=== PATIENT | male | born 1935 | race Caucasian/White ===

== ENCOUNTER 2016-10-25 17:23 | Emergency (ER) | payer BC ==
[~2016-10-25] VITALS: Ht 180.3 cm; Wt 104.7 kg
[~2016-10-25 17:23] MED LIST: ACET-1175 PO; ASCA500 PO; BISA10SU38 PR; ENAL10TA88 PO; ENOX30IN4 SQ; FLM4 PO; FOLI400T41 PO; FURO20TA PO; LORA-741 PO; MAGNESIUM WITH ZINC PO; METHTAB2 PO; METO-551 PO; MOML PO; OXYC-57 PO; PRS5 PO; SENN-63 PO; VIT C; VITAMIN B-COMPLEX PO
[2016-10-25 17:30] VITALS: TEMP 36.7; Ht 180.3 cm; Wt 104.7 kg
[2016-10-25] MEDS ORDERED: VITBC PO (17:58)
[2016-10-25] MEDS ORDERED: FURO-85 PO (17:58)
[2016-10-25] MEDS ORDERED: FOLI1TAB8 PO (17:58)
[2016-10-25] MEDS ORDERED: CHOL20005 PO (17:58)
--- NOTE | 2016-10-25 18:05 | EMERGENCY ROOM VISIT NOTE ---
History Report prepared by Dayanaibcristela: Tete Garcia Under the Supervision of: Dr. Dami Negrete D.O. First contact with patient: 17:40 Chief Complaint: LEG PAIN,LEG INJURY Stated Complaint: NUMBNESS FROM KNEES TO FEET. History of Present Illness The patient is a 81 year old male who presents to the Emergency Room with complaints of persistent bilateral leg pain that started prior to arrival. He was brought to the ED via BLS from home and is accompanied by his . The patient is unable to ambulate without the assistance of a walker and states he uses a "wench system" to get on and off the toilet. Something went wrong with the system while he was using the toilet earlier this evening and his ended up attempting to lower him to the ground. He has arthritis and is unable to bend his knees, so he states he was resting his knees on the ground for about 20 minutes while his called for an ambulance. He currently complains of numbness from the middle of his bilateral thighs down to his toes. He rates his discomfort as a 2/10. He states both of his legs are more swollen than normal. The patient has not attempted to ambulate since the incident. He denies hitting his head or any loss of consciousness. He notes the wench system is homemade and the [facility] has never been into his home to evaluate it. Source of History: patient, spouse/significant other () Onset: [employer] Position: leg (bilateral) Symptom Intensity: 2/10 Quality: numbness Timing: other (persistent) Associated Symptoms: No LOC Review of Systems See HPI for pertinent positives and negatives. A total of ten systems were reviewed and were otherwise negative. Past Medical & Surgical Medical Problems: (1) Acute Venous Embolism & Thrombosis Deep Vessels Distal Le (2) Benign Neoplasm Lg Bowel (3) Diverticulosis Colon (W/O Ment Of Hemorrhage) (4) Duodenal Ulcer Nos (5) Hypertrophy (Benign) Of Prostate W/O Urinary Obst & Oth Luts (6) Spinal Stenosis, Lumbar Reg, W/Out Neurogenic Claudication Social History Smoking Status: Unknown if Ever Smoked Alcohol Use: none Drug Use: none Marital Status: Housing Status: lives with significant other Occupation Status: retired Current/Historical Medications Scheduled Ascorbic Acid (Vitamin C *), 500 MG PO QPM Cholecalciferol (Vitamin D3), 2,000 UNIT PO QPM Enalapril (Vasotec), 10 MG PO BID Finasteride (Proscar), 5 MG PO DAILY Folic Acid (Folvite), 1 MG PO DAILY Furosemide (Lasix), 40 MG PO QAM Furosemide (Lasix), 20 MG PO QPM Magnesium Hydroxide (Milk Of Magnesia), 30 ML PO Q8HR PRN Methenamine/Sod Phosphate (Uroqid-Acid #2), 1 GM PO DAILY Metoprolol Tartrate (Lopressor), 50 MG PO BID Sennosides (Senokot), 1 TAB PO M-W-F AND PRN Tamsulosin Hcl (Flomax *), 0.4 MG PO DAILY Vitamin B Complex (Vitamin B Complex), 1 TAB PO QPM Scheduled PRN Acetaminophen (Tylenol), 325 MG PO Q8 PRN for Pain or Fever Bisacodyl (Dulcolax), 1 SUPP MT Q 4 DAYS IF NO BM PRN for PRN Oxycodone/Acetaminophen 5MG/325MG (Percocet 5MG/325MG), 1-2 TAB PO Q4H PRN Allergies Coded Allergies: Levofloxacin (Verified Allergy, Unknown, ., 10/25/16) Sulfa Drugs (Verified Allergy, Unknown, `, 10/25/16) Physical Exam Vital Signs Date Time Temp Pulse Resp B/P Pulse Ox O2 Delivery O2 Flow Rate FiO2 10/25/16 20:36 79 18 131/98 98 Room Air 10/25/16 19:15 78 20 133/94 97 Room Air 10/25/16 17:30 36.7 84 18 118/88 100 Room Air Physical Exam GENERAL: Awake, alert, well-appearing, in no acute distress HENT: Normocephalic, atraumatic. Oropharynx unremarkable. EYES: Normal conjunctiva. Sclera non-icteric. NECK: Supple. No nuchal rigidity. FROM. No JVD. RESPIRATORY: Clear to auscultation. CARDIAC: Regular rate, normal rhythm. Extremities warm and well perfused. Pulses equal. ABDOMEN: Soft, non-distended. No tenderness to palpation. No rebound or guarding. No masses. RECTAL: Deferred. MUSCULOSKELETAL: Chest examination reveals no tenderness. The back is symmetrical on inspection without obvious abnormality. There is no CVA tenderness to palpation. No joint edema. LOWER EXTREMITIES: Mild tenderness to palpation at left mid lateral thigh, no ecchymosis at the tender part for the patient. Left knee has limited ROM secondary to history of arthritis, no ecchymosis, edema or tenderness. Right thigh is normal. Right knee showed subpatellar ecchymosis, no tenderness, good ROM, both extremities are neurovascularly intact. Chronic cellulitis bilaterally below the mid calf. Anterior right calf has small ecchymotic area of about 2 cm. NEURO: Normal sensorium. No sensory or motor deficits noted. SKIN: No rash or jaundice noted. Medical Decision & Procedures ER Provider Diagnostic Interpretation: This X-Ray was reviewed and interpreted by myself and the radiologist. LEFT FEMUR 2 VIEWS ROUTINE IMPRESSION: No fracture or dislocation within the left femur. Electronically signed by: Andrew Ordaz M.D. 10/25/2016 7:46 PM ED Course 1753: The patient was evaluated in room C10. A complete history and physical exam was performed. 1904: I reevaluated the patient. He has not gone to X-Ray yet but is resting comfortably. 2002: I reevaluated the patient. He is resting comfortably. 2025: Nursing informed me the patient passed his ambulatory trial. 2029: I discussed the patients case with Case Management. They are going to talk with the patient about more in home care. 2034: I reevaluated the patient. He is feeling much better. He does not want to pursue at home therapy at this time, but has the numbers of local home support and will follow up with his primary care provider. His family feels they are able to care for him at home. I discussed his results and discharge instructions and he and his verbalized complete understanding and agreement. Medical Decision Prior records/ancillary studies reviewed. Triage Nursing notes reviewed. The patient's history was concerning for traumatic injury Differential diagnosis: Etiologies such as fracture, dislocation, intra-abdominal, pneumothorax, intrathoracic , intracranial, neurologic, as well as other traumatic pathologies were entertained. MDM: Vision is an 81-year-old male who has severe arthritis and difficulty getting around his was helping him to get onto the toilet when he slipped from his homemade lift device. He slumped over the toilet in the lay there for approximately 15-20 minutes for EMS responded to let the patient up off the floor and the toilet. He has pain in both legs and left lateral thigh. Ecchymosis is noted. X-ray was obtained showing no bony injury. He was able to get up and ambulate as per his baseline. Discussion with family care management about the home nursing and home rehabilitation therapies were made. The family states they will follow-up with the area agency on aging. As well as contact with the primary care provider about possibility of home nursing care. He remained comfortable and happy with his emergency department care will follow up with primary care provider and couple of days. Department information was provided and he and his family understand. The patient's presentation and history is c/w the impression provided. A partial list of DDx that has been considered is listed above. By the evaluation outlined above other emergent etiologies such as those listed in the differential, as well as others, were deemed relatively unlikely. The patient has been informed about today's findings. All questions were answered to satisfaction and understanding. They are pleased with the care provided. Patient education and return instructions were discussed as per my usual and the patient was discharged in stable condition as agreed upon by the patient. The patient was referred for close follow-up and informed that they will need to call to schedule appointment during the next business hours. The chart was completed utilizing a scribe and [employer] Speech voice recognition software. Utilizing these services results in errors at time as they are imperfect. Grammatical errors, random word insertions, pronoun errors, and incomplete sentences are an occasional consequence of this system due to software limitations, ambient noise, and hardware issues. Any formal questions or concerns about the content, text, or information contained within the body of this dictation should be directly addressed to the physician for clarification. Impression Primary Impression: Fall Additional Impressions: Bilateral leg pain, Paresthesia, Multiple contusions Scribe Attestation The scribe's documentation has been prepared under my direction and personally reviewed by me in its entirety. I confirm that the note above accurately reflects all work, treatment, procedures, and medical decision making performed by me. Departure Information Dispostion Home / Self-Care Referrals Waqas Ralph M.D. (PCP) Patient Instructions A Signature Page, ED Contusion Lower Ext, Falls Prevent Home, [facility] Additional Instructions Take acetaminophen home as directed for pain. Utilizing a walker or wheelchair to get around the home. Getting contact with the area agency on aging for home support. See your doctor in 2 days. Return to the emergency department as needed for any severe pains or inability to care for yourself.
--- NOTE | 2016-10-25 19:48 | DIAGNOSTIC IMAGING REPORT ---
LEFT FEMUR 2 VIEWS ROUTINE CLINICAL HISTORY: left thigh pain s/p fall COMPARISON STUDY: None. FINDINGS: No fracture or dislocation within the left femur. Vascular calcifications are noted. The visualized pelvic bones are intact. No knee effusion. IMPRESSION: No fracture or dislocation within the left femur. Electronically signed by: Andrew Ordaz M.D. 10/25/2016 7:46 PM
[2016-10-25 20:36] VITALS: BP 131/98; PULSE 79; O2SAT 98
[2017-05-16] MEDS ORDERED: ACET-1175 PO (14:18)
[2017-05-16] MEDS ORDERED: FURO80TA63 PO (14:24)
[2017-05-16] MEDS ORDERED: METO-551 PO (14:28)
[2017-05-16] MEDS ORDERED: ASPCH81X PO (14:34)
[2017-05-16] MEDS ORDERED: XRL10 PO (14:38)
[2017-05-16] MEDS ORDERED: DOXY100C41 PO (14:39)
[2017-05-16] MEDS ORDERED: LORA10TA51 PO (14:41)
[2017-05-18] MEDS ORDERED: LVNIS120 SQ (12:00)
[2017-05-19] MEDS ORDERED: ERYOPO OPB (09:21)
[2017-05-31] MEDS ORDERED: METH-1305 PO (11:08)
[2017-06-06] MEDS ORDERED: FRS/40 PO (12:44)
[2017-06-06] MEDS ORDERED: KFL500 PO (12:44)
[2017-06-06] MEDS ORDERED: PRT40 PO (12:44)
[2017-06-18] MEDS ORDERED: AZITTAB PO (03:03)
[2017-06-18] MEDS ORDERED: IPRASOL4 NEB (11:08)
[2017-09-21] MEDS ORDERED: MOML PO (15:28)
[2017-09-21] MEDS ORDERED: PANT40TA PO (15:28)
[2017-09-21] MEDS ORDERED: MULTTAB63 PO (15:28)
[2017-09-21] MEDS ORDERED: FRS/40 PO (15:28)
== END 2016-10-25 20:42 | disposition home or self-care (01) ==
LOC: EDBD 17:23 → C.EDC 17:25
DX: M79.605 Pain in left leg (principal); M79.604 Pain in right leg; R20.2 Paresthesia of skin; T14.8 Other injury of unspecified body region; X58.XXXA Exposure to other specified factors, initial encounter

== ENCOUNTER → 2017-02-01 | Outpatient (CLI) | payer BC ==
[~2017-02-01] MED LIST changes: +AMOX875T PO; +ASCO500T16 PO; +ASPCH81X PO; +AZITTAB PO; +CHOL20005 PO; +DOXY100C41 PO; -ENOX30IN4 SQ; +ERYOPO OPB; +FINA5TAB4 PO; +FOLI1TAB7 PO; -FOLI400T41 PO; +FRS/40 PO; +FURO-85 PO; +FURO80TA63 PO; +IPRASOL4 NEB; +KFL500 PO; -LORA-741 PO; +LORA10TA51 PO; +LVNIS120 SQ; -MAGNESIUM WITH ZINC PO; +METH-1305 PO; +MULT-513 PO; +MULTTAB63 PO; +OXGN; +PANT40TA PO; +PRT40 PO; +TAMS0.4C38 PO; +THIC1LIQ PO; -VIT C; -VITAMIN B-COMPLEX PO; +VITBC PO; +XRL10 PO
[2017-02-01 09:03] LABS: BLOOD UREA NITROGEN 42 mg/dl (7-18); BUN/CREATININE RATIO 63.5 (10-20); CALCIUM 7.8 mg/dl (8.5-10.1); CARBON DIOXIDE 23 mmol/L (21-32); CHLORIDE 106 mmol/L (98-107); CREATININE 0.66 mg/dl (0.60-1.40); GLUCOSE 105 mg/dl (70-99); POTASSIUM 3.8 mmol/L (3.5-5.1); SODIUM 139 mmol/L (136-145)
[2017-02-01 09:17] LABS: HEMATOCRIT 32.9 % (42-52); MEAN CELL VOLUME 102.2 fL (80-100); MEAN CORPUSCULAR HEMOGLOBIN 34.8 pg (25-34); MEAN PLATELET VOLUME 9.6 fL (7.4-10.4); PLATELET COUNT 88 K/uL (130-400); RED BLOOD COUNT 3.22 M/uL (4.7-6.1)
[2017-02-01 09:38] LABS: BASO % 0.1 %; BASO ABS # 0.01 K/uL (0-0.2); COMPLETE YES; ECHINOCYTES 1+; EOS % 0.1 %; IG% 0.1 %; LYMPH % 23.2 %; LYMPH ABS # 1.65 K/uL (1.2-3.4); NEUT % 65.5 %; PLT ESTIMATE DECREASED
[2017-02-01 09:53] LABS: URINE APPEARANCE CLEAR (CLEAR); URINE BILIRUBIN NEG (NEG); URINE COLOR YELLOW; URINE NITRITE POS (NEG); URINE SPECIFIC GRAVITY 1.013 (1.000-1.030); UROBILINOGEN NEG (NEG)
[2017-02-01 09:59] LABS: MANUAL MICROSCOPIC REQUIRED? NO; REVIEW REQ? NO
== END | disposition home or self-care (01) ==
LOC: C.LABCC 07:56
PROVIDERS: ATTEND Internal Medicine
DX: R50.9 Fever, unspecified (principal); R30.0 Dysuria

== ENCOUNTER → 2017-04-26 | Outpatient (CLI) | payer BC ==
[~2017-04-26] MED LIST changes: -METH-1305 PO; +METH1TAB5 PO; -MULTTAB63 PO; -PANT40TA PO
== END | disposition home or self-care (01) ==
LOC: C.LABCC 09:19
PROVIDERS: ATTEND Internal Medicine
DX: R63.5 Abnormal weight gain (principal)

== ENCOUNTER → 2017-04-27 | Outpatient (CLI) | payer BC ==
[2017-04-27 10:01] LABS: BLOOD UREA NITROGEN 64 mg/dl (7-18); BUN/CREATININE RATIO 78.4 (10-20); CALCIUM 8.3 mg/dl (8.5-10.1); CARBON DIOXIDE 19 mmol/L (21-32); CHLORIDE 113 mmol/L (98-107); CREATININE 0.82 mg/dl (0.60-1.40); GLUCOSE 97 mg/dl (70-99); POTASSIUM 3.8 mmol/L (3.5-5.1); SODIUM 141 mmol/L (136-145)
== END ==
LOC: C.LABCC 09:18
PROVIDERS: ATTEND Internal Medicine
DX: R63.5 Abnormal weight gain (principal)

== ENCOUNTER → 2017-05-09 | Outpatient (CLI) | payer BC | LOC: C.LABCC 09:06 | PROVIDERS: ATTEND Internal Medicine | DX: R60.9 Edema, unspecified (principal) ==

== ENCOUNTER → 2017-05-15 | Outpatient (CLI) | payer BC ==
[2017-05-15 08:50] LABS: ALT/SGPT 20 U/L (12-78); BLOOD UREA NITROGEN 63 mg/dl (7-18); BUN/CREATININE RATIO 71.1 (10-20); CALCIUM 8.3 mg/dl (8.5-10.1); CARBON DIOXIDE 26 mmol/L (21-32); CHLORIDE 101 mmol/L (98-107); CREATININE 0.88 mg/dl (0.60-1.40); GLUCOSE 88 mg/dl (70-99); POTASSIUM 4.5 mmol/L (3.5-5.1); SODIUM 135 mmol/L (136-145)
[2017-05-15 08:53] LABS: ALB/GLOB RATIO 0.6 (0.9-2); ALKALINE PHOSPHATASE 85 U/L (45-117); AST/SGOT 20 U/L (15-37)
== END ==
LOC: C.LABCC 08:07
PROVIDERS: ATTEND Internal Medicine
DX: R60.9 Edema, unspecified (principal)

== ENCOUNTER 2017-05-16 12:20 | Inpatient (IN) | payer BC, OTHER ==
[~2017-05-16] VITALS: Ht 180.3 cm; Wt 114.6 kg
[~2017-05-16 12:20] MED LIST changes: -AMOX875T PO; -ASCO500T16 PO; -ASPCH81X PO; -AZITTAB PO; -DOXY100C41 PO; -ERYOPO OPB; -FINA5TAB4 PO; -FRS/40 PO; -FURO80TA63 PO; -IPRASOL4 NEB; -KFL500 PO; -LORA10TA51 PO; -LVNIS120 SQ; -METH1TAB5 PO; -MULT-513 PO; -OXGN; -PRT40 PO; -TAMS0.4C38 PO; -THIC1LIQ PO; -XRL10 PO
[2017-05-16 13:30] VITALS: BP 100/67; PULSE 78; TEMP 36.5; O2SAT 94; Ht 180.3 cm; Wt 114.6 kg
[2017-05-16] MEDS ORDERED: ACET-1175 PO ×2 (14:18)
[2017-05-16] MEDS ORDERED: FURO80TA63 PO ×2 (14:24)
[2017-05-16] MEDS ORDERED: METO-551 PO ×2 (14:28)
[2017-05-16] MEDS ORDERED: ASPCH81X PO ×2 (14:34)
[2017-05-16] MEDS ORDERED: XRL10 PO ×2 (14:38)
[2017-05-16] MEDS ORDERED: DOXY100C41 PO ×2 (14:39)
[2017-05-16] MEDS ORDERED: LORA10TA51 PO ×2 (14:41)
[2017-05-16] MEDS ORDERED: ONDANSETRON INJ 2 MG/ML 2 ML VIAL IV PRN (15:15)
[2017-05-16] MEDS ORDERED: ALUMINUM/MAGNESIUM/SIMETH (MAALOX MAX) 30 ML UDC PO PRN (15:15)
[2017-05-16] MEDS ORDERED: OXYCODONE/ACETAMINOPHEN 5-325 TAB PO PRN (15:15)
[2017-05-16] MEDS ORDERED: BISACODYL 10 MG SUPP PR PRN (15:15)
[2017-05-16] MEDS ORDERED: ACETAMINOPHEN 325 MG TAB PO PRN (15:15)
[2017-05-16] MEDS ORDERED: MAGNESIUM HYDROXIDE SUSP 30 ML UDC PO PRN (15:15)
[2017-05-16] MEDS ORDERED: POLYETHYLENE (MIRALAX) 17 GM PACK PO PRN (16:00)
[2017-05-16] MEDS: ALBUT/IPRATROP 3MG/0.5MG NEB 3 ML VIAL INH SCH ×2 (16:00→19:35)
--- NOTE | 2017-05-16 16:00 | History and Physical ---
History & Physical Date & Time of Service: May 16, 2017 at 15:28 Chief Complaint: Bilateral Le Dvt's Primary Care Physician: Riaz Gallagher History of Present Illness Source: patient, family ( and son- at bedside), clinic records, hospital records Patient is a pleasant 82 y/o male, with PMHx of anemia/chronic thrombocytopenia , homocysteinemia, lupus anticoagulant positive, h/o bilateral lower extremity DVT in 2010, intraabdominal hematoma w/ the use of Warfarin, HTN, BPH, polyneuropathy, chronic venous insufficiency, chronic lower extremity edema, paroxysmal a.fib, peripheral artery disease, and h/o duodenal ulcer, who was a direct admission from [facility] due to persistent bilateral lower extremity DVT and pain. Bilateral DVTs were diagnosed on 05/11. Patient was placed on Xarelto. Since that time, patient has been complaining of worsening bilateral lower extremity pain. Because of this, a repeat US was obtained today and reported: persistent DVT right common femoral vein, profundofemoral, femoral vein, new DVT to right popliteal vein, and decreased left femoral DVT. Patient states in 2010, he was diagnosed with bilateral lower extremity DVTs. At that time, he was placed on Lovenox and bridged w/ Coumadin. Shortly after initiating therapy, patient developed significantly bleeding. He was life- flighted to [facility], was found to have intraabdominal hematomas. An IVC filter was placed. Patient has not been on anticoagulation since filter placement until recently on 05/11 when he was started on Xarelto by [facility]. Per PCP reports, it was discussed with patient about chronic anticoagulation therapy for paroxysmal a.fib, but due to gait dysfunction and h/ o of significant bleeding, patient declined. +chronic cough- non worsening. Patient denies any fever, chills, sweats, lightheadedness, dizziness, vision changes, CP, palpitations, edema, SOB, wheezing, abdominal pain, nausea, vomiting, diarrhea, urinary symptoms, melena, numbness/tingling, weakness, anxiety/depression, active bleeding, or new skin discoloration/changes. Past Medical/Surgical History Medical Problems: anemia/chronic thrombocytopenia homocysteinemia lupus anticoagulant positive h/o bilateral lower extremity DVT in 2010 intraabdominal hematoma w/ the use of Warfarin HTN BPH polyneuropathy chronic venous insufficiency chronic lower extremity edema paroxysmal a.fib peripheral artery disease h/o duodenal ulcer Surgical history: C-spine discectomy IVC filter placement in Sep 2011 Social History Smoking Status: Never Smoker Smokeless Tobacco Use: Yes Alcohol Use: h/o alcohol abuse Drug Use: none Marital Status: Housing status: assisted living ([facility] ) Occupational Status: retired Immunizations History of Influenza Vaccine: Unknown History of Tetanus Vaccine?: Unknown History of Pneumococcal: Unknown History of Hepatitis B Vaccine: Unknown Multi-Drug Resistant Organisms History of MDRO: Yes Type of MDRO: MRSA Allergies Coded Allergies: Levofloxacin (Verified Allergy, Unknown, ., 10/25/16) Sulfa Antibiotics (Verified Allergy, Unknown, ., 05/16/17) Home Medications Scheduled Ascorbic Acid (Vitamin C *), 500 MG PO QPM Aspirin (Aspirin Chewable), 81 MG PO DAILY Doxycycline (Monohydrate) (Monodox), 1 CAP PO BID Enalapril (Vasotec), 10 MG PO BID Finasteride (Proscar), 5 MG PO DAILY Folic Acid (Folvite), 1 MG PO DAILY Furosemide (Lasix), 1 TAB PO BID Loratadine (Claritin), 1 TAB PO DAILY Magnesium Hydroxide (Milk Of Magnesia), 30 ML PO Q8HR PRN Methenamine/Sod Phosphate (Uroqid-Acid #2), 1 GM PO DAILY Metoprolol Tartrate (Lopressor), 1 TAB PO DAILY Rivaroxaban (Xarelto), 1.5 TAB PO BID Tamsulosin Hcl (Flomax *), 0.4 MG PO DAILY Vitamin B Complex (Vitamin B Complex), 1 TAB PO QPM Scheduled PRN Acetaminophen (Tylenol), 650 MG PO Q4H PRN for Pain or Fever Bisacodyl (Dulcolax), 1 SUPP AR Q 4 DAYS IF NO BM PRN for PRN Physical Exam General Appearance: no apparent distress Head: normocephalic, atraumatic Eyes: PERRL ENT: hearing grossly normal Neck: supple Respiratory/Chest: lungs clear, no respiratory distress, no accessory muscle use Cardiovascular: regular rate, rhythm Abdomen/GI: normal bowel sounds, non tender, soft Extremities/Musculoskelatal: + swelling (+1 pitting edema of bilateral lower extremities ), + pertinent finding (chronic stasis dermatitis changes noted to bilateral lower extremities; LLE resendiz region wrapped in clean dressing ) Neurologic/Psych: alert, normal mood/affect, oriented x 3 Skin: normal color, warm/dry, no rash Impression Assessment and Plan Patient is a pleasant 82 y/o male, with PMHx of anemia/chronic thrombocytopenia , homocysteinemia, lupus anticoagulant positive, h/o bilateral lower extremity DVT in 2010, intraabdominal hematoma w/ the use of Warfarin, HTN, BPH, polyneuropathy, chronic venous insufficiency, chronic lower extremity edema, paroxysmal a.fib, peripheral artery disease, and h/o duodenal ulcer, who was a direct admission from [facility] due to persistent bilateral lower extremity DVT and pain. Bilateral lower extremity DVT, failed outpatient Xarelto treatment: - Admit to med/surg - IV Heparin- monitor closely w/ h/o significant bleeding - Percocet and Tylenol PRN for pain control - PT/OT - Consult hematology, appreciate recommendations - CBC and PRP pending HTN: Continue Vasotec 10 mg BID Paroxysmal a.fib- currently NSR: Lopressor 50 mg daily Homocystinemia: Continue b12 and folate supplement BPH: Continue Proscar 5 mg daily Chronic cough: Continue DuoNebs PRN Chronic lower extremity edema: Continue Lasix 80 mg BID Venous stasis ulcer to LLE: Continue Doxycycline 100 mg BID GI Prophylaxis: Protonix 40 mg daily DVT Prophylaxis: IV Heparin Code Status: LEVEL I, FULL Dispo: Resident of [facility]- oncology social worker consulted I personally interviewed and examined the patient I discussed the above plan with Miss Marisabel Poole I agree with her Hx and PE 82 years old man with PMHx homocysteinemia, lupus anticoagulant positive and recurrent DVT/PE. was on coumadin when he developed life threatening bleeding followed by IVC filter. recently was restarted on xarelto for recurrent DVT/pain appears to have progression of his symptoms and was sent for evaluation Spoke with Mamta from [facility] (patients nurse), xarelto was started on initial doppler showed the acute dvt, repeat doppler showed new DVT. questionable failure of xarelto ROS/PMHx: as HPI FHx/SHx/labs/meds reviewed as needed PE: average built , not in acute distress LUNGs: normal exam, no wheezing/R Heart: s1/s2 bradycardia, no G/R/M ABD: soft, ND, N tender Ext: B/L LE edema and swelling w erythema Neuro: pleasant,slightly confused but followed simple commands and answered simple question Assessment: recurrent DVT , failure of xarelto Hx of significant bleeding on coumadin followed by IVCF Plan: admit to hospital reed currently started heparin drip early childhood coordinator consulted, I am not sure about the best choice of discharge anticoagulation, will defer the decision to early childhood coordinator. labs in am Level of Care Med/Surg Resuscitation Status FULL RESUSCITATION VTE Prophylaxis VTE Risk Assessment Done? Y/N: Yes Risk Level: High Given or contraindicated: Other Anticoagulation (IV heparin )
[2017-05-16] MEDS ORDERED: HEPARIN IV BOLUS 7,000 UNIT in SYRINGE 0 ML IV ONE (16:45)
[2017-05-16] MEDS: HEPARIN 25000 UNIT/ D5W 500 ML (PHARMACY PREPARED) IV PRN ×2 (17:07)
[2017-05-16 17:08] LABS: HEMATOCRIT 33.7 % (42-52); MEAN CELL VOLUME 104.3 fL (80-100); MEAN CORPUSCULAR HEMOGLOBIN 34.1 pg (25-34); MEAN CORPUSCULAR HGB CONC 32.6 g/dl (32-36); MEAN PLATELET VOLUME 8.9 fL (7.4-10.4); PLATELET COUNT 141 K/uL (130-400); RED BLOOD COUNT 3.23 M/uL (4.7-6.1); WHITE BLOOD COUNT 5.12 K/uL (4.8-10.8)
[2017-05-16] MEDS: FUROSEMIDE 80 MG TAB PO SCH (17:11)
[2017-05-16 17:27] LABS: BUN/CREATININE RATIO 82.8 (10-20); CALCIUM 8.2 mg/dl (8.5-10.1); CREATININE 0.78 mg/dl (0.60-1.40); POTASSIUM 4.2 mmol/L (3.5-5.1)
[2017-05-16 19:35] VITALS: PULSE 78; O2SAT 91
[2017-05-16 19:45] VITALS: BP 99/60; PULSE 74; O2SAT 93
[2017-05-16] MEDS: ENALAPRIL MALEATE 10 MG TAB PO SCH (19:51)
[2017-05-16] MEDS: DOXYCYCLINE HYCLATE 100 MG CAP PO SCH (20:28)
[2017-05-16] MEDS: ASCORBIC ACID 500 MG TAB PO SCH (20:28)
[2017-05-16] MEDS: VITAMIN B COMPLEX TAB PO SCH (20:28)
[2017-05-16 23:33] LABS: PARTIAL THROMBOPLASTIN RATIO 1.2
[2017-05-16 23:35] VITALS: BP 138/97; PULSE 75; TEMP 36.8; O2SAT 92
[2017-05-17] VITALS (9 sets, daily range): BP systolic 98–138; BP diastolic 60–75; PULSE 69–84; TEMP 36.5–36.6; O2SAT 91–95
[2017-05-17] MEDS: HEPARIN 25000 UNIT/ D5W 500 ML (PHARMACY PREPARED) IV PRN ×6 (00:15→18:47)
[2017-05-17] MEDS ORDERED: HEPARIN IV BOLUS 7,000 UNIT in SYRINGE 0 ML IV ONE ×3 (00:15→17:45)
[2017-05-17] MEDS: ALBUT/IPRATROP 3MG/0.5MG NEB 3 ML VIAL INH SCH ×7 (03:08→23:28)
[2017-05-17] MEDS: DOXYCYCLINE HYCLATE 100 MG CAP PO SCH ×2 (07:45→19:43)
[2017-05-17] MEDS: ENALAPRIL MALEATE 10 MG TAB PO SCH ×2 (07:45→19:44)
[2017-05-17] MEDS: PANTOprazole SOD 40 MG TAB PO SCH (07:46)
[2017-05-17] MEDS: FINASTERIDE 5 MG TAB PO SCH (07:46)
[2017-05-17] MEDS: ASPIRIN 81 MG ECTAB PO SCH (07:46)
[2017-05-17] MEDS: LORATADINE 10 MG TAB PO SCH (07:46)
[2017-05-17] MEDS: METOPROLOL TARTRATE 50 MG TAB PO SCH (07:47)
[2017-05-17] MEDS: FUROSEMIDE 80 MG TAB PO SCH ×2 (07:47→17:43)
[2017-05-17] MEDS: TAMSULOSIN HCL 0.4 MG CAP PO SCH (07:47)
[2017-05-17 08:42] LABS: HEMATOCRIT 33.1 % (42-52); MEAN CELL VOLUME 103.8 fL (80-100); MEAN CORPUSCULAR HEMOGLOBIN 34.8 pg (25-34); MEAN CORPUSCULAR HGB CONC 33.5 g/dl (32-36); MEAN PLATELET VOLUME 9.3 fL (7.4-10.4); PLATELET COUNT 150 K/uL (130-400); RED BLOOD COUNT 3.19 M/uL (4.7-6.1); WHITE BLOOD COUNT 5.12 K/uL (4.8-10.8)
[2017-05-17 08:49] LABS: INR 1.1 (0.9-1.1); PARTIAL THROMBOPLASTIN RATIO 1.2; PROTHROMBIN TIME (PATIENT) 12.3 SECONDS (9.0-12.0)
[2017-05-17 09:26] LABS: BUN/CREATININE RATIO 75.6 (10-20); CALCIUM 8.3 mg/dl (8.5-10.1); CREATININE 0.81 mg/dl (0.60-1.40); POTASSIUM 3.3 mmol/L (3.5-5.1)
--- NOTE | 2017-05-17 15:25 | Family Medicine Progress Note ---
Progress Note Date of Service May 17, 2017. Subjective Pt evaluation today including: conversation w/ patient, physical exam, chart review, lab review Pain: in left lower extremity PO Intake: good Voiding: no voiding problems 82 y/o male, with PMHx of anemia/chronic thrombocytopenia, homocysteinemia, lupus anticoagulant positive, h/o bilateral lower extremity DVT in 2010, intraabdominal hematoma w/ the use of Warfarin, HTN, BPH, polyneuropathy, chronic venous insufficiency, chronic lower extremity edema, paroxysmal a.fib, peripheral artery disease, and h/o duodenal ulcer, who was a direct admission from [facility] due to persistent bilateral lower extremity DVT and pain. Has a history of bilateral DVTs in 2010 and had an intraperitoneal bleed while on Lovenox and bridging to Coumadin after which she was life flighted to [facility] and had an IVC filter placed. Was started on Xarelto on 05/11 for DVT. Repeat ultrasound obtained 05/16 revealed persistent DVT right common femoral vein, profundofemoral, femoral vein , new DVT to right popliteal vein, and decreased left femoral DVT Complains of left lower extremity pain especially below his calf area which is worse on palpation. He has a history of chronic venous stasis with venous ulcers about the same area. Denies any chest pain, difficulty breathing Constitutional: No fever, No chills ENT: + hearing loss Respiratory: No cough, No sputum, No shortness of breath Cardiovascular: No chest pain Abdomen: No pain, No nausea, No vomiting Neurologic: No memory loss, No paralysis Medications Current Inpatient Medications Medications (Trade) Dose Ordered Sig/Ekta Route Start Time Stop Time Status Last Admin Dose Admin Acetaminophen (Tylenol Tab) 650 mg Q4H PRN PO 05/16/17 15:15 06/15/17 15:14 Al Hydrox/Mg Hydrox/Simethicone (Maalox Max Susp) 15 ml Q4H PRN PO 05/16/17 15:15 06/15/17 15:14 Magnesium Hydroxide (Milk Of Magnesia Susp) 30 ml Q6H PRN PO 05/16/17 15:15 06/15/17 15:14 Polyethylene (Miralax Powder Packet) 17 gm DAILY PRN PO 05/16/17 16:00 06/15/17 15:59 Ondansetron HCl (Zofran Inj) 4 mg Q6H PRN IV 05/16/17 15:15 06/15/17 15:14 Ascorbic Acid (Vitamin C Tab) 500 mg QPM PO 05/16/17 21:00 06/15/17 20:59 05/16/17 20:28 500 MG Aspirin (Ecotrin Tab) 81 mg QAM PO 05/17/17 08:00 06/16/17 07:59 05/17/17 07:46 81 MG Bisacodyl (Dulcolax Supp) 5 mg DAILY PRN ME 05/16/17 15:15 06/15/17 15:14 Enalapril Maleate (Vasotec Tab) 10 mg BID PO 05/16/17 20:00 06/15/17 19:59 05/17/17 07:45 10 MG Finasteride (Proscar Tab) 5 mg DAILY PO 05/17/17 08:00 06/16/17 07:59 05/17/17 07:46 5 MG Folic Acid (Folvite Tab) 1 mg DAILY PO 05/17/17 08:00 06/16/17 07:59 05/17/17 07:46 1 MG Furosemide (Lasix Tab) 80 mg BID17 PO 05/16/17 17:00 06/15/17 16:59 05/17/17 07:47 80 MG Loratadine (Claritin Tab) 10 mg DAILY PO 05/17/17 08:00 06/16/17 07:59 05/17/17 07:46 10 MG Metoprolol Tartrate (Lopressor Tab) 50 mg DAILY PO 05/17/17 08:00 06/16/17 07:59 05/17/17 07:47 50 MG Tamsulosin HCl (Flomax Cap) 0.4 mg DAILY PO 05/17/17 08:00 06/16/17 07:59 05/17/17 07:47 0.4 MG Vitamin B Complex (Vitamin B Complex) 1 tab QPM PO 05/16/17 21:00 06/15/17 20:59 05/16/17 20:28 1 TAB Doxycycline Hyclate (Vibramycin Cap) 100 mg BID PO 05/16/17 20:00 05/22/17 20:01 05/17/17 07:45 100 MG Miscellaneous Information (Order Awaiting Action) 1 ea QS N/A 05/16/17 16:00 06/15/17 15:59 Oxycodone/ Acetaminophen (Percocet 5-325mg Tab) 1 tab Q4H PRN PO 05/16/17 15:15 05/30/17 15:14 Albuterol/ Ipratropium (Duoneb) 3 ml Q4R INH 05/16/17 16:00 06/15/17 15:59 05/17/17 11:14 3 ML Pantoprazole Sodium (Protonix Tab) 40 mg QAM PO 05/17/17 08:00 06/16/17 07:59 05/17/17 07:46 40 MG Heparin Sodium (Porcine) 65666 unit/Dextrose 500 ml @ 47 mls/hr [id number] PRN IV 05/16/17 16:45 06/15/17 16:44 05/17/17 07:45 40 MLS/HR Objective Vital Signs Date Time Temp Pulse Resp B/P (MAP) Pulse Ox O2 Delivery O2 Flow Rate FiO2 05/17/17 15:05 36.5 72 18 100/68 (79) 95 Room Air 05/17/17 11:16 69 16 92 Room Air 05/17/17 08:00 Room Air 05/17/17 07:14 79 17 91 Room Air 05/17/17 07:06 36.5 81 20 138/75 (96) 94 Room Air 05/17/17 01:00 Room Air 05/16/17 23:35 36.8 75 20 138/97 (111) 92 Room Air 05/16/17 20:10 Room Air 05/16/17 19:45 74 99/60 (73) 93 Room Air 05/16/17 19:35 78 16 91 Room Air Physical Exam General Appearance: WD/WN, no apparent distress Eyes: normal inspection Neck: supple Respiratory/Chest: lungs clear, normal breath sounds, no respiratory distress, no accessory muscle use Cardiovascular: regular rate, rhythm Abdomen: non tender, soft Extremities: + pedal edema, + pertinent finding (left lower extremity tenderness especially below the calf area. Superficial venous ulcers in the posterior aspect) Skin: + pertinent finding (chronic venous stasis dermatitis) Laboratory Results 05/17/17 08:07 05/17/17 08:07 Test 05/17/17 08:07 05/17/17 16:04 Red Blood Count 3.19 M/uL (4.7-6.1) Mean Corpuscular Volume 103.8 fL (80-100) Mean Corpuscular Hemoglobin 34.8 pg (25-34) Mean Corpuscular Hemoglobin Concent 33.5 g/dl (32-36) RDW Standard Deviation 52.5 fL (36.4-46.3) RDW Coefficient of Variation 13.9 % (11.5-14.5) Mean Platelet Volume 9.3 fL (7.4-10.4) Prothrombin Time 12.3 SECONDS (9.0-12.0) Prothromb Time International Ratio 1.1 (0.9-1.1) Anion Gap 11.0 mmol/L (3-11) Est Creatinine Clear Calc Drug Dose 90.5 ml/min Estimated GFR () 95.9 Estimated GFR (Non- 82.8 BUN/Creatinine Ratio 75.6 (10-20) Calcium Level 8.3 mg/dl (8.5-10.1) Assessment and Plan 82 y/o male, with PMHx of anemia/chronic thrombocytopenia, homocysteinemia, lupus anticoagulant positive, h/o bilateral lower extremity DVT in 2010, intraabdominal hematoma w/ the use of Warfarin, HTN, BPH, polyneuropathy, chronic venous insufficiency, chronic lower extremity edema, paroxysmal a.fib, peripheral artery disease, and h/o duodenal ulcer, who was a direct admission from [facility] due to persistent bilateral lower extremity DVT and pain. Bilateral lower extremity DVT: Was recently started on Xarelto on 05/11 for DVT but was found to have a DVT on ultrasound performed yesterday - unsure if he had received both doses of Xarelto or if he was truly a xarelto failure - Started on IV heparin yesterday, will be bridged to Coumadin - Appreciate hematology recommendations - Percocet and Tylenol PRN for pain control - PT/OT HTN: -Continue Vasotec 10 mg BID Paroxysmal atrial fibrillation - Rate controlled - Lopressor 50 mg daily - YOEL 2 Ds2 -vasc score of 5, 7.2% stroke risk annually -Patient had declined anticoagulation, will be covered by DVT anticoagulation Homocystinemia: - Continue b12 and folate supplement BPH: -Continue Proscar 5 mg daily Chronic lower extremity edema: -Continue Lasix 80 mg BID Venous stasis ulcer to LLE: -Continue Doxycycline 100 mg BID -Wound care consult DVT Prophylaxis: IV Heparin Full code Disposition: Admitted to [facility] Resident Physician Supervision Note: I interviewed and examined the patient. Discussed with Dr. Donovan and agree with findings and plan as documented in the note. Any exceptions or clarifications are listed here: None Documented By: Heron Nur feeling better less leg pain d/w wound nurse, heme/onc input appreciated vitals noted nad breathing unlabored leg less tender than before venous stasis changes no erythema DVT - as noted by heme/onc hard to tell if truly failed xarelto. will try to determine more - likely will need coumadin, but heparin fornow. hopefully back to [facility] tomorrow (either on lovenox--> coumadin or NOAC) Resident Tracking Resident Involvement: Resident Care Provided Care Provided: Adult Hospital Medicine
--- NOTE | 2017-05-17 16:40 | Oncology Consultation ---
Oncology/Heme Consultation Date of Consultation: May 17, 2017. Attending Physician: Heron Nur D.O. Reason for Consultation: Extension of DVT on Xarelto History of Present Illness Mr. Timmons is an 82 year old man with a history of recurrent VTE. He has had DVTs in 2009 and 2010. Following the DVT in 2010, he had an intraperitoneal hemorrhage while on Coumadin. As a result, he had an IVC filter placed that has never been removed. He developed chronic lower extremity phlebitic symptoms which persist to today. He had a doppler ultrasound on 05/11/17 after developing worsening of his lower extremity edema. This revealed extensive thrombus extending from bilateral common femoral veins through both thighs. The clot extended into the left popliteal vein, but the report clearly notes that the right popliteal vein was patent. He was started on Xarelto 15 mg BID on 05/12. The MAR from [facility] is somewhat difficult to interpret, so it's not entirely clear that he received all of his PM doses. His leg pain persisted, however, so he had another doppler on 05/16 that revealed extension of the thrombus into the right popliteal vein. As a result, he was sent to the ER for further management. He is now on a heparin drip and is not complaining of severe pain today. Past Medical/Surgical History Medical Problems: (1) Bilateral leg pain Status: Acute (2) Fall Status: Acute (3) Multiple contusions Status: Acute (4) Paresthesia Status: Acute Family History Non-contributory Social History Smoking Status: Never Smoker Smokeless Tobacco Use: Yes Alcohol Use: h/o alcohol abuse Drug Use: none Marital Status: Housing Status: lives with significant other Occupation Status: retired Allergies Coded Allergies: Levofloxacin (Verified Allergy, Unknown, ., 10/25/16) Sulfa Antibiotics (Verified Allergy, Unknown, ., 05/16/17) Home Medications Scheduled Ascorbic Acid (Vitamin C *), 500 MG PO QPM Aspirin (Aspirin Chewable), 81 MG PO DAILY Doxycycline (Monohydrate) (Monodox), 1 CAP PO BID Enalapril (Vasotec), 10 MG PO BID Finasteride (Proscar), 5 MG PO DAILY Folic Acid (Folvite), 1 MG PO DAILY Furosemide (Lasix), 1 TAB PO BID Loratadine (Claritin), 1 TAB PO DAILY Magnesium Hydroxide (Milk Of Magnesia), 30 ML PO Q8HR PRN Methenamine/Sod Phosphate (Uroqid-Acid #2), 1 GM PO DAILY Metoprolol Tartrate (Lopressor), 1 TAB PO DAILY Rivaroxaban (Xarelto), 1.5 TAB PO BID Tamsulosin Hcl (Flomax *), 0.4 MG PO DAILY Vitamin B Complex (Vitamin B Complex), 1 TAB PO QPM Scheduled PRN Acetaminophen (Tylenol), 650 MG PO Q4H PRN for Pain or Fever Bisacodyl (Dulcolax), 1 SUPP VA Q 4 DAYS IF NO BM PRN for PRN Current Inpatient Medications Current Inpatient Medications Medications (Trade) Dose Ordered Sig/Ekta Route Start Time Stop Time Status Last Admin Dose Admin Acetaminophen (Tylenol Tab) 650 mg Q4H PRN PO 05/16/17 15:15 06/15/17 15:14 Al Hydrox/Mg Hydrox/Simethicone (Maalox Max Susp) 15 ml Q4H PRN PO 05/16/17 15:15 06/15/17 15:14 Magnesium Hydroxide (Milk Of Magnesia Susp) 30 ml Q6H PRN PO 05/16/17 15:15 06/15/17 15:14 Polyethylene (Miralax Powder Packet) 17 gm DAILY PRN PO 05/16/17 16:00 06/15/17 15:59 Ondansetron HCl (Zofran Inj) 4 mg Q6H PRN IV 05/16/17 15:15 06/15/17 15:14 Ascorbic Acid (Vitamin C Tab) 500 mg QPM PO 05/16/17 21:00 06/15/17 20:59 05/16/17 20:28 500 MG Aspirin (Ecotrin Tab) 81 mg QAM PO 05/17/17 08:00 06/16/17 07:59 05/17/17 07:46 81 MG Bisacodyl (Dulcolax Supp) 5 mg DAILY PRN VA 05/16/17 15:15 06/15/17 15:14 Enalapril Maleate (Vasotec Tab) 10 mg BID PO 05/16/17 20:00 06/15/17 19:59 05/17/17 07:45 10 MG Finasteride (Proscar Tab) 5 mg DAILY PO 05/17/17 08:00 06/16/17 07:59 05/17/17 07:46 5 MG Folic Acid (Folvite Tab) 1 mg DAILY PO 05/17/17 08:00 06/16/17 07:59 05/17/17 07:46 1 MG Furosemide (Lasix Tab) 80 mg BID17 PO 05/16/17 17:00 06/15/17 16:59 05/17/17 07:47 80 MG Loratadine (Claritin Tab) 10 mg DAILY PO 05/17/17 08:00 06/16/17 07:59 05/17/17 07:46 10 MG Metoprolol Tartrate (Lopressor Tab) 50 mg DAILY PO 05/17/17 08:00 06/16/17 07:59 05/17/17 07:47 50 MG Tamsulosin HCl (Flomax Cap) 0.4 mg DAILY PO 05/17/17 08:00 06/16/17 07:59 05/17/17 07:47 0.4 MG Vitamin B Complex (Vitamin B Complex) 1 tab QPM PO 05/16/17 21:00 06/15/17 20:59 05/16/17 20:28 1 TAB Doxycycline Hyclate (Vibramycin Cap) 100 mg BID PO 05/16/17 20:00 05/22/17 20:01 05/17/17 07:45 100 MG Miscellaneous Information (Order Awaiting Action) 1 ea QS N/A 05/16/17 16:00 06/15/17 15:59 Oxycodone/ Acetaminophen (Percocet 5-325mg Tab) 1 tab Q4H PRN PO 05/16/17 15:15 05/30/17 15:14 Albuterol/ Ipratropium (Duoneb) 3 ml Q4R INH 05/16/17 16:00 06/15/17 15:59 05/17/17 15:22 3 ML Pantoprazole Sodium (Protonix Tab) 40 mg QAM PO 05/17/17 08:00 06/16/17 07:59 05/17/17 07:46 40 MG Heparin Sodium (Porcine) 13558 unit/Dextrose 500 ml @ 47 mls/hr [id number] PRN IV 05/16/17 16:45 06/15/17 16:44 05/17/17 07:45 40 MLS/HR Miconazole Nitrate (Desenex Powder) 1 appln BID EXT 05/17/17 16:00 06/16/17 15:59 Multi-Ingredient Ointment (Eucerin Unscented Cr) 1 appln BID EXT 05/17/17 16:00 06/16/17 15:59 Review of Systems Constitutional: + weakness (generalized), No fever, No chills Eyes: No worsening of vision ENT: + hearing loss (chronic), No unusual epistaxis Respiratory: No cough, No shortness of breath Cardiovascular: + edema, No chest pain Abdomen: No pain, No nausea, No diarrhea Musculoskeletal: + swelling, + calf pain Genitourinary - Male: No hematuria Neurologic: + paralysis (chronic weakness in his first two fingers bilaterally) Hematologic / Lymphatic: + clotting problems Integumentary: No rash Physical Exam Date Time Temp Pulse Resp B/P (MAP) Pulse Ox O2 Delivery O2 Flow Rate FiO2 05/17/17 15:22 71 16 91 Room Air 05/17/17 15:05 36.5 72 18 100/68 (79) 95 Room Air 05/17/17 11:16 69 16 92 Room Air 05/17/17 08:00 Room Air 05/17/17 07:14 79 17 91 Room Air 05/17/17 07:06 36.5 81 20 138/75 (96) 94 Room Air 05/17/17 01:00 Room Air 05/16/17 23:35 36.8 75 20 138/97 (111) 92 Room Air 05/16/17 20:10 Room Air 05/16/17 19:45 74 99/60 (73) 93 Room Air 05/16/17 19:35 78 16 91 Room Air General Appearance: no apparent distress, + pertinent finding (chronically ill appearing elderly gentleman) Eyes: EOMI, + pertinent finding (long-standing right ptosis) Respiratory/Chest: lungs clear, no respiratory distress Cardiovascular: regular rate, rhythm, no murmur Abdomen/GI: non tender, soft Extremities/Musculoskelatal: + pertinent finding (chronic bilateral phlebitic and venous stasis changes, non-tender) Neurologic/Psych: bolt maker II-XII nml as tested, alert, oriented x 3 Skin: no rash Lymphatic: no adenopathy Laboratory Results Last 24 Hours Test 05/16/17 16:53 05/16/17 23:04 05/17/17 08:07 05/17/17 15:55 White Blood Count 5.12 K/uL 5.12 K/uL Red Blood Count 3.23 M/uL 3.19 M/uL Hemoglobin 11.0 g/dL 11.1 g/dL Hematocrit 33.7 % 33.1 % Mean Corpuscular Volume 104.3 fL 103.8 fL Mean Corpuscular Hemoglobin 34.1 pg 34.8 pg Mean Corpuscular Hemoglobin Concent 32.6 g/dl 33.5 g/dl RDW Standard Deviation 53.2 fL 52.5 fL RDW Coefficient of Variation 14.0 % 13.9 % Platelet Count 141 K/uL 150 K/uL Mean Platelet Volume 8.9 fL 9.3 fL Sodium Level 135 mmol/L 134 mmol/L Potassium Level 4.2 mmol/L 3.3 mmol/L Chloride Level 101 mmol/L 98 mmol/L Carbon Dioxide Level 28 mmol/L 25 mmol/L Anion Gap 6.0 mmol/L 11.0 mmol/L Blood Urea Nitrogen 65 mg/dl 61 mg/dl Creatinine 0.78 mg/dl 0.81 mg/dl Est Creatinine Clear Calc Drug Dose 94.0 ml/min 90.5 ml/min Estimated GFR () 97.4 95.9 Estimated GFR (Non- 84.1 82.8 BUN/Creatinine Ratio 82.8 75.6 Random Glucose 105 mg/dl 101 mg/dl Calcium Level 8.2 mg/dl 8.3 mg/dl Activated Partial Thromboplast Time 31.4 SECONDS 30.7 SECONDS Partial Thromboplastin Ratio 1.2 1.2 Prothrombin Time 12.3 SECONDS Prothromb Time International Ratio 1.1 Assessment & Plan Mr. Timmons has extensive lower extremity venous thrombosis. He's had clot in this area in the past, with DVTs in 2009 and 2010. Following the 2011 event, he had a hemorrhage and had an IVC filter placed. He was never put back on blood thinners following the resolution of his bleed. This raises the question of how much of his thrombosis is truly new. Regardless, we have a doppler report from that clearly states the right popliteal vein is patent and another from that describes clot extension into that vein. We do not have these images to compare ourselves and, regardless, doppler ultrasounds are very roll over press operator- dependent and are difficult to reassess retrospectively. Thus, I feel we should take the technologist at their word and presume the clot did indeed extend. It' s possible, based on the ambiguity of the MAR from [facility], that he may not have been receiving his PM dose of Xarelto (he's supposed to be on the 15 mg BID acute dose). If that's the case, this would not necessarily be a failure and he could continue with Xarelto, given appropriately. If that is not the case , or if we cannot prove that it is, I would err on the side of caution and switch to Coumadin. He did have a severe bleed once before while on coumadin, but full anticoagulation on any anticoagulant would carry a similar hemorrhagic risk and coumadin is more readily reversible if issues to arise. He should stay on lifelong anticoagulation, given the extent of his thrombosis and the IVC filter, which is at this point causing thrombus. If his physicians feel he is unsafe for AC, due to his deconditioning and falls risk, there would need to be a very careful conversation with the patient regarding risks and benefits of both approaches.
[2017-05-17 16:51] LABS: PARTIAL THROMBOPLASTIN RATIO 1.2
[2017-05-17] MEDS: MICONAZOLE NITRATE POWDER 43 GM EXT SCH ×2 (17:41→20:54)
[2017-05-17] MEDS: EUCERIN CR 120 GM JAR EXT SCH ×2 (17:42→20:54)
[2017-05-17] MEDS: VITAMIN B COMPLEX TAB PO SCH (19:44)
[2017-05-17] MEDS: ASCORBIC ACID 500 MG TAB PO SCH (19:45)
[2017-05-17] MEDS ORDERED: POTASSIUM CHLORIDE 10 MEQ TABCR PO ONE (21:00)
[2017-05-18] VITALS (9 sets, daily range): BP systolic 92–112; BP diastolic 56–71; PULSE 75–123; TEMP 36.5; O2SAT 93–98
[2017-05-18 00:25] LABS: PARTIAL THROMBOPLASTIN RATIO > 11.0
[2017-05-18 03:42] LABS: PARTIAL THROMBOPLASTIN RATIO 10.3
[2017-05-18 03:51] LABS: PARTIAL THROMBOPLASTIN RATIO 9.6
[2017-05-18] MEDS: ALBUT/IPRATROP 3MG/0.5MG NEB 3 ML VIAL INH SCH ×5 (03:59→20:00)
[2017-05-18 04:14] LABS: PARTIAL THROMBOPLASTIN RATIO 6.9
[2017-05-18 04:58] LABS: HEMATOCRIT 31.2 % (42-52); MEAN CORPUSCULAR HEMOGLOBIN 34.3 pg (25-34); MEAN CORPUSCULAR HGB CONC 33.3 g/dl (32-36); MEAN PLATELET VOLUME 8.9 fL (7.4-10.4); PLATELET COUNT 141 K/uL (130-400); RED BLOOD COUNT 3.03 M/uL (4.7-6.1); WHITE BLOOD COUNT 5.11 K/uL (4.8-10.8)
[2017-05-18 05:23] LABS: PARTIAL THROMBOPLASTIN RATIO 5.2
[2017-05-18 05:26] LABS: CALCIUM 8.2 mg/dl (8.5-10.1); POTASSIUM 3.9 mmol/L (3.5-5.1)
[2017-05-18 07:34] LABS: PARTIAL THROMBOPLASTIN RATIO 2.2
[2017-05-18] MEDS: HEPARIN 25000 UNIT/ D5W 500 ML (PHARMACY PREPARED) IV PRN ×4 (07:44→12:30)
[2017-05-18] MEDS: PANTOprazole SOD 40 MG TAB PO SCH (07:45)
[2017-05-18] MEDS: EUCERIN CR 120 GM JAR EXT SCH ×2 (07:45→20:14)
[2017-05-18] MEDS: LORATADINE 10 MG TAB PO SCH (07:45)
[2017-05-18] MEDS: TAMSULOSIN HCL 0.4 MG CAP PO SCH (07:45)
[2017-05-18] MEDS: MICONAZOLE NITRATE POWDER 43 GM EXT SCH ×2 (07:45→20:13)
[2017-05-18] MEDS: FINASTERIDE 5 MG TAB PO SCH (07:46)
[2017-05-18] MEDS: DOXYCYCLINE HYCLATE 100 MG CAP PO SCH ×2 (07:47→20:14)
[2017-05-18] MEDS: ENALAPRIL MALEATE 10 MG TAB PO SCH ×2 (07:47→20:15)
[2017-05-18] MEDS: METOPROLOL TARTRATE 50 MG TAB PO SCH (07:47)
[2017-05-18] MEDS: FUROSEMIDE 80 MG TAB PO SCH ×2 (07:47→18:16)
[2017-05-18] MEDS: ASPIRIN 81 MG ECTAB PO SCH (07:48)
[2017-05-18] MEDS ORDERED: LVNIS120 SQ ×2 (12:00)
--- NOTE | 2017-05-18 13:21 | Discharge Instructions ---
Discharge Instructions Date of Service May 18, 2017. Admission Reason for Admission: Bilateral Le Dvt's Discharge Discharge Diagnosis / Problem: (1) DVT, bilateral lower limbs VTE Date & Time Date of VTE Diagnosis: May 16, 2017 Time of VTE Diagnosis: 16:00 Discharge Goals Goal(s): Decrease discomfort Activity Recommendations Activity Limitations: resume your previous activity . Instructions / Follow-Up Instructions / Follow-Up You came to [facility] due to the persistence of the clot in your legs despite taking Xarelto. We treated you with an IV heparin drip and will be discharging you home on Lovenox, which you will need to inject yourself with twice a day. Given your history of multiple blood clots, this is a medication that you will need to take for the rest of your life, to ensure that you do not develop any more blood clots in the future. In a few months, we will check your coagulation studies, and determine if the dosage of Lovenox can be reduced to once a day. You can continue taking all your other home medications as prescribed. Please begin your Lovenox tonight when you arrive at [facility] Medication Instructions: Your condition is typically treated with an anticoagulant. Anticoagulants will thin your blood to help prevent new clots. * You should take her medication exactly as directed. * Never skip a dose. * Never take a double dose. If you miss a dose, take it as soon as you remember. Call your Primary Care doctor if you experience any of the following: * Swelling or Pain in your leg * Sudden, continuous pain deep in a muscle * Pain that worsens when you are active or when you stand still for a long time * Chest Pain * Sudden Shortness of Breath * Rapid or pounding heart beat * Fainting * Dizziness * Cough with blood or bloody sputum * Sweating more than normal * Bruises * Heavy or uncontrolled bleeding * Blood in your urine, stool or vomit * Black or tarry stools Caring for Your Self at Home: * Avoid sitting, standing or lying down for long periods without moving your legs and feet * When traveling by car, stop to get out and move around at least once every 3 hours * On long airplane, train or bus rides, get up and move around when possible * If you can't get up, wiggle your toes and tighten your calves to keep your blood moving Follow Up: It is important for you to keep your follow up appointments with your medical provider. Current Hospital Diet Patient's current hospital diet: AHA Diet (Heart Healthy) Discharge Diet Recommended Diet: AHA Diet (Heart Healthy) Pending Studies Studies pending at discharge: no Medical Emergencies . Who to Call and When: Medical Emergencies: If at any time you feel your situation is an emergency, please call 911 immediately. . Non-Emergent Contact Non-Emergency issues call your: Primary Care Provider . . "Provider Documentation" section prepared by Carmen Menendez. . VTE Core Measure Inpt VTE Proph given/why not?: Other Anticoagulation (IV heparin )
--- NOTE | 2017-05-18 14:56 | Hematology/Oncology Prog Note ---
Hematology/Onc Progress Note Date of Service May 18, 2017. Diagnoses Recurrent DVT Medications Medications Administered Medications (Trade) Dose Ordered Sig/Ekta Route Start Time Stop Time Status Last Admin Dose Admin Ascorbic Acid (Vitamin C Tab) 500 mg QPM PO 05/16/17 21:00 06/15/17 20:59 05/17/17 19:45 500 MG Aspirin (Ecotrin Tab) 81 mg QAM PO 05/17/17 08:00 06/16/17 07:59 05/18/17 07:48 81 MG Enalapril Maleate (Vasotec Tab) 10 mg BID PO 05/16/17 20:00 06/15/17 19:59 05/17/17 19:44 10 MG Finasteride (Proscar Tab) 5 mg DAILY PO 05/17/17 08:00 06/16/17 07:59 05/18/17 07:46 5 MG Folic Acid (Folvite Tab) 1 mg DAILY PO 05/17/17 08:00 06/16/17 07:59 05/18/17 07:45 1 MG Furosemide (Lasix Tab) 80 mg BID17 PO 05/16/17 17:00 06/15/17 16:59 05/18/17 07:47 80 MG Loratadine (Claritin Tab) 10 mg DAILY PO 05/17/17 08:00 06/16/17 07:59 05/18/17 07:45 10 MG Metoprolol Tartrate (Lopressor Tab) 50 mg DAILY PO 05/17/17 08:00 06/16/17 07:59 05/17/17 07:47 50 MG Tamsulosin HCl (Flomax Cap) 0.4 mg DAILY PO 05/17/17 08:00 06/16/17 07:59 05/18/17 07:45 0.4 MG Vitamin B Complex (Vitamin B Complex) 1 tab QPM PO 05/16/17 21:00 06/15/17 20:59 05/17/17 19:44 1 TAB Doxycycline Hyclate (Vibramycin Cap) 100 mg BID PO 05/16/17 20:00 05/22/17 20:01 05/18/17 07:47 100 MG Albuterol/ Ipratropium (Duoneb) 3 ml Q4R INH 05/16/17 16:00 06/15/17 15:59 05/18/17 11:16 3 ML Pantoprazole Sodium (Protonix Tab) 40 mg QAM PO 05/17/17 08:00 06/16/17 07:59 05/18/17 07:45 40 MG Heparin Sodium (Porcine) 7000 unit/Syringe 7 ml @ 10 mls/min NOW ONCE IV 05/16/17 16:45 05/16/17 16:46 DC 05/16/17 17:06 10 MLS/MIN Heparin Sodium (Porcine) 27057 unit/Dextrose 500 ml @ 49 mls/hr [id number] PRN IV 05/16/17 16:45 06/15/17 16:44 05/18/17 12:30 49 MLS/HR Heparin Sodium (Porcine) 7000 unit/Syringe 7 ml @ 10 mls/min NOW ONCE IV 05/17/17 00:15 05/17/17 00:16 DC 05/17/17 00:15 10 MLS/MIN Heparin Sodium (Porcine) 7000 unit/Syringe 7 ml @ 10 mls/min TODAY@0930 ONCE IV 05/17/17 09:30 05/17/17 09:31 DC 05/17/17 09:54 10 MLS/MIN Miconazole Nitrate (Desenex Powder) 1 appln BID EXT 05/17/17 16:00 06/16/17 15:59 05/18/17 07:45 1 APPLN Multi-Ingredient Ointment (Eucerin Unscented Cr) 1 appln BID EXT 05/17/17 16:00 06/16/17 15:59 05/18/17 07:45 1 APPLN Heparin Sodium (Porcine) 7000 unit/Syringe 7 ml @ 10 mls/min TODAY@1745 ONCE IV 05/17/17 17:45 05/17/17 17:46 DC 05/17/17 17:52 10 MLS/MIN Potassium Chloride (Klor-Con M10) 20 meq 2100 ONCE PO 05/17/17 21:00 05/17/17 21:01 DC 05/17/17 20:54 20 MEQ Subjective Mr. Timmons is comfortable. He is planning on discharge later today. He has not had any bleeding and his leg pain is unchanged. Review of Systems: Constitutional: + weakness (generalized) ENT: No unusual epistaxis Respiratory: No cough, No hemoptysis Cardiovascular: No chest pain Abdomen: No pain, No nausea, No GI bleeding Musculoskeletal: + swelling (bilateral calves), + calf pain (improving) Male : No hematuria Heme: No abnormal bleeding/bruising Vital Signs Vital Signs Past 12 Hours Date Time Temp Pulse Resp B/P (MAP) Pulse Ox O2 Delivery O2 Flow Rate FiO2 05/18/17 11:17 108 20 94 Room Air 05/18/17 08:00 Room Air 05/18/17 07:47 36.5 75 18 92/56 (68) 93 Room Air 05/18/17 07:31 76 18 95 Room Air Physical Exam Constitutional: Level of Distress: NAD Psychiatric: Mental Status: active & alert Orientation: oriented except where noted ENMT: pertinent finding (hard of hearing) Lungs: Auscuitation: CTA except as noted Cardiovascular: Heart Auscultation: RRR Abdomen: Inspection & Palpation: soft, no tenderness, guarding & rebound Musculoskeletal: pertinent finding Extremities: pertinent finding (chronic venous stasis changes and phlebitis, stable) Laboratory Last 24 Hours Test 05/17/17 16:04 05/17/17 23:26 05/18/17 01:43 05/18/17 02:30 Activated Partial Thromboplast Time 31.7 SECONDS > 300.0 SECONDS 272.6 SECONDS 253.0 SECONDS Partial Thromboplastin Ratio 1.2 > 11.0 10.3 9.6 Test 05/18/17 03:31 05/18/17 04:29 05/18/17 07:05 05/18/17 14:28 Activated Partial Thromboplast Time 180.2 SECONDS 134.0 SECONDS 55.9 SECONDS Partial Thromboplastin Ratio 6.9 5.2 2.2 White Blood Count 5.11 K/uL Red Blood Count 3.03 M/uL Hemoglobin 10.4 g/dL Hematocrit 31.2 % Mean Corpuscular Volume 103.0 fL Mean Corpuscular Hemoglobin 34.3 pg Mean Corpuscular Hemoglobin Concent 33.3 g/dl RDW Standard Deviation 52.0 fL RDW Coefficient of Variation 14.0 % Platelet Count 141 K/uL Mean Platelet Volume 8.9 fL Sodium Level 131 mmol/L Potassium Level 3.9 mmol/L Chloride Level 98 mmol/L Carbon Dioxide Level 25 mmol/L Anion Gap 8.0 mmol/L Blood Urea Nitrogen 63 mg/dl Creatinine 1.00 mg/dl Est Creatinine Clear Calc Drug Dose 73.3 ml/min Estimated GFR () 80.9 Estimated GFR (Non- 69.8 BUN/Creatinine Ratio 63.0 Random Glucose 94 mg/dl Calcium Level 8.2 mg/dl Assessment & Plan Mr. Timmons will be discharged later today. He should be discharged on Coumadin with a bridge (I would use Lovenox or unfractionated heparin, as we are presuming that the Xarelto failed). Even though his INR is 2.2, Coumadin makes patients temporarily pro-throbotic, so I would still bridge him for a few days. He will need frequent INR monitoring until his INR reaches a steady state. This can be coordinated by his physican at [facility]. He should remain on full-dose anticoagulation until he has a compelling contraindication. If his physicians at [facility] are uncomfortable with his AC, given his multiple issues, I can see him in the office to discuss the risks and benefits of continued anticoagulation. Otherwise, he does not necessarily require hematologic follow up.
[2017-05-18 20:14] LABS: PARTIAL THROMBOPLASTIN RATIO > 11.0
[2017-05-18] MEDS: VITAMIN B COMPLEX TAB PO SCH (20:15)
[2017-05-18] MEDS: ASCORBIC ACID 500 MG TAB PO SCH (20:16)
--- NOTE | 2017-05-18 21:21 | Discharge Summary ---
Discharge Summary Date of Service May 18, 2017. (Carmen Menendez M.D.) Discharge Summary Admission Date: May 16, 2017 at 13:35 Discharge Date: May 18, 2017 Discharge Disposition: senior living facility Principal Diagnosis: Bilateral DVTs Immunizations: Have You Had Influenza Vaccine: Unknown History of Tetanus Vaccine?: Unknown History of Pneumococcal: Unknown History of Hepatitis B Vaccine: Unknown (Carmen Menendez M.D.) Medication Reconciliation New Medications: Enoxaparin (Lovenox) 120 Mg/0.8 Ml Inj 1 SYR SQ BID for 30 Days, 3 Refills Continued Medications: Acetaminophen (Tylenol) 325 Mg Tab 650 MG PO Q4H PRN for Pain or Fever, TAB Ascorbic Acid (Vitamin C *) 500 Mg Tab 500 MG PO QPM, TAB Aspirin (Aspirin Chewable) 81 Mg Chew 81 MG PO DAILY, TAB Bisacodyl (Dulcolax) 10 Mg Sup 1 SUPP ME Q 4 DAYS IF NO BM PRN for PRN, SUP Doxycycline (Monohydrate) (Monodox) 100 Mg Cap 1 CAP PO BID for 7 Days, #14 CAP Enalapril (Vasotec) 10 Mg Tab 10 MG PO BID, 0 Refills Finasteride (Proscar) 5 Mg Tab 5 MG PO DAILY, TAB Folic Acid (Folvite) 1 Mg Tab 1 MG PO DAILY, TAB Furosemide (Lasix) 80 Mg Tab 1 TAB PO BID for 90 Days, #180 TAB 3 Refills Loratadine (Claritin) 10 Mg Tab 1 TAB PO DAILY for 30 Days, #30 TAB 5 Refills Magnesium Hydroxide (Milk Of Magnesia) 30 Ml Susp 30 ML PO Q8HR PRN Methenamine/Sod Phosphate (Uroqid-Acid #2) Tab 1 GM PO DAILY, TAB Metoprolol Tartrate (Lopressor) 50 Mg Tab 1 TAB PO DAILY for 30 Days, #60 TAB 5 Refills Tamsulosin Hcl (Flomax *) 0.4 Mg Cap 0.4 MG PO DAILY, 0 Refills Vitamin B Complex (Vitamin B Complex) 1 Tab Tab 1 TAB PO QPM Discontinued Medications: Rivaroxaban (Xarelto) 10 Mg Tab 1.5 TAB PO BID for 21 Days, #10 TAB Discharge Exam Mr. Timmons reported that he felt well today. He denied chest pain, shortness of breath, or palpitations. He did report an ongoing dry cough, but stated that this had been present for a while. Review of Systems: Constitutional: No fever, No chills, No sweats Respiratory: + cough, No sputum, No wheezing, No shortness of breath, No dyspnea on exertion, No dyspnea at rest Cardiovascular: + edema, No chest pain, No orthopnea, No PND, No claudication Abdomen: No pain, No nausea, No vomiting, No diarrhea, No constipation Physical Exam: General Appearance: WD/WN, no apparent distress Respiratory/Chest: chest non-tender, lungs clear, normal breath sounds, no respiratory distress, no accessory muscle use Cardiovascular: regular rate, rhythm, no gallop, no JVD, no murmur, normal peripheral pulses Extremities: + calf tenderness, + swelling, + pertinent finding (venous stasis dermatitis) (Carmen Menendez M.D.) Hospital Course Mr. Timmons presented to [facility] due to the persistence of his bilateral DVTs despite 5 day treatment with Xarelto. He was treated with an IV heparin drip and was discharged home on Lovenox 120mg BID, as he previous treatment with Xarelto failed, and he had a prior episode of intraperitoneal bleeding when being bridged from heparin to warfarin. He will have to take the Lovenox for the rest of his life, however in a few months, his APTT can be checked and the dosage could potentially be reduced to once a day. Total Time Spent: Less than 30 minutes This includes examination of the patient, discharge planning, medication reconciliation, and communication with other providers. (Carmen Menendez M.D.) Resident Physician Supervision Note: I interviewed and examined the patient. Discussed with Dr. Menendez and agree with findings and plan as documented in the note. Any exceptions or clarifications are listed here: None Documented By: Heron Nur feeling ok - transport was delayed to today. no new complaints. eyes show some crusts and exudate. mild. vitlas noted nad breathing unlabored eyes as above conjunctivitis - appears mild but since in hospital higher risk for early bacterial - emicin ointment DVTs - lovenox - periodic anti-Xa level stable for return to [facility] (Heron Nur, D.O.) Discharge Instructions Please refer to the electronic Patient Visit Report (Discharge Instructions) for additional information. (Carmen Menendez M.D.) Additional Copies To [facility]
[2017-05-19] MEDS: ALBUT/IPRATROP 3MG/0.5MG NEB 3 ML VIAL INH SCH ×3 (00:10→07:28)
[2017-05-19 00:19] VITALS: BP 98/60; PULSE 107; TEMP 36.7; O2SAT 98
[2017-05-19 01:03] LABS: PARTIAL THROMBOPLASTIN RATIO 5.3
[2017-05-19 07:28] VITALS: PULSE 105; O2SAT 96
[2017-05-19 07:51] VITALS: BP 117/77; PULSE 95; TEMP 36.5; O2SAT 97
[2017-05-19] MEDS ORDERED: ENOXAPARIN 120 MG/0.8 ML SYR SQ ONE (08:00)
[2017-05-19] MEDS: MICONAZOLE NITRATE POWDER 43 GM EXT SCH (08:14)
[2017-05-19] MEDS: EUCERIN CR 120 GM JAR EXT SCH (08:14)
[2017-05-19] MEDS: FUROSEMIDE 80 MG TAB PO SCH (08:16)
[2017-05-19] MEDS: ENALAPRIL MALEATE 10 MG TAB PO SCH (08:17)
[2017-05-19] MEDS: TAMSULOSIN HCL 0.4 MG CAP PO SCH (08:17)
[2017-05-19] MEDS: FINASTERIDE 5 MG TAB PO SCH (08:17)
[2017-05-19] MEDS: DOXYCYCLINE HYCLATE 100 MG CAP PO SCH (08:18)
[2017-05-19] MEDS: LORATADINE 10 MG TAB PO SCH (08:18)
[2017-05-19] MEDS: METOPROLOL TARTRATE 50 MG TAB PO SCH (08:18)
[2017-05-19] MEDS: ASPIRIN 81 MG ECTAB PO SCH (08:18)
[2017-05-19] MEDS: PANTOprazole SOD 40 MG TAB PO SCH (08:18)
[2017-05-19 08:33] LABS: INR 1.1 (0.9-1.1); PARTIAL THROMBOPLASTIN RATIO 1.3; PROTHROMBIN TIME (PATIENT) 11.3 SECONDS (9.0-12.0)
[2017-05-19 08:42] LABS: MEAN CELL VOLUME 102.3 fL (80-100); MEAN CORPUSCULAR HEMOGLOBIN 34.7 pg (25-34); MEAN CORPUSCULAR HGB CONC 33.9 g/dl (32-36); MEAN PLATELET VOLUME 9.4 fL (7.4-10.4); PLATELET COUNT 150 K/uL (130-400); RED BLOOD COUNT 3.03 M/uL (4.7-6.1); WHITE BLOOD COUNT 5.47 K/uL (4.8-10.8)
[2017-05-19] MEDS ORDERED: ENOXAPARIN 1 MG/KG SQ ONE (09:00)
[2017-05-19 09:08] LABS: BLOOD UREA NITROGEN 59 mg/dl (7-18); BUN/CREATININE RATIO 64.4 (10-20); CALCIUM 8.7 mg/dl (8.5-10.1); CARBON DIOXIDE 25 mmol/L (21-32); CHLORIDE 98 mmol/L (98-107); CREATININE 0.91 mg/dl (0.60-1.40); GLUCOSE 97 mg/dl (70-99); SODIUM 133 mmol/L (136-145)
[2017-05-19 09:10] VITALS: BP 117/77; PULSE 95; TEMP 36.5; O2SAT 97
[2017-05-19] MEDS ORDERED: ERYOPO OPB ×2 (09:21)
--- NOTE | 2017-05-19 18:57 | Progress Note ---
Progress Note Date of Service May 18, 2017. late addendum - initially dc summary was done on 05/18 but then discharge held up due to transport issues. was seen on 05/18 as follows: Progress Note feeling better no complaints no cp no sob no leg pain. 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
[2017-06-06] MEDS ORDERED: KFL500 PO (12:44)
[2017-06-06] MEDS ORDERED: FRS/40 PO (12:44)
[2017-06-06] MEDS ORDERED: PRT40 PO (12:44)
[2017-06-18] MEDS ORDERED: AZITTAB PO (03:03)
[2017-06-18] MEDS ORDERED: IPRASOL4 NEB (11:08)
== END 2017-05-19 10:15 | DRG 300 ==
LOC: C.4E 13:35
PROVIDERS: ADMIT Internal Medicine; ATTEND Family Medicine
DX: I82.412 Acute embolism and thrombosis of left femoral vein (principal); E72.11 Homocystinuria; L97.329 Non-pressure chronic ulcer of left ankle with unspecified severity; I82.431 Acute embolism and thrombosis of right popliteal vein; Z87.11 Personal history of peptic ulcer disease; H91.90 Unspecified hearing loss, unspecified ear; D64.9 Anemia, unspecified; D69.6 Thrombocytopenia, unspecified; I10 Essential (primary) hypertension; N40.0 Benign prostatic hyperplasia without lower urinary tract symptoms; I48.0 Paroxysmal atrial fibrillation; I87.2 Venous insufficiency (chronic) (peripheral); G62.9 Polyneuropathy, unspecified; Z86.14 Personal history of Methicillin resistant Staphylococcus aureus infection; Z79.82 Long term (current) use of aspirin; Z79.899 Other long term (current) drug therapy; Z79.01 Long term (current) use of anticoagulants; Z88.2 Allergy status to sulfonamides; Z88.3 Allergy status to other anti-infective agents

== ENCOUNTER 2017-05-31 09:26 | Inpatient (IN) | payer BC, OTHER ==
[2017-05-31] VITALS (47 sets, daily range): BP systolic 78–145; BP diastolic 48–113; PULSE 96–156; TEMP 36.4–36.7; O2SAT 79–98; Ht 180.3 cm; Wt 110.5 kg
[~2017-05-31] VITALS: Ht 180.3 cm; Wt 110.5 kg
[~2017-05-31 09:26] MED LIST changes: +ASPCH81X PO; -CHOL20005 PO; +DOXY100C41 PO; -FURO-85 PO; -FURO20TA PO; +FURO80TA63 PO; +LORA10TA51 PO; +LVNIS120 SQ; -OXYC-57 PO; -SENN-63 PO
[2017-05-31] MEDS ORDERED: SODIUM CHLORIDE 0.9% 1000ML 1,000 ML IV STA ×2 (09:49)
[2017-05-31] MEDS ORDERED: PROTAMINE SULFATE INJ 20 MG in DEXTROSE 5% 50ML 50 ML IV ONE (10:00)
[2017-05-31 10:24] LABS: ISTAT CARBON DIOXIDE 17 mEq/l (24-31); ISTAT CHLORIDE 102 mEq/L (101-112); ISTAT CREATININE 1.4 mg/dl (0.6-1.3); ISTAT HEMATOCRIT 19 % (42-52); ISTAT HEMOGLOBIN 6.5 g/dl (14.0-18.0); ISTAT IONIZED CALCIUM 0.96 mmol/l (1.12-1.32); ISTAT SODIUM 132 mEq/L (135-144)
[2017-05-31 10:26] LABS: HEMATOCRIT 21.6 % (42-52); MEAN CELL VOLUME 105.4 fL (80-100); MEAN CORPUSCULAR HEMOGLOBIN 35.1 pg (25-34); MEAN CORPUSCULAR HGB CONC 33.3 g/dl (32-36); MEAN PLATELET VOLUME 9.2 fL (7.4-10.4); PLATELET COUNT 133 K/uL (130-400); RED BLOOD COUNT 2.05 M/uL (4.7-6.1); WHITE BLOOD COUNT 8.21 K/uL (4.8-10.8)
[2017-05-31] MEDS ORDERED: OPTIRAY 320 IV PRN (10:30)
[2017-05-31 10:40] LABS: INR 1.1 (0.9-1.1); PARTIAL THROMBOPLASTIN RATIO 1.1; PROTHROMBIN TIME (PATIENT) 11.5 SECONDS (9.0-12.0)
[2017-05-31] MEDS ORDERED: OCTREOTIDE IV BOLUS & DRIP IV STA (10:41)
[2017-05-31] MEDS ORDERED: PANTOprazole INJ 80 MG in DEXTROSE 5% 100ML IV ONE (11:00)
[2017-05-31 11:05] LABS: BLOOD UREA NITROGEN 163 mg/dl (7-18); POTASSIUM 5.2 mmol/L (3.5-5.1); SODIUM 134 mmol/L (136-145)
[2017-05-31 11:08] LABS: ALKALINE PHOSPHATASE 54 U/L (45-117); ALT/SGPT 18 U/L (12-78); AST/SGOT 16 U/L (15-37); CALCIUM 7.5 mg/dl (8.5-10.1); CARBON DIOXIDE 16 mmol/L (21-32); CHLORIDE 105 mmol/L (98-107); GLUCOSE 105 mg/dl (70-99)
[2017-05-31] MEDS ORDERED: MULT-513 PO (11:08)
[2017-05-31] MEDS ORDERED: FINA5TAB4 PO (11:08)
[2017-05-31] MEDS ORDERED: ASCO500T16 PO (11:08)
[2017-05-31] MEDS ORDERED: TAMS0.4C38 PO (11:08)
[2017-05-31] MEDS ORDERED: METH1TAB5 PO (11:08)
[2017-05-31] MEDS ORDERED: PANTOprazole INJ 40 MG in DEXTROSE 5% 100ML IV SCH (11:15)
--- NOTE | 2017-05-31 11:29 | DIAGNOSTIC IMAGING REPORT ---
CT OF THE ABDOMEN AND PELVIS WITH CONTRAST CLINICAL HISTORY: Nausea, vomiting and diarrhea. GI bleed. COMPARISON STUDY: CT of the abdomen and pelvis November 26, 2014. TECHNIQUE: Following IV administration of 60 mL of Optiray-320, axial images of the abdomen and pelvis were obtained from the lung bases to the proximal femurs. Images were reviewed in the axial, sagittal, and coronal planes. IV contrast was administered without complication. A dose lowering technique was utilized adhering to the principles of ALARA. CT DOSE: 1905.82 mGy.cm FINDINGS: The heart is moderately enlarged. The liver, spleen, adrenal glands, kidneys and pancreas are unremarkable. There is mild renal cortical thinning. No hydronephrosis is present. An IVC filter is in place. There are are filling defects within the right common iliac, right external iliac, right common femoral and right superficial femoral veins which favor thrombus. There is no evidence for a bowel obstruction. There is no lymphadenopathy. The bladder is moderately distended. Several bladder diverticula/trabeculations are noted. There is gas within the bladder lumen. There is also a small amount of gas within the bladder wall. Note is made of mild infiltration adjacent to the bladder. There are no suspicious osseous lesions. No pneumatosis, free air or portal venous gas is present. There is atrophy of both psoas muscles. IMPRESSION: 1. Small amount of gas within the bladder wall which suggests emphysematous cystitis. This could be correlated with urinalysis. Small amount of gas within the bladder lumen. Moderate distention of the bladder with mild adjacent infiltration. Bladder wall thickening. Trabeculated bladder wall small diverticula. 2. IVC filter in place. Apparent filling defects within the right common iliac, right external iliac, right common femoral and right superficial femoral veins which favors thrombus. Artifact could appear similar although thrombus, below the IVC filter, is favored. 3. No bowel obstruction. Electronically signed by: David Montano M.D. 05/31/2017 11:28 AM Dictated Date/Time: 05/31/2017 10:57 AM
[2017-05-31 11:33] LABS: BASO % 0.4 %; BASO ABS # 0.03 K/uL (0-0.2); COMPLETE YES; EOS % 0.2 %; IG% 0.5 %; LYMPH % 23.5 %; LYMPH ABS # 1.93 K/uL (1.2-3.4); MONO % 11.7 %; NEUT % 63.7 %
[2017-05-31] MEDS ORDERED: CEFTRIAXONE SOD INJ 1 GM ADDVIAL IV STA (11:35)
[2017-05-31] MEDS ORDERED: OCTREOTIDE ACETATE INJ 500 MCG in NSS 100ML IV SCH (12:00)
[2017-05-31] MEDS ORDERED: OCTREOTIDE ACETATE INJ 100 MCG in SYRINGE 9 ML IV ONE (12:00)
[2017-05-31] MEDS ORDERED: ONDANSETRON INJ 2 MG/ML 2 ML VIAL IV PRN (12:15)
[2017-05-31] MEDS ORDERED: ALBUT/IPRATROP 3MG/0.5MG NEB 3 ML VIAL INH PRN (12:15)
[2017-05-31 12:54] LABS: HEMATOCRIT 26.5 % (42-52)
--- NOTE | 2017-05-31 13:51 | History and Physical ---
History & Physical Date & Time of Service: May 31, 2017 at 13:28 Chief Complaint: Gi Bleed, Diarrhea Primary Care Physician: Riaz Gallagher History of Present Illness Source: patient 82 y/o M HTN, PAF, dementia, DVTs - currently at a NH and receiving BID Lovenox. He developed tarry diarrhea this and then had an episode of hematemesis. The pt was hypotensive on arrival to the ER. He is a poor historian and does not have any additional complaints such as abdominal pain, fevers, rigors, CP or SOB. He may have described light-headedness earlier. He received 2 units of PRBCs, Protamine, Protonix and a dose of Octreotide in the ER. Past Medical/Surgical History Medical Problems: (1) Acute Venous Embolism & Thrombosis Deep Vessels B/L - proximal - 2016 - previous placement of filter and intraabdominal hematoma (2) Benign Neoplasm Lg Bowel Status: Resolved (3) Diverticulosis Colon (W/O Ment Of Hemorrhage) Status: Chronic (4) Duodenal Ulcer Nos Status: Resolved (5) Hypertrophy (Benign) Of Prostate W/O Urinary Obst & Oth Luts Status: Chronic (6) Spinal Stenosis, Lumbar Reg, W/Out Neurogenic Claudication Status: Chronic 7) Paroxysmal AF 8) Mild dementia 9) Decubitus ulcer 10) Chronic uremia - baseline BUN 60 11) Homocysteinemia and Lupus anticoagulant + 12) Chronic anemia 13) Thrombocytopenia Family History Could not elaborate Social History Distant heavy ETOH use Smoking Status: Never Smoker Drug Use: none Marital Status: Housing status: assisted living Occupational Status: retired Immunizations History of Influenza Vaccine: Unknown History of Tetanus Vaccine?: Unknown History of Pneumococcal: Unknown History of Hepatitis B Vaccine: Unknown Multi-Drug Resistant Organisms History of MDRO: Yes Type of MDRO: MRSA Allergies Coded Allergies: Levofloxacin (Verified Allergy, Unknown, ., 05/31/17) Sulfa Antibiotics (Verified Allergy, Unknown, ., 05/31/17) Home Medications Scheduled Ascorbic Acid (Ascorbic Acid), 500 MG PO HS Aspirin (Aspirin Chewable), 81 MG PO DAILY Doxycycline (Monohydrate) (Monodox), 1 CAP PO BID Enalapril (Vasotec), 10 MG PO BID Finasteride (Proscar), 5 MG PO DAILY Folic Acid (Folvite), 1 MG PO DAILY Furosemide (Lasix), 1 TAB PO BID Loratadine (Claritin), 1 TAB PO DAILY Magnesium Hydroxide (Milk Of Magnesia), 30 ML PO Q8HR PRN Methenamine Hippurate (Methenamine Hippurate), 1 TAB PO DAILY Metoprolol Tartrate (Lopressor), 1 TAB PO DAILY Multivitamins/Minerals (Mvi With Minerals), 1 TAB PO DAILY Tamsulosin Hcl (Flomax), 0.4 MG PO DAILY Vitamin B Complex (Vitamin B Complex), 1 TAB PO QPM Scheduled PRN Acetaminophen (Tylenol), 650 MG PO Q4H PRN for Pain or Fever Bisacodyl (Dulcolax), 1 SUPP ID Q 4 DAYS IF NO BM PRN for PRN Ipratropium-Albuterol (Duoneb), 1 TREATMENT INH Q4H PRN for SOB/Wheezing Review of Systems Constitutional: No fever, No chills, No sweats Eyes: No worsening of vision ENT: No hearing loss, No unusual epistaxis, No nasal symptoms Respiratory: No cough, No sputum, No wheezing Cardiovascular: No chest pain, No orthopnea, No PND Abdomen: + diarrhea, + GI bleeding, No pain, No nausea, No vomiting Musculoskeletal: No joint pain Genitourinary - Male: No hematuria, No dysuria Neurologic: + memory loss (chronic impaired short-term memory), No paralysis, No weakness Psychiatric: No depression symptoms Endocrine: No fatigue Hematologic / Lymphatic: No abnormal bleeding/bruising Integumentary: + problem reported (Decub ulcer stage 2-3), No rash Allergic / Immunologic: No environmental allergies Physical Exam Vital Signs Date Time Temp Pulse Resp B/P (MAP) Pulse Ox O2 Delivery O2 Flow Rate FiO2 05/31/17 12:45 113 31 79/48 98 05/31/17 12:44 109 26 79/48 97 2.0 05/31/17 12:30 113 31 79/48 94 05/31/17 12:15 116 28 97 05/31/17 12:10 117 26 87/53 99 Nasal Cannula 2.0 05/31/17 12:04 93 Nasal Cannula 2.0 05/31/17 12:00 114 24 83/49 94 92.0 05/31/17 11:50 36.5 104 26 88/51 84 05/31/17 11:50 88/51 8/9/17 11:46 125 29 96 8/9/17 11:45 73/52 8/9/17 11:41 133 30 60/45 97 8/9/17 11:40 122 34 88/51 93 8/9/17 11:36 124 29 72/47 8/9/17 11:31 124 32 84/63 8/9/17 11:30 121 30 8/9/17 11:26 120 29 103/64 8/9/17 11:21 122 33 8/9/17 11:20 118 34 8/9/17 11:16 128 26 8/9/17 11:11 119 33 8/9/17 11:09 36.5 140 26 85/51 93 8/9/17 11:09 85/51 8/9/17 11:08 36.5 128 30 85/51 93 8/9/17 11:06 128 29 8/9/17 11:01 120 34 8/9/17 10:40 140 26 92 Room Air 8/9/17 10:40 36.5 140 26 91/56 93 8/9/17 10:36 129 35 8/9/17 10:35 108/61 8/9/17 10:32 129 26 94/61 92 Room Air 8/9/17 10:32 94/61 8/9/17 10:31 128 23 8/9/17 10:30 79/49 8/9/17 10:26 117 32 8/9/17 10:26 36.5 125 26 96/95 97 8/9/17 10:22 96/65 8/9/17 10:21 39 8/9/17 10:16 37 8/9/17 10:11 125 30 94 8/9/17 10:07 96/58 8/9/17 10:06 120 31 91 8/9/17 10:01 127 32 94 8/9/17 09:57 125 28 91/48 100 8/9/17 09:56 121 33 94 8/9/17 09:55 91/48 8/9/17 09:53 96 Room Air 8/9/17 09:52 96 Room Air 8/9/17 09:51 122 37 90 8/9/17 09:47 161 8/9/17 09:46 137 32 87 8/9/17 09:42 122 80/50 8/9/17 09:31 36.6 143 24 62/40 97 Room Air General Appearance: WD/WN, + pertinent finding (PLeasant, obese, elderly male - no acute distress - labord breathing which may be chronic ) Head: normocephalic, atraumatic Eyes: normal inspection, EOMI ENT: normal ENT inspection, pharynx normal Neck: supple, no JVD Respiratory/Chest: chest non-tender, lungs clear, normal breath sounds Cardiovascular: regular rate, rhythm, no JVD, + systolic murmur Abdomen/GI: normal bowel sounds, non tender, + pertinent finding (FIrm area on abdominal wall at site of Lovenox injection) Back: normal inspection, no CVA tenderness, no muscle spasm, normal range of motion Extremities/Musculoskelatal: no calf tenderness, normal capillary refill, + pedal edema Neurologic/Psych: saddle lining stitcher II-XII nml as tested, no motor/sensory deficits, alert, + pertinent finding (AAO x 2 ) Skin: + pertinent finding (LE erythema and decub ulcer) Diagnostics Laboratory Results Results Past 24 Hours Test 05/31/17 10:10 05/31/17 10:13 05/31/17 10:16 05/31/17 12:10 Range/Units Bedside Hemoglobin 6.5 14.0-18.0 g/dl Bedside Hematocrit 19 42-52 % Bedside Sodium 132 135-144 mEq/L Bedside Potassium 5.5 3.3-5.0 mEq/L Bedside Chloride 102 101-112 mEq/L Bedside Total CO2 17 24-31 mEq/l Anion Gap 19.0 13.0 3-11 mmol/L Bedside Blood Urea Nitrogen > 140 7-18 mg/dl Bedside Creatinine 1.4 0.6-1.3 mg/dl Bedside Glucose (other) 103 70-99 mg/dl Bedside Ionized Calcium (Kyle) 0.96 1.12-1.32 mmol/l White Blood Count 8.21 4.8-10.8 K/uL Red Blood Count 2.05 4.7-6.1 M/uL Hemoglobin 7.2 14.0-18.0 g/dL Hematocrit 21.6 42-52 % Mean Corpuscular Volume 105.4 80-100 fL Mean Corpuscular Hemoglobin 35.1 25-34 pg Mean Corpuscular Hemoglobin Concent 33.3 32-36 g/dl Platelet Count 133 130-400 K/uL Mean Platelet Volume 9.2 7.4-10.4 fL Neutrophils (%) (Auto) 63.7 % Lymphocytes (%) (Auto) 23.5 % Monocytes (%) (Auto) 11.7 % Eosinophils (%) (Auto) 0.2 % Basophils (%) (Auto) 0.4 % Neutrophils # (Auto) 5.23 1.4-6.5 K/uL Lymphocytes # (Auto) 1.93 1.2-3.4 K/uL Monocytes # (Auto) 0.96 0.11-0.59 K/uL Eosinophils # (Auto) 0.02 0-0.5 K/uL Basophils # (Auto) 0.03 0-0.2 K/uL RDW Standard Deviation 57.8 36.4-46.3 fL RDW Coefficient of Variation 15.2 11.5-14.5 % Immature Granulocyte % (Auto) 0.5 % Immature Granulocyte # (Auto) 0.04 0.00-0.02 K/uL Macrocytosis PRESENT Prothrombin Time 11.5 9.0-12.0 SECONDS Prothromb Time International Ratio 1.1 0.9-1.1 Activated Partial Thromboplast Time 29.4 21.0-31.0 SECONDS Partial Thromboplastin Ratio 1.1 Sodium Level 134 136-145 mmol/L Potassium Level 5.2 3.5-5.1 mmol/L Chloride Level 105 98-107 mmol/L Carbon Dioxide Level 16 21-32 mmol/L Blood Urea Nitrogen 163 7-18 mg/dl Creatinine 1.20 0.60-1.40 mg/dl Est Creatinine Clear Calc Drug Dose 60.0 ml/min Estimated GFR () 64.9 Estimated GFR (Non- 56.0 BUN/Creatinine Ratio 136.0 10-20 Random Glucose 105 70-99 mg/dl Calcium Level 7.5 8.5-10.1 mg/dl Total Bilirubin 0.3 0.2-1 mg/dl Direct Bilirubin < 0.1 0-0.2 mg/dl Aspartate Amino Transf (AST/SGOT) 16 15-37 U/L Alanine Aminotransferase (ALT/SGPT) 18 12-78 U/L Alkaline Phosphatase 54 45-117 U/L Total Protein 5.2 6.4-8.2 gm/dl Albumin 1.9 3.4-5.0 gm/dl Lipase 278 73-393 U/L Bedside Lactic Acid Venous 3.51 0.90-1.70 mmol/L Test 05/31/17 12:45 Range/Units Hemoglobin 8.9 14.0-18.0 g/dL Hematocrit 26.5 42-52 % Microbiology Results 05/31/17 MRSA DNA Surveillance Screen, Received Pending 05/31/17 C.difficile Toxin B Gene (PCR), Chung Batch Pending Diagnostic Radiology 1. Small amount of gas within the bladder wall which suggests emphysematous cystitis. This could be correlated with urinalysis. Small amount of gas within the bladder lumen. Moderate distention of the bladder with mild adjacent infiltration. Bladder wall thickening. Trabeculated bladder wall small diverticula. 2. IVC filter in place. Apparent filling defects within the right common iliac, right external iliac, right common femoral and right superficial femoral veins which favors thrombus. Artifact could appear similar although thrombus, below the IVC filter, is favored. 3. No bowel obstruction. EKG AF - RBBB - block may be rate-related and is not present on an EKG 05/25 - no evidence of acute ischemia Impression Assessment and Plan 82 y/o M HTN, PAF, dementia, DVTs - currently at a NH and receiving BID Lovenox. He developed tarry diarrhea this and then had an episode of hematemesis. The pt was hypotensive on arrival to the ER. He is a poor historian and does not have any additional complaints such as abdominal pain, fevers, rigors, CP or SOB. He may have described light-headedness earlier. He received 2 units of PRBCs, Protamine, Protonix and a dose of Octreotide in the ER. 1) Upper GI bleed - markedly elevated BUN and acute anemia - Due to his low BP , he will proceed to the ICU for further management. He is receiving 3 units of PRBCs - received Protamine, Protonix, Octreotide. Serial hemoglobin ordered. The case was discussed with the GI service at the time of admission. 2) AF - Will receive IV Metoprolol Q6 with parameters 3) DVTs - extensive on R - Will need to restart Lovenox if possible following resolution of bleed 4) Diarrhea - will check for Cdiff - he has been receiving Doxy for his decub ulcer. 5) Uremia - chronic - acute elevation likely due to GI bleed - has not affected his mentation - trend daily - IVF following PRBC admin. Full code - DVT prophylaxis held Total time for this admit including review of labs, meds, EKG, CT, records - discussion with pt, family and ER attending - including critical care time - 45 min Level of Care Critical Care Resuscitation Status FULL RESUSCITATION VTE Prophylaxis VTE Risk Assessment Done? Y/N: Yes Risk Level: Moderate Given or contraindicated: SCD's
--- NOTE | 2017-05-31 14:01 | EMERGENCY ROOM VISIT NOTE ---
History Report prepared by Jasmine: Ashok Moseley Under the Supervision of: Zuleyma HarrisonO. First contact with patient: 09:35 Chief Complaint: GI ASSESSMENT Stated Complaint: GI BLEED, DIARRHEA Nursing Triage Summary: Pt arrives ALS from [facility] Staff reports n/v/d that started this morning Staff states coffee ground emesis Pt reports he is on blood thinners History of Present Illness The patient is an 82 year old male who presents to the Emergency Room with complaints of intermittent diarrhea starting this morning, and he had 4-5 bowel movements. The patient additionally states that he vomited once this morning which looked like coffee grounds. He denies any abdominal pain, though he has rectal pain which is exacerbated with movement. Additionally he had dark stools and he has been wheezing. The patient states that he has not been eating very well recently. The patient has a history of a blood clot about two weeks ago and a history of intraperineal bleeding back in 2010. Pt denies headache, change in vision, fevers, chest pain, shortness of breath, and pain with urination Source of History: patient Onset: this morning Position: other (global) Quality: other (diarrhea) Timing: intermittent Modifying Factors (Worsening): movement Associated Symptoms: + vomiting, + melena, No abdominal pain Review of Systems See HPI for pertinent positives & negatives. A total of 10 systems reviewed and were otherwise negative. Past Medical & Surgical Medical Problems: (1) Acute Venous Embolism & Thrombosis Deep Vessels Distal Le (2) Anemia (3) Benign Neoplasm Lg Bowel (4) Bilateral lower extremity pain (5) Diverticulosis Colon (W/O Ment Of Hemorrhage) (6) Duodenal Ulcer Nos (7) DVT, bilateral lower limbs (8) Hematemesis (9) Hypertrophy (Benign) Of Prostate W/O Urinary Obst & Oth Luts (10) Spinal Stenosis, Lumbar Reg, W/Out Neurogenic Claudication Social History Smoking Status: Unknown if Ever Smoked Alcohol Use: none Drug Use: none Marital Status: Housing Status: lives with significant other Occupation Status: retired Current/Historical Medications Scheduled Ascorbic Acid (Ascorbic Acid), 500 MG PO HS Aspirin (Aspirin Chewable), 81 MG PO DAILY Doxycycline (Monohydrate) (Monodox), 1 CAP PO BID Enalapril (Vasotec), 10 MG PO BID Finasteride (Proscar), 5 MG PO DAILY Folic Acid (Folvite), 1 MG PO DAILY Furosemide (Lasix), 1 TAB PO BID Loratadine (Claritin), 1 TAB PO DAILY Magnesium Hydroxide (Milk Of Magnesia), 30 ML PO Q8HR PRN Methenamine Hippurate (Methenamine Hippurate), 1 TAB PO DAILY Metoprolol Tartrate (Lopressor), 1 TAB PO DAILY Multivitamins/Minerals (Mvi With Minerals), 1 TAB PO DAILY Tamsulosin Hcl (Flomax), 0.4 MG PO DAILY Vitamin B Complex (Vitamin B Complex), 1 TAB PO QPM Scheduled PRN Acetaminophen (Tylenol), 650 MG PO Q4H PRN for Pain or Fever Bisacodyl (Dulcolax), 1 SUPP WI Q 4 DAYS IF NO BM PRN for PRN Ipratropium-Albuterol (Duoneb), 1 TREATMENT INH Q4H PRN for SOB/Wheezing Allergies Coded Allergies: Levofloxacin (Verified Allergy, Unknown, ., 05/31/17) Sulfa Antibiotics (Verified Allergy, Unknown, ., 05/31/17) Physical Exam Vital Signs Date Time Temp Pulse Resp B/P (MAP) Pulse Ox O2 Delivery O2 Flow Rate FiO2 05/31/17 13:58 127 05/31/17 13:50 36.6 119 30 95/52 96 2.0 05/31/17 13:46 120 24 79/49 96 Nasal Cannula 2.0 05/31/17 13:45 119 24 95 05/31/17 13:41 95/51 05/31/17 13:40 113 30 95 05/31/17 13:40 113 30 95 05/31/17 13:36 79/46 05/31/17 13:35 118 30 96 05/31/17 13:35 118 30 96 05/31/17 13:31 71/57 05/31/17 13:30 114 23 91 05/31/17 13:28 36.6 122 22 94/51 96 2.0 05/31/17 13:27 94/51 05/31/17 13:25 123 30 88 05/31/17 13:22 75/ 05/31/17 13:20 121 28 97 05/31/17 13:16 98/64 05/31/17 13:15 124 39 93 05/31/17 13:11 86/47 8/9/17 13:10 124 32 96 8/9/17 13:06 75/60 8/9/17 13:05 119 21 93 8/9/17 13:02 80/52 8/9/17 13:00 124 29 96 8/9/17 12:55 112 31 90 8/9/17 12:51 85/46 8/9/17 12:50 108 27 100 8/9/17 12:46 92/66 8/9/17 12:45 113 31 79/48 98 8/9/17 12:45 113 31 98 8/9/17 12:44 109 26 79/48 97 2.0 8/9/17 12:40 94 30 79/48 100 8/9/17 12:36 74/48 8/9/17 12:35 110 28 94 8/9/17 12:31 84/58 8/9/17 12:30 113 31 94 8/9/17 12:30 113 31 79/48 94 8/9/17 12:26 88/44 8/9/17 12:25 113 28 96 8/9/17 12:21 78/54 8/9/17 12:20 123 29 96 8/9/17 12:16 68/46 8/9/17 12:15 116 28 97 8/9/17 12:15 116 28 97 8/9/17 12:11 87/53 8/9/17 12:10 117 26 87/53 99 Nasal Cannula 2.0 8/9/17 12:10 107 28 86 8/9/17 12:07 88/56 8/9/17 12:05 117 22 97 8/9/17 12:04 93 Nasal Cannula 2.0 8/9/17 12:01 83/49 8/9/17 12:00 114 24 94 8/9/17 12:00 114 24 83/49 94 92.0 8/9/17 11:56 88/48 8/9/17 11:55 116 33 94 8/9/17 11:50 36.5 104 26 88/51 84 8/9/17 11:50 88/51 8/9/17 11:46 125 29 96 8/9/17 11:45 73/52 8/9/17 11:41 133 30 60/45 97 8/9/17 11:40 122 34 88/51 93 89/17 11:36 124 29 72/47 8/9/17 11:31 124 32 84/63 8/9/17 11:30 121 30 9/17 11:26 120 29 103/64 8/9/17 11:21 122 33 8/9/17 11:20 118 34 /9/17 11:16 128 26 9/17 11:11 119 33 /9/17 11:09 36.5 140 26 85/51 93 8/9/17 11:09 85/51 05/31/17 11:08 36.5 128 30 85/51 93 /9/17 11:06 128 29 05/31/17 11:01 120 34 05/31/17 10:40 140 26 92 Room Air 05/31/17 10:40 36.5 140 26 91/56 93 05/31/17 10:36 129 35 9 10:35 108/61 05/31/17 10:32 129 26 94/61 92 Room Air 05/31/17 10:32 94/61 05/31/ 10:31 128 23 05/31/17 10:30 79/49 /9/17 10:26 117 32 05/31/17 10:26 36.5 125 26 96/95 97 05/31/17 10:22 96/65 05/31/17 10:21 39 917 10:16 37 17 10:11 125 30 94 9/17 10:07 96/58 05/31/17 10:06 120 31 91 05/31/17 10:01 127 32 94 05/31/17 09:57 125 28 91/48 100 05/31/17 09:56 121 33 94 9 09:55 91/48 9 09:53 96 Room Air 05/31/17 09:52 96 Room Air 05/31/17 09:51 122 37 90 9 09:47 161 05/31/17 09:46 137 32 87 9 09:42 122 80/50 917 09:31 36.6 143 24 62/40 97 Room Air Physical Exam GENERAL: Sitting up in bed, ill appearing, pale, disheveled, significant distress. EYE EXAM: normal conjunctiva OROPHARYNX: no exudate, no erythema, lips, buccal mucosa, and tongue normal and mucous membranes are dry NECK: supple, no nuchal rigidity, no adenopathy, non-tender LUNGS: Lung sounds diminished at both bases and rhonchi bilaterally. Normal chest wall mechanics HEART: Tachycardic and irregularly irregular. no murmurs, S1 normal and S2 normal ABDOMEN: Old abdominal bruising. abdomen soft, non-tender, normo-active bowel sounds, no masses, no rebound or guarding. BACK: Back is symmetrical on inspection and there is no deformity, no midline tenderness, no CVA tenderness. SKIN: no rashes and no bruising UPPER EXTREMITIES: upper extremities are grossly normal. LOWER EXTREMITIES: Pitting edema bilaterally NEURO EXAM: Normal sensorium, cranial nerves II-XII grossly intact, normal speech, no gross weakness of arms, no gross weakness of legs. Gross sensation intact. Medical Decision & Procedures ER Provider Diagnostic Interpretation: Radiology results as stated below per my review and the radiologist's interpretation: CT OF THE ABDOMEN AND PELVIS WITH CONTRAST CLINICAL HISTORY: Nausea, vomiting and diarrhea. GI bleed. COMPARISON STUDY: CT of the abdomen and pelvis November 26, 2014. TECHNIQUE: Following IV administration of 60 mL of Optiray-320, axial images of the abdomen and pelvis were obtained from the lung bases to the proximal femurs. Images were reviewed in the axial, sagittal, and coronal planes. IV contrast was administered without complication. A dose lowering technique was utilized adhering to the principles of ALARA. CT DOSE: 1905.82 mGy.cm FINDINGS: The heart is moderately enlarged. The liver, spleen, adrenal glands, kidneys and pancreas are unremarkable. There is mild renal cortical thinning. No hydronephrosis is present. An IVC filter is in place. There are are filling defects within the right common iliac, right external iliac, right common femoral and right superficial femoral veins which favor thrombus. There is no evidence for a bowel obstruction. There is no lymphadenopathy. The bladder is moderately distended. Several bladder diverticula/trabeculations are noted. There is gas within the bladder lumen. There is also a small amount of gas within the bladder wall. Note is made of mild infiltration adjacent to the bladder. There are no suspicious osseous lesions. No pneumatosis, free air or portal venous gas is present. There is atrophy of both psoas muscles. IMPRESSION: 1. Small amount of gas within the bladder wall which suggests emphysematous cystitis. This could be correlated with urinalysis. Small amount of gas within the bladder lumen. Moderate distention of the bladder with mild adjacent infiltration. Bladder wall thickening. Trabeculated bladder wall small diverticula. 2. IVC filter in place. Apparent filling defects within the right common iliac, right external iliac, right common femoral and right superficial femoral veins which favors thrombus. Artifact could appear similar although thrombus, below the IVC filter, is favored. 3. No bowel obstruction. Electronically signed by: David Montano M.D. 05/31/2017 11:28 AM Dictated Date/Time: 05/31/2017 10:57 AM Laboratory Results 05/31/17 10:13 Red Blood Count 2.05, Mean Corpuscular Volume 105.4, Mean Corpuscular Hemoglobin 35.1, Mean Corpuscular Hemoglobin Concent 33.3, Mean Platelet Volume 9.2, Neutrophils (%) (Auto) 63.7, Lymphocytes (%) (Auto) 23.5, Monocytes (%) ( Auto) 11.7, Eosinophils (%) (Auto) 0.2, Basophils (%) (Auto) 0.4, Neutrophils # (Auto) 5.23, Lymphocytes # (Auto) 1.93, Monocytes # (Auto) 0.96, Eosinophils # ( Auto) 0.02, Basophils # (Auto) 0.03 05/31/17 12:45 05/31/17 10:13 Test 05/31/17 10:10 05/31/17 10:13 05/31/17 10:16 Bedside Hemoglobin 6.5 g/dl (14.0-18.0) Bedside Hematocrit 19 % (42-52) Bedside Sodium 132 mEq/L (135-144) Bedside Potassium 5.5 mEq/L (3.3-5.0) Bedside Chloride 102 mEq/L (101-112) Bedside Total CO2 17 mEq/l (24-31) Bedside Blood Urea Nitrogen > 140 mg/dl (7-18) Bedside Creatinine 1.4 mg/dl (0.6-1.3) Bedside Glucose (other) 103 mg/dl (70-99) Bedside Ionized Calcium (Kyle) 0.96 mmol/l (1.12-1.32) White Blood Count 8.21 K/uL (4.8-10.8) Red Blood Count 2.05 M/uL (4.7-6.1) Hemoglobin 7.2 g/dL (14.0-18.0) Hematocrit 21.6 % (42-52) Mean Corpuscular Volume 105.4 fL (80-100) Mean Corpuscular Hemoglobin 35.1 pg (25-34) Mean Corpuscular Hemoglobin Concent 33.3 g/dl (32-36) Platelet Count 133 K/uL (130-400) Mean Platelet Volume 9.2 fL (7.4-10.4) Neutrophils (%) (Auto) 63.7 % Lymphocytes (%) (Auto) 23.5 % Monocytes (%) (Auto) 11.7 % Eosinophils (%) (Auto) 0.2 % Basophils (%) (Auto) 0.4 % Neutrophils # (Auto) 5.23 K/uL (1.4-6.5) Lymphocytes # (Auto) 1.93 K/uL (1.2-3.4) Monocytes # (Auto) 0.96 K/uL (0.11-0.59) Eosinophils # (Auto) 0.02 K/uL (0-0.5) Basophils # (Auto) 0.03 K/uL (0-0.2) RDW Standard Deviation 57.8 fL (36.4-46.3) RDW Coefficient of Variation 15.2 % (11.5-14.5) Immature Granulocyte % (Auto) 0.5 % Immature Granulocyte # (Auto) 0.04 K/uL (0.00-0.02) Macrocytosis PRESENT Prothrombin Time 11.5 SECONDS (9.0-12.0) Prothromb Time International Ratio 1.1 (0.9-1.1) Activated Partial Thromboplast Time 29.4 SECONDS (21.0-31.0) Partial Thromboplastin Ratio 1.1 Anion Gap 13.0 mmol/L (3-11) Est Creatinine Clear Calc Drug Dose 60.0 ml/min Estimated GFR () 64.9 Estimated GFR (Non- 56.0 BUN/Creatinine Ratio 136.0 (10-20) Calcium Level 7.5 mg/dl (8.5-10.1) Total Bilirubin 0.3 mg/dl (0.2-1) Direct Bilirubin < 0.1 mg/dl (0-0.2) Aspartate Amino Transf (AST/SGOT) 16 U/L (15-37) Alanine Aminotransferase (ALT/SGPT) 18 U/L (12-78) Alkaline Phosphatase 54 U/L (45-117) Total Protein 5.2 gm/dl (6.4-8.2) Albumin 1.9 gm/dl (3.4-5.0) Lipase 278 U/L (73-393) Bedside Lactic Acid Venous 3.51 mmol/L (0.90-1.70) Laboratory results per my review. Medications Administered Medications (Trade) Dose Ordered Sig/Ekta Route Start Time Stop Time Status Last Admin Dose Admin Sodium Chloride 1,000 ml @ 999 mls/hr Q1H1M STAT IV 05/31/17 09:49 05/31/17 10:49 DC 05/31/17 09:49 999 MLS/HR Sodium Chloride 1,000 ml @ 999 mls/hr Q1H1M STAT IV 05/31/17 09:49 05/31/17 10:49 DC 05/31/17 09:49 999 MLS/HR Pantoprazole Sodium (Protonix IV Bolus/Drip) 1 ea NOW STAT IV 05/31/17 09:49 05/31/17 09:50 DC 05/31/17 11:27 1 EA Protamine Sulfate 20 mg/Dextrose 52 ml @ 300 mls/hr ONE ONCE IV 05/31/17 10:00 05/31/17 10:10 DC 05/31/17 10:00 300 MLS/HR Pantoprazole Sodium 80 mg/ Dextrose 120 ml @ 480 mls/hr NOW ONCE IV 05/31/17 11:00 05/31/17 11:14 DC 05/31/17 11:27 480 MLS/HR Pantoprazole Sodium 40 mg/ Dextrose 100 ml @ 20 mls/hr Q5H IV 05/31/17 11:15 05/31/17 16:14 05/31/17 11:28 20 MLS/HR Octreotide Acetate 100 mcg/ Syringe 10 ml @ 3 mls/min NOW ONCE IV 05/31/17 12:00 05/31/17 12:03 DC 05/31/17 11:48 3 MLS/MIN Octreotide Acetate 500 mcg/ Sodium Chloride 105 ml @ 10 mls/hr [id number] IV 05/31/17 12:00 05/31/17 21:59 05/31/17 11:48 10 MLS/HR Ceftriaxone Sodium (Rocephin Inj) 1 gm NOW STAT IV 05/31/17 11:35 05/31/17 11:36 DC 05/31/17 12:01 1 GM Albuterol/ Ipratropium (Duoneb) 1 ml Q6H PRN INH 05/31/17 12:15 06/30/17 12:14 05/31/17 12:40 1 ML ECG Indication: other (Hypotension and GI bleed) Rate (beats per minute): 143 Rhythm: atrial fibrillation, other (with RVR) Findings: PVC (intermittent), ST depression (Lateral) Change: REPEAT EKG: A-fib with RVR at 116 bpm. Right bundle branch block. Non-specific ST changes in the inferior leads. ED Course ED COURSE: Vital signs were reviewed and showed tachycardia and hypotensive. The patients medical record was reviewed The above diagnostic studies were performed and reviewed. ED treatments and interventions as stated above. 0940: The patient was evaluated in room B9. A complete history and physical examination was performed. 0949: Protonix IV Blus/Drip 1ea IV, Sodium Chloride 1000 ml @ 999 mls/hr IV, Sodium Chloride 1000 ml @ 999 mls/hr IV 0958: I discussed the patient's case with Dr. Dumont, and since the patient's last dose of Lovenox was 2300 last night, and with the decreased renal function to start a 20mg protamine drip. 1000: Protamine Sulfate 20mg/ Dextrose 52ml @ 300mls/hr IV 1025: I reevaluated the patient, and he has consented to blood and he is going to be getting it now. 1028: I discussed the patient's case with Dr. Winchester, and he recommends an Octreotide drip. 1100: Pantoprazole Sodium 80mg/ Dextrose 120ml @ 480mls/hr IV 1115: Pantoprazole Sodium 40mg/ Dextrose 100ml @ 20mls/hr IV 1135: Rocephin Inj 1gm IV 1155: I reevaluated the patient, and his systolic pressure was in the 90s, and he is not having any shortness of breath. He has gotten 3 units of PRVC 1200: Octreotide Acetate 500mcg/ Sodium Chloride 105ml @ 10mls/hr IV, Octreotide Acetate 100mcg/ Syringe 10ml @ 3 mls/min IV 1254: I reviewed the patient's case with Dr. Meyers. He will evaluate the patient for further management. 1258: Upon reevaluation, the patient is resting.I discussed my findings with the patient and he understands and agrees with the treatment plan. Based on the patients age, coexisting illnesses, exam and lab findings the decision to treat as an inpatient was made. The patient remained stable while under my care. The patient will be evaluated for further management. Medical Decision Differential diagnosis includes etiologies such as diverticulosis, AVM, coagulopathy, colitis, inflammatory bowel disease, malignancy, Regi-Marie tear, esophagitis, peptic ulcer disease, variceal bleed, gastritis, epistaxis, fissure, hemorrhoids, as well as others were entertained. Patient is an 82-year-old male who is brought in by EMS for coffee ground emesis at the retirement. Upon presentation to the ER his systolic pressures are in the 60s. Heart rate is 140s. EKG shows A. fib with RVR. 2 IVs were established both 18-gauge. Her blood work was obtained. istats showed hemoglobin of 6 from baseline of 10. Following 2.5 L normal saline. Eventually obtained uncrossed blood and patient was given 2 units. Following this he was given an additional 2 units on the ER. Systolic pressures increased from 60s to 109. Following this they dropped again and floated in the 90s. I contacted GI as above who recommended octreotide as he was a previous drinker. Patient was given octreotide bolus and drip. They will evaluate him. Also contacted ICU attending who agreed to take the patient. Upon this internal medicine evaluated the patient admit the patient. His hemodynamic status remained tenuous on the ER. He did remain a full code. His last dose of Lovenox was last night and was reversed with protamine. Lactic acid was slightly elevated 3.5. CT of the abdomen was performed as he had previous intra-abdominal bleeds which was unremarkable with exception of air in the bladder. He has no urinary symptoms but to cover him with antibiotics. Medication Reconcilliation Current Medication List: was personally reviewed by me Blood Pressure Screening Patient's blood pressure: Low blood pressure Consults Time Called: 954 Consulting Physician: Dr. Dumont Returned Call: [phone] I discussed the patient's case with Dr. Dumont, and since the patient's last dose of Lovenox was 2300 last night, and with the decreased renal function to start a 20mg protamine drip. Additional Consults: Time Called: 1024 Consulted Physician: Dr. Winchester Returned Call: [phone] Additional Comments: I discussed the patient's case with Dr. Winchester, and he recommends an Octreotide drip. Time Called: 1250 Consulted Physician: Dr. Meyers Returned Call: [phone] Additional Comments: I reviewed the patient's case with Dr. Meyers. He will evaluate the patient for further management. Impression Primary Impression: Symptomatic anemia Additional Impressions: GI bleed Hypotension UTI (urinary tract infection) DVT, bilateral lower limbs Critical Care I have personally spent 125 minutes of critical care time in the direct management of this patient. This includes bedside care, interpretation of diagnostic studies, and testing, discussion with consultants, patient, and family members, and other required patient management activities. This 125 minutes is in excess of all separately billable procedures. Scribe Attestation The scribe's documentation has been prepared under my direction and personally reviewed by me in its entirety. I confirm that the note above accurately reflects all work, treatment, procedures, and medical decision making performed by me. Departure Information Dispostion Being Evaluated By Hospitalist Referrals [facility] (PCP) Patient Instructions My [facility] Problem Qualifiers Additional Impressions: GI bleed GI bleed type/associated pathology: unspecified gastrointestinal hemorrhage type Qualified Codes: K92.2 - Gastrointestinal hemorrhage, unspecified Hypotension Hypotension type: unspecified hypotension type Qualified Codes: I95.9 - Hypotension, unspecified
[2017-05-31 15:40] LABS: URINE APPEARANCE TURBID (CLEAR); URINE BILIRUBIN NEG (NEG); URINE COLOR YELLOW; URINE EPITHELIAL CELL AUTO >30 /lpf (0-5); URINE NITRITE NEG (NEG); URINE SPECIFIC GRAVITY 1.015 (1.000-1.030); UROBILINOGEN NEG (NEG)
[2017-05-31 15:51] LABS: MANUAL MICROSCOPIC REQUIRED? NO; REVIEW REQ? YES
[2017-05-31] MEDS: PANTOprazole INJ 40 MG in DEXTROSE 5% 100ML IV SCH ×2 (16:22→21:28)
--- NOTE | 2017-05-31 17:13 | Critical Care Consultation ---
Critical Care Consultation Date of Consultation: May 31, 2017. Attending Physician: Carl Meyers M.D. Reason for Consultation: Acute blood loss anemia in the setting of upper GI bleed with subsequent hypotension. History of Present Illness Patient is an 82-year-old male brought to the emergency department from [facility] earlier today after being noted having black/tarry stools as well as coffee-ground emesis. Patient is a poor historian overall, but does remember having diarrhea which started yesterday. He had multiple bowel movements that he was able to remember today while attempting to have breakfast. He noticed blood when he vomited and describes it as coffee-ground in appearance. The supplements history of present illness and reports the patient currently lives at [facility] where he has been since November 18. The patient was admitted to this facility last month and diagnosed with an extensive DVT requiring anticoagulation. The patient does have a significant past medical history for venous thromboembolism requiring IVC filter placement secondary to retroperitoneal hemorrhage while on anticoagulation therapy. The patient was placed on Coumadin with Lovenox bridging most recently. He was noted to have bruising on his belly at this injection sites. There is been no other overt bleeding until today, however. The patient is also taking doxycycline for a decubitus ulcer. He takes aspirin daily. He utilizes no other NSAIDs. Patient presents the ICU 107. He reports a mild posterior headache where his headrests on the pillow. He denies any other pain at this time, but does report that his abdomen feels "full". Patient reports that he has not had any urinary output today that he can remember. He complains of being hungry, but otherwise is resting comfortably. reports the patient has been receiving breathing treatments at the assisted secondary to an ongoing cough. The patient complains of mild discomfort rating his pain a 2/10. He denies any dizziness, lightheadedness, chest pain, palpitations, shortness of breath, pleuritic pain, nausea, abdominal pain, or dysuria. 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 Diverticulosis duodenal ulcer BPH Lumbar spinal stenosis Paroxysmal atrial fibrillation Dementia Decubitus ulcer Chronic uremia Homocystinemia and lupus anticoagulant positive Chronic anemia Thrombocytopenia Social History Smoking Status: Never Smoker Smokeless Tobacco Use: No Alcohol Use: none Drug Use: none Marital Status: Housing Status: assisted Occupation Status: retired Allergies Coded Allergies: Levofloxacin (Verified Allergy, Unknown, ., 05/31/17) Sulfa Antibiotics (Verified Allergy, Unknown, ., 05/31/17) Home Medications Scheduled Ascorbic Acid (Ascorbic Acid), 500 MG PO HS Aspirin (Aspirin Chewable), 81 MG PO DAILY Doxycycline (Monohydrate) (Monodox), 1 CAP PO BID Enalapril (Vasotec), 10 MG PO BID Finasteride (Proscar), 5 MG PO DAILY Folic Acid (Folvite), 1 MG PO DAILY Furosemide (Lasix), 1 TAB PO BID Loratadine (Claritin), 1 TAB PO DAILY Magnesium Hydroxide (Milk Of Magnesia), 30 ML PO Q8HR PRN Methenamine Hippurate (Methenamine Hippurate), 1 TAB PO DAILY Metoprolol Tartrate (Lopressor), 1 TAB PO DAILY Multivitamins/Minerals (Mvi With Minerals), 1 TAB PO DAILY Tamsulosin Hcl (Flomax), 0.4 MG PO DAILY Vitamin B Complex (Vitamin B Complex), 1 TAB PO QPM Scheduled PRN Acetaminophen (Tylenol), 650 MG PO Q4H PRN for Pain or Fever Bisacodyl (Dulcolax), 1 SUPP VT Q 4 DAYS IF NO BM PRN for PRN Ipratropium-Albuterol (Duoneb), 1 TREATMENT INH Q4H PRN for SOB/Wheezing Current Inpatient Medications Current Inpatient Medications Medications (Trade) Dose Ordered Sig/Ekta Route Start Time Stop Time Status Last Admin Dose Admin Ioversol (Optiray 320) 100 ml UD PRN IV 05/31/17 10:30 06/04/17 10:29 Pantoprazole Sodium 40 mg/ Dextrose 100 ml @ 20 mls/hr Q5H IV 05/31/17 11:15 05/31/17 16:14 05/31/17 11:28 20 MLS/HR Octreotide Acetate 500 mcg/ Sodium Chloride 105 ml @ 10 mls/hr [id number] IV 05/31/17 12:00 05/31/17 21:59 05/31/17 11:48 10 MLS/HR Albuterol/ Ipratropium (Duoneb) 1 ml Q6H PRN INH 05/31/17 12:15 06/30/17 12:14 05/31/17 12:40 1 ML Tamsulosin HCl (Flomax Cap) 0.4 mg DAILY PO 06/01/17 09:00 07/01/17 08:59 Ondansetron HCl (Zofran Inj) 4 mg Q6H PRN IV 05/31/17 12:15 06/30/17 12:14 Morphine Sulfate (MoRPHine SULFATE INJ) 2 mg Q30M PRN IV 05/31/17 13:00 06/14/17 12:59 Pantoprazole Sodium 40 mg/ Dextrose 100 ml @ 20 mls/hr Q5H IV 05/31/17 16:30 06/30/17 16:29 Review of Systems A complete 10-point Review of Systems was discussed with the patient, with pertinent positives and negatives listed in the History of Present Illness. All remaining Review of Systems questions can be considered negative unless otherwise specified. Physical Exam Date Time Temp Pulse Resp B/P (MAP) Pulse Ox O2 Delivery O2 Flow Rate FiO2 05/31/17 15:33 36.4 120 25 121/71 Nasal Cannula 05/31/17 15:04 36.6 156 28 86/61 79 05/31/17 15:00 156 28 79 05/31/17 14:31 119 20 86/61 91 05/31/17 14:30 113 33 91 05/31/17 14:26 117 33 75/61 99 05/31/17 14:21 119 29 80/53 92 05/31/17 14:16 123 22 89/60 95 05/31/17 14:11 120 27 83/57 91 05/31/17 14:09 120 26 77/43 96 Nasal Cannula 2.0 05/31/17 14:06 124 17 77/43 90 05/31/17 14:01 127 27 85/55 90 05/31/17 14:00 36.6 120 26 83/57 94 2.0 05/31/17 13:58 127 05/31/17 13:56 119 28 93/58 88 05/31/17 13:51 112 33 95/52 97 05/31/17 13:50 36.6 119 30 95/52 96 2.0 05/31/17 13:46 120 24 79/49 96 Nasal Cannula 2.0 05/31/17 13:45 119 24 95 05/31/17 13:41 95/51 05/31/17 13:40 113 30 95 8/9/17 13:40 113 30 95 8/9/17 13:36 79/46 8/9/17 13:35 118 30 96 8/9/17 13:35 118 30 96 8/9/17 13:31 71/57 8/9/17 13:30 114 23 91 8/9/17 13:28 36.6 122 22 94/51 96 2.0 8/9/17 13:27 94/51 8/9/17 13:25 123 30 88 8/9/17 13:22 75/ 8/9/17 13:20 121 28 97 8/9/17 13:16 98/64 8/9/17 13:15 124 39 93 8/9/17 13:11 86/47 8/9/17 13:10 124 32 96 8/9/17 13:06 75/60 8/9/17 13:05 119 21 93 8/9/17 13:02 80/52 8/9/17 13:00 124 29 96 8/9/17 12:55 112 31 90 8/9/17 12:51 85/46 8/9/17 12:50 108 27 100 8/9/17 12:46 92/66 8/9/17 12:45 113 31 79/48 98 8/9/17 12:45 113 31 98 8/9/17 12:44 109 26 79/48 97 2.0 8/9/17 12:40 94 30 79/48 100 8/9/17 12:36 74/48 8/9/17 12:35 110 28 94 8/9/17 12:31 84/58 8/9/17 12:30 113 31 94 8/9/17 12:30 113 31 79/48 94 8/9/17 12:26 88/44 8/9/17 12:25 113 28 96 8/9/17 12:21 78/54 8/9/17 12:20 123 29 96 8/9/17 12:16 68/46 8/9/17 12:15 116 28 97 8/9/17 12:15 116 28 97 8/9/17 12:11 87/53 8/9/17 12:10 117 26 87/53 99 Nasal Cannula 2.0 8/9/17 12:10 107 28 86 8/9/17 12:07 88/56 8/9/17 12:05 117 22 97 8/9/17 12:04 93 Nasal Cannula 2.0 8/9/17 12:01 83/49 8/9/17 12:00 114 24 94 8/9/17 12:00 114 24 83/49 94 92.0 8/9/17 11:56 88/48 8/9/17 11:55 116 33 94 8/9/17 11:50 36.5 104 26 88/51 84 8/9/17 11:50 88/51 8/9/17 11:46 125 29 96 8/9/17 11:45 73/52 8/9/17 11:41 133 30 60/45 97 8/9/17 11:40 122 34 88/51 93 8/9/17 11:36 124 29 72/47 8/9/17 11:31 124 32 84/63 8/9/17 11:30 121 30 8/9/17 11:26 120 29 103/64 8/9/17 11:21 122 33 8/9/17 11:20 118 34 8/9/17 11:16 128 26 8/9/17 11:11 119 33 8/9/17 11:09 36.5 140 26 85/51 93 8/9/17 11:09 85/51 8/9/17 11:08 36.5 128 30 85/51 93 8/9/17 11:06 128 29 8/9/17 11:01 120 34 8/9/17 10:40 140 26 92 Room Air 8/9/17 10:40 36.5 140 26 91/56 93 8/9/17 10:36 129 35 8/9/17 10:35 108/61 8/9/17 10:32 129 26 94/61 92 Room Air 8/9/17 10:32 94/61 8/9/17 10:31 128 23 8/9/17 10:30 79/49 8/9/17 10:26 117 32 8/9/17 10:26 36.5 125 26 96/95 97 8/9/17 10:22 96/65 8/9/17 10:21 39 8/9/17 10:16 37 8/9/17 10:11 125 30 94 8/9/17 10:07 96/58 8/9/17 10:06 120 31 91 05/31/17 10:01 127 32 94 05/31/17 09:57 125 28 91/48 100 05/31/17 09:56 121 33 94 05/31/17 09:55 91/48 05/31/17 09:53 96 Room Air 05/31/17 09:52 96 Room Air 05/31/17 09:51 122 37 90 05/31/17 09:47 161 05/31/17 09:46 137 32 87 05/31/17 09:42 122 80/50 05/31/17 09:31 36.6 143 24 62/40 97 Room Air VITAL SIGNS - Vital signs and nursing notes were reviewed. GENERAL - 82-year-old male appearing his stated age who is in no acute distress. Pleasantly confused at baseline. Requesting food. SKIN - Small 2.5 cm Grade 2 Decubitus Ulcer. HEAD - NC/AT. EYES - PERRL. Sclera anicteric. Palpebral conjunctiva slightly pale. MOUTH/OROPHARYNX - Without perioral cyanosis. Buccal mucosa pink and moist and without leukoplakia. Tongue midline with equal elevation of palate bilaterally. Dried coffee ground emesis noted to tongue and soft palate. NECK - Neck with FROM. Supple to palpation. No lymphadenopathy noted. No nuchal rigidity. LUNGS - Chest wall symmetric without accessory muscle use, intercostals retractions, or central cyanosis. Normal vesicular breath sounds CTA B/L. Throaty wet cough. No wheezing, rales or rhonchi appreciated. CARDIAC - RRR with S1/S2. No murmur, rubs, or gallops appreciated. ABDOMEN - Abdominal contour flat without pulsations or visible masses. BS normoactive all four quadrants. Multiple small areas of ecchymosis noted to abdomen. No tenderness, palpable masses, hepatosplenomegaly, or ascites noted. EXTREMITIES - Mild pretibial edema present. Chronic hemosiderin staining noted to bilateral lower extremities. +2/5 radial and dorsalis pedis pulses palpated throughout. NEUROLOGIC - Cranial nerves II through XII grossly intact. PSYCH - Pleasantly demented. Pt is very pleasant and interacts well with examiner. Laboratory Results Last 24 Hours Test 05/31/17 00:00 05/31/17 10:10 05/31/17 10:13 05/31/17 10:16 Urine Color YELLOW Urine Appearance TURBID Urine pH 5.0 Urine Specific [place] 1.015 Urine Protein NEG Urine Glucose (UA) NEG Urine Ketones NEG Urine Occult Blood 2+ Urine Nitrite NEG Urine Bilirubin NEG Urine Urobilinogen NEG Urine Leukocyte Esterase LARGE Urine WBC (Auto) >30 /hpf Urine RBC (Auto) 0-4 /hpf Urine Hyaline Casts (Auto) 0 /lpf Urine Epithelial Cells (Auto) >30 /lpf Urine Bacteria (Auto) 4+ Urine Pathogenic Casts /lpf Bedside Hemoglobin 6.5 g/dl Bedside Hematocrit 19 % Bedside Sodium 132 mEq/L Bedside Potassium 5.5 mEq/L Bedside Chloride 102 mEq/L Bedside Total CO2 17 mEq/l Anion Gap 19.0 mmol/L 13.0 mmol/L Bedside Blood Urea Nitrogen > 140 mg/dl Bedside Creatinine 1.4 mg/dl Bedside Glucose (other) 103 mg/dl Bedside Ionized Calcium (Kyle) 0.96 mmol/l White Blood Count 8.21 K/uL Red Blood Count 2.05 M/uL Hemoglobin 7.2 g/dL Hematocrit 21.6 % Mean Corpuscular Volume 105.4 fL Mean Corpuscular Hemoglobin 35.1 pg Mean Corpuscular Hemoglobin Concent 33.3 g/dl Platelet Count 133 K/uL Mean Platelet Volume 9.2 fL Neutrophils (%) (Auto) 63.7 % Lymphocytes (%) (Auto) 23.5 % Monocytes (%) (Auto) 11.7 % Eosinophils (%) (Auto) 0.2 % Basophils (%) (Auto) 0.4 % Neutrophils # (Auto) 5.23 K/uL Lymphocytes # (Auto) 1.93 K/uL Monocytes # (Auto) 0.96 K/uL Eosinophils # (Auto) 0.02 K/uL Basophils # (Auto) 0.03 K/uL RDW Standard Deviation 57.8 fL RDW Coefficient of Variation 15.2 % Immature Granulocyte % (Auto) 0.5 % Immature Granulocyte # (Auto) 0.04 K/uL Macrocytosis PRESENT Prothrombin Time 11.5 SECONDS Prothromb Time International Ratio 1.1 Activated Partial Thromboplast Time 29.4 SECONDS Partial Thromboplastin Ratio 1.1 Sodium Level 134 mmol/L Potassium Level 5.2 mmol/L Chloride Level 105 mmol/L Carbon Dioxide Level 16 mmol/L Blood Urea Nitrogen 163 mg/dl Creatinine 1.20 mg/dl Est Creatinine Clear Calc Drug Dose 60.0 ml/min Estimated GFR () 64.9 Estimated GFR (Non- 56.0 BUN/Creatinine Ratio 136.0 Random Glucose 105 mg/dl Calcium Level 7.5 mg/dl Total Bilirubin 0.3 mg/dl Direct Bilirubin < 0.1 mg/dl Aspartate Amino Transf (AST/SGOT) 16 U/L Alanine Aminotransferase (ALT/SGPT) 18 U/L Alkaline Phosphatase 54 U/L Total Protein 5.2 gm/dl Albumin 1.9 gm/dl Lipase 278 U/L Bedside Lactic Acid Venous 3.51 mmol/L Test 05/31/17 12:45 Hemoglobin 8.9 g/dL Hematocrit 26.5 % Diagnostic Results Radiological imaging and reports were reviewed by myself. Radiologist's Interpretation as follows: CT OF THE ABDOMEN AND PELVIS WITH CONTRAST CLINICAL HISTORY: Nausea, vomiting and diarrhea. GI bleed. COMPARISON STUDY: CT of the abdomen and pelvis November 26, 2014. TECHNIQUE: Following IV administration of 60 mL of Optiray-320, axial images of the abdomen and pelvis were obtained from the lung bases to the proximal femurs. Images were reviewed in the axial, sagittal, and coronal planes. IV contrast was administered without complication. A dose lowering technique was utilized adhering to the principles of ALARA. CT DOSE: 1905.82 mGy.cm FINDINGS: The heart is moderately enlarged. The liver, spleen, adrenal glands, kidneys and pancreas are unremarkable. There is mild renal cortical thinning. No hydronephrosis is present. An IVC filter is in place. There are are filling defects within the right common iliac, right external iliac, right common femoral and right superficial femoral veins which favor thrombus. There is no evidence for a bowel obstruction. There is no lymphadenopathy. The bladder is moderately distended. Several bladder diverticula/trabeculations are noted. There is gas within the bladder lumen. There is also a small amount of gas within the bladder wall. Note is made of mild infiltration adjacent to the bladder. There are no suspicious osseous lesions. No pneumatosis, free air or portal venous gas is present. There is atrophy of both psoas muscles. IMPRESSION: 1. Small amount of gas within the bladder wall which suggests emphysematous cystitis. This could be correlated with urinalysis. Small amount of gas within the bladder lumen. Moderate distention of the bladder with mild adjacent infiltration. Bladder wall thickening. Trabeculated bladder wall small diverticula. 2. IVC filter in place. Apparent filling defects within the right common iliac, right external iliac, right common femoral and right superficial femoral veins which favors thrombus. Artifact could appear similar although thrombus, below the IVC filter, is favored. 3. No bowel obstruction. Assessment & Plan (1) Acute blood loss anemia (2) Hematemesis (3) Acute Venous Embolism & Thrombosis Deep Vessels Distal Le (4) Duodenal Ulcer Nos (5) GI bleed (6) DVT, bilateral lower limbs (7) Hypotension Reason Critically Ill: 82-year-old male with acute blood loss anemia secondary to upper GI bleed. Neuro - * Dementia (mild) - symptomatic treatment as necessary. No home Rx noted on record. Cardiac - * Paroxysmal A. Fib * Continue Metoprolol as blood pressure tolerates. * Hold anticoagulation 2/2 UGIB. * Monitor on Telemetry. * EKGs for CP. * Monitor BP closely in setting of acute blood loss anemia. [place] replacement of volume with PRBCs. Consider pressors in the acute phase if needed. * Patient w/ relative hypotension at baseline (i.e. 90s SBP). Monitor for MAP < 65. Respiratory - * Will continue scheduled DuoNebs from assisted. - Treated for ongoing cough. * O2 as required. * Will add CXR for evaluation 2/2 to recent emesis. GI - * UGIB - Acute * Received Octreotide in ED per GI recommendation. * Received 3 U PRBCs - will continue to transfuse as needed. * Received Protamine Sulfate per Heme 2/2 recent Lovenox use. * Continue Protonix gtt per GI. * Hold Lovenox in setting of acute bleeding. * Hold Doxy 2/2 potential for gastritis. * Hold ASA in setting of acute bleeding. * Appreciate GI Consult. RENAL/LYTES - * Uremia w/ BUN 163. * Will add IVF. * Mild Hyperkalemia - repeat PRP in AM. * Monitor Lytes - Correct as needed. - * History of BPH. * Snowden Catheter to [place] 2/2 urinary retention. * History of UTIs. * Cath urine pending. * Will hold AM dose of Flomax in the setting of hypotension. Will restart as BP tolerates. ENDO - * No history of DM or Thyroid dysfunction. * Monitor BSGs per protocol. * Cover w/ ISS protocol as needed. HEME - * Acute Blood Loss Anemia 2/2 UGIB. * Monitor H&H in the acute setting q6h. * Continue to transfuse as needed - received 3 U PRBCs to this point. More units on hold. ID - * Decubitus Ulcer - Grade 2 noted on exam. * Recently treated with Doxy - will d/d 2/2 potential for gastropathy. * Will consult wound care nurse. LINES/IV ACCESS - * [address] bilaterally. * Will maintain 2 large bore PIVs at all time. * Reassess as needed. DVT PROPHYLAXIS - * Will hold all at this point in the setting of acute bleeding. Will need to reassess this after bleeding cessation 2/2 patient's longstanding history of coagulopathy issues and bleeding on anticoagulants. * Would avoid SCDs in this patient 2/2 known h/o extensive DVT and risk for inducing clot migration. IVC in place at this point per CT. I have personally spent 45 minutes of critical care time in the direct management of this patient. This is a life/limb threatening event. This includes time spent evaluating patient, direct bedside care, chart review, placing orders, interpretation of diagnostic studies, discussion with consultants, patient, and family members, as well as other required patient management activities. This time is exclusive of all separately billable procedures, and teaching time and separate from and in addition to any other critical care service time. Thank you for this consultation allow us to be part of this patient's care. Please refer to my attending physician's documentation for any further recommendations. attending note, the pt seen , examined, discussed with the family at the bed side. the pt is confused and lethargic, according to the family this is not his BL, presented to the hospital with hematemesis and Hct of 19, hx of DVT, not PE, afib with RVR , bed ridden since oct 2016, [place] resident, had a hx of GIB in the past requiring placement of IVC filter for DVT prophylaxis and treatment. used to be on NOAC, now on Lovenox sc therapeutic dose. transfused 3 URBC, Hct is stable. PE: S1 S2 , A fib with occasional PVC's, lungs with upper airways sounding, edentulous, abdomen is benign, CC, edema in the lower ext. neuro is lethargic, difficult to assess. labs and abdominal ct reviewed personally. A/P: 1- upper GIB, source [place]. GI consulted, agree with transfusion and IVF to maintain BP. 2- NPO. 3- DVT , s/p IVC filter, given his immobility he will continue to be at risk for DVT however, the IVC filter will be the best treatment to prevent PE. I would favor withholding the anticoagulation all together given his recurrent GIB. 4- rate control for A fib. 5- hold his home meds. 6- code status. discussed with Lemuel Davis , PAC, appreciate his help in this pt. further data detailed in his above note. CCT 45 min. Problem Qualifiers (1) Hematemesis: Nausea presence: unspecified Qualified Codes: K92.0 - Hematemesis (2) GI bleed: GI bleed type/associated pathology: unspecified gastrointestinal hemorrhage type Qualified Codes: K92.2 - Gastrointestinal hemorrhage, unspecified (3) Hypotension: Hypotension type: unspecified hypotension type Qualified Codes: I95.9 - Hypotension, unspecified
[2017-05-31 18:38] LABS: HEMATOCRIT 29.7 % (42-52)
[2017-05-31 18:54] LABS: MAGNESIUM 2.1 mg/dl (1.8-2.4); PHOSPHORUS 4.3 mg/dl (2.5-4.9)
[2017-05-31] MEDS: MoRPHine SULFATE 2 MG/ML CARP IV PRN ×2 (20:00→23:51)
--- NOTE | 2017-05-31 21:04 | DIAGNOSTIC IMAGING REPORT ---
CHEST ONE VIEW PORTABLE CLINICAL HISTORY: cough, recent aspiration COMPARISON STUDY: 04/12/2012 FINDINGS: The cardiac and mediastinal contours remain stable. The heart is mildly enlarged. There is aortic tortuosity/ectasia. There is no failure. There is no focal pulmonary consolidation. There are no pleural effusions.[ IMPRESSION: No active disease in the chest. Electronically signed by: Rolly Em M.D. 05/31/2017 9:03 PM Dictated Date/Time: 05/31/2017 9:02 PM
--- NOTE | 2017-05-31 21:56 | GASTROINTESTINAL CONSULTATION ---
DATE OF CONSULTATION: 05/31/2017 CHIEF COMPLAINT: Melena, hematemesis, coffee-ground emesis. HISTORY OF PRESENT ILLNESS: Mr. Timmons is an 82-year-old white male who [facility] for the description of melena and hematemesis. He was found to have a hemoglobin of 6.5. The patient has a history of dementia with paroxysmal aFib, DVT for which he was converted from Coumadin to Lovenox recently within the past month. He developed tarry diarrhea over the last 24-48 hours and reports from the [facility] with an episode of hematemesis. On arrival at the Emergency Room, the patient was found to be hypotensive and the hemoglobin as mentioned above. Although the patient was a poor historian, he did not report any abdominal pain, chest pain, shortness of breath or palpitations. During his ER visit, he received 2 units of packed red blood cells, which corrected his hemoglobin to 8.9, IV Protonix, protamine and octreotide drip prophylactically as there is apparently a history of alcohol use in the past. According to the patient's , he did have a history of ulcers many years ago but has not had any active bleeding or symptoms from this. She is not aware of any significant chronic liver disease, although did report that he did have a heavy alcohol use several years ago. PAST MEDICAL HISTORY: Includes DVT, paroxysmal atrial fibrillation, colon polyps, diverticulosis, prior history of duodenal ulcer, BPH, spinal stenosis, dementia, decubitus ulcer, hyperuremia, lupus anticoagulant, chronic anemia and thrombocytopenia. FAMILY HISTORY: Noncontributory. There is no history of colorectal cancer. SOCIAL HISTORY: The patient did drink alcohol in the past, although nothing recently. He denies tobacco use. He is and lives in assisted living. Today, his and children were present in the room. REVIEW OF SYSTEMS: As stated above and is otherwise normal based on 13-point exam. ALLERGIES: HE IS ALLERGIC TO LEVOFLOXACIN AND SULFA DRUGS. HOME MEDICATIONS: Include ascorbic acid, aspirin, doxycycline, enalapril, finasteride, Claritin, magnesium hydroxide, methenamine, metoprolol, tamsulosin, vitamin B and multivitamins. PHYSICAL EXAMINATION: VITAL SIGNS: Today in the ER on admission, the patient was afebrile at 36.6, heart rate 143, respirations 24, blood pressure 62/40, 97% on room air. The patient did receive resuscitation, and most recently showed an improved blood pressure that at the present time was 109/82 at 1600 hours. The patient remains mildly tachycardic in aFib with rapid ventricular response at 116 beats a minute, respirations 23. GENERAL: The patient is arousable and alert but confused. HEENT: The oral mucosa is parched. LUNGS: Overall, clear to auscultation without wheezes. HEART: Normal S1, S2. ABDOMEN: Soft, nontender, nondistended with good bowel sounds. There is no rebound or guarding. I do not appreciate hepatosplenomegaly. There are no abdominal bruits. EXTREMITIES: Without clubbing. There is trace pedal edema and trace pretibial edema. RECTAL: Deferred at this time. LABORATORY STUDIES: Showed an improvement of hemoglobin after transfusion to 8.9. His INR on presentation was 1.1, PTT was 29.4. BUN and creatinine 163 and 1.2. ALT 16, AST 18, alkaline phosphatase 54, total protein 5.2, albumin 1.9, lipase 278, bedside lactate was 3.5. Repeat hemoglobin after 2 units 8.9, hematocrit 26.5. IMAGING DATA: EKG showed right bundle branch block and aFib. X-rays revealed an intact IVC filter with a small amount of gas within the wall of the bladder. There was some evidence of bladder wall thickening with trabecular the bladder wall and small diverticula. IMPRESSION AND PLAN: Mr. Timmons is an 82-year-old white male with multiple medical problems on anticoagulation who developed acute onset of melena, significant anemia and hematemesis. There is an elevated BUN. The patient is on Lovenox twice daily. At the time of Emergency Room conversation, I asked the patient to be placed on octreotide for the possibility that this represents portal hypertensive bleed as well as proton pump inhibitor drip for peptic related sources of bleeding. At the present time, although his vital signs have improved and he responded well to 2 units of packed red blood cells, I believe it is reasonable to observe the patient and optimize his resuscitation efforts prior to upper endoscopy. I spoke with the patient's family at length regarding the need for upper endoscopy to assess for any bleeding and the possibly control it endoscopically. They are agreeable and signed a permission form. The timing of this will tentatively be tomorrow; however, it may be necessary to do this sooner if there is evidence of ongoing active bleeding or increasing demand for blood transfusion. Would keep the octreotide and proton pump inhibitor going. Abdominal portal Doppler to exclude evidence of portal hypertension, especially if EGD shows evidence of portal hypertension. Would avoid use of any and all NSAIDs and aspirin. Hold Lovenox at the present time. At some point, will need to discuss with his primary care is any colonoscopy that may have been performed. The patient did have treatment at [facility] for a retroperitoneal bleed, according to the family. All questions answered. Thank you for allowing me to participate in this patient's care. RAND
[2017-05-31 22:34] LABS: HEMATOCRIT 29.8 % (42-52)
[2017-06-01] VITALS (17 sets, daily range): BP systolic 82–123; BP diastolic 52–79; PULSE 75–109; TEMP 36.4–36.8; O2SAT 93–98
[2017-06-01] MEDS: PANTOprazole INJ 40 MG in DEXTROSE 5% 100ML IV SCH ×3 (02:24→14:26)
[2017-06-01] MEDS: MoRPHine SULFATE 2 MG/ML CARP IV PRN (03:07)
[2017-06-01 04:36] LABS: HEMATOCRIT 29.9 % (42-52)
[2017-06-01 05:04] LABS: CALCIUM 7.6 mg/dl (8.5-10.1); CREATININE 0.99 mg/dl (0.60-1.40); MAGNESIUM 2.2 mg/dl (1.8-2.4); POTASSIUM 4.7 mmol/L (3.5-5.1)
[2017-06-01 06:04] LABS: BUN/CREATININE RATIO 158.1 (10-20)
[2017-06-01 06:05] LABS: PHOSPHORUS 3.7 mg/dl (2.5-4.9)
--- NOTE | 2017-06-01 08:52 | Hospitalist Progress Note ---
Hospitalist Progress Note Date of Service Jun 01, 2017. Subjective Pt evaluation today including: conversation w/ patient, physical exam, chart review, lab review, review of studies Pain: None PO Intake: NPO Voiding: martin catheter in place The patient was seen and examined this morning. Pt reports doing much better this morning compared to last night. He currently has no complaints. He denies abdominal pain, nausea, vomiting, diarrhea or constipation. He is anticipating scope today to determine if there is any GI bleed. Pt reports he is hungry several times during my interview. Constitutional: No fever, No chills, No sweats Eyes: No eye pain, No redness ENT: No nasal symptoms, No trouble swallowing Respiratory: No cough, No shortness of breath, No dyspnea at rest Cardiovascular: No chest pain, No edema Abdomen: No pain, No nausea, No vomiting, No diarrhea Musculoskeletal: No joint pain Neurologic: No weakness, No numbness/tingling Endo: No fatigue Skin: No rash, No itch Objective Vital Signs Date Time Temp Pulse Resp B/P (MAP) Pulse Ox O2 Delivery O2 Flow Rate FiO2 06/01/17 06:00 92 18 98/56 (70) 94 Nasal Cannula 2.0 06/01/17 04:00 36.8 108 23 117/71 (86) 96 Nasal Cannula 2.0 06/01/17 04:00 97 Nasal Cannula 2.0 06/01/17 02:00 95 22 123/75 (91) 96 Nasal Cannula 2.0 06/01/17 00:01 36.8 109 22 102/62 (75) 95 Nasal Cannula 2.0 05/31/17 23:59 95 Nasal Cannula 2.0 05/31/17 22:00 102 22 93/71 (78) 94 Nasal Cannula 2.0 05/31/17 20:00 97 Nasal Cannula 2.0 05/31/17 20:00 36.7 102 28 92/69 (77) 94 Nasal Cannula 2.0 05/31/17 19:01 108 25 85/58 (65) 88 05/31/17 18:47 114 18 95 05/31/17 18:32 100 33 94 05/31/17 18:31 111 33 121/54 (73) 96 05/31/17 18:17 114 35 91 05/31/17 18:02 107 24 05/31/17 18:01 36.6 102 28 145/113 (122) 96 05/31/17 17:46 110 27 95 05/31/17 17:32 110 30 114/56 (69) 95 05/31/17 17:31 112 35 96 05/31/17 17:16 110 25 94 05/31/17 17:01 96 25 78/52 (63) 93 17 16:46 110 29 94 05/31/17 16:32 105 24 79/53 (64) 94 05/31/17 16:31 110 28 88 05/31/17 16:16 36.4 114 27 05/31/17 16:15 109 34 05/31/17 16:08 116 23 109/82 (96) 05/31/17 16:00 113 26 05/31/17 15:45 113 36 84/66 (68) 05/31/17 15:33 36.4 120 25 121/71 Nasal Cannula 05/31/17 15:30 121 28 05/31/17 15:15 122 35 05/31/17 15:04 36.6 156 28 86/61 79 05/31/17 15:03 123 26 121/71 (91) 05/31/17 15:00 156 28 79 05/31/17 15:00 156 28 79 05/31/17 14:31 119 20 86/61 91 05/31/17 14:30 113 33 91 05/31/17 14:26 117 33 75/61 99 05/31/17 14:21 119 29 80/53 92 05/31/17 14:16 123 22 89/60 95 05/31/17 14:11 120 27 83/57 91 05/31/17 14:09 120 26 77/43 96 Nasal Cannula 2.0 05/31/17 14:06 124 17 77/43 90 05/31/17 14:01 127 27 85/55 90 05/31/17 14:00 36.6 120 26 83/57 94 2.0 05/31/17 13:58 127 05/31/17 13:56 119 28 93/58 88 05/31/17 13:51 112 33 95/52 97 05/31/17 13:50 36.6 119 30 95/52 96 2.0 05/31/17 13:46 120 24 79/49 96 Nasal Cannula 2.0 8/9/17 13:45 119 24 95 8/9/17 13:41 95/51 8/9/17 13:40 113 30 95 8/9/17 13:40 113 30 95 8/9/17 13:36 79/46 8/9/17 13:35 118 30 96 8/9/17 13:35 118 30 96 8/9/17 13:31 71/57 8/9/17 13:30 114 23 91 8/9/17 13:28 36.6 122 22 94/51 96 2.0 8/9/17 13:27 94/51 8/9/17 13:25 123 30 88 8/9/17 13:22 75/ 8/9/17 13:20 121 28 97 8/9/17 13:16 98/64 8/9/17 13:15 124 39 93 8/9/17 13:11 86/47 8/9/17 13:10 124 32 96 8/9/17 13:06 75/60 8/9/17 13:05 119 21 93 8/9/17 13:02 80/52 8/9/17 13:00 124 29 96 8/9/17 12:55 112 31 90 8/9/17 12:51 85/46 8/9/17 12:50 108 27 100 8/9/17 12:46 92/66 8/9/17 12:45 113 31 79/48 98 8/9/17 12:45 113 31 98 8/9/17 12:44 109 26 79/48 97 2.0 8/9/17 12:40 94 30 79/48 100 8/9/17 12:36 74/48 8/9/17 12:35 110 28 94 8/9/17 12:31 84/58 8/9/17 12:30 113 31 94 8/9/17 12:30 113 31 79/48 94 8/9/17 12:26 88/44 8/9/17 12:25 113 28 96 8/9/17 12:21 78/54 8/9/17 12:20 123 29 96 8/9/17 12:16 68/46 8/9/17 12:15 116 28 97 8/9/17 12:15 116 28 97 8/9/17 12:11 87/53 8/9/17 12:10 117 26 87/53 99 Nasal Cannula 2.0 8/9/17 12:10 107 28 86 8/9/17 12:07 88/56 8/9/17 12:05 117 22 97 8/9/17 12:04 93 Nasal Cannula 2.0 /9/17 12:01 83/49 8/9/17 12:00 114 24 94 8/9/17 12:00 114 24 83/49 94 92.0 /9/17 11:56 88/48 8/9/17 11:55 116 33 94 8/9/17 11:50 36.5 104 26 88/51 84 8/9/17 11:50 88/51 8/9/17 11:46 125 29 96 /9/17 11:45 73/52 8/9/17 11:41 133 30 60/45 97 8/9/17 11:40 122 34 88/51 93 8/9/17 11:36 124 29 72/47 8/9/17 11:31 124 32 84/63 8/9/17 11:30 121 30 8/9/17 11:26 120 29 103/64 8/9/17 11:21 122 33 8/9/17 11:20 118 34 8/9/17 11:16 128 26 8/9/17 11:11 119 33 8/9/17 11:09 36.5 140 26 85/51 93 8/9/17 11:09 85/51 8/9/17 11:08 36.5 128 30 85/51 93 8/9/17 11:06 128 29 8/9/17 11:01 120 34 8/9/17 10:40 140 26 92 Room Air 8/9/17 10:40 36.5 140 26 91/56 93 8/9/17 10:36 129 35 8/9/17 10:35 108/61 8/9/17 10:32 129 26 94/61 92 Room Air 8/9/17 10:32 94/61 8/9/17 10:31 128 23 8/9/17 10:30 79/49 8/9/17 10:26 117 32 8/9/17 10:26 36.5 125 26 96/95 97 8/9/17 10:22 96/65 8/9/17 10:21 39 8/9/17 10:16 37 05/31/17 10:11 125 30 94 05/31/17 10:07 96/58 05/31/17 10:06 120 31 91 05/31/17 10:01 127 32 94 05/31/17 09:57 125 28 91/48 100 05/31/17 09:56 121 33 94 05/31/17 09:55 91/48 05/31/17 09:53 96 Room Air 05/31/17 09:52 96 Room Air 05/31/17 09:51 122 37 90 05/31/17 09:47 161 05/31/17 09:46 137 32 87 05/31/17 09:42 122 80/50 05/31/17 09:31 36.6 143 24 62/40 97 Room Air Laboratory Results Last 24 Hours Test 05/31/17 10:10 05/31/17 10:13 05/31/17 10:16 05/31/17 12:45 Bedside Hemoglobin 6.5 g/dl Bedside Hematocrit 19 % Bedside Sodium 132 mEq/L Bedside Potassium 5.5 mEq/L Bedside Chloride 102 mEq/L Bedside Total CO2 17 mEq/l Anion Gap 19.0 mmol/L 13.0 mmol/L Bedside Blood Urea Nitrogen > 140 mg/dl Bedside Creatinine 1.4 mg/dl Bedside Glucose (other) 103 mg/dl Bedside Ionized Calcium (Kyle) 0.96 mmol/l White Blood Count 8.21 K/uL Red Blood Count 2.05 M/uL Hemoglobin 7.2 g/dL 8.9 g/dL Hematocrit 21.6 % 26.5 % Mean Corpuscular Volume 105.4 fL Mean Corpuscular Hemoglobin 35.1 pg Mean Corpuscular Hemoglobin Concent 33.3 g/dl Platelet Count 133 K/uL Mean Platelet Volume 9.2 fL Neutrophils (%) (Auto) 63.7 % Lymphocytes (%) (Auto) 23.5 % Monocytes (%) (Auto) 11.7 % Eosinophils (%) (Auto) 0.2 % Basophils (%) (Auto) 0.4 % Neutrophils # (Auto) 5.23 K/uL Lymphocytes # (Auto) 1.93 K/uL Monocytes # (Auto) 0.96 K/uL Eosinophils # (Auto) 0.02 K/uL Basophils # (Auto) 0.03 K/uL RDW Standard Deviation 57.8 fL RDW Coefficient of Variation 15.2 % Immature Granulocyte % (Auto) 0.5 % Immature Granulocyte # (Auto) 0.04 K/uL Macrocytosis PRESENT Prothrombin Time 11.5 SECONDS Prothromb Time International Ratio 1.1 Activated Partial Thromboplast Time 29.4 SECONDS Partial Thromboplastin Ratio 1.1 Sodium Level 134 mmol/L Potassium Level 5.2 mmol/L Chloride Level 105 mmol/L Carbon Dioxide Level 16 mmol/L Blood Urea Nitrogen 163 mg/dl Creatinine 1.20 mg/dl Est Creatinine Clear Calc Drug Dose 60.0 ml/min Estimated GFR () 64.9 Estimated GFR (Non- 56.0 BUN/Creatinine Ratio 136.0 Random Glucose 105 mg/dl Calcium Level 7.5 mg/dl Total Bilirubin 0.3 mg/dl Direct Bilirubin < 0.1 mg/dl Aspartate Amino Transf (AST/SGOT) 16 U/L Alanine Aminotransferase (ALT/SGPT) 18 U/L Alkaline Phosphatase 54 U/L Total Protein 5.2 gm/dl Albumin 1.9 gm/dl Lipase 278 U/L Bedside Lactic Acid Venous 3.51 mmol/L Test 05/31/17 17:22 05/31/17 18:27 05/31/17 22:12 06/01/17 00:33 Bedside Glucose 182 mg/dl 143 mg/dl Hemoglobin 10.2 g/dL 10.2 g/dL Hematocrit 29.7 % 29.8 % Lactic Acid Level 1.5 mmol/L Phosphorus Level 4.3 mg/dl Magnesium Level 2.1 mg/dl Test 06/01/17 04:28 Hemoglobin 10.4 g/dL Hematocrit 29.9 % Sodium Level 139 mmol/L Potassium Level 4.7 mmol/L Chloride Level 110 mmol/L Carbon Dioxide Level 19 mmol/L Anion Gap 10.0 mmol/L Blood Urea Nitrogen 156 mg/dl Creatinine 0.99 mg/dl Est Creatinine Clear Calc Drug Dose 72.5 ml/min Estimated GFR () 81.9 Estimated GFR (Non- 70.6 BUN/Creatinine Ratio 158.1 Random Glucose 134 mg/dl Calcium Level 7.6 mg/dl Phosphorus Level 3.7 mg/dl Magnesium Level 2.2 mg/dl Assessment and Plan 82 yo M with GI bleed secondary to bleeding ulcer. GI bleed: - GI consulted- appreciate recs - planning on upper endoscopy today, pt has been NPO. - Was on octreotide gtt in the ED, now stopped, continue protonix gtt for now - S/p 3 U PRBCs on 05/31, transfuse as needed to maintain Hgb >7 - Received protamine sulftate per Hematology for recent lovenox use - Holding doxycycline 2/2 potential for gastritis - Hold ASA - Hgb remains stable in 10s, trending H&H Q6H Paroxysmal Afib - Holding anticoagulation with bleed as above - Holding metoprolol 50 mg with BPs in the low 100s, HR is in 90s-low 100s, watch for rebound tachycardia HTN - Holding lasix 80 mg PO BID, enalapril 10 mg PO BID, asa 81 mg Dementia (mild) - symptomatic treatment as necessary. No home Rx noted on record. Uremia - Cr. improved to 0.99, down from 1.2, BUN also slightly improved from 163 to 156 - Cont IVF with octreotide as above - K+ improved at this time, 4.7 this morning - Follow am bmp BPH. - Cont martin cath for urinary retention - Holding flomax with hypotension Decubitus Ulcer - Grade 2 - Was treated with doxycycline but abx currently on hold as this may be adding to gastropathy - Wound care nurse consulted DVT ppx: chemical anticoagulation on hold due to GI bleed, IVC filter in place, will need started when possible due to afib and hx of DVTs CODE STATUS: FULL CODE Disposition: From [facility] [facility], if stable after scope can move out of the ICU.
[2017-06-01] MEDS ORDERED: TAMSULOSIN HCL 0.4 MG CAP PO SCH (09:00)
--- NOTE | 2017-06-01 11:04 | Critical Care Progress Note ---
Critical Care Progress Note Date of Service Jun 01, 2017. ICU Day ICU Day Number: [address] Vargas Subjective Patient is an 82-year-old male admitted last evening for upper GI bleed and acute anemia. Received 3 units. No further blood products required overnight. H&H stable on serial lab assessment. No complaints overnight. No return of hematemesis or bloody stools noted. Patient is resting in bed. He is pleasantly demented. He offers no complaints other than being hungry. Objective VITAL SIGNS - Vital signs and nursing notes were reviewed. GENERAL - 82-year-old male appearing his stated age who is in no acute distress. Pleasantly confused at baseline. EYES - PERRL. Sclera anicteric. Palpebral conjunctiva pink and moist. MOUTH/OROPHARYNX - Without perioral cyanosis. Buccal mucosa pink and moist and without leukoplakia. Tongue midline with equal elevation of palate bilaterally. LUNGS - Chest wall symmetric without accessory muscle use, intercostals retractions, or central cyanosis. Normal vesicular breath sounds CTA B/L. Throaty wet cough. No wheezing, rales or rhonchi appreciated. CARDIAC - RRR with S1/S2. No murmur, rubs, or gallops appreciated. ABDOMEN - Abdominal contour flat without pulsations or visible masses. BS normoactive all four quadrants. No tenderness, palpable masses, hepatosplenomegaly, or ascites noted. EXTREMITIES - Mild pretibial edema present. Chronic hemosiderin staining noted to bilateral lower extremities. +2/5 radial and dorsalis pedis pulses palpated throughout. PSYCH - Pleasantly demented. Pt is very pleasant and interacts well with examiner. Current SOFA Score SOFA Score Response (Comments) Value Platelets (x10) < 150 1 Bilirubin (mg/dL) < 1.2 0 Shari Coma Score 13 - 14 1 Level of Hypotension MAP less than 70 1 Creatinine (mg/dL) < 1.2 0 Total 3 Assessment & Plan (1) Acute blood loss anemia (2) Hematemesis (3) Acute Venous Embolism & Thrombosis Deep Vessels Distal Le (4) Duodenal Ulcer Nos (5) GI bleed (6) DVT, bilateral lower limbs (7) Hypotension Reason Critically Ill: 82-year-old male with acute blood loss anemia secondary to upper GI bleed. Neuro - * Dementia (mild) - symptomatic treatment as necessary. No home Rx noted on record. * No complaints of pain. Cardiac - * Paroxysmal A. Fib * Metoprolol held 2/2 hypotension. * Hold anticoagulation 2/2 UGIB. * Monitor on Telemetry. * EKGs for CP. * Monitor BP closely in setting of acute blood loss anemia. Mabie replacement of volume with PRBCs. Consider pressors in the acute phase if needed. * No further blood products needed overnight. Will monitor. Respiratory - * Will continue scheduled DuoNebs from long term. - Treated for ongoing cough. * O2 as required. Wean as needed. * CXR unremarkable for fever. GI - * UGIB - Acute * Continue Protonix per GI. * Hold Lovenox in setting of acute bleeding. * Hold Doxy 2/2 potential for gastritis. * Hold ASA in setting of acute bleeding. * Appreciate GI Consult. * To have UGI performed today. Further recommendations to follow. RENAL/LYTES - * Uremia w/ BUN elevation. * Mild improvement. Likely acute elevation 2/2 UGIB. * Monitor Lytes - Correct as needed. - * History of BPH. * Continue to hold Flomax 2/2 hypotension. Currently with Snowden. Can restart Flomax when Snowden d/c'd and/or blood pressure normalizes. ENDO - * No history of DM or Thyroid dysfunction. * Monitor BSGs per protocol. * Cover w/ ISS protocol as needed. HEME - * Acute Blood Loss Anemia 2/2 UGIB. * H&H's stabilized overnight. Will continue to monitor for s/s of bleeding. * Transfuse as needed. ID - * Decubitus Ulcer - Grade 2 noted on exam. * Recently treated with Doxy - will d/d 2/2 potential for gastropathy. * Will consult wound care nurse. * E. Coli UTI noted on Urine Culture. * Review of records demonstrates previous pansensitivity. * Will add 1 g Rocephin q24h x7 days. LINES/IV ACCESS - * [address] bilaterally. * Will maintain 2 large bore PIVs at all time. * Reassess as needed. DVT PROPHYLAXIS - * Will hold all at this point in the setting of acute bleeding. Will need to reassess this after bleeding cessation 2/2 patient's longstanding history of coagulopathy issues and bleeding on anticoagulants. * Would avoid SCDs in this patient 2/2 known h/o extensive DVT and risk for inducing clot migration. IVC in place at this point per CT. Dr. Vargas and myself had a conversation with the family regarding CODE STATUS. Patient's is not present at this time. Daughter is uncertain of which is at this point. The patient will be a level I full code at this point. This will be reassessed throughout the day and when the presents to the ICU. I have personally spent 35 minutes of critical care time in the direct management of this patient. This is a life/limb threatening event. This includes time spent evaluating patient, direct bedside care, chart review, placing orders, interpretation of diagnostic studies, discussion with consultants, patient, and family members, as well as other required patient management activities. This time is exclusive of all separately billable procedures, and teaching time and separate from and in addition to any other critical care service time. Thank you for this consultation allow us to be part of this patient's care. Please refer to my attending physician's documentation for any further recommendations. attending add, seen , examined independently, chart reviewed with the staff on rounds in details. no events overnight, no hematemesis, hct is stable, still on protonix drip. planned for GI work up today. remains NPO, can be transferred to regular floor once the work up is completed . started on ceftriaxone for UTI . discussed the code status with the daughter at the bed side, she will discuss it with her mother and the rest of the family and review his living will. avoid anticoagulation in the future, his risk of bleeding overweigh his risk of CVA from a fib ( three events of GI bleeding all recent). CCT 35 min. Consults & Procedures Consultants: GI - Dr. Winchester Hospitalist - AMANDA Lazo Procedures: None to this point Data Medications: Current Inpatient Medications Medications (Trade) Dose Ordered Sig/Ekta Route Start Time Stop Time Status Last Admin Dose Admin Ioversol (Optiray 320) 100 ml UD PRN IV 05/31/17 10:30 06/04/17 10:29 Albuterol/ Ipratropium (Duoneb) 1 ml Q6H PRN INH 05/31/17 12:15 06/30/17 12:14 05/31/17 12:40 1 ML Ondansetron HCl (Zofran Inj) 4 mg Q6H PRN IV 05/31/17 12:15 06/30/17 12:14 Morphine Sulfate (MoRPHine SULFATE INJ) 2 mg Q30M PRN IV 05/31/17 13:00 06/14/17 12:59 06/01/17 03:07 2 MG Pantoprazole Sodium 40 mg/ Dextrose 100 ml @ 20 mls/hr Q5H IV 05/31/17 16:30 06/30/17 16:29 06/01/17 07:45 20 MLS/HR Vital Signs: Date Time Temp Pulse Resp B/P (MAP) Pulse Ox O2 Delivery O2 Flow Rate FiO2 06/01/17 10:00 96 20 82/55 (64) 97 Room Air 06/01/17 08:00 Room Air 06/01/17 08:00 36.8 96 20 97/63 (74) 95 Room Air 06/01/17 06:00 92 18 98/56 (70) 94 Nasal Cannula 2.0 06/01/17 04:00 36.8 108 23 117/71 (86) 96 Nasal Cannula 2.0 06/01/17 04:00 97 Nasal Cannula 2.0 06/01/17 02:00 95 22 123/75 (91) 96 Nasal Cannula 2.0 06/01/17 00:01 36.8 109 22 102/62 (75) 95 Nasal Cannula 2.0 05/31/17 23:59 95 Nasal Cannula 2.0 05/31/17 22:00 102 22 93/71 (78) 94 Nasal Cannula 2.0 05/31/17 20:00 97 Nasal Cannula 2.0 05/31/17 20:00 36.7 102 28 92/69 (77) 94 Nasal Cannula 2.0 05/31/17 19:01 108 25 85/58 (65) 88 05/31/17 18:47 114 18 95 05/31/17 18:32 100 33 94 05/31/17 18:31 111 33 121/54 (73) 96 05/31/17 18:17 114 35 91 05/31/17 18:02 107 24 05/31/17 18:01 36.6 102 28 145/113 (122) 96 05/31/17 17:46 110 27 95 05/31/17 17:32 110 30 114/56 (69) 95 05/31/17 17:31 112 35 96 05/31/17 17:16 110 25 94 05/31/17 17:01 96 25 78/52 (63) 93 05/31/17 16:46 110 29 94 05/31/17 16:32 105 24 79/53 (64) 94 17 16:31 110 28 88 05/31/17 16:16 36.4 114 27 05/31/17 16:15 109 34 05/31/17 16:08 116 23 109/82 (96) 05/31/17 16:00 113 26 05/31/17 15:45 113 36 84/66 (68) 05/31/17 15:33 36.4 120 25 121/71 Nasal Cannula 05/31/17 15:30 121 28 05/31/17 15:15 122 35 05/31/17 15:04 36.6 156 28 86/61 79 05/31/17 15:03 123 26 121/71 (91) 05/31/17 15:00 156 28 79 05/31/17 15:00 156 28 79 05/31/17 14:31 119 20 86/61 91 05/31/17 14:30 113 33 91 05/31/17 14:26 117 33 75/61 99 05/31/17 14:21 119 29 80/53 92 05/31/17 14:16 123 22 89/60 95 05/31/17 14:11 120 27 83/57 91 05/31/17 14:09 120 26 77/43 96 Nasal Cannula 2.0 05/31/17 14:06 124 17 77/43 90 05/31/17 14:01 127 27 85/55 90 05/31/17 14:00 36.6 120 26 83/57 94 2.0 05/31/17 13:58 127 05/31/17 13:56 119 28 93/58 88 05/31/17 13:51 112 33 95/52 97 05/31/17 13:50 36.6 119 30 95/52 96 2.0 05/31/17 13:46 120 24 79/49 96 Nasal Cannula 2.0 05/31/17 13:45 119 24 95 05/31/17 13:41 95/51 05/31/17 13:40 113 30 95 05/31/17 13:40 113 30 95 05/31/17 13:36 79/46 8/9/17 13:35 118 30 96 8/9/17 13:35 118 30 96 8/9/17 13:31 71/57 8/9/17 13:30 114 23 91 8/9/17 13:28 36.6 122 22 94/51 96 2.0 8/9/17 13:27 94/51 8/9/17 13:25 123 30 88 8/9/17 13:22 75/ 8/9/17 13:20 121 28 97 8/9/17 13:16 98/64 8/9/17 13:15 124 39 93 8/9/17 13:11 86/47 8/9/17 13:10 124 32 96 8/9/17 13:06 75/60 8/9/17 13:05 119 21 93 8/9/17 13:02 80/52 8/9/17 13:00 124 29 96 8/9/17 12:55 112 31 90 8/9/17 12:51 85/46 8/9/17 12:50 108 27 100 8/9/17 12:46 92/66 8/9/17 12:45 113 31 79/48 98 8/9/17 12:45 113 31 98 8/9/17 12:44 109 26 79/48 97 2.0 8/9/17 12:40 94 30 79/48 100 8/9/17 12:36 74/48 8/9/17 12:35 110 28 94 8/9/17 12:31 84/58 8/9/17 12:30 113 31 94 8/9/17 12:30 113 31 79/48 94 8/9/17 12:26 88/44 8/9/17 12:25 113 28 96 8/9/17 12:21 78/54 8/9/17 12:20 123 29 96 8/9/17 12:16 68/46 8/9/17 12:15 116 28 97 8/9/17 12:15 116 28 97 8/9/17 12:11 87/53 8/9/17 12:10 117 26 87/53 99 Nasal Cannula 2.0 8/9/17 12:10 107 28 86 8/9/17 12:07 88/56 8/9/17 12:05 117 22 97 8/9/17 12:04 93 Nasal Cannula 2.0 05/31/17 12:01 83/49 05/31/17 12:00 114 24 94 05/31/17 12:00 114 24 83/49 94 92.0 05/31/17 11:56 88/48 05/31/17 11:55 116 33 94 05/31/17 11:50 36.5 104 26 88/51 84 05/31/17 11:50 88/51 05/31/17 11:46 125 29 96 05/31/17 11:45 73/52 05/31/17 11:41 133 30 60/45 97 05/31/17 11:40 122 34 88/51 93 05/31/17 11:36 124 29 72/47 05/31/17 11:31 124 32 84/63 05/31/17 11:30 121 30 05/31/17 11:26 120 29 103/64 05/31/17 11:21 122 33 05/31/17 11:20 118 34 05/31/17 11:16 128 26 05/31/17 11:11 119 33 05/31/17 11:09 36.5 140 26 85/51 93 05/31/17 11:09 85/51 05/31/17 11:08 36.5 128 30 85/51 93 05/31/17 11:06 128 29 05/31/17 11:01 120 34 Laboratory Results: Last 24 Hours Test 05/31/17 12:45 05/31/17 17:22 05/31/17 18:27 05/31/17 22:12 Hemoglobin 8.9 g/dL 10.2 g/dL 10.2 g/dL Hematocrit 26.5 % 29.7 % 29.8 % Bedside Glucose 182 mg/dl Lactic Acid Level 1.5 mmol/L Phosphorus Level 4.3 mg/dl Magnesium Level 2.1 mg/dl Test 06/01/17 00:33 06/01/17 04:28 Bedside Glucose 143 mg/dl Hemoglobin 10.4 g/dL Hematocrit 29.9 % Sodium Level 139 mmol/L Potassium Level 4.7 mmol/L Chloride Level 110 mmol/L Carbon Dioxide Level 19 mmol/L Anion Gap 10.0 mmol/L Blood Urea Nitrogen 156 mg/dl Creatinine 0.99 mg/dl Est Creatinine Clear Calc Drug Dose 72.5 ml/min Estimated GFR () 81.9 Estimated GFR (Non- 70.6 BUN/Creatinine Ratio 158.1 Random Glucose 134 mg/dl Calcium Level 7.6 mg/dl Phosphorus Level 3.7 mg/dl Magnesium Level 2.2 mg/dl Problem Qualifiers (1) Hematemesis: Nausea presence: unspecified Qualified Codes: K92.0 - Hematemesis (2) GI bleed: GI bleed type/associated pathology: unspecified gastrointestinal hemorrhage type Qualified Codes: K92.2 - Gastrointestinal hemorrhage, unspecified (3) Hypotension: Hypotension type: unspecified hypotension type Qualified Codes: I95.9 - Hypotension, unspecified
--- NOTE | 2017-06-01 12:48 | History & Physical Bridge Note ---
H&P Re-Evaluation Bridge Note: I have examined the patient, reviewed the History & Physical and in the interval since the performance of the History & Physical I have noted the following changes of clinical significance: No changes noted Consent obtained for EGd for upper GI bleeding from spouse
[2017-06-01] MEDS ORDERED: PROPOFOL IV EMULSION 10 MG/ML 20 ML VIAL IV ONE (12:55)
[2017-06-01] MEDS ORDERED: LIDOCAINE HCL 2% 2 ML VIAL (20MG/ML) ONE (12:55)
--- NOTE | 2017-06-01 13:31 | GI REPORT ---
Procedure Date: 06/01/2017 12:57 PM Procedure: Upper GI endoscopy Indications: Hematemesis, Melena Medicines: Propofol per Anesthesia Complications: No immediate complications. Estimated blood loss: Minimal. Estimated Blood Loss: Estimated blood loss was minimal. Procedure: Pre-Anesthesia Assessment: - Prior to the procedure, a History and Physical was performed, and patient medications and allergies were reviewed. The patient's tolerance of previous anesthesia was also reviewed. The risks and benefits of the procedure and the sedation options and risks were discussed with the patient. All questions were answered, and informed consent was obtained. Prior Anticoagulants: The patient has taken Lovenox (enoxaparin), last dose was 1 day prior to procedure. ASA Grade Assessment: III - A patient with severe systemic disease. After reviewing the risks and benefits, the patient was deemed in satisfactory condition to undergo the procedure. After obtaining informed consent, the endoscope was passed under direct vision. Throughout the procedure, the patient's blood pressure, pulse, and oxygen saturations were monitored continuously. The Scope was introduced through the mouth, and advanced to the second part of duodenum. The upper GI endoscopy was accomplished without difficulty. The patient tolerated the procedure well. Findings: The examined esophagus was normal. Four non-bleeding cratered gastric ulcers with no stigmata of bleeding were found on the greater curvature of the stomach. The largest lesion was 12 mm in largest dimension. Diffuse mild inflammation was found in the entire examined stomach. Biopsies were taken with a cold forceps for Helicobacter pylori testing. Localized moderately congested mucosa was found in the prepyloric region of the stomach. deformity to distal stomach may reflect prior ulcer, however a discrete ulceration is not identified at its base. The examined duodenum was normal. Retained gastric contents are not identified on this exam. The cardia and gastric fundus were normal on retroflexion. Impression: - Normal esophagus. - Non-bleeding gastric ulcers with no stigmata of bleeding. - Acute gastritis. Biopsied. - Congestive gastropathy. - Normal examined duodenum. Recommendation: - [facility] to [facility] for [facility] care. - Clear liquid diet. - Avoid all NSAIDS, can D/C octreotide. Continue PPI BID IV. - Await pathology results. MD Venkatesh Burdick MD 06/01/2017 1:30:02 PM This report has been signed electronically. Note Initiated On: 06/01/2017 12:57 PM I attest to the content of the Intraoperative Record and orders documented therein, exceptions below
[2017-06-01] MEDS ORDERED: PHENYLEPHRINE 100MCG/ML 5ML SYR ONE (13:44)
--- NOTE | 2017-06-01 13:52 | Anesthesiology Progress Note ---
Anesthesia Post Op Note Date & Time Jun 01, 2017 at 13:51 Vital Signs Pain Intensity: 0 Vital Signs Past 12 Hours Date Time Temp Pulse Resp B/P (MAP) Pulse Ox O2 Delivery O2 Flow Rate FiO2 06/01/17 13:40 87 20 123/73 (90) 97 Room Air 06/01/17 13:25 87 20 120/81 (94) 98 Room Air 06/01/17 12:49 36.7 104 22 102/69 (80) 94 Room Air 06/01/17 12:00 93 22 97/55 (69) 94 Room Air 06/01/17 12:00 Room Air 06/01/17 10:00 96 20 82/55 (64) 97 Room Air 06/01/17 08:00 Room Air 06/01/17 08:00 36.8 96 20 97/63 (74) 95 Room Air 06/01/17 06:00 92 18 98/56 (70) 94 Nasal Cannula 2.0 06/01/17 04:00 36.8 108 23 117/71 (86) 96 Nasal Cannula 2.0 06/01/17 04:00 97 Nasal Cannula 2.0 06/01/17 02:00 95 22 123/75 (91) 96 Nasal Cannula 2.0 Notes Mental Status: alert / awake / arousable, participated in evaluation Pt Amnestic to Procedure: Yes Nausea / Vomiting: adequately controlled Pain: adequately controlled Airway Patency, RR, SpO2: stable & adequate BP & HR: stable & adequate Hydration State: stable & adequate Anesthetic Complications: no major complications apparent
[2017-06-01] MEDS: CEFTRIAXONE SOD INJ 1 GM in DEXTROSE 5% ADD-VANTAGE 50ML 50 ML IV SCH (14:26)
--- NOTE | 2017-06-01 14:54 | Palliative Care Progress Note ---
Palliative Care Progress Note Date of Service Jun 01, 2017. Subjective Consult received. I spoke with patient's , Korina, daughter Barb, and patient's son at bedside. Patient just returned from having EGD. We will meet tomorrow to discuss code status, goals of care and will complete POLST form. Time to be determined, will call me.
[2017-06-01] MEDS ORDERED: NURSING VERBAL MED ORDER ONE (15:00)
[2017-06-01 15:17] LABS: HEMATOCRIT 32.1 % (42-52)
[2017-06-01] MEDS: PANTOprazole INJ 40 MG in SYRINGE 0 ML IV SCH (20:39)
[2017-06-02] VITALS (13 sets, daily range): BP systolic 86–115; BP diastolic 50–79; PULSE 77–94; TEMP 36.6–36.7; O2SAT 94–98
[2017-06-02 06:14] LABS: BASO % 0.4 %; BASO ABS # 0.02 K/uL (0-0.2); COMPLETE YES; EOS % 4.2 %; HEMATOCRIT 29.2 % (42-52); IG% 0.6 %; LYMPH % 21.7 %; LYMPH ABS # 1.15 K/uL (1.2-3.4); MEAN CELL VOLUME 101.4 fL (80-100); MEAN CORPUSCULAR HEMOGLOBIN 33.7 pg (25-34); MEAN CORPUSCULAR HGB CONC 33.2 g/dl (32-36); MEAN PLATELET VOLUME 9.5 fL (7.4-10.4); MONO % 9.6 %; NEUT % 63.5 %; PLATELET COUNT 104 K/uL (130-400); RED BLOOD COUNT 2.88 M/uL (4.7-6.1)
[2017-06-02 06:59] LABS: CALCIUM 7.9 mg/dl (8.5-10.1); CREATININE 0.72 mg/dl (0.60-1.40); MAGNESIUM 2.4 mg/dl (1.8-2.4); PHOSPHORUS 3.2 mg/dl (2.5-4.9); POTASSIUM 4.3 mmol/L (3.5-5.1)
[2017-06-02] MEDS: PANTOprazole INJ 40 MG in SYRINGE 0 ML IV SCH ×2 (07:53→22:37)
--- NOTE | 2017-06-02 09:59 | Palliative Care Consultation ---
Consultation Date of Consultation: Jun 02, 2017. Requesting Physician: Lemuel Davis PA-C Attending Physician: Dr. Vargas, Dr. Rahman Reason for Consultation: Goals of care History of Present Illness This 82 year old male patient with a PMH of dementia, paroxysmal atrial fibrillation, DVT, colon polyps, lupus anticoagulant, duodenal ulcer and others listed below, presented to the ED two days ago with c/o black tarry stool x 24- 48 hours and a report of hematemesis per [facility] staff. Hgb/hct 6.5/19 upon arrival, had three units PRBCs. Developed hypotension, patient admitted to ICU in case pressors were needed. H/H increased to 10.4/29.9 on 06/01. Had EGD yesterday which showed multiple ulcers without stigmata of bleeding. He continues on PPI BID, VSS with SBP in 90s. Patient is a resident at [facility]. There, he is a full resuscitation. He has a living will in our system which states at end-stage he would not want any life-prolonging measures. Given his illness, age, comorbidities- palliative care consulted to establish goals of care. Patient is somewhat disoriented with moderate dementia. He did recall events from hospitalization and knew he had "stomach ulcers." He thought he heard someone say there was world peace which had him very confused because he thought we were at war. At any rate, he is pleasantly confused and cooperative, denies any pain or discomfort at this time. Really is not able to participate in decision making or goals of care discussion at this time. I am meeting with the patient's Chet, and daughter Barb around [id number] today to do POLST and discuss GOC. Past Medical/Surgical History Medical History: VTE Benign neoplasm of the large bowel Diverticulosis duodenal ulcer BPH Lumbar spinal stenosis Paroxysmal atrial fibrillation Dementia Decubitus ulcer Chronic uremia Homocystinemia and lupus anticoagulant positive Chronic anemia Thrombocytopenia IVC filter placement Social History Smoking Status: Never Smoker History of Alcohol Use: No (prior) Drug Use: none Marital Status: Housing Status: assisted living Occupation Status: retired Review of Systems Constitutional: + weakness Respiratory: No wheezing, No shortness of breath Cardiac: No chest pain Abdomen: No pain, No nausea, No vomiting Male : No problem reported Psychiatric: No anxiety Allergies Coded Allergies: Levofloxacin (Verified Allergy, Unknown, ., 05/31/17) Sulfa Antibiotics (Verified Allergy, Unknown, ., 05/31/17) Medications Current Inpatient Medications Medications (Trade) Dose Ordered Sig/Ekta Route Start Time Stop Time Status Last Admin Dose Admin Ioversol (Optiray 320) 100 ml UD PRN IV 05/31/17 10:30 06/04/17 10:29 Albuterol/ Ipratropium (Duoneb) 1 ml Q6H PRN INH 05/31/17 12:15 06/30/17 12:14 05/31/17 12:40 1 ML Ondansetron HCl (Zofran Inj) 4 mg Q6H PRN IV 05/31/17 12:15 06/30/17 12:14 Ceftriaxone Sodium 1 gm/ Dextrose 50 ml @ 100 mls/hr Q24H IV 06/01/17 12:00 06/08/17 11:59 06/01/17 14:26 100 MLS/HR Pantoprazole Sodium 40 mg/ Syringe 10 ml @ 5 mls/min BID@, IV 06/01/17 21:00 07/01/17 20:59 06/02/17 07:53 5 MLS/MIN Tamsulosin HCl (Flomax Cap) 0.4 mg DAILY PO 06/02/17 09:00 07/03/17 08:59 Physical Exam Date Time Temp Pulse Resp B/P (MAP) Pulse Ox O2 Delivery O2 Flow Rate FiO2 06/02/17 08:00 Room Air 06/02/17 07:01 82 21 92/62 (72) 98 06/02/17 06:01 80 20 86/56 (66) 98 Room Air 06/02/17 05:01 85 22 96/65 (75) 98 06/02/17 04:01 80 22 95/53 (67) 97 Room Air 06/02/17 04:00 95 Room Air 06/02/17 03:01 87 24 89/57 (68) 97 06/02/17 02:32 77 21 89/56 (67) 96 Room Air 06/02/17 00:01 36.6 85 21 97/50 (66) 96 Room Air 06/01/17 23:59 98 Room Air 06/01/17 23:01 86 26 91/52 (65) 96 Room Air 06/01/17 22:01 94 24 90/60 (70) 97 Room Air 06/01/17 21:01 80 22 89/59 (69) 96 Room Air 06/01/17 20:05 36.4 82 26 88/55 (66) 98 Room Air 06/01/17 20:00 93 Room Air 06/01/17 19:01 84 25 82/54 (63) 95 06/01/17 18:04 75 20 87/57 (67) 95 Room Air 06/01/17 16:00 Room Air 06/01/17 16:00 96 20 91/65 (74) 95 Room Air 06/01/17 14:00 91 20 123/79 (94) Room Air 06/01/17 13:55 94 20 97/62 (74) 96 Room Air 06/01/17 13:40 87 20 123/73 (90) 97 Room Air 06/01/17 13:25 87 20 120/81 (94) 98 Room Air 06/01/17 12:49 36.7 104 22 102/69 (80) 94 Room Air 06/01/17 12:00 93 22 97/55 (69) 94 Room Air 06/01/17 12:00 Room Air 06/01/17 10:00 96 20 82/55 (64) 97 Room Air General Appearance: no apparent distress ENT: hearing grossly normal Neck: supple, no JVD Respiratory: no respiratory distress, no accessory muscle use Cardiovascular: + tachycardia, + normal peripheral pulses Abdomen: non tender, soft Neurologic/Psychiatric: alert, normal mood/affect, oriented x 3 (but is forgetful with periods of confusion) Laboratory Results Last 24 Hours Test 06/01/17 15:04 06/02/17 05:36 Hemoglobin 10.8 g/dL 9.7 g/dL Hematocrit 32.1 % 29.2 % White Blood Count 5.30 K/uL Red Blood Count 2.88 M/uL Mean Corpuscular Volume 101.4 fL Mean Corpuscular Hemoglobin 33.7 pg Mean Corpuscular Hemoglobin Concent 33.2 g/dl Platelet Count 104 K/uL Mean Platelet Volume 9.5 fL Neutrophils (%) (Auto) 63.5 % Lymphocytes (%) (Auto) 21.7 % Monocytes (%) (Auto) 9.6 % Eosinophils (%) (Auto) 4.2 % Basophils (%) (Auto) 0.4 % Neutrophils # (Auto) 3.37 K/uL Lymphocytes # (Auto) 1.15 K/uL Monocytes # (Auto) 0.51 K/uL Eosinophils # (Auto) 0.22 K/uL Basophils # (Auto) 0.02 K/uL RDW Standard Deviation 65.9 fL RDW Coefficient of Variation 18.2 % Immature Granulocyte % (Auto) 0.6 % Immature Granulocyte # (Auto) 0.03 K/uL Sodium Level 144 mmol/L Potassium Level 4.3 mmol/L Chloride Level 117 mmol/L Carbon Dioxide Level 20 mmol/L Anion Gap 7.0 mmol/L Blood Urea Nitrogen 103 mg/dl Creatinine 0.72 mg/dl Est Creatinine Clear Calc Drug Dose 93.4 ml/min Estimated GFR () 100.7 Estimated GFR (Non- 86.9 BUN/Creatinine Ratio 143.0 Random Glucose 108 mg/dl Calcium Level 7.9 mg/dl Phosphorus Level 3.2 mg/dl Magnesium Level 2.4 mg/dl Assessment & Plan Problem list: GI Bleed Blood loss anemia Hypotension Paroxysmal Afib Dementia Uremia Goals of care (Z51.5) Palliative care plan: discussed at length with , hCet, and daughter, Barb. -After discussion with patient's family and according to his living will, patient is now DNR/DNI. -POLST form completed as follows: DNR, limited additional interventions, use or limitation of abx when infection occurs with comfort as the goal, trial period of IVF but no feeding tube. -Patient's and daughter are adamant about patient never receiving Lovenox again. They are willing to discuss risk vs. benefit of PO anticoagulants with primary medical service and myself throughout hospital stay and making a decision before discharge. -Plan is for back to [facility] when medically stable. We did not have time to fully discuss hospice services today, can do on Monday if patient still here. -Continue current medical treatment for now. Family okay with continuing blood transfusions as needed. Thank you kindly for this consult. I will follow as needed.
[2017-06-02] MEDS: TAMSULOSIN HCL 0.4 MG CAP PO SCH (10:21)
--- NOTE | 2017-06-02 11:55 | Clinical Documentation Query ---
CLINICAL DOCUMENTATION QUERY 82 year old male who presents to the Emergency Room with complaints of intermittent diarrhea and coffee ground emesis. Query #1/3 In your clinical opinion is this patient being managed for: ( x ) GI bleed exacerbated by Lovenox therapy treated with Protamine sulfate and PRBC's ( ) Other explanation of clinical findings (Please Explain) ( ) Unable to determine (Please Define) ( ) Need to Discuss ( ) Not Agree The medical record reflects the following clinical findings, treatment, and risk factors. 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 ( ) Other explanation of clinical findings (Please Explain) ( ) Unable to determine (Please Define) ( ) Need to Discuss ( ) Not Agree The medical record reflects the following clinical findings, treatment, and risk factors. Clinical Indicators: BUN 163, Creatinine 1.4, GFR 56, Treatment: PRBC's, IVF's, daily PRP's Risk Factors: Age, home NSAID and Lasix therapy. Query #3/3 In your clinical opinion is this patient being managed for: (x ) Chronic preserved EF heart failure evidenced by home diuretic and antihypertensive therapy. ( ) Other explanation of clinical findings (Please Explain) ( ) Unable to determine (Please Define) ( ) Need to Discuss ( ) Not Agree The medical record reflects the following clinical findings, treatment, and risk factors. Clinical Indicators: HTN, CKD, Treatment: ICU hemodynamic monitoring, I/O, daily weights, Risk Factors: Age, HTN, CKD, Please clarify and document your clinical opinion in the progress notes and discharge summary. Terms such as "probable", "suspected", "likely", "questionable", "possible", or "still to be ruled out" are acceptable. IF IN AGREEMENT, YOU MUST DOCUMENT ABOVE DIAGNOSTIC STATEMENT IN DAILY PROGRESS NOTES AND DISCHARGE SUMMARY. This document is not part of the patient's record. Thank You, Lenard Tello, FRANSICO [phone]
--- NOTE | 2017-06-02 11:57 | Clinical Documentation Query ---
CLINICAL DOCUMENTATION QUERY 82 year old male who presents to the Emergency Room with complaints of intermittent diarrhea and coffee ground emesis. In your clinical opinion is this patient being managed for: ( X ) GI bleed exacerbated by Lovenox therapy treated with Protamine sulfate and PRBC's ( ) Other explanation of clinical findings (Please Explain) ( ) Unable to determine (Please Define) ( ) Need to Discuss ( ) Not Agree The medical record reflects the following clinical findings, treatment, and risk factors. Clinical Indicators: GIB, Hgb 6.5, Hct 19, BP 62/40, HR 143 Treatment: Protamine sulfate, 3 units of PRBC's, Risk Factors: Age, peptic ulcers, Lovenox therapy Please clarify and document your clinical opinion in the progress notes and discharge summary. Terms such as "probable", "suspected", "likely", "questionable", "possible", or "still to be ruled out" are acceptable. IF IN AGREEMENT, YOU MUST DOCUMENT ABOVE DIAGNOSTIC STATEMENT IN DAILY PROGRESS NOTES AND DISCHARGE SUMMARY. This document is not part of the patient's record. Thank You, Lenard Tello, RN [phone]
[2017-06-02 12:11] LABS: HEMATOCRIT 29.7 % (42-52)
[2017-06-02] MEDS: CEFTRIAXONE SOD INJ 1 GM in DEXTROSE 5% ADD-VANTAGE 50ML 50 ML IV SCH (12:16)
--- NOTE | 2017-06-02 12:44 | Critical Care Progress Note ---
Critical Care Progress Note Date of Service Jun 02, 2017. ICU Day ICU Day Number: [address] Vargas Subjective Patient is an 82-year-old male admitted to the ICU for upper GI bleed. Patient underwent upper endoscopy yesterday. He was found to have 4 isolated crater- like gastric ulcers without signs of recent bleeding. There were no events overnight. The patient has mildly dropped his H&H overnight with no overt signs of bleeding. Patient is offered no other complaints. Patient was seen this morning. He was awoken from sleep. He is pleasantly demented. He does remember his upper endoscopy being performed. He offers no complaints of pain at this time. Objective VITAL SIGNS - Vital signs and nursing notes were reviewed. GENERAL - 82-year-old male appearing his stated age who is in no acute distress. Pleasantly confused at baseline. EYES - PERRL. Sclera anicteric. Palpebral conjunctiva pink and moist. MOUTH/OROPHARYNX - Without perioral cyanosis. Buccal mucosa pink and moist and without leukoplakia. Tongue midline with equal elevation of palate bilaterally. LUNGS - Chest wall symmetric without accessory muscle use, intercostals retractions, or central cyanosis. Normal vesicular breath sounds CTA B/L. Throaty wet cough. No wheezing, rales or rhonchi appreciated. CARDIAC - RRR with S1/S2. No murmur, rubs, or gallops appreciated. ABDOMEN - Abdominal contour flat without pulsations or visible masses. BS normoactive all four quadrants. No tenderness, palpable masses, hepatosplenomegaly, or ascites noted. EXTREMITIES - Mild pretibial edema present. Chronic hemosiderin staining noted to bilateral lower extremities. +2/5 radial and dorsalis pedis pulses palpated throughout. PSYCH - Pleasantly demented. Pt is very pleasant and interacts well with examiner. Current SOFA Score SOFA Score Response (Comments) Value Platelets (x10) < 150 1 Bilirubin (mg/dL) < 1.2 0 Shari Coma Score 13 - 14 1 Level of Hypotension No Hypotension 0 Creatinine (mg/dL) < 1.2 0 Total 2 Previous SOFA Scores 3 Assessment & Plan (1) Acute blood loss anemia (2) Hematemesis (3) Acute Venous Embolism & Thrombosis Deep Vessels Distal Le (4) Duodenal Ulcer Nos (5) GI bleed (6) DVT, bilateral lower limbs (7) Hypotension Reason Critically Ill: 82-year-old male with acute blood loss anemia secondary to upper GI bleed. Neuro - * Dementia (mild) - symptomatic treatment as necessary. No home Rx noted on record. * No complaints of pain. Cardiac - * Paroxysmal A. Fib * Metoprolol held 2/2 hypotension. * Hold anticoagulation 2/2 UGIB. * Monitor on Telemetry. * EKGs for CP. Respiratory - * Will continue scheduled [facility]. - Treated for ongoing cough. * O2 as required. Wean as needed. * CXR unremarkable for infection. GI - * UGIB - Acute * Continue Protonix per GI. * Hold Lovenox in setting of acute bleeding. * Hold Doxy 2/2 potential for gastritis. * Hold ASA in setting of acute bleeding. * UGI mistreated for isolated crater like ulcerations noted to the stomach without active bleeding. * Continue twice a day Protonix dosing per GI. * Clear liquid diet. * Pathology results from biopsy pending. RENAL/LYTES - * Uremia w/ BUN elevation. * Mild improvement. Likely acute elevation 2/2 UGIB. * Monitor Lytes - Correct as needed. - * History of BPH. * Flomax restarted this AM with plans to d/c Snowden Catheter tomorrow. Will monitor how BP tolerates reinstitution of Flomax. Would like to see 24 hours of the medication prior to discontinuing the Snowden. * E. Coli UTI - Started on IV Rocephin yesterday. Cultures found to be sensitive to Rocephin today. ENDO - * No history of DM or Thyroid dysfunction. * Monitor BSGs per protocol. * Cover w/ ISS protocol as needed. HEME - * Acute Blood Loss Anemia 2/2 UGIB. * H&H's stabilized overnight. Will continue to monitor for s/s of bleeding. * Transfuse as needed. ID - * Decubitus Ulcer - Grade 2 noted on exam. * Recently treated with Doxy - will d/d 2/2 potential for gastropathy. * Appreciate wound care consult and recommendations. * E. Coli UTI noted on Urine Culture. * Review of records demonstrates previous pansensitivity. * Will add 1 g Rocephin q24h x7 days. LINES/IV ACCESS - * [address] bilaterally. * Will maintain 2 large bore PIVs at all time. * Reassess as needed. DVT PROPHYLAXIS - * Will hold all at this point in the setting of acute bleeding. Will need to reassess this after bleeding cessation 2/2 patient's longstanding history of coagulopathy issues and bleeding on anticoagulants. * This subject was broached with the patient's daughter. At this point, we will refer to primary service for reinstitution of any anticoagulation medications, however should be noted that the patient is at significant risk for return of bleeding. Costs and benefits of restarting anticoagulation medication versus not will be involved with the patient's palate of care consultation. * Appreciate Palliative Care Consultation and Recommendations. * Would avoid SCDs in this patient 2/2 known h/o extensive DVT and risk for inducing clot migration. IVC in place at this point per CT. I have personally spent 35 minutes of critical care time in the direct management of this patient. This is a life/limb threatening event. This includes time spent evaluating patient, direct bedside care, chart review, placing orders, interpretation of diagnostic studies, discussion with consultants, patient, and family members, as well as other required patient management activities. This time is exclusive of all separately billable procedures, and teaching time and separate from and in addition to any other critical care service time. Patient's H&H remained stable. Patient can be transferred from ICU service today in stable condition. Thank you for this consultation allow us to be part of this patient's care. Please refer to my attending physician's documentation for any further recommendations. attending note. seen , examined , chart reviewed, improving, no evidence of active GIB, started on clear Liqs, discussed with the family , appreciate Missy from Palliative care, the pt is DNR. agree with the rest of the plan as above, the case discussed on rounds in details , CCT 35 min. Consults & Procedures Consultants: MASTER [facility] Hospitalist - AMANDA Lazo Procedures: None to this point Data Medications: Current Inpatient Medications Medications (Trade) Dose Ordered Sig/Ekta Route Start Time Stop Time Status Last Admin Dose Admin Ioversol (Optiray 320) 100 ml UD PRN IV 05/31/17 10:30 06/04/17 10:29 Albuterol/ Ipratropium (Duoneb) 1 ml Q6H PRN INH 05/31/17 12:15 06/30/17 12:14 05/31/17 12:40 1 ML Ondansetron HCl (Zofran Inj) 4 mg Q6H PRN IV 05/31/17 12:15 06/30/17 12:14 Ceftriaxone Sodium 1 gm/ Dextrose 50 ml @ 100 mls/hr Q24H IV 06/01/17 12:00 06/08/17 11:59 06/02/17 12:16 100 MLS/HR Pantoprazole Sodium 40 mg/ Syringe 10 ml @ 5 mls/min BID@09,21 IV 06/01/17 21:00 07/01/17 20:59 06/02/17 07:53 5 MLS/MIN Tamsulosin HCl (Flomax Cap) 0.4 mg DAILY PO 06/02/17 09:00 07/03/17 08:59 06/02/17 10:21 0.4 MG Vital Signs: Date Time Temp Pulse Resp B/P (MAP) Pulse Ox O2 Delivery O2 Flow Rate FiO2 06/02/17 10:10 91 24 Room Air 06/02/17 08:00 Room Air 06/02/17 07:01 82 21 92/62 (72) 98 06/02/17 06:01 80 20 86/56 (66) 98 Room Air 06/02/17 05:01 85 22 96/65 (75) 98 06/02/17 04:01 80 22 95/53 (67) 97 Room Air 06/02/17 04:00 95 Room Air 06/02/17 03:01 87 24 89/57 (68) 97 06/02/17 02:32 77 21 89/56 (67) 96 Room Air 06/02/17 00:01 36.6 85 21 97/50 (66) 96 Room Air 06/01/17 23:59 98 Room Air 06/01/17 23:01 86 26 91/52 (65) 96 Room Air 06/01/17 22:01 94 24 90/60 (70) 97 Room Air 06/01/17 21:01 80 22 89/59 (69) 96 Room Air 06/01/17 20:05 36.4 82 26 88/55 (66) 98 Room Air 06/01/17 20:00 93 Room Air 06/01/17 19:01 84 25 82/54 (63) 95 06/01/17 18:04 75 20 87/57 (67) 95 Room Air 06/01/17 16:00 Room Air 06/01/17 16:00 96 20 91/65 (74) 95 Room Air 06/01/17 14:00 91 20 123/79 (94) Room Air 06/01/17 13:55 94 20 97/62 (74) 96 Room Air 06/01/17 13:40 87 20 123/73 (90) 97 Room Air 06/01/17 13:25 87 20 120/81 (94) 98 Room Air 06/01/17 12:49 36.7 104 22 102/69 (80) 94 Room Air Laboratory Results: Last 24 Hours Test 06/01/17 15:04 06/02/17 05:36 06/02/17 12:02 Hemoglobin 10.8 g/dL 9.7 g/dL 9.7 g/dL Hematocrit 32.1 % 29.2 % 29.7 % White Blood Count 5.30 K/uL Red Blood Count 2.88 M/uL Mean Corpuscular Volume 101.4 fL Mean Corpuscular Hemoglobin 33.7 pg Mean Corpuscular Hemoglobin Concent 33.2 g/dl Platelet Count 104 K/uL Mean Platelet Volume 9.5 fL Neutrophils (%) (Auto) 63.5 % Lymphocytes (%) (Auto) 21.7 % Monocytes (%) (Auto) 9.6 % Eosinophils (%) (Auto) 4.2 % Basophils (%) (Auto) 0.4 % Neutrophils # (Auto) 3.37 K/uL Lymphocytes # (Auto) 1.15 K/uL Monocytes # (Auto) 0.51 K/uL Eosinophils # (Auto) 0.22 K/uL Basophils # (Auto) 0.02 K/uL RDW Standard Deviation 65.9 fL RDW Coefficient of Variation 18.2 % Immature Granulocyte % (Auto) 0.6 % Immature Granulocyte # (Auto) 0.03 K/uL Sodium Level 144 mmol/L Potassium Level 4.3 mmol/L Chloride Level 117 mmol/L Carbon Dioxide Level 20 mmol/L Anion Gap 7.0 mmol/L Blood Urea Nitrogen 103 mg/dl Creatinine 0.72 mg/dl Est Creatinine Clear Calc Drug Dose 93.4 ml/min Estimated GFR () 100.7 Estimated GFR (Non- 86.9 BUN/Creatinine Ratio 143.0 Random Glucose 108 mg/dl Calcium Level 7.9 mg/dl Phosphorus Level 3.2 mg/dl Magnesium Level 2.4 mg/dl Problem Qualifiers (1) Hematemesis: Nausea presence: unspecified Qualified Codes: K92.0 - Hematemesis (2) GI bleed: GI bleed type/associated pathology: unspecified gastrointestinal hemorrhage type Qualified Codes: K92.2 - Gastrointestinal hemorrhage, unspecified (3) Hypotension: Hypotension type: unspecified hypotension type Qualified Codes: I95.9 - Hypotension, unspecified
--- NOTE | 2017-06-02 15:24 | Hospitalist Progress Note ---
Hospitalist Progress Note Date of Service Jun 02, 2017. (Roxana Lazo PA-C) Subjective Pt evaluation today including: conversation w/ patient, physical exam, chart review, lab review, review of studies Pain: None PO Intake: Clears Voiding: no voiding problems The patient was seen and examined. He was sleeping this afternoon when I went in to visit him but awakened easily. He is doing well, denies any acute abdominal sx, he has no nausea, vomitting, pain or discomfort. He did not move his bowels today. Pt remembers he had a scope but thinks it was 2 days ago. He denies any lightheadedness or dizziness, chest pain or shortness of breath. He does have a wet cough today, which he says has been ongoing for some time. Additional Comments: ROS: 6 point ROS reviewed and otherwise negative, see HPI. (Roxana Lazo PA-C) Objective Vital Signs Date Time Temp Pulse Resp B/P (MAP) Pulse Ox O2 Delivery O2 Flow Rate FiO2 06/02/17 12:00 Room Air 06/02/17 12:00 91 20 Room Air 06/02/17 10:10 91 24 Room Air 06/02/17 08:00 Room Air 06/02/17 07:01 82 21 92/62 (72) 98 06/02/17 06:01 80 20 86/56 (66) 98 Room Air 06/02/17 05:01 85 22 96/65 (75) 98 06/02/17 04:01 80 22 95/53 (67) 97 Room Air 06/02/17 04:00 95 Room Air 06/02/17 03:01 87 24 89/57 (68) 97 06/02/17 02:32 77 21 89/56 (67) 96 Room Air 06/02/17 00:01 36.6 85 21 97/50 (66) 96 Room Air 06/01/17 23:59 98 Room Air 06/01/17 23:01 86 26 91/52 (65) 96 Room Air 06/01/17 22:01 94 24 90/60 (70) 97 Room Air 06/01/17 21:01 80 22 89/59 (69) 96 Room Air 06/01/17 20:05 36.4 82 26 88/55 (66) 98 Room Air 06/01/17 20:00 93 Room Air 06/01/17 19:01 84 25 82/54 (63) 95 06/01/17 18:04 75 20 87/57 (67) 95 Room Air 06/01/17 16:00 Room Air 06/01/17 16:00 96 20 91/65 (74) 95 Room Air (Roxana Lazo PA-C) Physical Exam General Appearance: WD/WN, no apparent distress Eyes: PERRL, EOMI ENT: hearing grossly normal, pharynx normal Neck: supple, no JVD Respiratory/Chest: normal breath sounds, no respiratory distress, + pertinent finding (+ faint expiratory wheeze in bilateral upper rangel, + bronchial breath sounds but improved with cough. On room air.) Cardiovascular: regular rate, rhythm, no JVD, no murmur Abdomen: normal bowel sounds, non tender, soft Extremities: non-tender, + pedal edema (1+ BLE. ), + pertinent finding (BLE + chronic venous stasis changes, small petechia overlying BLE shins. ) Neurologic/Psychiatric: no motor/sensory deficits, alert, + pertinent finding ( oriented to self and place, not oriented to time/date) Skin: normal color, warm/dry (Roxana Lazo PA-C) Laboratory Results Last 24 Hours Test 06/02/17 05:36 06/02/17 12:02 White Blood Count 5.30 K/uL Red Blood Count 2.88 M/uL Hemoglobin 9.7 g/dL 9.7 g/dL Hematocrit 29.2 % 29.7 % Mean Corpuscular Volume 101.4 fL Mean Corpuscular Hemoglobin 33.7 pg Mean Corpuscular Hemoglobin Concent 33.2 g/dl Platelet Count 104 K/uL Mean Platelet Volume 9.5 fL Neutrophils (%) (Auto) 63.5 % Lymphocytes (%) (Auto) 21.7 % Monocytes (%) (Auto) 9.6 % Eosinophils (%) (Auto) 4.2 % Basophils (%) (Auto) 0.4 % Neutrophils # (Auto) 3.37 K/uL Lymphocytes # (Auto) 1.15 K/uL Monocytes # (Auto) 0.51 K/uL Eosinophils # (Auto) 0.22 K/uL Basophils # (Auto) 0.02 K/uL RDW Standard Deviation 65.9 fL RDW Coefficient of Variation 18.2 % Immature Granulocyte % (Auto) 0.6 % Immature Granulocyte # (Auto) 0.03 K/uL Sodium Level 144 mmol/L Potassium Level 4.3 mmol/L Chloride Level 117 mmol/L Carbon Dioxide Level 20 mmol/L Anion Gap 7.0 mmol/L Blood Urea Nitrogen 103 mg/dl Creatinine 0.72 mg/dl Est Creatinine Clear Calc Drug Dose 93.4 ml/min Estimated GFR () 100.7 Estimated GFR (Non- 86.9 BUN/Creatinine Ratio 143.0 Random Glucose 108 mg/dl Calcium Level 7.9 mg/dl Phosphorus Level 3.2 mg/dl Magnesium Level 2.4 mg/dl (Roxana Lazo, PANiko) Assessment and Plan 82 yo M with GI bleed secondary to bleeding ulcer. GI bleed: - GI consulted- will ask GI to determine if pt diet can be advanced, he is tolerating clears currently. - Transfer out of ICU to tele since VSS, no acute bleed, Hgb stabilizing. - Upper endoscopy on 06/01 revealed 4 nonbleeding cratered ulcers, diffuse inflammation of the entire stomach signifying acute gastritis, Helicobacter pylori pathology sent to lab for testing - Was on octreotide gtt in the ED, now stopped, protonix switched to IV BID from gtt. - S/p 3 U PRBCs on 05/31, transfuse as needed to maintain Hgb >7 - Received protamine sulftate per Hematology for recent lovenox use - Holding doxycycline 2/2 potential for gastritis - Hold ASA - Hgb remains stable, currently 9.7, trending am labs Paroxysmal Afib - Holding anticoagulation with bleed as above - Holding metoprolol 50 mg with BPs in the low 100s, HR is in 90s-low 100s, watch for rebound tachycardia HTN - Holding lasix 80 mg PO BID, enalapril 10 mg PO BID, asa 81 mg Dementia (mild) - symptomatic treatment as necessary. No home Rx noted on record. Uremia - Cr. improved to 0.99, down from 1.2, BUN also slightly improved from 163 to 156 - Cont IVF with octreotide as above - K+ improved at this time, 4.7 this morning - Follow am bmp BPH. - Cont martin cath for urinary retention - Holding flomax with hypotension Decubitus Ulcer - Grade 2 - Was treated with doxycycline but abx currently on hold as this may be adding to gastropathy - Wound care nurse consulted DVT ppx: chemical anticoagulation on hold due to GI bleed, IVC filter in place, will need started when possible due to afib and hx of DVTs CODE STATUS: FULL CODE Disposition: From [facility], transfer to tele today (Roxana Lazo, AMANDA) Reviewed: Pt Seen/Exam by Me (Ofelia Rahman, DO) History Pt is improving. Has not had a bowel movement, but no n/v, abd pain. No chest pain or SOB. Agree with HPI/ROS as noted. (Ofelia Rahman, DO) General Appearance: WD/WN, no apparent distress Respiratory: normal breath sounds, no respiratory distress Cardiovascular: normal peripheral pulses, regular rate, rhythm Gastrointestinal: non tender, soft Extremities: non-tender, no pedal edema Neurologic/Psychiatric: alert Skin Characteristics: normal color, warm/dry (Ofelia Rahman, ) Assessment/Plan Agree with plan as outlined above EGD noted, awaiting further recs from GI Will need PT/OT for d/c back to [facility] eventually (Ofelia Rahman, )
--- NOTE | 2017-06-02 16:51 | PROGRESS NOTE ---
DATE: 06/02/2017 SUBJECTIVE: The patient was found to have a gastric ulcer on EGD yesterday by Dr. Winchester. He has received 3 units of blood and his hemoglobin today is 9.7. He has no recorded bowel movements for the last 3 days and he has had no nausea or vomiting or abdominal pain. OBJECTIVE: VITAL SIGNS: Blood pressure is marginally low in the 90s. Pulses in the 90s. ABDOMEN: Soft and nontender. H. pylori biopsies of the stomach are pending at this time. IMPRESSION: The patient has a gastric ulcer. Does not appear to be bleeding. Helicobacter pylori is pending. Plan on advancing his diet to a heart healthy diet at this time.
[2017-06-03] VITALS (7 sets, daily range): BP systolic 99–118; BP diastolic 66–78; PULSE 59–89; TEMP 36.6–37; O2SAT 95–99
[2017-06-03 06:36] LABS: HEMATOCRIT 28.5 % (42-52); MEAN CELL VOLUME 103.3 fL (80-100); MEAN CORPUSCULAR HEMOGLOBIN 33.7 pg (25-34); MEAN CORPUSCULAR HGB CONC 32.6 g/dl (32-36); RED BLOOD COUNT 2.76 M/uL (4.7-6.1); WHITE BLOOD COUNT 5.76 K/uL (4.8-10.8)
[2017-06-03 07:13] LABS: BUN/CREATININE RATIO 95.7 (10-20); CALCIUM 7.8 mg/dl (8.5-10.1); CREATININE 0.67 mg/dl (0.60-1.40); MAGNESIUM 2.5 mg/dl (1.8-2.4); PHOSPHORUS 1.9 mg/dl (2.5-4.9)
[2017-06-03 07:25] LABS: MEAN PLATELET VOLUME 9.2 fL (7.4-10.4); PLATELET COUNT 92 K/uL (130-400)
[2017-06-03 07:26] LABS: BASO % 0.5 %; BASO ABS # 0.03 K/uL (0-0.2); COMPLETE YES; ECHINOCYTES 1+; EOS % 3.5 %; IG% 0.5 %; LYMPH % 23.3 %; LYMPH ABS # 1.34 K/uL (1.2-3.4); MONO % 9.2 %; PLT ESTIMATE DECREASED; POLYCHROMASIA 1+; TEAR DROP CELLS 1+
[2017-06-03] MEDS: TAMSULOSIN HCL 0.4 MG CAP PO SCH (07:36)
[2017-06-03] MEDS: PANTOprazole INJ 40 MG in SYRINGE 0 ML IV SCH ×2 (07:52→21:02)
--- NOTE | 2017-06-03 11:59 | Progress Note ---
Subjective Date of Service: Jun 03, 2017. Subjective Pt evaluation today including: conversation w/ patient, physical exam, chart review, lab review, review of studies, review of inpatient medication list Pain: no pain Voiding: no voiding problems Pt is seen and examined. Pt is doing well, denies any acute abdominal sx, he has no nausea, vomiting, pain or discomfort. He did not move his bowels today.Pt denies any lightheadedness or dizziness, chest pain or shortness of breath. Problem List Medical Problems: (1) Acute blood loss anemia Status: Acute (2) Acute Venous Embolism & Thrombosis Deep Vessels Distal Le Status: Acute (3) Bilateral leg pain Status: Acute (4) Fall Status: Acute (5) GI bleed Status: Acute (6) Hematemesis Status: Acute (7) Hypotension Status: Acute (8) Multiple contusions Status: Acute (9) Paresthesia Status: Acute (10) Symptomatic anemia Status: Acute (11) UTI (urinary tract infection) Status: Acute Review of Systems All Other Systems: Reviewed and Negative Medications Last Resulted CBC 06/03/17 05:31 Red Blood Count 2.76, Mean Corpuscular Volume 103.3, Mean Corpuscular Hemoglobin 33.7, Mean Corpuscular Hemoglobin Concent 32.6, Mean Platelet Volume 9.2, Neutrophils (%) (Auto) 63.0, Lymphocytes (%) (Auto) 23.3, Monocytes (%) ( Auto) 9.2, Eosinophils (%) (Auto) 3.5, Basophils (%) (Auto) 0.5, Neutrophils # ( Auto) 3.63, Lymphocytes # (Auto) 1.34, Monocytes # (Auto) 0.53, Eosinophils # ( Auto) 0.20, Basophils # (Auto) 0.03 Last Resulted BMP 06/03/17 05:31 Objective Vital Signs Date Time Temp Pulse Resp B/P (MAP) Pulse Ox O2 Delivery O2 Flow Rate FiO2 06/03/17 11:25 36.6 85 18 107/68 (81) 98 Room Air 06/03/17 08:00 Room Air 06/03/17 07:22 36.8 89 22 111/75 (87) 99 Room Air 06/03/17 04:05 Room Air 06/03/17 03:32 36.8 87 20 99/66 (77) 97 Room Air 06/03/17 00:01 Room Air 06/02/17 23:37 36.7 94 18 104/68 (80) 96 Room Air 06/02/17 20:30 Room Air 06/02/17 20:30 36.7 88 16 115/79 (91) 94 Room Air 06/02/17 16:32 79 22 102/65 (77) 97 Room Air 06/02/17 16:00 Room Air 06/02/17 12:00 Room Air 06/02/17 12:00 91 20 Room Air Physical Exam Comments: General Appearance: WD/WN, no apparent distress Eyes: PERRL, EOMI ENT: hearing grossly normal, pharynx normal Neck: supple, no JVD Respiratory/Chest: normal breath sounds, no respiratory distress, + pertinent finding (+ faint expiratory wheeze in bilateral upper rangel, + bronchial breath sounds but improved with cough. On room air.) Cardiovascular: regular rate, rhythm, no JVD, no murmur Abdomen: normal bowel sounds, non tender, soft Extremities: non-tender, + pedal edema (1+ BLE. ), + pertinent finding (BLE + chronic venous stasis changes, small petechia overlying BLE shins. ) Neurologic/Psychiatric: no motor/sensory deficits, alert, + pertinent finding ( oriented to self and place, not oriented to time/date) Skin: normal color, warm/dry Laboratory Results Last 24 Hours Test 06/02/17 12:02 06/03/17 05:31 Hemoglobin 9.7 g/dL 9.3 g/dL Hematocrit 29.7 % 28.5 % White Blood Count 5.76 K/uL Red Blood Count 2.76 M/uL Mean Corpuscular Volume 103.3 fL Mean Corpuscular Hemoglobin 33.7 pg Mean Corpuscular Hemoglobin Concent 32.6 g/dl Platelet Count 92 K/uL Mean Platelet Volume 9.2 fL Neutrophils (%) (Auto) 63.0 % Lymphocytes (%) (Auto) 23.3 % Monocytes (%) (Auto) 9.2 % Eosinophils (%) (Auto) 3.5 % Basophils (%) (Auto) 0.5 % Neutrophils # (Auto) 3.63 K/uL Lymphocytes # (Auto) 1.34 K/uL Monocytes # (Auto) 0.53 K/uL Eosinophils # (Auto) 0.20 K/uL Basophils # (Auto) 0.03 K/uL RDW Standard Deviation 65.7 fL RDW Coefficient of Variation 18.1 % Immature Granulocyte % (Auto) 0.5 % Immature Granulocyte # (Auto) 0.03 K/uL Platelet Estimate DECREASED Polychromasia 1+ Tear Drop Cells 1+ Echinocytes 1+ Sodium Level 146 mmol/L Potassium Level 4.0 mmol/L Chloride Level 119 mmol/L Carbon Dioxide Level 20 mmol/L Anion Gap 7.0 mmol/L Blood Urea Nitrogen 64 mg/dl Creatinine 0.67 mg/dl Est Creatinine Clear Calc Drug Dose 105.8 ml/min Estimated GFR () 103.7 Estimated GFR (Non- 89.5 BUN/Creatinine Ratio 95.7 Random Glucose 94 mg/dl Calcium Level 7.8 mg/dl Phosphorus Level 1.9 mg/dl Magnesium Level 2.5 mg/dl Assessment and Plan 82 yo M with GI bleed secondary to bleeding ulcer. GI bleed: possibly related to Lovenox use. - GI consulted- will ask GI to determine if pt diet can be advanced, he is tolerating clears currently. - Transfer out of ICU to [facility] since VSS, no acute bleed, Hgb stabilizing. - Upper endoscopy on 06/01 revealed 4 nonbleeding cratered ulcers, diffuse inflammation of the entire stomach signifying acute gastritis, Helicobacter pylori pathology sent to lab for testing - Was on octreotide gtt in the ED, now stopped, protonix switched to IV BID from gtt. - S/p 3 U PRBCs on 05/31, transfuse as needed to maintain Hgb >7 - Received protamine sulftate per Hematology for recent lovenox use - Holding doxycycline 2/2 potential for gastritis - Hold ASA - Hgb remains stable, currently 9.3, trending am labs Paroxysmal Afib - Holding anticoagulation with bleed as above - Holding metoprolol 50 mg with BPs in the low 100s, HR is in 90s-low 100s, watch for rebound tachycardia HTN - Holding lasix 80 mg PO BID, enalapril 10 mg PO BID, asa 81 mg Dementia (mild) - symptomatic treatment as necessary. No home Rx noted on record. Uremia - Cr. improved to 0.99, down from 1.2, BUN also slightly improved from 163 to 156 - Cont IVF with octreotide as above - K+ improved at this time, 4.7 this morning - Follow am bmp BPH. - Cont martin cath for urinary retention - Holding flomax with hypotension Decubitus Ulcer - Grade 2 - Was treated with doxycycline but abx currently on hold as this may be adding to gastropathy - Wound care nurse consulted DVT ppx: chemical anticoagulation on hold due to GI bleed, IVC filter in place, will need started when possible due to afib and hx of DVTs CODE STATUS: FULL CODE Continued [facility] stay due to: other Discharge planning: uncertain
[2017-06-03] MEDS: CEFTRIAXONE SOD INJ 1 GM in DEXTROSE 5% ADD-VANTAGE 50ML 50 ML IV SCH (12:00)
[2017-06-03] MEDS ORDERED: SODIUM PHOSPHATE 3 MMOL/1 ML INFUSION IV STA (15:06)
[2017-06-03] MEDS ORDERED: SODIUM PHOSPHATE INJ 15 MMOL in SODIUM CHLORIDE 0.9% 250ML 250 ML IV ONE (15:30)
[2017-06-04 04:10] VITALS: BP 104/68; PULSE 75; TEMP 36.5; O2SAT 98
[2017-06-04 06:24] LABS: HEMATOCRIT 27.7 % (42-52); MEAN CELL VOLUME 103.4 fL (80-100); MEAN CORPUSCULAR HEMOGLOBIN 32.8 pg (25-34); MEAN CORPUSCULAR HGB CONC 31.8 g/dl (32-36); RED BLOOD COUNT 2.68 M/uL (4.7-6.1); WHITE BLOOD COUNT 4.72 K/uL (4.8-10.8)
[2017-06-04 06:28] LABS: MEAN PLATELET VOLUME 9.4 fL (7.4-10.4); PLATELET COUNT 83 K/uL (130-400)
[2017-06-04 06:55] LABS: BUN/CREATININE RATIO 84.1 (10-20); CALCIUM 7.5 mg/dl (8.5-10.1); CREATININE 0.51 mg/dl (0.60-1.40); MAGNESIUM 2.3 mg/dl (1.8-2.4); POTASSIUM 3.8 mmol/L (3.5-5.1)
[2017-06-04 07:02] LABS: PHOSPHORUS 2.5 mg/dl (2.5-4.9)
[2017-06-04 07:04] LABS: BASO % 0.4 %; BASO ABS # 0.02 K/uL (0-0.2); COMPLETE YES; EOS % 4.7 %; IG% 0.8 %; LYMPH % 27.8 %; LYMPH ABS # 1.31 K/uL (1.2-3.4); MONO % 8.1 %; NEUT % 58.2 %
[2017-06-04 07:19] VITALS: BP 100/67; PULSE 77; TEMP 36.6; O2SAT 96
[2017-06-04] MEDS: TAMSULOSIN HCL 0.4 MG CAP PO SCH (07:20)
[2017-06-04] MEDS: PANTOprazole INJ 40 MG in SYRINGE 0 ML IV SCH ×2 (08:01→20:47)
--- NOTE | 2017-06-04 10:44 | Progress Note ---
Subjective Date of Service: Jun 04, 2017. Subjective Pt evaluation today including: conversation w/ patient, conversation w/ family , physical exam, chart review, lab review, review of studies, review of inpatient medication list Pain: no pain reported by patient Voiding: no voiding problems Pt is seen and examined by me. Pt denies cp, sob, dizziness and palpitation. Hgb dropped from 9.3 to 8.8. Problem List Medical Problems: (1) Acute blood loss anemia Status: Acute (2) Acute Venous Embolism & Thrombosis Deep Vessels Distal Le Status: Acute (3) Bilateral leg pain Status: Acute (4) Fall Status: Acute (5) GI bleed Status: Acute (6) Hematemesis Status: Acute (7) Hypotension Status: Acute (8) Multiple contusions Status: Acute (9) Paresthesia Status: Acute (10) Symptomatic anemia Status: Acute (11) UTI (urinary tract infection) Status: Acute Review of Systems All Other Systems: Reviewed and Negative Medications Medications (Trade) Dose Ordered Sig/Ekta Route Start Time Stop Time Status Last Admin Dose Admin Sodium Phosphate 15 mmol/Sodium Chloride 255 ml @ 102 mls/hr TODAY@1530 ONCE IV 06/03/17 15:30 06/03/17 17:59 DC 06/03/17 15:46 102 MLS/HR Objective Vital Signs Date Time Temp Pulse Resp B/P (MAP) Pulse Ox O2 Delivery O2 Flow Rate FiO2 06/04/17 07:19 36.6 77 20 100/67 (78) 96 Room Air 06/04/17 04:10 36.5 75 20 104/68 (80) 98 Room Air 06/04/17 04:00 Room Air 06/04/17 00:00 Room Air 06/03/17 22:55 36.9 83 20 110/72 (85) 95 Room Air 06/03/17 20:00 Room Air 06/03/17 19:29 36.8 78 16 114/78 (90) 98 Room Air 06/03/17 16:00 Room Air 06/03/17 15:24 59 99 06/03/17 15:23 37.0 85 16 118/77 (91) 98 Room Air 06/03/17 12:00 Room Air 06/03/17 11:25 36.6 85 18 107/68 (81) 98 Room Air 06/03/17 08:00 Room Air Physical Exam General Appearance: no apparent distress Neck: supple, no adenopathy Respiratory/Chest: lungs clear, normal breath sounds, no respiratory distress Cardiovascular: regular rate, rhythm, no edema, no murmur Abdomen: normal bowel sounds, non tender, soft, no organomegaly Extremities: normal range of motion, normal inspection Neurologic/Psychiatric: no motor/sensory deficits, alert, normal mood/affect, oriented x 3 Skin: no rash Lymphatic: no adenopathy Laboratory Results Last 24 Hours Test 06/04/17 05:55 White Blood Count 4.72 K/uL Red Blood Count 2.68 M/uL Hemoglobin 8.8 g/dL Hematocrit 27.7 % Mean Corpuscular Volume 103.4 fL Mean Corpuscular Hemoglobin 32.8 pg Mean Corpuscular Hemoglobin Concent 31.8 g/dl Platelet Count 83 K/uL Mean Platelet Volume 9.4 fL Neutrophils (%) (Auto) 58.2 % Lymphocytes (%) (Auto) 27.8 % Monocytes (%) (Auto) 8.1 % Eosinophils (%) (Auto) 4.7 % Basophils (%) (Auto) 0.4 % Neutrophils # (Auto) 2.75 K/uL Lymphocytes # (Auto) 1.31 K/uL Monocytes # (Auto) 0.38 K/uL Eosinophils # (Auto) 0.22 K/uL Basophils # (Auto) 0.02 K/uL RDW Standard Deviation 65.0 fL RDW Coefficient of Variation 17.6 % Immature Granulocyte % (Auto) 0.8 % Immature Granulocyte # (Auto) 0.04 K/uL Red Blood Cell Morphology Unremarkable Sodium Level 145 mmol/L Potassium Level 3.8 mmol/L Chloride Level 118 mmol/L Carbon Dioxide Level 22 mmol/L Anion Gap 5.0 mmol/L Blood Urea Nitrogen 43 mg/dl Creatinine 0.51 mg/dl Est Creatinine Clear Calc Drug Dose 139.5 ml/min Estimated GFR () 116.0 Estimated GFR (Non- 100.1 BUN/Creatinine Ratio 84.1 Random Glucose 92 mg/dl Calcium Level 7.5 mg/dl Phosphorus Level 2.5 mg/dl Magnesium Level 2.3 mg/dl Assessment and Plan 82 yo M with GI bleed secondary to bleeding ulcer. GI bleed: possibly related to Lovenox use. - GI consulted- will ask GI to determine if pt diet can be advanced, he is tolerating clears currently. - Transfer out of ICU to [facility] since VSS, no acute bleed, Hgb stabilizing. - Upper endoscopy on 06/01 revealed 4 nonbleeding cratered ulcers, diffuse inflammation of the entire stomach signifying acute gastritis, Helicobacter pylori pathology sent to lab for testing - Was on octreotide gtt in the ED, now stopped, protonix switched to IV BID from gtt. - S/p 3 U PRBCs on 05/31, transfuse as needed to maintain Hgb >7 - Received protamine sulftate per Hematology for recent lovenox use - Holding doxycycline 2/2 potential for gastritis - Hold ASA - Hgb 8.8 today, we will continue to monitor one more day. - If remain stable Discharge in am. Paroxysmal Afib - Holding anticoagulation with bleed as above - Holding metoprolol 50 mg with BPs in the low 100s, HR is in 90s-low 100s, watch for rebound tachycardia HTN - Holding lasix 80 mg PO BID, enalapril 10 mg PO BID, asa 81 mg Dementia (mild) - symptomatic treatment as necessary. No home Rx noted on record. Uremia - Cr. improved to 0.51 , down from 1.2 - Cont IVF with octreotide as above - K+ improved at this time, 3.8 this morning - Follow am bmp BPH. - Cont martin cath for urinary retention - Holding flomax with hypotension Decubitus Ulcer - Grade 2 - Was treated with doxycycline but abx currently on hold as this may be adding to gastropathy - Wound care nurse consulted DVT ppx: chemical anticoagulation on hold due to GI bleed, IVC filter in place, will need started when possible due to afib and hx of DVTs CODE STATUS: FULL CODE Continued [facility] stay due to: other (Hgb unsatble) Discharge planning: uncertain
[2017-06-04] MEDS: CEFTRIAXONE SOD INJ 1 GM in DEXTROSE 5% ADD-VANTAGE 50ML 50 ML IV SCH (10:52)
[2017-06-04 11:51] VITALS: BP 107/66; PULSE 76; TEMP 36.6; O2SAT 99
--- NOTE | 2017-06-04 13:20 | PROGRESS NOTE ---
DATE: 06/04/2017 SUBJECTIVE: The patient reports no abdominal pain, nausea or vomiting. OBJECTIVE: His vital signs are normal. He is afebrile. His hemoglobin today is 8.8. He has been advanced to a heart-healthy diet and his Protonix has been changed from continuous infusion to bolus dosing. His gastric biopsies have returned positive showing gastritis but H. pylori stain was negative. IMPRESSION: The patient has gastric ulcers with anemia. The ulcers are undoubtedly related to his baby aspirin. If the patient is to resume aspirin in the future, he should be placed on a proton pump inhibitor daily to help reduce the risk for recurrent ulcers. For now, I think the patient can be converted from IV Protonix to oral Protonix.
[2017-06-04 15:44] VITALS: BP 116/77; PULSE 71; TEMP 36.9; O2SAT 96
[2017-06-04 19:09] VITALS: BP 116/79; PULSE 75; TEMP 37; O2SAT 96
[2017-06-04 23:37] VITALS: BP 119/74; PULSE 82; TEMP 36.7; O2SAT 94
[2017-06-05] VITALS (8 sets, daily range): BP systolic 105–132; BP diastolic 69–83; PULSE 71–81; TEMP 36.2–36.8; O2SAT 95–98
[2017-06-05 07:26] LABS: BUN/CREATININE RATIO 66.9 (10-20); CALCIUM 7.9 mg/dl (8.5-10.1); CREATININE 0.51 mg/dl (0.60-1.40); MAGNESIUM 2.2 mg/dl (1.8-2.4); PHOSPHORUS 2.5 mg/dl (2.5-4.9); POTASSIUM 4.2 mmol/L (3.5-5.1)
[2017-06-05 08:07] LABS: HEMATOCRIT 27.5 % (42-52); MEAN CELL VOLUME 102.6 fL (80-100); MEAN CORPUSCULAR HGB CONC 33.1 g/dl (32-36); MEAN PLATELET VOLUME 9.9 fL (7.4-10.4); PLATELET COUNT 88 K/uL (130-400); RED BLOOD COUNT 2.68 M/uL (4.7-6.1); WHITE BLOOD COUNT 4.73 K/uL (4.8-10.8)
[2017-06-05 08:11] LABS: BASO % 0.4 %; BASO ABS # 0.02 K/uL (0-0.2); COMPLETE YES; EOS % 4.4 %; IG% 1.1 %; LYMPH % 28.5 %; LYMPH ABS # 1.35 K/uL (1.2-3.4); MONO % 8.7 %; NEUT % 56.9 %; PLT ESTIMATE DECREASED
[2017-06-05] MEDS: TAMSULOSIN HCL 0.4 MG CAP PO SCH (08:33)
[2017-06-05] MEDS: PANTOprazole SOD 40 MG TAB PO SCH ×2 (11:18→20:32)
[2017-06-05] MEDS: CEPHALEXIN MONOHYDRATE 500 MG CAP PO SCH ×4 (11:19→20:32)
--- NOTE | 2017-06-05 15:27 | Progress Note ---
Subjective Date of Service: Jun 05, 2017. Subjective Pt evaluation today including: conversation w/ patient, conversation w/ family , physical exam, chart review, lab review, review of studies, review of inpatient medication list Pleasant, in bed, conversational, no complaining, eager to go home in [place] in bedside Problem List Medical Problems: (1) Acute blood loss anemia Status: Acute (2) Acute Venous Embolism & Thrombosis Deep Vessels Distal Le Status: Acute (3) Bilateral leg pain Status: Acute (4) Fall Status: Acute (5) GI bleed Status: Acute (6) Hematemesis Status: Acute (7) Hypotension Status: Acute (8) Multiple contusions Status: Acute (9) Paresthesia Status: Acute (10) Symptomatic anemia Status: Acute (11) UTI (urinary tract infection) Status: Acute Review of Systems Constitutional: + weakness, + fatigue, No fever, No chills, No sweats, No weight loss, No problem reported Eyes: No worsening of vision, No eye pain, No redness, No discharge, No diplopia ENT: No hearing loss, No unusual epistaxis, No nasal symptoms, No sore throat, No tinnitus, No dental problems, No trouble swallowing Respiratory: No cough, No sputum, No wheezing, No shortness of breath, No dyspnea on exertion, No dyspnea at rest, No hemoptysis Cardiac: No chest pain, No orthopnea, No PND, No edema, No claudication, No palpitations Abdomen: No pain, No nausea, No vomiting, No diarrhea, No constipation Musculoskeletal: No joint pain, No muscle pain, No swelling, No calf pain Male : No dysuria, No urinary frequency, No incontinence, No nocturia more than once/night, No slowing stream, No hematuria Neurologic: + weakness (bilateral lower extremity weakness and upper arms weakness is not new, patient has been bedridden most any in shelter), No memory loss, No numbness/tingling, No vertigo, No balance problems Psychiatric: No depression symptoms, No anhedonism, No anxiety, No insomnia, No substance abuse Heme: No abnormal bleeding/bruising, No clotting problems, No swollen lymph nodes, No night sweats Endo: No fatigue, No excessive thirst, No excessive urination Skin: No rash, No itch, No new/changing skin lesions, No color change, No bleeding Objective Vital Signs Date Time Temp Pulse Resp B/P (MAP) Pulse Ox O2 Delivery O2 Flow Rate FiO2 06/05/17 15:12 36.7 74 16 110/73 (85) 96 Room Air 06/05/17 12:19 97 Room Air 06/05/17 11:30 36.2 73 18 132/83 (99) 98 Room Air 06/05/17 08:01 97 Room Air 06/05/17 07:07 36.5 81 20 122/81 (95) 97 Room Air 06/05/17 04:00 Room Air 06/05/17 03:58 36.7 79 20 111/73 (86) 95 Room Air 06/05/17 00:00 Room Air 06/04/17 23:37 36.7 82 19 119/74 (89) 94 Room Air 06/04/17 20:00 Room Air 06/04/17 19:09 37.0 75 16 116/79 (91) 96 Room Air 06/04/17 16:00 Room Air 06/04/17 15:44 36.9 71 18 116/77 (90) 96 Room Air Physical Exam General Appearance: WD/WN, no apparent distress, + obese Eyes: normal inspection, PERRL ENT: normal ENT inspection, hearing grossly normal Neck: supple Respiratory/Chest: normal breath sounds, no respiratory distress, + decreased breath sounds Cardiovascular: regular rate, rhythm, no edema, no gallop Abdomen: normal bowel sounds, non tender, soft Extremities: normal range of motion, non-tender, normal inspection Neurologic/Psychiatric: city editor II-XII nml as tested, no motor/sensory deficits, alert, normal mood/affect, oriented x 3, + pertinent finding (bilateral lower ext weakness is not new) Skin: normal color, warm/dry, no rash Laboratory Results Last 24 Hours Test 06/05/17 06:21 White Blood Count 4.73 K/uL Red Blood Count 2.68 M/uL Hemoglobin 9.1 g/dL Hematocrit 27.5 % Mean Corpuscular Volume 102.6 fL Mean Corpuscular Hemoglobin 34.0 pg Mean Corpuscular Hemoglobin Concent 33.1 g/dl Platelet Count 88 K/uL Mean Platelet Volume 9.9 fL Neutrophils (%) (Auto) 56.9 % Lymphocytes (%) (Auto) 28.5 % Monocytes (%) (Auto) 8.7 % Eosinophils (%) (Auto) 4.4 % Basophils (%) (Auto) 0.4 % Neutrophils # (Auto) 2.69 K/uL Lymphocytes # (Auto) 1.35 K/uL Monocytes # (Auto) 0.41 K/uL Eosinophils # (Auto) 0.21 K/uL Basophils # (Auto) 0.02 K/uL RDW Standard Deviation 63.1 fL RDW Coefficient of Variation 17.5 % Immature Granulocyte % (Auto) 1.1 % Immature Granulocyte # (Auto) 0.05 K/uL Platelet Estimate DECREASED Macrocytosis PRESENT Sodium Level 142 mmol/L Potassium Level 4.2 mmol/L Chloride Level 113 mmol/L Carbon Dioxide Level 22 mmol/L Anion Gap 7.0 mmol/L Blood Urea Nitrogen 34 mg/dl Creatinine 0.51 mg/dl Est Creatinine Clear Calc Drug Dose 140.9 ml/min Estimated GFR () 116.0 Estimated GFR (Non- 100.1 BUN/Creatinine Ratio 66.9 Random Glucose 87 mg/dl Calcium Level 7.9 mg/dl Phosphorus Level 2.5 mg/dl Magnesium Level 2.2 mg/dl Chemistry Specimen Hemolysis Assessment and Plan 82 yo M with admitted on 05/31/2017 because of GI bleed secondary to gastric ulcer . GI bleed: possibly from gastric ulcer and related to Lovenox use. GI consulted Hemoglobin has been stable Upper endoscopy on 06/01 revealed 4 nonbleeding cratered ulcers, diffuse inflammation of the entire stomach signifying acute gastritis, Helicobacter pylori pathology sent to lab for testing Was on octreotide gtt in the ED, now stopped, protonix switched to IV BID from gtt. S/p 3 U PRBCs on 05/31, transfuse as needed to maintain Hgb >7 Received protamine sulftate per Hematology for recent lovenox use. is very sure no more Lovenox Holding doxycycline 2/2 potential for gastritis - Hold ASA - Hgb 9.1 from 8.8 yesterday, we will continue to monitor one more day. Paroxysmal Afib - Holding anticoagulation with bleed as above - Holding metoprolol 50 mg with BPs in the low 100s, HR is in 90s-low 100s, watch for rebound tachycardia - is sure not want patient to be on Xarelto - Currently patient's aspirin is off, GI recommend need to be taken with PPI if want to restart aspirin in the future - Per discussion between palliative care with patient's daughter Barb , she definitely do not want patient to be on Xalreto, and Discussed with about the risks of without blood thinner when patient has proximal atrial fibrillation 's and the risks of stroke, she understands, and I'm looking for daughter's phone number to give her updated as well [id number] HTN - Holding lasix 80 mg PO BID, enalapril 10 mg PO BID, asa 81 mg Dementia (mild) - symptomatic treatment as necessary. No home Rx noted on record. Uremia - Cr. improved to 0.51 , down from 1.2 - K+ improved at this time, 3.8 this morning - Follow am bmp BPH. - Cont martin cath for urinary retention - flomax was hold upon admission because of hypotension Decubitus Ulcer - Grade 2 - Was treated with doxycycline but abx currently on hold as this may be adding to gastropathy - Wound care nurse consulted DVT ppx: chemical anticoagulation on hold due to GI bleed, IVC filter in place, will need started when possible due to afib and hx of DVTs CODE STATUS: dnr Called to patient's daughter Barb, updated her on medical conditions and care plan, we discussed the risk and benefit of blood thinner, I also especially wanted her to talk to patient's PCP Dr. Ralph regard the restarting of blood thinner or not in the follow-up visit, he understand and agreed Continued [facility] stay due to: other (Hgb unsatble) Discharge planning: half-way facility
[2017-06-06 02:59] VITALS: BP 113/74; PULSE 78; TEMP 36.3; O2SAT 97
[2017-06-06 07:37] VITALS: BP 147/88; PULSE 88; TEMP 36.9; O2SAT 93
[2017-06-06] MEDS: PANTOprazole SOD 40 MG TAB PO SCH (08:50)
[2017-06-06] MEDS: CEPHALEXIN MONOHYDRATE 500 MG CAP PO SCH ×2 (08:50→11:12)
[2017-06-06] MEDS: TAMSULOSIN HCL 0.4 MG CAP PO SCH (08:51)
[2017-06-06 11:34] VITALS: BP 123/85; PULSE 78; TEMP 36.5; O2SAT 91
[2017-06-06] MEDS ORDERED: KFL500 PO (12:44)
[2017-06-06] MEDS ORDERED: PRT40 PO (12:44)
[2017-06-06] MEDS ORDERED: FRS/40 PO (12:44)
--- NOTE | 2017-06-06 12:45 | Discharge Instructions ---
Discharge Instructions Date of Service Jun 06, 2017. Admission Reason for Admission: Anemia, Hematemesis Discharge Discharge Diagnosis / Problem: GI bleeding, UTI Discharge Goals Goal(s): Decrease discomfort, Improve function, Increase independence, Improve disease control, Improve nutritional status, Learn about illness, Diagnostic testing, Therapeutic intervention, Prevent Disease Progression, Specific goals Activity Recommendations Activity Level: Bedrest, OOB In Chair (as tolerated) Therapies: Physical Therapy, Occupational Therapy . Additional Information Patient informed of condition: Yes Advance Directives: Yes DNR: Yes Level of Care: Skilled Communicable Disease: No Prognosis: Other (guarded) Snowden Catheter: No Instructions / Follow-Up Instructions / Follow-Up you have GI bleed: possibly from gastric ulcer and related to Lovenox use. your Lovenox, Aspirin has been hold, because of GI bleeding, you need to discuss further with renal family doctor about the risks and benefits of blood thinner You need to follow-up with GI in 2-3 week , and call GI service to get appointment , GI recommend need to be taken with PPI if want to restart aspirin in the future The medicine of Lasix dose was changed The blood pressure medicine of lisinopril was discontinued You need to have lab testing in 3-4 days of BMP, magnesium, and then reported the result to PCP You have urinary tract infection, we'll continue antibiotic for 3 days more - you need to follow up with your primary care physician in 1 week, - take medication as instructed, never overdose or any misuse, or take with alcohol, because misuse of medicine may cause organ damage or , call your primary care physician if have questions of medicaitons. - call your primary care physician OR go to local emergency room if has any fever/chill, chest pain, shortness of breathing, nausea/vomiting/abdominal pain , facial droop/slurry speech/local weakness, or if has any questions. - fall precaution - diet as instructed - you need to follow up with your subspecialist - you should understand that it is important to follow up the above instruction , and "not following the above instruction" may cause delayed or missed care of your medical conditions which may cause permanent organ damage and even . Current Hospital Diet Patient's current hospital diet: AHA Diet (Heart Healthy) Discharge Diet Recommended Diet: AHA Diet (Heart Healthy) Procedures Procedures Performed: EGD Pending Studies Studies pending at discharge: no Physician Orders On Transfer POLST Discussion: with POLST completion (in last admission) Medical Emergencies . Who to Call and When: Medical Emergencies: If at any time you feel your situation is an emergency, please call 911 immediately. . Non-Emergent Contact Non-Emergency issues call your: Primary Care Provider, Assistant Professor Of Biology . . "Provider Documentation" section prepared by Sergio Morejon. . Core Measure Problem Core Measures: None
[2017-06-06 14:55] VITALS: BP 123/85; PULSE 78; TEMP 36.5; O2SAT 91
--- NOTE | 2017-06-15 14:29 | Discharge Summary ---
Discharge Summary Date of Service Jun 15, 2017. Discharge Summary Admission Date: May 31, 2017 at 12:54 Discharge Date: Jun 06, 2017 Discharge Disposition: custodial facility Principal Diagnosis: GI bleed: possibly from gastric ulcer and related to Lovenox use. Problems/Secondary Diagnoses: GI bleeding, urinary tract infection Immunizations: Have You Had Influenza Vaccine: Unknown History of Tetanus Vaccine?: Unknown History of Pneumococcal: Unknown History of Hepatitis B Vaccine: Unknown Procedures: Upper endoscopy on 06/01 revealed 4 nonbleeding cratered ulcers, diffuse inflammation of the entire stomach signifying acute gastritis, Helicobacter pylori pathology sent to lab for testing Consultations: GI Medication Reconciliation New Medications: Furosemide (Lasix) 40 Mg Tab 40 MG PO BID for 30 Days Cephalexin Monohydrate (Cephalexin) 500 Mg Cap 500 MG PO QID for 3 Days, #12 CAP Pantoprazole (Pantoprazole Sodium) 40 Mg Tab 40 MG PO BID for 30 Days, #60 TAB Continued Medications: Acetaminophen (Tylenol) 325 Mg Tab 650 MG PO Q4H PRN for Pain or Fever, TAB Ascorbic Acid (Ascorbic Acid) 500 Mg Tab 500 MG PO HS, TAB Bisacodyl (Dulcolax) 10 Mg Sup 1 SUPP OH Q 4 DAYS IF NO BM PRN for PRN, SUP Finasteride (Proscar) 5 Mg Tab 5 MG PO DAILY, TAB Folic Acid (Folvite) 1 Mg Tab 1 MG PO DAILY, TAB Ipratropium-Albuterol (Duoneb) 3 Ml Nebu 1 TREATMENT INH Q4H PRN for SOB/Wheezing, INHA Loratadine (Claritin) 10 Mg Tab 1 TAB PO DAILY for 30 Days, #30 TAB 5 Refills Magnesium Hydroxide (Milk Of Magnesia) 30 Ml Susp 30 ML PO Q8HR PRN Methenamine Hippurate (Methenamine Hippurate) 1 Gm Tab 1 TAB PO DAILY Metoprolol Tartrate (Lopressor) 50 Mg Tab 1 TAB PO DAILY for 30 Days, #60 TAB 5 Refills Multivitamins/Minerals (Mvi With Minerals) Tab 1 TAB PO DAILY, TAB Tamsulosin Hcl (Flomax) 0.4 Mg Cap 0.4 MG PO DAILY, CAP Vitamin B Complex (Vitamin B Complex) 1 Tab Tab 1 TAB PO QPM Discontinued Medications: Aspirin (Aspirin Chewable) 81 Mg Chew 81 MG PO DAILY, TAB Doxycycline (Monohydrate) (Monodox) 100 Mg Cap 1 CAP PO BID for 7 Days, #14 CAP Enalapril (Vasotec) 10 Mg Tab 10 MG PO BID, 0 Refills Furosemide (Lasix) 80 Mg Tab 1 TAB PO BID for 90 Days, #180 TAB 3 Refills Discharge Exam doing ok, no c/o, Review of Systems: Constitutional: No fever, No chills, No sweats, No weight loss, No weakness , No fatigue, No problem reported Eyes: No worsening of vision, No eye pain, No redness, No discharge, No diplopia, No problem reported ENT: No hearing loss, No unusual epistaxis, No nasal symptoms, No sore throat, No tinnitus, No dental problems, No trouble swallowing, No problem reported Respiratory: No cough, No sputum, No wheezing, No shortness of breath, No dyspnea on exertion, No dyspnea at rest, No hemoptysis, No problem reported Cardiovascular: No chest pain, No orthopnea, No PND, No edema, No claudication, No palpitations, No problem reported Abdomen: No pain, No nausea, No vomiting, No diarrhea, No constipation, No GI bleeding, No problem reported Musculoskeletal: No joint pain, No muscle pain, No swelling, No calf pain, No problem reported Genitourinary - Male: No hematuria, No dysuria, No urinary frequency, No urinary urgency, No urinary hesitancy, No urinary retention, No urinary incontinence, No penile discharge, No lesions, No impotence, No problem reported Neurologic: No memory loss, No paralysis, No weakness, No numbness/tingling , No vertigo, No balance problems, No problem reported Psychiatric: No depression symptoms, No anhedonism, No anxiety, No insomnia , No substance abuse, No problem reported Endocrine: No fatigue, No excessive thirst, No excessive urination, No problem reported Hematologic / Lymphatic: No abnormal bleeding/bruising, No clotting problems , No swollen lymph nodes, No night sweats, No problem reported Integumentary: No rash, No itch, No new/changing skin lesions, No color change, No bleeding, No problem reported Physical Exam: General Appearance: WD/WN Eyes: normal inspection, PERRL ENT: normal ENT inspection, hearing grossly normal Neck: supple, no adenopathy, thyroid normal Respiratory/Chest: chest non-tender, no respiratory distress, no accessory muscle use, + decreased breath sounds Cardiovascular: regular rate, rhythm, no edema, no gallop, no JVD Abdomen / GI: normal bowel sounds, non tender, soft, no organomegaly, no pulsatile mass Extremities: normal inspection, no calf tenderness, normal capillary refill 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 GI bleed: possibly from gastric ulcer and related to Lovenox use. GI consulted Hemoglobin has been stable Upper endoscopy on 06/01 revealed 4 nonbleeding cratered ulcers, diffuse inflammation of the entire stomach signifying acute gastritis, Helicobacter pylori pathology sent to lab for testing Was on octreotide gtt in the ED, now stopped, protonix switched to IV BID from gtt. S/p 3 U PRBCs on 05/31, transfuse as needed to maintain Hgb >7 Received protamine sulftate per Hematology for recent lovenox use. is very sure no more Lovenox Holding doxycycline 2/2 potential for gastritis - Hold ASA - Hgb 9.1 from 8.8, continue stable Paroxysmal Afib - Holding anticoagulation with bleed as above - Holding metoprolol 50 mg with BPs in the low 100s, HR is in 90s-low 100s, watch for rebound tachycardia - is sure not want patient to be on Xarelto - Currently patient's aspirin is off, GI recommend need to be taken with PPI if want to restart aspirin in the future - Per discussion between palliative care with patient's daughter Barb , she definitely do not want patient to be on Xalreto, and Discussed with about the risks of without blood thinner when patient has proximal atrial fibrillation 's and the risks of stroke, she understands, and I'm looking for daughter's phone number to give her updated as well [id number] HTN - Holding lasix 80 mg PO BID, enalapril 10 mg PO BID, asa 81 mg Dementia (mild) - symptomatic treatment as necessary. No home Rx noted on record. Uremia - Cr. improved to 0.51 , down from 1.2 - K+ improved at this time, 3.8 this morning - Follow am bmp BPH. - Cont martin cath for urinary retention - flomax was hold upon admission because of hypotension Decubitus Ulcer - Grade 2 - Was treated with doxycycline but abx currently on hold as this may be adding to gastropathy - Wound care nurse consulted DVT ppx: chemical anticoagulation on hold due to GI bleed, IVC filter in place, will need started when possible due to afib and hx of DVTs CODE STATUS: dnr has called and talked to patient's daughter Barb several times, updated her on medical conditions and care plan, we discussed the risk and benefit of blood thinner, I also especially wanted her to talk to patient's PCP Dr. Ralph regard the restarting of blood thinner or not in the follow-up visit, he understand and agreed Instructions / Follow-Up you have GI bleed: possibly from gastric ulcer and related to Lovenox use. your Lovenox, Aspirin has been hold, because of GI bleeding, you need to discuss further with renal family doctor about the risks and benefits of blood thinner You need to follow-up with GI in 2-3 week , and call GI service to get appointment , GI recommend need to be taken with PPI if want to restart aspirin in the future The medicine of Lasix dose was changed The blood pressure medicine of lisinopril was discontinued You need to have lab testing in 3-4 days of BMP, magnesium, and then reported the result to PCP You have urinary tract infection, we'll continue antibiotic for 3 days more - you need to follow up with your primary care physician in 1 week, - take medication as instructed, never overdose or any misuse, or take with alcohol, because misuse of medicine may cause organ damage or , call your primary care physician if have questions of medicaitons. - call your primary care physician OR go to local emergency room if has any fever/chill, chest pain, shortness of breathing, nausea/vomiting/abdominal pain , facial droop/slurry speech/local weakness, or if has any questions. - fall precaution - diet as instructed - you need to follow up with your subspecialist - you should understand that it is important to follow up the above instruction , and "not following the above instruction" may cause delayed or missed care of your medical conditions which may cause permanent organ damage and even . Total Time Spent: Greater than 30 minutes This includes examination of the patient, discharge planning, medication reconciliation, and communication with other providers. Discharge Instructions Please refer to the electronic Patient Visit Report (Discharge Instructions) for additional information. Additional Copies To [place], [place]
[2017-06-18] MEDS ORDERED: AZITTAB PO (03:03)
[2017-06-18] MEDS ORDERED: IPRASOL4 NEB (11:08)
== END 2017-06-06 15:15 | DRG 813 ==
LOC: EDBD 09:26 → C.EDB 09:27 → CANBEDREQ 12:36 → C.MSICU 12:54 → CANBEDREQ 13:23 → ENRESERV 14:01 → C.2T 06-02 18:58
PROVIDERS: ADMIT Internal Medicine; ATTEND Hospitalist
PROC: 0DB68ZX Excision of Stomach, Via Natural or Artificial Opening Endoscopic, Diagnostic (ICD-10-PCS; principal; 2017-06-01 12:55)
DX: D68.32 Hemorrhagic disorder due to extrinsic circulating anticoagulants (principal); K25.4 Chronic or unspecified gastric ulcer with hemorrhage; N39.0 Urinary tract infection, site not specified; I82.403 Acute embolism and thrombosis of unspecified deep veins of lower extremity, bilateral; D68.62 Lupus anticoagulant syndrome; D62 Acute posthemorrhagic anemia; N19 Unspecified kidney failure; Z86.718 Personal history of other venous thrombosis and embolism; T45.515A Adverse effect of anticoagulants, initial encounter; K57.90 Diverticulosis of intestine, part unspecified, without perforation or abscess without bleeding; L89.152 Pressure ulcer of sacral region, stage 2; N40.0 Benign prostatic hyperplasia without lower urinary tract symptoms; Z88.2 Allergy status to sulfonamides; I10 Essential (primary) hypertension; I48.0 Paroxysmal atrial fibrillation; M48.06 Spinal stenosis, lumbar region; Z86.14 Personal history of Methicillin resistant Staphylococcus aureus infection; R19.7 Diarrhea, unspecified; F03.90 Unspecified dementia, unspecified severity, without behavioral disturbance, psychotic disturbance, mood disturbance, and anxiety; Z79.01 Long term (current) use of anticoagulants; Y92.129 Unspecified place in nursing home as the place of occurrence of the external cause

== ENCOUNTER → 2017-06-12 | Outpatient (CLI) | payer BC ==
[~2017-06-12] MED LIST changes: +AMOX875T PO; -ASCA500 PO; +ASCO500T16 PO; -ASPCH81X PO; +AZITTAB PO; -DOXY100C41 PO; -ENAL10TA88 PO; +FINA5TAB4 PO; -FLM4 PO; +FRS/40 PO; -FURO80TA63 PO; +IPRASOL4 NEB; +KFL500 PO; -LVNIS120 SQ; +METH1TAB5 PO; -METHTAB2 PO; +MULT-513 PO; +OXGN; -PRS5 PO; +PRT40 PO; +TAMS0.4C38 PO; +THIC1LIQ PO
[2017-06-12 11:07] LABS: BASO % 0.5 %; BASO ABS # 0.03 K/uL (0-0.2); COMPLETE YES; EOS % 4.1 %; HEMATOCRIT 26.8 % (42-52); IG% 0.5 %; LYMPH % 28.5 %; LYMPH ABS # 1.59 K/uL (1.2-3.4); MEAN CELL VOLUME 102.7 fL (80-100); MEAN CORPUSCULAR HEMOGLOBIN 34.5 pg (25-34); MEAN CORPUSCULAR HGB CONC 33.6 g/dl (32-36); MEAN PLATELET VOLUME 9.2 fL (7.4-10.4); MONO % 12.2 %; NEUT % 54.2 %; PLATELET COUNT 110 K/uL (130-400); RED BLOOD COUNT 2.61 M/uL (4.7-6.1); WHITE BLOOD COUNT 5.57 K/uL (4.8-10.8)
[2017-06-12 11:15] LABS: BLOOD UREA NITROGEN 33 mg/dl (7-18); BUN/CREATININE RATIO 43.5 (10-20); CALCIUM 7.9 mg/dl (8.5-10.1); CARBON DIOXIDE 22 mmol/L (21-32); CHLORIDE 107 mmol/L (98-107); CREATININE 0.75 mg/dl (0.60-1.40); GLUCOSE 87 mg/dl (70-99); POTASSIUM 4.4 mmol/L (3.5-5.1); SODIUM 137 mmol/L (136-145)
== END | disposition home or self-care (01) ==
LOC: C.LABCC 10:39
PROVIDERS: ATTEND Internal Medicine
DX: K92.2 Gastrointestinal hemorrhage, unspecified (principal)

== ENCOUNTER 2017-06-19 02:18 | Inpatient (IN) | payer BC, OTHER ==
[~2017-06-19] VITALS: Ht 182.9 cm; Wt 114.6 kg
[2017-06-19] VITALS (15 sets, daily range): BP systolic 73–111; BP diastolic 51–82; PULSE 66–91; TEMP 36.7–37; O2SAT 96–99; Ht 182.9 cm; Wt 114.6 kg
[~2017-06-19 02:18] MED LIST changes: -AMOX875T PO; -OXGN; -THIC1LIQ PO
--- NOTE | 2017-06-19 02:41 | EMERGENCY ROOM VISIT NOTE ---
History Report prepared by Jasmine: Taj Flaherty Under the Supervision of: Dr. Paula Fuentes D.O. First contact with patient: 02:21 Chief Complaint: FEVER Stated Complaint: FEVER History of Present Illness The patient is a 82 year old male who presents to the Emergency Room with complaints of a fever that began this evening. Per nursing staff, his temperature is 37.6 C. For EMS, the patient had no verbalized complaints; however, he was in rapid atrial fibrillation with a rate of 140 and was breathing through pursed lips. He was recently discharged from the hospital with a GI bleed on the 06 of June. He denies any current chest pain or abdominal pain. He also denies any melena or hematochezia. He experienced some chest pain recently. He does note having a productive cough and burning with urination. Source of History: patient Onset: this evening Position: other (global) Symptom Intensity: 37.6 C Quality: other (Fever) Timing: constant Associated Symptoms: + cough, + urinary symptoms (bruning with urination), No chest pain, No abdominal pain, No melena, No hematochezia Review of Systems See HPI for pertinent positives & negatives. A total of 10 systems reviewed and were otherwise negative. Past Medical & Surgical Medical Problems: (1) Anemia (2) Benign Neoplasm Lg Bowel (3) Bilateral lower extremity pain (4) Diverticulosis Colon (W/O Ment Of Hemorrhage) (5) Duodenal Ulcer Nos (6) DVT, bilateral lower limbs (7) Hypertrophy (Benign) Of Prostate W/O Urinary Obst & Oth Luts (8) Spinal Stenosis, Lumbar Reg, W/Out Neurogenic Claudication Family History Omitted secondary to the patient's age. Social History Smoking Status: Never Smoker Smokeless Tobacco Use: No Alcohol Use: none Drug Use: none Marital Status: Housing Status: penitent[facility] Occupation Status: retired Current/Historical Medications Scheduled Ascorbic Acid (Ascorbic Acid), 500 MG PO HS Azithromycin (Zithromax Z-Osmani), 1 PKT PO UD Finasteride (Proscar), 5 MG PO DAILY Folic Acid (Folvite), 1 MG PO DAILY Furosemide (Lasix), 40 MG PO BID Ipratropium-Albuterol (Duoneb), 3 ML NEB QID Loratadine (Claritin), 1 TAB PO DAILY Methenamine Hippurate (Methenamine Hippurate), 1 TAB PO DAILY Metoprolol Tartrate (Lopressor), 1 TAB PO DAILY Multivitamins/Minerals (Mvi With Minerals), 1 TAB PO DAILY Pantoprazole (Pantoprazole Sodium), 40 MG PO BID Tamsulosin Hcl (Flomax), 0.4 MG PO DAILY Vitamin B Complex (Vitamin B Complex), 1 TAB PO QPM Scheduled PRN Acetaminophen (Tylenol), 650 MG PO Q6 PRN for Pain or Fever Home O2 Therapy (Oxygen), 2-4 LITERS NA UD PRN for spo2 <90% Ipratropium-Albuterol (Duoneb), 3 ML NEB Q4H PRN for Shortness of Breath Allergies Coded Allergies: Levofloxacin (Verified Allergy, Unknown, ., 06/19/17) Sulfa Antibiotics (Verified Allergy, Unknown, ., 06/19/17) Physical Exam Vital Signs Date Time Temp Pulse Resp B/P (MAP) Pulse Ox O2 Delivery O2 Flow Rate FiO2 06/19/17 03:30 110 100/82 96 Nasal Cannula 06/19/17 02:30 Nasal Cannula 4.0 06/19/17 02:26 116 06/19/17 02:23 37.6 126 28 125/87 97 Nasal Cannula 4.0 Physical Exam HEENT: Head - normocephalic and atraumatic Pupils are equal, round, and reactive to light. Extraocular eye muscles are intact, and sclera are anicteric. Nose - moist nasal mucosa without discharge. Mouth - moist buccal mucosa. Oropharynx is nonerythematous and there is no tonsillar exudate or edema noted. Neck: Supple; no JVD, nuchal rigidity, cervical lymphadenopathy. Heart: Irregularly irregular rhythm with a tachycardic rate. There is a normal S1 and S2 with no murmurs, clicks, or gallops appreciated. Lungs: Diminished breath sounds in all rangel. No wheezes, rhonchi, or rales. Abdomen: Soft, completely nontender, nondistended, with good bowel sounds. There are no palpable pulsatile masses or hepatosplenomegaly. There is no guarding, rigidity, or rebound noted. Extremities: The entire right leg and left lower leg are erythematous. There are easily palpable peripheral pulses. Skin: hot and dry with good turgor and no rashes. Medical Decision & Procedures ER Provider Diagnostic Interpretation: Radiology results as stated below per my review and the radiologist's interpretation: CHEST X-RAY 1 VIEW: Cardiomegaly. No pulmonary infiltrates or pleural effusions. Per me. Laboratory Results 06/19/17 02:00 Red Blood Count 2.94, Mean Corpuscular Volume 103.4, Mean Corpuscular Hemoglobin 33.3, Mean Corpuscular Hemoglobin Concent 32.2, Mean Platelet Volume 9.0, Neutrophils (%) (Auto) 78.1, Lymphocytes (%) (Auto) 13.5, Monocytes (%) ( Auto) 8.0, Eosinophils (%) (Auto) 0.0, Basophils (%) (Auto) 0.1, Neutrophils # ( Auto) 8.02, Lymphocytes # (Auto) 1.38, Monocytes # (Auto) 0.82, Eosinophils # ( Auto) 0.00, Basophils # (Auto) 0.01 06/19/17 02:00 Test 06/19/17 02:00 06/19/17 02:30 06/19/17 02:43 White Blood Count 10.26 K/uL (4.8-10.8) Red Blood Count 2.94 M/uL (4.7-6.1) Hemoglobin 9.8 g/dL (14.0-18.0) Hematocrit 30.4 % (42-52) Mean Corpuscular Volume 103.4 fL (80-100) Mean Corpuscular Hemoglobin 33.3 pg (25-34) Mean Corpuscular Hemoglobin Concent 32.2 g/dl (32-36) Platelet Count 125 K/uL (130-400) Mean Platelet Volume 9.0 fL (7.4-10.4) Neutrophils (%) (Auto) 78.1 % Lymphocytes (%) (Auto) 13.5 % Monocytes (%) (Auto) 8.0 % Eosinophils (%) (Auto) 0.0 % Basophils (%) (Auto) 0.1 % Neutrophils # (Auto) 8.02 K/uL (1.4-6.5) Lymphocytes # (Auto) 1.38 K/uL (1.2-3.4) Monocytes # (Auto) 0.82 K/uL (0.11-0.59) Eosinophils # (Auto) 0.00 K/uL (0-0.5) Basophils # (Auto) 0.01 K/uL (0-0.2) RDW Standard Deviation 67.3 fL (36.4-46.3) RDW Coefficient of Variation 17.8 % (11.5-14.5) Immature Granulocyte % (Auto) 0.3 % Immature Granulocyte # (Auto) 0.03 K/uL (0.00-0.02) Red Blood Cell Morphology Unremarkable Prothrombin Time 11.0 SECONDS (9.0-12.0) Prothromb Time International Ratio 1.0 (0.9-1.1) Activated Partial Thromboplast Time 24.5 SECONDS (21.0-31.0) Partial Thromboplastin Ratio 0.9 Anion Gap 10.0 mmol/L (3-11) Est Creatinine Clear Calc Drug Dose 109.8 ml/min Estimated GFR () 101.9 Estimated GFR (Non- 87.9 BUN/Creatinine Ratio 44.9 (10-20) Calcium Level 8.0 mg/dl (8.5-10.1) Total Bilirubin 0.6 mg/dl (0.2-1) Aspartate Amino Transf (AST/SGOT) 16 U/L (15-37) Alanine Aminotransferase (ALT/SGPT) 19 U/L (12-78) Alkaline Phosphatase 98 U/L (45-117) Total Protein 6.3 gm/dl (6.4-8.2) Albumin 2.5 gm/dl (3.4-5.0) Globulin 3.8 gm/dl (2.5-4.0) Albumin/Globulin Ratio 0.7 (0.9-2) Urine Color YELLOW Urine Appearance CLOUDY (CLEAR) Urine pH 5.0 (4.5-7.5) Urine Specific [place] 1.019 (1.000-1.030) Urine Protein NEG (NEG) Urine Glucose (UA) NEG (NEG) Urine Ketones NEG (NEG) Urine Occult Blood NEG (NEG) Urine Nitrite NEG (NEG) Urine Bilirubin NEG (NEG) Urine Urobilinogen NEG (NEG) Urine Leukocyte Esterase TRACE (NEG) Urine WBC (Auto) 1-5 /hpf (0-5) Urine RBC (Auto) 0-4 /hpf (0-4) Urine Hyaline Casts (Auto) 1-5 /lpf (0-5) Urine Epithelial Cells (Auto) >30 /lpf (0-5) Urine Bacteria (Auto) NEG (NEG) Urine Pathogenic Casts /lpf (0) Bedside Lactic Acid Venous 2.35 mmol/L (0.90-1.70) Laboratory results per my review. Medications Administered Medications (Trade) Dose Ordered Sig/Ekta Route Start Time Stop Time Status Last Admin Dose Admin Acetaminophen (Tylenol Tab) 1,000 mg NOW STAT PO 06/19/17 03:18 06/19/17 03:20 DC 06/19/17 03:40 1,000 MG Sodium Chloride 500 ml @ 999 mls/hr Q31M STAT IV 06/19/17 03:18 06/19/17 03:48 DC 06/19/17 03:39 999 MLS/HR Sodium Chloride 1,000 ml @ 125 mls/hr Q8H STAT IV 06/19/17 03:18 06/19/17 11:17 06/19/17 04:14 125 MLS/HR Aztreonam 2000 mg/ Dextrose 110 ml @ 100 mls/hr NOW STAT IV 06/19/17 04:18 06/19/17 05:23 DC 06/19/17 05:23 100 MLS/HR Daptomycin 600 mg/ Sodium Chloride 62 ml @ 100 mls/hr NOW STAT IV 06/19/17 04:18 06/19/17 04:55 DC 06/19/17 04:52 100 MLS/HR Procedure Sodium Chloride 1000 ml @ 125 mls/hr IV Sodium Chloride 500 ml @ 999 mls/hr IV Tylenol Tab 1000 mg PO Daptomycin 600 mg/ Sodium Chloride 62 @ 100 mls/hr IV Aztreonam 2000 mg/Dextrose 110 ml @ 100 mls/hr IV ECG Indication: other (A Fib) Rate (beats per minute): 124 Rhythm: atrial fibrillation, other (with RVR) Findings: RBBB, no ectopy ED Course 0221: Past medical records reviewed. The patient was evaluated in room A9. A complete history and physical exam was performed. A septic protocol was performed. A twelve-lead EKG was obtained. 0235: Nursing staff placed a catheter in the patient at this time and removed 1500 cc's of urine. The patient remains hemodynamically stable. A chest x- ray was performed. 0318: Ordered Sodium Chloride 1000 ml @ 125 mls/hr IV, Sodium Chloride 500 ml @ 999 mls/hr IV, Tylenol Tab 1000 mg PO 0418: Ordered Daptomycin 600 mg/ Sodium Chloride 62 @ 100 mls/hr IV, Aztreonam 2000 mg/Dextrose 110 ml @ 100 mls/hr IV. 0435: Upon reevaluation, I discussed findings and results with him. He verbalized agreement of the treatment plan. I spoke with Dr. Donovan working with Dr. Welch of the [place] [facility]. The patient will be evaluated for further management and care. Medical Decision The patient is a 82 year old male who presents to the ED with a fever. Differential diagnosis includes sepsis, UTI, pneumonia, atrial fibrillation with RVR, bacteremia, and cellulitis. Laboratory Results: White blood cell count 10.2, hemoglobin 9.8, platelet count 125, lactic acid 2.35, BUN 31, creatinine 0.7, glucose 117, coagulation studies normal, urinalysis trace leukocyte esterase. This is an 82-year-old male patient from [facility] presents to the emergency department with a fever and productive cough. There was concern for sepsis. The patient has an elevated lactic acid with a low-grade fever. He received some Tylenol for the fever. Chest x-ray was unremarkable but the patient does have a cough productive of sputum. On physical exam, there was evidence of bilateral lower extremity cellulitis. This could be the source of the patient's fever. The patient was tachycardic, tachypneic, and have leukocytosis. The patient's heart rate came down after the IV fluids and while he was sleeping. I discussed the case with the [facility] Hospitalist and they will evaluate for further management. Medication Reconcilliation Current Medication List: was personally reviewed by me Blood Pressure Screening Patient's blood pressure: Normal blood pressure Blood pressure disposition: Did not require urgent referral Consults Time Called: 043 Consulting Physician: Dr. Donovan working with Dr. Welch - [facility] Returned Call: [phone] Discussed the patient's case. The patient will be evaluated for further management. Impression Primary Impression: Sepsis Additional Impressions: Bilateral lower leg cellulitis Atrial fibrillation with RVR Scribe Attestation The scribe's documentation has been prepared under my direction and personally reviewed by me in its entirety. I confirm that the note above accurately reflects all work, treatment, procedures, and medical decision making performed by me. Departure Information Dispostion Being Evaluated By Hospitalist Referrals Luisito Davis M.D. (PCP) Patient Instructions My [facility] Problem Qualifiers Primary Impression: Sepsis Sepsis type: sepsis due to unspecified organism Qualified Codes: A41.9 - Sepsis, unspecified organism
[2017-06-19 02:47] LABS: HEMATOCRIT 30.4 % (42-52); MEAN CELL VOLUME 103.4 fL (80-100); MEAN CORPUSCULAR HEMOGLOBIN 33.3 pg (25-34); MEAN CORPUSCULAR HGB CONC 32.2 g/dl (32-36); PLATELET COUNT 125 K/uL (130-400); RED BLOOD COUNT 2.94 M/uL (4.7-6.1); WHITE BLOOD COUNT 10.26 K/uL (4.8-10.8)
[2017-06-19 02:55] LABS: URINE APPEARANCE CLOUDY (CLEAR); URINE BILIRUBIN NEG (NEG); URINE COLOR YELLOW; URINE EPITHELIAL CELL AUTO >30 /lpf (0-5); URINE NITRITE NEG (NEG); URINE SPECIFIC GRAVITY 1.019 (1.000-1.030); UROBILINOGEN NEG (NEG); ZZURINE CULT IF INDIC CATH NO
[2017-06-19 02:57] LABS: PARTIAL THROMBOPLASTIN RATIO 0.9
[2017-06-19 03:03] LABS: MANUAL MICROSCOPIC REQUIRED? NO; REVIEW REQ? YES
[2017-06-19 03:05] LABS: BUN/CREATININE RATIO 44.9 (10-20); CREATININE 0.7 mg/dl (0.60-1.40)
[2017-06-19 03:08] LABS: ALB/GLOB RATIO 0.7 (0.9-2)
[2017-06-19] MEDS ORDERED: IPRASOL4 NEB (03:08)
[2017-06-19] MEDS ORDERED: OXGN (03:08)
[2017-06-19 03:11] LABS: BASO % 0.1 %; BASO ABS # 0.01 K/uL (0-0.2); COMPLETE YES; IG% 0.3 %; LYMPH % 13.5 %; LYMPH ABS # 1.38 K/uL (1.2-3.4); NEUT % 78.1 %
[2017-06-19] MEDS ORDERED: SODIUM CHLORIDE 0.9% 1000ML 1,000 ML IV STA (03:18)
[2017-06-19] MEDS ORDERED: ACETAMINOPHEN 500 MG TAB PO STA (03:18)
[2017-06-19] MEDS ORDERED: SODIUM CHLORIDE 0.9% 500ML 500 ML IV STA (03:18)
[2017-06-19] MEDS ORDERED: AZTREONAM IV 2,000 MG in DEXTROSE 5% 100ML 100 ML IV STA (04:18)
[2017-06-19] MEDS ORDERED: DAPTOmycin IV 600 MG in SODIUM CHLORIDE 0.9% 50ML 50 ML IV STA (04:18)
[2017-06-19] MEDS ORDERED: VANCOMYCIN INJ 1,000 MG in SODIUM CHLORIDE 0.9% 250ML 250 ML IV STA (06:17)
--- NOTE | 2017-06-19 06:23 | History and Physical ---
History & Physical Date & Time of Service: Jun 19, 2017 at 06:23 Chief Complaint: FEVER Primary Care Physician: Luisito Davis M.D. History of Present Illness Source: patient 82-year-old male, currently a resident at [facility] with past medical history of diverticulosis, DVT, duodenal ulcers, BPH presented to the ER with complaints of fever which started this morning. He was also noted to be in rapid atrial fibrillation with respiratory distress per EMS. He was recently discharged from the hospital after an admission for a GI bleed. Denies any chest pain, palpitations, shortness of breath, dizziness or lightheadedness. Denies any nausea, vomiting, abdominal pain, bright red bleeding per rectum or melena. He has been coughing bringing up some sputum. Past Medical/Surgical History Medical Problems: (1) Benign Neoplasm Lg Bowel Status: Resolved (2) Diverticulosis Colon (W/O Ment Of Hemorrhage) Status: Chronic (3) Duodenal Ulcer Nos Status: Resolved (4) Hypertrophy (Benign) Of Prostate W/O Urinary Obst & Oth Luts Status: Chronic (5) Spinal Stenosis, Lumbar Reg, W/Out Neurogenic Claudication Status: Chronic Family History Noncontributory Social History Smoking Status: Never Smoker Smokeless Tobacco Use: No Drug Use: none Marital Status: Housing status: assisted living Occupational Status: retired Immunizations History of Influenza Vaccine: Unknown History of Tetanus Vaccine?: Unknown History of Pneumococcal: Unknown History of Hepatitis B Vaccine: Unknown Multi-Drug Resistant Organisms History of MDRO: No Allergies Coded Allergies: Levofloxacin (Verified Allergy, Unknown, ., 06/19/17) Sulfa Antibiotics (Verified Allergy, Unknown, ., 06/19/17) Home Medications Scheduled Ascorbic Acid (Ascorbic Acid), 500 MG PO HS Azithromycin (Zithromax Z-Osmani), 1 PKT PO UD Finasteride (Proscar), 5 MG PO DAILY Folic Acid (Folvite), 1 MG PO DAILY Furosemide (Lasix), 40 MG PO BID Ipratropium-Albuterol (Duoneb), 3 ML NEB QID Loratadine (Claritin), 1 TAB PO DAILY Methenamine Hippurate (Methenamine Hippurate), 1 TAB PO DAILY Metoprolol Tartrate (Lopressor), 1 TAB PO DAILY Multivitamins/Minerals (Mvi With Minerals), 1 TAB PO DAILY Pantoprazole (Pantoprazole Sodium), 40 MG PO BID Tamsulosin Hcl (Flomax), 0.4 MG PO DAILY Vitamin B Complex (Vitamin B Complex), 1 TAB PO QPM Scheduled PRN Acetaminophen (Tylenol), 650 MG PO Q6 PRN for Pain or Fever Home O2 Therapy (Oxygen), 2-4 LITERS NA UD PRN for spo2 <90% Ipratropium-Albuterol (Duoneb), 3 ML NEB Q4H PRN for Shortness of Breath Review of Systems Constitutional: + fever, + chills, + sweats Eyes: No worsening of vision ENT: + hearing loss Respiratory: + cough, No shortness of breath Cardiovascular: No chest pain Abdomen: No pain, No nausea Musculoskeletal: No joint pain Genitourinary - Male: No hematuria, No dysuria Neurologic: No memory loss, No paralysis Psychiatric: No depression symptoms Endocrine: No fatigue Integumentary: No rash Physical Exam Vital Signs Date Time Temp Pulse Resp B/P (MAP) Pulse Ox O2 Delivery O2 Flow Rate FiO2 06/19/17 06:18 90 24 100/66 95 Nasal Cannula 4.0 06/19/17 06:16 92 06/19/17 03:30 110 100/82 96 Nasal Cannula 06/19/17 02:30 Nasal Cannula 4.0 06/19/17 02:26 116 06/19/17 02:23 37.6 126 28 125/87 97 Nasal Cannula 4.0 General Appearance: WD/WN, no apparent distress Head: normocephalic Neck: supple Respiratory/Chest: no respiratory distress, no accessory muscle use, + rhonchi Cardiovascular: + tachycardia Abdomen/GI: normal bowel sounds, soft Extremities/Musculoskelatal: + pedal edema, + swelling (b/l LE erythematous , tender ( r >l)) Neurologic/Psych: alert, normal mood/affect, oriented x 3 Diagnostics Laboratory Results Results Past 24 Hours Test 06/19/17 02:00 06/19/17 02:30 06/19/17 02:43 Range/Units White Blood Count 10.26 4.8-10.8 K/uL Red Blood Count 2.94 4.7-6.1 M/uL Hemoglobin 9.8 14.0-18.0 g/dL Hematocrit 30.4 42-52 % Mean Corpuscular Volume 103.4 80-100 fL Mean Corpuscular Hemoglobin 33.3 25-34 pg Mean Corpuscular Hemoglobin Concent 32.2 32-36 g/dl Platelet Count 125 130-400 K/uL Mean Platelet Volume 9.0 7.4-10.4 fL Neutrophils (%) (Auto) 78.1 % Lymphocytes (%) (Auto) 13.5 % Monocytes (%) (Auto) 8.0 % Eosinophils (%) (Auto) 0.0 % Basophils (%) (Auto) 0.1 % Neutrophils # (Auto) 8.02 1.4-6.5 K/uL Lymphocytes # (Auto) 1.38 1.2-3.4 K/uL Monocytes # (Auto) 0.82 0.11-0.59 K/uL Eosinophils # (Auto) 0.00 0-0.5 K/uL Basophils # (Auto) 0.01 0-0.2 K/uL RDW Standard Deviation 67.3 36.4-46.3 fL RDW Coefficient of Variation 17.8 11.5-14.5 % Immature Granulocyte % (Auto) 0.3 % Immature Granulocyte # (Auto) 0.03 0.00-0.02 K/uL Red Blood Cell Morphology Unremarkable Prothrombin Time 11.0 9.0-12.0 SECONDS Prothromb Time International Ratio 1.0 0.9-1.1 Activated Partial Thromboplast Time 24.5 21.0-31.0 SECONDS Partial Thromboplastin Ratio 0.9 Sodium Level 138 136-145 mmol/L Potassium Level 4.0 3.5-5.1 mmol/L Chloride Level 106 98-107 mmol/L Carbon Dioxide Level 22 21-32 mmol/L Anion Gap 10.0 3-11 mmol/L Blood Urea Nitrogen 31 7-18 mg/dl Creatinine 0.70 0.60-1.40 mg/dl Est Creatinine Clear Calc Drug Dose 109.8 ml/min Estimated GFR () 101.9 Estimated GFR (Non- 87.9 BUN/Creatinine Ratio 44.9 10-20 Random Glucose 117 70-99 mg/dl Calcium Level 8.0 8.5-10.1 mg/dl Total Bilirubin 0.6 0.2-1 mg/dl Aspartate Amino Transf (AST/SGOT) 16 15-37 U/L Alanine Aminotransferase (ALT/SGPT) 19 12-78 U/L Alkaline Phosphatase 98 45-117 U/L Total Protein 6.3 6.4-8.2 gm/dl Albumin 2.5 3.4-5.0 gm/dl Globulin 3.8 2.5-4.0 gm/dl Albumin/Globulin Ratio 0.7 0.9-2 Urine Color YELLOW Urine Appearance CLOUDY CLEAR Urine pH 5.0 4.5-7.5 Urine Specific [place] 1.019 1.000-1.030 Urine Protein NEG NEG Urine Glucose (UA) NEG NEG Urine Ketones NEG NEG Urine Occult Blood NEG NEG Urine Nitrite NEG NEG Urine Bilirubin NEG NEG Urine Urobilinogen NEG NEG Urine Leukocyte Esterase TRACE NEG Urine WBC (Auto) 1-5 0-5 /hpf Urine RBC (Auto) 0-4 0-4 /hpf Urine Hyaline Casts (Auto) 1-5 0-5 /lpf Urine Epithelial Cells (Auto) >30 0-5 /lpf Urine Bacteria (Auto) NEG NEG Urine Pathogenic Casts 0 /lpf Bedside Lactic Acid Venous 2.35 0.90-1.70 mmol/L Microbiology Results 06/19/17 Blood Culture, Received Pending 06/19/17 Blood Culture, Received Pending Impression Assessment and Plan 82-year-old male, currently a resident at [facility] with past medical history of diverticulosis, DVT, duodenal ulcers, BPH presented to the ER with complaints of fever which started this morning. Sepsis: - Likely secondary to pneumonia/cellulitis of bilateral lower extremities - Meets criteria with fever, tachycardia, elevated lactic acid - Chest x-ray: Stable cardiomegaly. Bibasilar linear densities are nonspecific but favor subsegmental atelectasis. - Lactic acid at 2.35, repeat lactic acid - Started on vancomycin and Zosyn Atrial fibrillation: - Rate controlled with metoprolol - Patient has declined anticoagulation during previous admission Anemia: Stable - Hemoglobin 9.8 BPH: - Continue finasteride and Flomax Bilateral lower extremity swelling: Chronic venous stasis - Continue Lasix Disposition: Admitted to telemetry DVT prophylaxis: Heparin subcutaneous Attending Addendum: I have physically seen and examined this patient, have supervised the medical residents activities, and agree with the H&P as noted above with the following exceptions as noted. The patient was referred to the emergency department from [facility] due to a temperature that began this morning prior to arrival. He is status post recent admission and discharge from the hospital due to a GI bleed. He also reports a cough productive of sputum. The patient denies chest pain, palpitations, shortness of breath, cough, lower extremity swelling, vision change, hearing change, sore throat, chills, sweats, weight change, fatigue, nausea, vomiting, diarrhea or constipation, abdominal pain, pelvic pain, blood in urine or stool, dysuria, urinary frequency or urgency, lightheadedness, dizziness, headache, rash, abnormal bruising or bleeding, imbalance, focal or generalized weakness, numbness or tingling in arms or legs, generalized arthralgias or myalgias, back or neck pain, night sweats, or allergy symptoms. The review of systems is otherwise negative other than for that already noted above, and at least 10 systems have been reviewed. The patient is awake, well-developed and adequately nourished, alert and oriented 3, normocephalic and atraumatic, lying in bed and in no acute distress. HEENT--PERRL, EOMI, mucous membranes and oropharynx dry. Neck--supple, no JVD or bruits, thyroid normal, trachea midline, no adenopathy. Heart--irregularly irregular and tachycardic no murmurs, rubs or gallops. Lungs-- coarse breath sounds bilaterally, no respiratory distress, no accessory muscle use. Abdomen--normal bowel sounds and soft, nontender and nondistended, no hernias or masses, no organomegaly. Extremities--no cyanosis, clubbing. Bilateral 1+ pitting pretibial/pedal edema. There are good distal pulses b/l. Dermatologic--bilateral lower extremities with tender, erythematous, and swelling. Neurologic--cranial nerves II through XII grossly intact, motor and sensory examination normal. Rheumatologic--normal range of motion, nontender, muscles and joints. Psychiatric--normal affect. Assessment and Plan: 1. Sepsis/pneumonia and bilateral lower extremity cellulitis-- Admit to the telemetry unit. Place on vancomycin IV and Zosyn IV. 2. Atrial fibrillation with RVR-- Continue metoprolol. Follow on telemetry Level of Care Telemetry Advanced Directives Existing Advance Directive: Yes Existing Living Will: Yes Existing Power of Publications Editor: Yes Resuscitation Status DO NOT RESUSCITATE VTE Prophylaxis VTE Risk Assessment Done? Y/N: Yes Risk Level: Moderate Given or contraindicated: Unfractionated heparin SQ Resident Tracking Resident Involvement: Resident Care Provided Care Provided: Adult Hospital Medicine
[2017-06-19] MEDS ORDERED: ALUMINUM/MAGNESIUM/SIMETH (MAALOX MAX) 30 ML UDC PO PRN (06:30)
[2017-06-19] MEDS ORDERED: POLYETHYLENE (MIRALAX) 17 GM PACK PO PRN (06:30)
[2017-06-19] MEDS ORDERED: ALBUT/IPRATROP 3MG/0.5MG NEB 3 ML VIAL INH PRN (06:30)
[2017-06-19] MEDS ORDERED: ACETAMINOPHEN 325 MG TAB PO PRN (06:30)
[2017-06-19] MEDS ORDERED: ONDANSETRON INJ 2 MG/ML 2 ML VIAL IV PRN (06:30)
[2017-06-19] MEDS ORDERED: VANCOMYCIN CONSULT ACTIVE PRN (06:45)
[2017-06-19] MEDS ORDERED: PIPERACILL/TAZOBAC CONSULT ACTIVE PRN (06:45)
--- NOTE | 2017-06-19 07:09 | DIAGNOSTIC IMAGING REPORT ---
CHEST ONE VIEW PORTABLE HISTORY: Sepsis COMPARISON: Chest 05/31/2017. FINDINGS: The heart remains enlarged. Bibasilar linear densities. The upper lungs and are clear. No evidence for pulmonary edema. No pleural effusions. No pneumothorax. IMPRESSION: Stable cardiomegaly. Bibasilar linear densities are nonspecific but favor subsegmental atelectasis. Electronically signed by: Andrew Ordaz M.D. 06/19/2017 7:08 AM Dictated Date/Time: 06/19/2017 7:07 AM
[2017-06-19] MEDS ORDERED: IV FLUIDS COMPLETED PRN (07:30)
[2017-06-19] MEDS ORDERED: PIPERACILL/TAZOBAC IV 4.5 GM in DEXTROSE 5% 100ML IV ONE (08:30)
[2017-06-19] MEDS ORDERED: VANCOMYCIN INJ 2,500 MG in SODIUM CHLORIDE 0.9% 500ML 500 ML IV ONE (08:30)
[2017-06-19] MEDS: TAMSULOSIN HCL 0.4 MG CAP PO SCH (08:58)
[2017-06-19] MEDS: CEROVITE ADV FORMULA TAB PO SCH (08:58)
[2017-06-19] MEDS: LORATADINE 10 MG TAB PO SCH (08:58)
[2017-06-19] MEDS: FUROSEMIDE 40 MG TAB PO SCH ×2 (08:59→17:00)
[2017-06-19] MEDS: METOPROLOL TARTRATE 50 MG TAB PO SCH (08:59)
[2017-06-19] MEDS: PANTOprazole SOD 40 MG TAB PO SCH ×2 (09:00→19:43)
[2017-06-19] MEDS: HEPARIN SOD 5000 UNIT/0.5 ML CARP SQ SCH ×3 (09:00→23:26)
[2017-06-19] MEDS: FINASTERIDE 5 MG TAB PO SCH (09:00)
[2017-06-19] MEDS ORDERED: PIPERACILL/TAZOBAC IV 4.5 GM in DEXTROSE 5% 100ML 100 ML IV SCH (12:00)
[2017-06-19] MEDS ORDERED: NURSING VERBAL MED ORDER ONE ×2 (13:15→14:15)
[2017-06-19] MEDS: ALBUMIN HUMAN 25% 12.5 GM/50 ML VIAL IV SCH ×2 (13:54→19:43)
--- NOTE | 2017-06-19 15:20 | Pharmacy Progress Note ---
Pharmacy Abx Initial Consult Date of Service Jun 19, 2017. Pharmacy Dosing Scope Date of Consult: 06/19/17 Consultation requested by: Dr. Donovan Pharmacy is consulted to initiate IV VANCOMYCIN and ZOSYN therapy, order appropriate labs and adjust drug dose/frequency. Subjective The patient is a 82 year old male admitted on Jun 19, 2017 at 07:56 for fever, sepsis likely from skin/skin structure vs HCAP Objective Height (Feet): 6 Height (Inches): 0.00 Weight (Kilograms): 115.800 Vital Signs (Past 12Hrs) Vital Signs Past 12 Hours Date Time Temp Pulse Resp B/P (MAP) Pulse Ox O2 Delivery O2 Flow Rate FiO2 06/19/17 14:10 81/63 (69) 06/19/17 13:30 73 76/55 (62) 06/19/17 13:00 78/54 (62) 06/19/17 12:00 96 Nasal Cannula 3.0 06/19/17 11:30 36.7 66 25 88/60 (69) 96 Nasal Cannula 3.0 06/19/17 08:27 36.8 91 24 111/82 98 Nasal Cannula 3.0 06/19/17 07:12 37.2 83 24 102/71 97 Nasal Cannula 3.0 06/19/17 06:18 90 24 100/66 95 Nasal Cannula 4.0 06/19/17 06:16 92 06/19/17 03:30 110 100/82 96 Nasal Cannula Lab Results (24Hrs) Laboratory Tests (24 Hours) Test 06/19/17 02:00 06/19/17 07:42 White Blood Count 10.26 K/uL (4.8-10.8) Red Blood Count 2.94 M/uL (4.7-6.1) L Hemoglobin 9.8 g/dL (14.0-18.0) L Hematocrit 30.4 % (42-52) L Mean Corpuscular Volume 103.4 fL (80-100) H Mean Corpuscular Hemoglobin 33.3 pg (25-34) Mean Corpuscular Hemoglobin Concent 32.2 g/dl (32-36) Platelet Count 125 K/uL (130-400) L Mean Platelet Volume 9.0 fL (7.4-10.4) Neutrophils (%) (Auto) 78.1 % Lymphocytes (%) (Auto) 13.5 % Monocytes (%) (Auto) 8.0 % Eosinophils (%) (Auto) 0.0 % Basophils (%) (Auto) 0.1 % Neutrophils # (Auto) 8.02 K/uL (1.4-6.5) H Lymphocytes # (Auto) 1.38 K/uL (1.2-3.4) Monocytes # (Auto) 0.82 K/uL (0.11-0.59) H Eosinophils # (Auto) 0.00 K/uL (0-0.5) Basophils # (Auto) 0.01 K/uL (0-0.2) Lactic Acid Level 1.7 mmol/L (0.4-2.0) Micro Results Date/Time Source Procedure Growth Status 06/19/17 02:30 Blood Blood Culture Pending Received 06/19/17 02:25 Blood Blood Culture Pending Received Risk Factors for Resistance * Resident in a half-way or extended-care facility * Hospitalization for 48 hours or more within the past 90 days * History of infection with a multidrug-resistant organism: MRSA in urine * Antimicrobial use within the last 90 days: Azithromycin prior to admit, Doxycyclin 04/2017, Rocephin 05/2017, Keflex 05/2017 Assessment & Plan Assessment * 82 year old male admitted from assisted living for fever, sepsis, B/L lower extremity swelling / cellulitis, possible PNX * He does have multiple risk factors for resistant organisms Plan Vancomycin IV * Loading dose: 2500 mg (21.5 mg/kg) * Maintenance dose: 1750 mg IV (15 mg/kg) every 10 hours * Goal trough level for sepsis/HCAP : 15 to 20 mcg/mL * Trough level ordered for 06/20/17 (with the 4th maintenance dose) Piperacillin/tazobactam * 4.5 g bolus administered over 30 minutes, then 4.5 g IV extended infusion every 8 hours for CrCl greater than 20 mL/min * Aggressive dosing selected due to BMI 35 or more Pharmacy will continue to follow and will adjust dose/frequency as necessary. Thank you.
[2017-06-19] MEDS ORDERED: SODIUM CHLORIDE 0.9% 1000ML 1,000 ML IV SCH (15:30)
[2017-06-19] MEDS: PIPERACILL/TAZOBAC IV 4.5 GM in DEXTROSE 5% 100ML IV SCH ×2 (16:20→23:24)
[2017-06-19] MEDS: NSS + 20MEQ KCL 1000ML 1,000 ML IV SCH (16:25)
--- NOTE | 2017-06-19 16:53 | DIAGNOSTIC IMAGING REPORT ---
CHEST ONE VIEW PORTABLE HISTORY: 82 years-old Male acute chest pain and shortness of breath. Concern for congestive heart failure. COMPARISON: Portable chest radiograph 06/19/2017 TECHNIQUE: Portable upright AP view of the chest FINDINGS: Cardiac silhouette is again enlarged. There is mild pulmonary vascular congestion without overt pulmonary edema. No pneumothorax. Linear bibasilar subsegmental opacities persist. Bones are grossly intact. IMPRESSION: 1. Cardiomegaly without overt pulmonary edema. 2. Unchanged appearance of linear subsegmental bibasilar opacities suggesting atelectasis. The above report was generated using voice recognition software. It may contain grammatical, syntax or spelling errors. Electronically signed by: Tim Eng M.D. 06/19/2017 4:52 PM Dictated Date/Time: 06/19/2017 4:51 PM
[2017-06-19] MEDS ORDERED: SODIUM CHLORIDE 0.9% 500ML 500 ML IV SCH (17:15)
[2017-06-19 17:50] LABS: BUN/CREATININE RATIO 46.6 (10-20); CALCIUM 7.3 mg/dl (8.5-10.1); CREATININE 0.64 mg/dl (0.60-1.40); MAGNESIUM 1.9 mg/dl (1.8-2.4); POTASSIUM 3.5 mmol/L (3.5-5.1)
--- NOTE | 2017-06-19 17:56 | Progress Note ---
Subjective Date of Service: Jun 19, 2017. Subjective Patient is pleasantly confused but appropriately responding to commands and making sense he is incontinent of stool Problem List Medical Problems: (1) Acute blood loss anemia Status: Acute (2) Atrial fibrillation with RVR Status: Acute (3) Bilateral leg pain Status: Acute (4) Bilateral lower leg cellulitis Status: Acute (5) Fall Status: Acute (6) Hematemesis Status: Acute (7) Multiple contusions Status: Acute (8) Paresthesia Status: Acute (9) Sepsis Status: Acute (10) UTI (urinary tract infection) Status: Acute Review of Systems Constitutional: + weakness, + fatigue, No fever, No chills Respiratory: + cough, No sputum, No shortness of breath Cardiac: + edema, No chest pain Abdomen: No pain, No nausea Musculoskeletal: + swelling, No joint pain, No muscle pain Skin: + new/changing skin lesions, + color change Objective Vital Signs Date Time Temp Pulse Resp B/P (MAP) Pulse Ox O2 Delivery O2 Flow Rate FiO2 06/19/17 17:06 82/56 (65) 06/19/17 16:38 92/63 (73) 06/19/17 16:15 85/59 (68) 06/19/17 16:00 96 Nasal Cannula 3.0 06/19/17 16:00 37.0 74 26 73/51 (58) 96 Nasal Cannula 3.0 06/19/17 14:10 81/63 (69) 06/19/17 13:30 73 76/55 (62) 06/19/17 13:00 78/54 (62) 06/19/17 12:00 96 Nasal Cannula 3.0 06/19/17 11:30 36.7 66 25 88/60 (69) 96 Nasal Cannula 3.0 06/19/17 08:27 36.8 91 24 111/82 98 Nasal Cannula 3.0 06/19/17 07:12 37.2 83 24 102/71 97 Nasal Cannula 3.0 06/19/17 06:18 90 24 100/66 95 Nasal Cannula 4.0 06/19/17 06:16 92 06/19/17 03:30 110 100/82 96 Nasal Cannula 06/19/17 02:30 Nasal Cannula 4.0 06/19/17 02:26 116 06/19/17 02:23 37.6 126 28 125/87 97 Nasal Cannula 4.0 Physical Exam General Appearance: WD/WN, + mild distress Neck: supple, no JVD Respiratory/Chest: chest non-tender, lungs clear, normal breath sounds Cardiovascular: + systolic murmur, + irregularly irregular Abdomen: normal bowel sounds, non tender, soft Extremities: + pedal edema, + slow capillary refill, + swelling Laboratory Results Last 24 Hours Test 06/19/17 02:00 06/19/17 02:30 06/19/17 02:43 06/19/17 07:42 White Blood Count 10.26 K/uL Red Blood Count 2.94 M/uL Hemoglobin 9.8 g/dL Hematocrit 30.4 % Mean Corpuscular Volume 103.4 fL Mean Corpuscular Hemoglobin 33.3 pg Mean Corpuscular Hemoglobin Concent 32.2 g/dl Platelet Count 125 K/uL Mean Platelet Volume 9.0 fL Neutrophils (%) (Auto) 78.1 % Lymphocytes (%) (Auto) 13.5 % Monocytes (%) (Auto) 8.0 % Eosinophils (%) (Auto) 0.0 % Basophils (%) (Auto) 0.1 % Neutrophils # (Auto) 8.02 K/uL Lymphocytes # (Auto) 1.38 K/uL Monocytes # (Auto) 0.82 K/uL Eosinophils # (Auto) 0.00 K/uL Basophils # (Auto) 0.01 K/uL RDW Standard Deviation 67.3 fL RDW Coefficient of Variation 17.8 % Immature Granulocyte % (Auto) 0.3 % Immature Granulocyte # (Auto) 0.03 K/uL Red Blood Cell Morphology Unremarkable Prothrombin Time 11.0 SECONDS Prothromb Time International Ratio 1.0 Activated Partial Thromboplast Time 24.5 SECONDS Partial Thromboplastin Ratio 0.9 Sodium Level 138 mmol/L Potassium Level 4.0 mmol/L Chloride Level 106 mmol/L Carbon Dioxide Level 22 mmol/L Anion Gap 10.0 mmol/L Blood Urea Nitrogen 31 mg/dl Creatinine 0.70 mg/dl Est Creatinine Clear Calc Drug Dose 109.8 ml/min Estimated GFR () 101.9 Estimated GFR (Non- 87.9 BUN/Creatinine Ratio 44.9 Random Glucose 117 mg/dl Calcium Level 8.0 mg/dl Total Bilirubin 0.6 mg/dl Aspartate Amino Transf (AST/SGOT) 16 U/L Alanine Aminotransferase (ALT/SGPT) 19 U/L Alkaline Phosphatase 98 U/L Total Protein 6.3 gm/dl Albumin 2.5 gm/dl Globulin 3.8 gm/dl Albumin/Globulin Ratio 0.7 Urine Color YELLOW Urine Appearance CLOUDY Urine pH 5.0 Urine Specific [place] 1.019 Urine Protein NEG Urine Glucose (UA) NEG Urine Ketones NEG Urine Occult Blood NEG Urine Nitrite NEG Urine Bilirubin NEG Urine Urobilinogen NEG Urine Leukocyte Esterase TRACE Urine WBC (Auto) 1-5 /hpf Urine RBC (Auto) 0-4 /hpf Urine Hyaline Casts (Auto) 1-5 /lpf Urine Epithelial Cells (Auto) >30 /lpf Urine Bacteria (Auto) NEG Urine Pathogenic Casts /lpf Bedside Lactic Acid Venous 2.35 mmol/L Lactic Acid Level 1.7 mmol/L Test 06/19/17 17:15 06/19/17 17:36 Sodium Level 138 mmol/L Potassium Level 3.5 mmol/L Chloride Level 109 mmol/L Carbon Dioxide Level 21 mmol/L Anion Gap 8.0 mmol/L Blood Urea Nitrogen 30 mg/dl Creatinine 0.64 mg/dl Est Creatinine Clear Calc Drug Dose 116.9 ml/min Estimated GFR () 105.7 Estimated GFR (Non- 91.2 BUN/Creatinine Ratio 46.6 Random Glucose 115 mg/dl Calcium Level 7.3 mg/dl Magnesium Level 1.9 mg/dl Assessment and Plan 82-year-old male, currently a resident at [facility] with past medical history of diverticulosis, DVT, duodenal ulcers, BPH presented to the ER with complaints of fever which started this morning. Patient initially bright with sepsis lactic acid [id number] was elevated repeat was improved however the patient has had persistent hypotension throughout the day despite fluid boluses and albumin. Patient has received 1500 mL of crystalloid with persistent infusion of 100. His M AP has been 70s he is mentating and making urine. There is no significant focal source of fever as he does have chronic venous stasis of his lower extremities which his states are about normal for him will continue vancomycin and Zosyn awaiting blood cultures and urine culture results. We have held his Lasix due to low blood pressure - Atrial fibrillation remains Rate controlled with metoprolol, ejection fraction is unknown. He has tolerated fluid boluses without signs of heart failure and repeat chest x-ray reviewed by myself in the afternoon of June 19 Previous hemoglobin of 9.8 will be rechecked after hydration BPH has not been a problem continuing finasteride and Flomax DVT prophylaxis: Heparin subcutaneous
--- NOTE | 2017-06-19 18:06 | ECHOCARDIOGRAM REPORT ---
*NOTICE TO RECEIVING LIBERTARIAN AGENCY This information is strictly Confidential and protected under [place] law. [place] law prohibits you from making any further disclosure of this information unless further disclosure is expressly permitted by the written consent of the person to whom it pertains or is authorized by law. A general authorization for the release of medical or other information is not sufficient for this purpose. Hospital accepts no responsibility if the information is made available to any other person, INCLUDING THE PATIENT. Interpretation Summary * Name: MICHAEL WILLIAMSON Study Date: 06/19/2017 03:38 PM BP: 81/63 mmHg * Patient Location: .MSICU\S\E111\S\1 HR: 74 * : 1935 (M/d/yyyy) Gender: Male Height: 72 in * Age: 82 yrs Ethnicity: CA Weight: 255 lb * Ordering Physician: Blayne Messer * Referring Physician: Riaz Gallagher * Performed By: Susan Nieto RCS * * Reason For Study: CHF * BSA: 2.4 m2 * -- Conclusions -- * The left ventricle is mildly dilated. * Left ventricular systolic function is normal. * The left atrium is mildly dilated. * The right atrium is mild to moderately dilated. * There is at least mild aortic stenosis and probably more moderate based on appearance. * Right ventricular systolic pressure is normal. Procedure Details * A contrast injection of Definity was performed to improve assessment of LV function. * Contrast was injected into an intravenous site in the right arm. * One vial of Definity ultrasound contrast was diluted in normal saline to a total volume of 10 ml. A total of '4' ml of solution was administered during imaging. * Lot # [id number] of Definity utilized for procedure. * Expiration date . * The attending nurse who injected the contrast agent was FRANSICO GUILLEN. Left Ventricle * The left ventricle is mildly dilated. * There is normal left ventricular wall thickness. * Ejection Fraction = 55-60%. * Left ventricular systolic function is normal. * The left ventricular wall motion is normal. Right Ventricle * The right ventricle is grossly normal size. * The right ventricular systolic function is normal. Atria * The left atrium is mildly dilated. * The right atrium is mild to moderately dilated. Mitral Valve * The mitral valve is grossly normal. * Significant mitral regurgitation is absent. Tricuspid Valve * The tricuspid valve is not well visualized. * There is mild tricuspid regurgitation. * Right ventricular systolic pressure is normal. Aortic Valve * The aortic valve is not well visualized. * There is at least mild aortic stenosis and probably more moderate based on appearance. * There is no significant aortic regurgitation. Great Vessels * The aortic root is normal size. Pericardium/Pleural * There is no pericardial effusion. MMode 2D Measurements and Calculations IVSd 0.86 cm LVIDd 5.9 cm LVIDs 4.0 cm LVPWd 0.64 cm IVS/LVPW 1.3 FS 32.1 % EDV(Teich) 174.6 ml ESV(Teich) 70.9 ml EF(Teich) 59.4 % EDV(cubed) 207.6 ml ESV(cubed) 65.1 ml EF(cubed) 68.6 % LV mass(C)d 167.6 grams LV mass(C)dI 70.9 grams/m\S\2 SV(Teich) 103.7 ml SI(Teich) 43.9 ml/m\S\2 SV(cubed) 142.5 ml SI(cubed) 60.3 ml/m\S\2 Ao root diam 3.8 cm Ao root area 11.1 cm\S\2 LVOT diam 2.2 cm LVOT area 3.7 cm\S\2 LVAd ap4 40.1 cm\S\2 LVLd ap4 10.6 cm EDV(MOD-sp4) 132.1 ml EDV(sp4-el) 129.1 ml LVAs ap4 19.5 cm\S\2 LVLs ap4 7.8 cm ESV(MOD-sp4) 41.4 ml ESV(sp4-el) 41.0 ml EF(MOD-sp4) 68.7 % EF(sp4-el) 68.2 % LVAd ap2 26.2 cm\S\2 LVLd ap2 8.6 cm EDV(MOD-sp2) 65.2 ml EDV(sp2-el) 67.6 ml LVAs ap2 15.5 cm\S\2 LVLs ap2 7.1 cm ESV(MOD-sp2) 27.1 ml ESV(sp2-el) 28.4 ml EF(MOD-sp2) 58.5 % EF(sp2-el) 58.0 % LVLd %diff -22.88 % EDV(MOD-bp) 99.9 ml LVLs %diff -9.71 % ESV(MOD-bp) 34.2 ml EF(MOD-bp) 65.8 % SV(MOD-sp4) 90.8 ml SI(MOD-sp4) 38.4 ml/m\S\2 SV(MOD-sp2) 38.1 ml SI(MOD-sp2) 16.1 ml/m\S\2 SV(MOD-bp) 65.7 ml SI(MOD-bp) 27.8 ml/m\S\2 SV(sp4-el) 88.1 ml SI(sp4-el) 37.3 ml/m\S\2 SV(sp2-el) 39.2 ml SI(sp2-el) 16.6 ml/m\S\2 Doppler Measurements and Calculations Ao V2 max 227.2 cm/sec Ao max PG 20.7 mmHg Ao max PG (full) 18.7 mmHg Ao V2 mean 165.5 cm/sec Ao mean PG 12.2 mmHg Ao mean PG (full) 11.2 mmHg Ao V2 VTI 45.4 cm GAUTAM(I,A) 0.90 cm\S\2 GAUTAM(I,D) 0.90 cm\S\2 GAUTAM(V,A) 1.1 cm\S\2 GAUTAM(V,D) 1.1 cm\S\2 LV V1 max PG 2.0 mmHg LV V1 mean PG 0.97 mmHg LV V1 max 69.8 cm/sec LV V1 mean 45.2 cm/sec LV V1 VTI 11.1 cm SV(Ao) 505.4 ml SI(Ao) 214.0 ml/m\S\2 SV(LVOT) 40.8 ml SI(LVOT) 17.3 ml/m\S\2 TR max peter 213.8 cm/sec
[2017-06-19] MEDS: VANCOMYCIN INJ 1,750 MG in SODIUM CHLORIDE 0.9% 500ML 500 ML IV SCH (18:41)
[2017-06-19] MEDS: ASCORBIC ACID 500 MG TAB PO SCH (19:43)
[2017-06-19 21:58] LABS: HEMATOCRIT 23.2 % (42-52); MEAN CELL VOLUME 102.7 fL (80-100); MEAN CORPUSCULAR HGB CONC 34.1 g/dl (32-36); RED BLOOD COUNT 2.26 M/uL (4.7-6.1); WHITE BLOOD COUNT 5.46 K/uL (4.8-10.8)
[2017-06-19 22:28] LABS: BASO % 0.4 %; BASO ABS # 0.02 K/uL (0-0.2); COMPLETE YES; ECHINOCYTES 1+; EOS % 2.6 %; IG% 0.4 %; LYMPH % 28.6 %; LYMPH ABS # 1.56 K/uL (1.2-3.4); MEAN PLATELET VOLUME 8.8 fL (7.4-10.4); MONO % 8.1 %; NEUT % 59.9 %; PLATELET COUNT 75 K/uL (130-400); PLT ESTIMATE DECREASED; SCHISTOCYTES 1+
[2017-06-20] VITALS (19 sets, daily range): BP systolic 93–142; BP diastolic 63–99; PULSE 74–95; TEMP 36.4–37.3; O2SAT 95–99
[2017-06-20] MEDS: ALBUMIN HUMAN 25% 12.5 GM/50 ML VIAL IV SCH ×4 (02:03→19:59)
[2017-06-20 02:59] LABS: HEMATOCRIT 23.7 % (42-52)
[2017-06-20 03:16] LABS: CREATININE 0.58 mg/dl (0.60-1.40)
[2017-06-20] MEDS: VANCOMYCIN INJ 1,750 MG in SODIUM CHLORIDE 0.9% 500ML 500 ML IV SCH ×2 (04:17→13:32)
[2017-06-20] MEDS: NSS + 20MEQ KCL 1000ML 1,000 ML IV SCH ×3 (04:18→20:00)
[2017-06-20] MEDS: PIPERACILL/TAZOBAC IV 4.5 GM in DEXTROSE 5% 100ML IV SCH ×2 (08:01→16:41)
[2017-06-20] MEDS: LORATADINE 10 MG TAB PO SCH (08:08)
[2017-06-20] MEDS: HEPARIN SOD 5000 UNIT/0.5 ML CARP SQ SCH ×2 (08:08→16:54)
[2017-06-20] MEDS: TAMSULOSIN HCL 0.4 MG CAP PO SCH (08:09)
[2017-06-20] MEDS: CEROVITE ADV FORMULA TAB PO SCH (08:09)
[2017-06-20] MEDS: METOPROLOL TARTRATE 50 MG TAB PO SCH (08:09)
[2017-06-20] MEDS: FINASTERIDE 5 MG TAB PO SCH (08:09)
[2017-06-20] MEDS: PANTOprazole SOD 40 MG TAB PO SCH ×2 (08:10→19:58)
--- NOTE | 2017-06-20 16:54 | Gastrointestinal Consultation ---
Gastrointestinal Consultation Date of Consultation: Jun 20, 2017 Attending Physician: Blayne Messer Consulting Physician: William Jimenez Reason for Consultation: anemia, heme positive stool History of Present Illness Patient is a 82 year old male with CC constipation. with patient. Patient has some dementia and lives at [facility]. Reviewed [facility] records and noted GI consult 05/31/17 for anemia, melena, hematesis. EGD done 06/01/17 showed 4 cratered non bleeding gastric ulcers largest 12 mm and gastritis. 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 Pt admitted now for rapid afib, fever possibly from pneumonais and cellulitis. Heis baseline Hgb 9/1 on 06/05/17. On admit Hgb 9.8 but after agressive hydration donew do 7.8. Stools noted to be heme positive at 0215 this am but are brown not black nor bloody. Pt complains of constipation. Past Medical/Surgical History Medical Problems: (1) Acute blood loss anemia Status: Acute (2) Atrial fibrillation with RVR Status: Acute (3) Bilateral leg pain Status: Acute (4) Bilateral lower leg cellulitis Status: Acute (5) Fall Status: Acute (6) Hematemesis Status: Acute (7) Multiple contusions Status: Acute (8) Paresthesia Status: Acute (9) Sepsis Status: Acute (10) UTI (urinary tract infection) Status: Acute Family History Negative for colon cancer. Social History Smoking Status: Never Smoker Alcohol Use: none Drug Use: none Marital Status: Housing Status: [employer] Occupation Status: retired Allergies Coded Allergies: Levofloxacin (Verified Allergy, Unknown, ., 06/19/17) Sulfa Antibiotics (Verified Allergy, Unknown, ., 06/19/17) Current Medications Home Meds and Scripts Medications Dose Route/Sig Max Daily Dose Days Date Category Dose Instructions Duoneb (Ipratropium-Albuterol) 3 Ml Nebu 3 Ml NEB Q4H PRN 06/19/17 Reported Oxygen Gas 2-4 Liters NA UD PRN 06/19/17 Reported keep spo2 >90% Zithromax Z-Osmani (Azithromycin) 250 Mg Tab 1 Pkt PO UD 5 06/19/17 Reported Lasix (Furosemide) 40 Mg Tab 40 Mg PO BID 30 06/06/17 Rx Pantoprazole Sodium (Pantoprazole) 40 Mg Tab 40 Mg PO BID 30 06/06/17 Rx Mvi With Minerals (Multivitamins/Minerals) Tab 1 Tab PO DAILY 05/31/17 Reported Duoneb (Ipratropium-Albuterol) 3 Ml Nebu 3 Ml NEB QID 7 05/31/17 Reported last dose 06/25/17 @ 1630 dose times 0830,1230,1630,2030 Ascorbic Acid 500 Mg Tab 500 Mg PO HS 05/31/17 Reported Proscar (Finasteride) 5 Mg Tab 5 Mg PO DAILY 05/31/17 Reported Methenamine Hippurate 1 Gm Tab 1 Tab PO DAILY 05/31/17 Reported Flomax (Tamsulosin Hcl) 0.4 Mg Cap 0.4 Mg PO DAILY 05/31/17 Reported Claritin (Loratadine) 10 Mg Tab 1 Tab PO DAILY 30 05/16/17 Reported Lopressor (Metoprolol Tartrate) 50 Mg Tab 1 Tab PO DAILY 30 05/16/17 Reported Tylenol (Acetaminophen) 325 Mg Tab 650 Mg PO Q6 PRN 05/16/17 Reported Vitamin B Complex 1 Tab Tab 1 Tab PO QPM 10/25/16 Reported Folvite (Folic Acid) 1 Mg Tab 1 Mg PO DAILY 10/25/16 Reported Review of Systems 10 ROS negative Physical Exam Date Time Temp Pulse Resp B/P (MAP) Pulse Ox O2 Delivery O2 Flow Rate FiO2 06/20/17 15:42 36.7 74 20 93/67 (76) 98 3.0 06/20/17 12:00 36.9 77 24 95/71 (79) 99 Nasal Cannula 3.0 06/20/17 12:00 99 Nasal Cannula 3.0 06/20/17 08:00 36.4 80 18 112/73 (86) 98 Nasal Cannula 3.0 06/20/17 08:00 98 Nasal Cannula 3.0 06/20/17 04:00 Nasal Cannula 3.0 06/20/17 04:00 37.0 84 26 94/63 (73) 98 Nasal Cannula 3.0 06/19/17 23:59 36.8 85 24 99/64 (76) 99 Nasal Cannula 3.0 06/19/17 23:59 Nasal Cannula 3.0 06/19/17 22:00 74 100/73 (82) 06/19/17 20:00 36.8 82 22 94/68 (77) 98 Nasal Cannula 3.0 06/19/17 20:00 98 Nasal Cannula 3.0 06/19/17 18:31 84 22 88/60 (69) 98 06/19/17 18:13 88 28 91/70 (77) 99 06/19/17 17:06 82/56 (65) 06/19/17 16:38 92/63 (73) General Appearance: WD/WN, no apparent distress ENT: hearing grossly normal, pharynx normal Neck: supple, trachea midline Respiratory/Chest: lungs clear, normal breath sounds, no respiratory distress Cardiovascular: no edema, no murmur Abdomen: normal bowel sounds, non tender, soft, no organomegaly Extremities: normal range of motion Neurologic/Psych: hotel security officer II-XII nml as tested, no motor/sensory deficits, alert, normal mood/affect Skin: normal color, no jaundice Laboratory Results Last 24 Hours Test 06/19/17 17:15 06/19/17 21:38 06/20/17 02:15 06/20/17 02:48 Sodium Level 138 mmol/L Potassium Level 3.5 mmol/L Chloride Level 109 mmol/L Carbon Dioxide Level 21 mmol/L Anion Gap 8.0 mmol/L Blood Urea Nitrogen 30 mg/dl Creatinine 0.64 mg/dl 0.58 mg/dl Est Creatinine Clear Calc Drug Dose 116.9 ml/min 129.0 ml/min Estimated GFR () 105.7 110.0 Estimated GFR (Non- 91.2 94.9 BUN/Creatinine Ratio 46.6 Random Glucose 115 mg/dl Calcium Level 7.3 mg/dl Magnesium Level 1.9 mg/dl Troponin I 0.070 ng/ml Procalcitonin 0.56 ng/ml White Blood Count 5.46 K/uL Red Blood Count 2.26 M/uL Hemoglobin 7.9 g/dL 7.8 g/dL Hematocrit 23.2 % 23.7 % Mean Corpuscular Volume 102.7 fL Mean Corpuscular Hemoglobin 35.0 pg Mean Corpuscular Hemoglobin Concent 34.1 g/dl Platelet Count 75 K/uL Mean Platelet Volume 8.8 fL Neutrophils (%) (Auto) 59.9 % Lymphocytes (%) (Auto) 28.6 % Monocytes (%) (Auto) 8.1 % Eosinophils (%) (Auto) 2.6 % Basophils (%) (Auto) 0.4 % Neutrophils # (Auto) 3.28 K/uL Lymphocytes # (Auto) 1.56 K/uL Monocytes # (Auto) 0.44 K/uL Eosinophils # (Auto) 0.14 K/uL Basophils # (Auto) 0.02 K/uL RDW Standard Deviation 67.0 fL RDW Coefficient of Variation 18.1 % Immature Granulocyte % (Auto) 0.4 % Immature Granulocyte # (Auto) 0.02 K/uL Platelet Estimate DECREASED Echinocytes 1+ Schistocytes 1+ Stool Occult Blood POSITIVE Impression A/P Heme postive stool--No evidence of brisk bleeding, presumably from gastric ulcers so no plan for endoscopy at this point especially in light of possible pneumonia. Pt on SQ heparin--If that is mandatory fine but if SCDs are an option then do that but defer to hospitalist. 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 Recommend EGD in 6-8 week as outpt to document healing constipation--Miralax 17 gm bid.
[2017-06-20] MEDS ORDERED: NURSING VERBAL MED ORDER ONE (17:00)
--- NOTE | 2017-06-20 18:12 | Progress Note ---
Subjective Date of Service: Jun 20, 2017. Subjective Patient is more arousable today his blood pressure remains improved he was found to have a significant drop of hemoglobin he has no focal complaints or problems, I discussed his care with his on the phone she requested I call his daughter Serene at [phone], or [phone] I attempted to call without reaching Serene we will attempt again tomorrow the patient is stable but will remain in telemetry Problem List Medical Problems: (1) Acute blood loss anemia Status: Acute (2) Atrial fibrillation with RVR Status: Acute (3) Bilateral leg pain Status: Acute (4) Bilateral lower leg cellulitis Status: Acute (5) Fall Status: Acute (6) Hematemesis Status: Acute (7) Multiple contusions Status: Acute (8) Paresthesia Status: Acute (9) Sepsis Status: Acute (10) UTI (urinary tract infection) Status: Acute Review of Systems Constitutional: + weakness, + fatigue, No fever, No chills Respiratory: No cough, No sputum, No wheezing, No shortness of breath Cardiac: No chest pain, No orthopnea Abdomen: No pain, No nausea, No vomiting, No diarrhea Musculoskeletal: No joint pain, No muscle pain Neurologic: No memory loss, No paralysis Psychiatric: + depression symptoms, + anhedonism Objective Vital Signs Date Time Temp Pulse Resp B/P (MAP) Pulse Ox O2 Delivery O2 Flow Rate FiO2 06/20/17 16:00 Nasal Cannula 3.0 06/20/17 15:42 36.7 74 20 93/67 (76) 98 3.0 06/20/17 12:00 36.9 77 24 95/71 (79) 99 Nasal Cannula 3.0 06/20/17 12:00 99 Nasal Cannula 3.0 06/20/17 08:00 36.4 80 18 112/73 (86) 98 Nasal Cannula 3.0 06/20/17 08:00 98 Nasal Cannula 3.0 06/20/17 04:00 Nasal Cannula 3.0 06/20/17 04:00 37.0 84 26 94/63 (73) 98 Nasal Cannula 3.0 06/19/17 23:59 36.8 85 24 99/64 (76) 99 Nasal Cannula 3.0 06/19/17 23:59 Nasal Cannula 3.0 06/19/17 22:00 74 100/73 (82) 06/19/17 20:00 36.8 82 22 94/68 (77) 98 Nasal Cannula 3.0 06/19/17 20:00 98 Nasal Cannula 3.0 06/19/17 18:31 84 22 88/60 (69) 98 06/19/17 18:13 88 28 91/70 (77) 99 Physical Exam General Appearance: WD/WN, + mild distress Eyes: PERRL, EOMI Neck: supple, no JVD Respiratory/Chest: chest non-tender, lungs clear, normal breath sounds Cardiovascular: regular rate, rhythm, no murmur Abdomen: normal bowel sounds, non tender, soft, + pertinent finding (no abdominla symptoms) Extremities: no pedal edema, no calf tenderness Neurologic/Psychiatric: alert, oriented x 3 Laboratory Results Last 24 Hours Test 06/19/17 21:38 06/20/17 02:15 06/20/17 02:48 White Blood Count 5.46 K/uL Red Blood Count 2.26 M/uL Hemoglobin 7.9 g/dL 7.8 g/dL Hematocrit 23.2 % 23.7 % Mean Corpuscular Volume 102.7 fL Mean Corpuscular Hemoglobin 35.0 pg Mean Corpuscular Hemoglobin Concent 34.1 g/dl Platelet Count 75 K/uL Mean Platelet Volume 8.8 fL Neutrophils (%) (Auto) 59.9 % Lymphocytes (%) (Auto) 28.6 % Monocytes (%) (Auto) 8.1 % Eosinophils (%) (Auto) 2.6 % Basophils (%) (Auto) 0.4 % Neutrophils # (Auto) 3.28 K/uL Lymphocytes # (Auto) 1.56 K/uL Monocytes # (Auto) 0.44 K/uL Eosinophils # (Auto) 0.14 K/uL Basophils # (Auto) 0.02 K/uL RDW Standard Deviation 67.0 fL RDW Coefficient of Variation 18.1 % Immature Granulocyte % (Auto) 0.4 % Immature Granulocyte # (Auto) 0.02 K/uL Platelet Estimate DECREASED Echinocytes 1+ Schistocytes 1+ Stool Occult Blood POSITIVE Creatinine 0.58 mg/dl Est Creatinine Clear Calc Drug Dose 129.0 ml/min Estimated GFR () 110.0 Estimated GFR (Non- 94.9 Assessment and Plan 82-M, recent duodenal dz returns with hypovolemic shock and anemia. has a past medical history of diverticulosis, DVT, BPH Patient initially bright with sepsis lactic acid [id number] was elevated repeat was improved however the patient has had persistent hypotension throughout the day despite fluid boluses and albumin. the pt was found to have a drop in hgb and melena, considering this to be a non acute GIB according to GI medicine. continue vancomycin and Zosyn awaiting blood cultures and urine culture results. conitnue to hold Lasix due to low blood pressure Atrial fibrillation remains Rate controlled with metoprolol, ejection fraction is unknown. He has tolerated fluid boluses without signs of heart failure and repeat chest x-ray reviewed by myself in the afternoon of June 19, remains without hf symptoms blood loss anemia, will transfuse 2 units BPH has not been a problem continuing finasteride and Flomax DVT prophylaxis: scd
[2017-06-20] MEDS: POLYETHYLENE (MIRALAX) 17 GM PACK PO SCH (19:55)
[2017-06-20] MEDS: ASCORBIC ACID 500 MG TAB PO SCH (19:58)
[2017-06-20] MEDS ORDERED: VANCOMYCIN TROUGH ONE (23:30)
[2017-06-21] VITALS (10 sets, daily range): BP systolic 115–172; BP diastolic 80–136; PULSE 80–91; TEMP 36.5–36.6; O2SAT 93–98
[2017-06-21] MEDS ORDERED: NURSING VERBAL MED ORDER ONE
[2017-06-21] MEDS: PIPERACILL/TAZOBAC IV 4.5 GM in DEXTROSE 5% 100ML IV SCH ×2 (00:20→20:18)
[2017-06-21] MEDS: VANCOMYCIN INJ 1,750 MG in SODIUM CHLORIDE 0.9% 500ML 500 ML IV SCH (00:20)
[2017-06-21] MEDS: ALBUMIN HUMAN 25% 12.5 GM/50 ML VIAL IV SCH (03:09)
[2017-06-21 06:02] LABS: HEMATOCRIT 29.4 % (42-52); MEAN CORPUSCULAR HEMOGLOBIN 32.7 pg (25-34); RED BLOOD COUNT 2.97 M/uL (4.7-6.1)
[2017-06-21 06:05] LABS: MEAN PLATELET VOLUME 8.9 fL (7.4-10.4); PLATELET COUNT 88 K/uL (130-400)
[2017-06-21 06:36] LABS: BUN/CREATININE RATIO 35.3 (10-20); CALCIUM 7.7 mg/dl (8.5-10.1); CREATININE 0.61 mg/dl (0.60-1.40); POTASSIUM 3.8 mmol/L (3.5-5.1)
[2017-06-21 06:39] LABS: ANISOCYTOSIS PRESENT; BASO % 0.5 %; BASO ABS # 0.02 K/uL (0-0.2); COMPLETE YES; ECHINOCYTES 1+; EOS % 7.3 %; IG% 0.3 %; LYMPH % 26.8 %; LYMPH ABS # 1.07 K/uL (1.2-3.4); MONO % 9.5 %; NEUT % 55.6 %; OVALOCYTES 1+
[2017-06-21] MEDS ORDERED: FUROSEMIDE 40 MG/4 ML VIAL IV STA ×2 (08:21→16:18)
[2017-06-21] MEDS: LORATADINE 10 MG TAB PO SCH (08:24)
[2017-06-21] MEDS: POLYETHYLENE (MIRALAX) 17 GM PACK PO SCH ×2 (08:24→20:14)
[2017-06-21] MEDS: CEROVITE ADV FORMULA TAB PO SCH (08:24)
[2017-06-21] MEDS: METOPROLOL TARTRATE 50 MG TAB PO SCH (08:24)
[2017-06-21] MEDS: TAMSULOSIN HCL 0.4 MG CAP PO SCH (08:24)
[2017-06-21] MEDS: PANTOprazole SOD 40 MG TAB PO SCH ×2 (08:25→20:14)
[2017-06-21] MEDS: FINASTERIDE 5 MG TAB PO SCH (08:25)
[2017-06-21] MEDS ORDERED: FUROSEMIDE INJ 40 MG in SYRINGE 0 ML IV ONE (08:45)
[2017-06-21] MEDS ORDERED: PIPERACILL/TAZOBAC CONSULT ACTIVE PRN (16:45)
[2017-06-21] MEDS ORDERED: PIPERACILL/TAZOBAC IV 4.5 GM in DEXTROSE 5% 100ML 100 ML IV ONE (17:00)
--- NOTE | 2017-06-21 17:17 | Progress Note ---
Subjective Date of Service: Jun 21, 2017. Subjective Sounds to be fluid overloaded, coughing, mild respiratory distress, the nurses been suctioning him with the Josefinauer with yellow-green sputum. The patient's hemoglobin is stable after transfusion of 2 units packed red blood cells GI is not considering any intervention Problem List Medical Problems: (1) Acute blood loss anemia Status: Acute (2) Atrial fibrillation with RVR Status: Acute (3) Bilateral leg pain Status: Acute (4) Bilateral lower leg cellulitis Status: Acute (5) Fall Status: Acute (6) Hematemesis Status: Acute (7) Multiple contusions Status: Acute (8) Paresthesia Status: Acute (9) Sepsis Status: Acute (10) UTI (urinary tract infection) Status: Acute Review of Systems Constitutional: No fever, No chills Respiratory: + cough, + sputum, + shortness of breath, + dyspnea on exertion Cardiac: + edema, No chest pain, No orthopnea, No PND Abdomen: No pain, No nausea, No vomiting, No diarrhea Male : No dysuria, No urinary frequency Psychiatric: No depression symptoms, No anhedonism, No anxiety Skin: + new/changing skin lesions, + color change Objective Vital Signs Date Time Temp Pulse Resp B/P (MAP) Pulse Ox O2 Delivery O2 Flow Rate FiO2 06/21/17 16:00 Nasal Cannula 3.0 06/21/17 15:30 36.5 90 28 172/136 (148) 98 Nasal Cannula 3.0 06/21/17 12:00 Nasal Cannula 3.0 06/21/17 11:35 36.5 80 20 159/110 (126) 97 Nasal Cannula 3.0 06/21/17 11:17 36.5 83 28 140/92 (108) 96 Nasal Cannula 3.0 06/21/17 08:00 Nasal Cannula 3.0 06/21/17 07:48 36.6 90 20 141/91 (108) 97 Nasal Cannula 3.0 06/21/17 07:00 140/92 (108) 06/21/17 04:00 Nasal Cannula 3.0 06/21/17 03:46 36.5 88 28 115/80 (92) 97 Nasal Cannula 3.0 06/21/17 00:00 Nasal Cannula 3.0 06/20/17 23:15 36.6 83 20 129/83 96 3.0 06/20/17 22:45 36.7 87 20 142/92 95 3.0 06/20/17 22:15 36.7 85 20 142/90 96 3.0 06/20/17 22:00 36.9 95 20 129/94 95 3.0 06/20/17 21:45 36.6 88 20 123/90 96 3.0 06/20/17 21:40 36.6 87 20 127/99 96 3.0 06/20/17 21:35 36.6 86 20 122/90 96 3.0 06/20/17 21:29 36.7 89 20 114/90 97 3.0 06/20/17 20:49 36.9 81 20 124/86 97 3.0 06/20/17 20:00 96 Nasal Cannula 3.0 06/20/17 19:49 36.6 80 18 117/81 97 3.0 06/20/17 19:19 36.6 77 16 118/79 98 3.0 06/20/17 19:08 37.0 75 32 116/79 98 06/20/17 18:45 36.7 80 30 109/84 98 06/20/17 17:55 37.3 80 22 116/82 (93) 96 Nasal Cannula 2.5 Physical Exam General Appearance: WD/WN, + moderate distress Neck: supple, no JVD Respiratory/Chest: chest non-tender, + decreased breath sounds, + accessory muscle use, + rhonchi Cardiovascular: regular rate, rhythm, no murmur Abdomen: normal bowel sounds, non tender, soft Extremities: no pedal edema, no calf tenderness Neurologic/Psychiatric: alert, + disoriented Laboratory Results Last 24 Hours Test 06/20/17 23:15 06/21/17 05:24 Vancomycin Level Trough 34.4 mcg/ml White Blood Count 4.00 K/uL Red Blood Count 2.97 M/uL Hemoglobin 9.7 g/dL Hematocrit 29.4 % Mean Corpuscular Volume 99.0 fL Mean Corpuscular Hemoglobin 32.7 pg Mean Corpuscular Hemoglobin Concent 33.0 g/dl Platelet Count 88 K/uL Mean Platelet Volume 8.9 fL Neutrophils (%) (Auto) 55.6 % Lymphocytes (%) (Auto) 26.8 % Monocytes (%) (Auto) 9.5 % Eosinophils (%) (Auto) 7.3 % Basophils (%) (Auto) 0.5 % Neutrophils # (Auto) 2.23 K/uL Lymphocytes # (Auto) 1.07 K/uL Monocytes # (Auto) 0.38 K/uL Eosinophils # (Auto) 0.29 K/uL Basophils # (Auto) 0.02 K/uL RDW Standard Deviation 73.0 fL RDW Coefficient of Variation 20.2 % Immature Granulocyte % (Auto) 0.3 % Immature Granulocyte # (Auto) 0.01 K/uL Anisocytosis PRESENT Ovalocytes 1+ Echinocytes 1+ Sodium Level 138 mmol/L Potassium Level 3.8 mmol/L Chloride Level 112 mmol/L Carbon Dioxide Level 20 mmol/L Anion Gap 6.0 mmol/L Blood Urea Nitrogen 22 mg/dl Creatinine 0.61 mg/dl Est Creatinine Clear Calc Drug Dose 124.2 ml/min Estimated GFR () 107.8 Estimated GFR (Non- 93.0 BUN/Creatinine Ratio 35.3 Random Glucose 77 mg/dl Calcium Level 7.7 mg/dl Total Bilirubin 1.0 mg/dl Aspartate Amino Transf (AST/SGOT) 10 U/L Alanine Aminotransferase (ALT/SGPT) 15 U/L Alkaline Phosphatase 87 U/L Total Protein 6.0 gm/dl Albumin 3.0 gm/dl Globulin 3.0 gm/dl Albumin/Globulin Ratio 1.0 Assessment and Plan 82-M, recent duodenal dz returns with hypovolemic shock and anemia. has a past medical history of diverticulosis, DVT, BPH Patient initially bright with sepsis lactic acid bcaci-hy-vryh was elevated repeat was improved however the patient has had persistent hypotension throughout the day despite fluid boluses and albumin. the pt was found to have a drop in hgb and melena, considering this to be a non acute GIB according to GI medicine. continue Zosyn awaiting blood cultures and urine culture results. Acute diastolic heart failure, volume overload from fluid resuscitation and blood, recent addition of Lasix therapy given clinical picture. Pneumonia possibly gram-negative aspiration, we'll of speech therapy continue Zosyn as above Atrial fibrillation remains Rate controlled with metoprolol, pending echocardiogram blood loss anemia, will transfuse 2 units continue proton pump inhibitor and H2 nora BPH has not been a problem continuing finasteride and Flomax DVT prophylaxis: scd
[2017-06-21] MEDS: ASCORBIC ACID 500 MG TAB PO SCH (20:14)
--- NOTE | 2017-06-21 22:38 | GASTROENTEROLOGY PROGRESS NOTE ---
DATE: 06/21/2017 GASTROENTEROLOGY INPATIENT PROGRESS NOTE SUBJECTIVE: The patient was seen and examined and is resting comfortably in bed. His hemoglobin today is stable compared with admission baseline and is 9.7. This did drop down to 7.8 on June 20 and the patient received 2 units of packed red blood cells. The patient denies any abdominal pain or knowledge of melena or bright red blood per rectum. CURRENT MEDICATIONS: Include Zosyn, MiraLax, ascorbic acid, Proscar, folic acid, Claritin, Lopressor, multivitamin, pantoprazole, Flomax, Zofran p.r.n. and albuterol inhaler p.r.n. ALLERGIES: LEVOFLOXACIN AND SULFA ANTIBIOTICS. REVIEW OF SYSTEMS: The patient denies any abdominal pain and review of systems is otherwise noncontributory based on 13-point exam. The patient is without nausea or vomiting. PHYSICAL EXAMINATION: VITAL SIGNS: Today, this afternoon, afebrile 36.5, blood pressure 172/136, pulse ox is 98% on 3 liters nasal cannula, heart rate 90. Blood pressures have been elevated since this morning. GENERAL: The patient is awake, alert and oriented x3. HEENT: Sclerae anicteric, conjunctivae moist. Oral mucosa moist. HEART: Normal S1, S2. LUNGS: Diminished breath sounds with scant crackles bilaterally anteriorly and posteriorly. ABDOMEN: Soft, obese, nontender, without rebound or guarding. There is no evidence of ascites or shifting dullness. EXTREMITIES: Without clubbing. There is evidence of chronic venous stasis. RECTAL: Deferred at this time. IMPRESSION AND PLAN: The patient with recent upper endoscopy on a previous admission which revealed gastric ulcers and was placed on a proton pump inhibitor therapy. The patient reports that he had had a colonoscopy fairly recently. The source of the patient's blood loss may include the prior identified gastric ulcers. However, currently hemoglobin appears to be stable and I believe that continued observation and following hemoglobin along with PPI therapy is prudent. At some point a followup upper endoscopy is reasonable in 6-8 weeks to ensure that ulcers are completely healed; however , if there is evidence of ongoing bleeding during hospitalization upper endoscopy is recommended. We will continue to follow with you. Thank you for allowing us to participate in this pleasant gentleman's care. RAND
[2017-06-22] VITALS (7 sets, daily range): BP systolic 118–172; BP diastolic 78–104; PULSE 71–98; TEMP 36.5–36.7; O2SAT 94–96
[2017-06-22 05:30] LABS: HEMATOCRIT 32.7 % (42-52); MEAN CELL VOLUME 98.5 fL (80-100); MEAN CORPUSCULAR HEMOGLOBIN 32.5 pg (25-34); MEAN PLATELET VOLUME 8.8 fL (7.4-10.4); PLATELET COUNT 112 K/uL (130-400); RED BLOOD COUNT 3.32 M/uL (4.7-6.1); WHITE BLOOD COUNT 5.07 K/uL (4.8-10.8)
[2017-06-22] MEDS: PIPERACILL/TAZOBAC IV 4.5 GM in DEXTROSE 5% 100ML IV SCH ×3 (05:34→21:24)
[2017-06-22 05:54] LABS: BUN/CREATININE RATIO 34.5 (10-20); CALCIUM 7.9 mg/dl (8.5-10.1); CREATININE 0.62 mg/dl (0.60-1.40); POTASSIUM 3.9 mmol/L (3.5-5.1)
--- NOTE | 2017-06-22 07:59 | Progress Note ---
Subjective Date of Service: Jun 22, 2017. Subjective This patient is improving to some visual hallucinations last night he still has a cough reminiscent of aspiration. The patient still appears to be mildly volume overloaded clinically otherwise has improved somewhat with his pneumonia. His son and wrote bedside and both updated Problem List Medical Problems: (1) Acute blood loss anemia Status: Acute (2) Atrial fibrillation with RVR Status: Acute (3) Bilateral leg pain Status: Acute (4) Bilateral lower leg cellulitis Status: Acute (5) Fall Status: Acute (6) Hematemesis Status: Acute (7) Multiple contusions Status: Acute (8) Paresthesia Status: Acute (9) Sepsis Status: Acute (10) UTI (urinary tract infection) Status: Acute Review of Systems Constitutional: + weakness, + fatigue, No fever, No chills Respiratory: + cough, + dyspnea on exertion, No sputum, No shortness of breath Cardiac: + edema, No chest pain Abdomen: No pain, No nausea, No vomiting Musculoskeletal: + joint pain, + muscle pain, + swelling Psychiatric: No depression symptoms, No anhedonism, No anxiety Objective Vital Signs Date Time Temp Pulse Resp B/P (MAP) Pulse Ox O2 Delivery O2 Flow Rate FiO2 06/22/17 04:00 Nasal Cannula 3.0 06/22/17 03:46 36.5 98 28 139/96 (110) 96 Nasal Cannula 3.0 06/22/17 00:00 Nasal Cannula 3.0 06/21/17 23:04 36.6 83 22 137/98 (111) 95 Nasal Cannula 3.0 06/21/17 20:15 96 Nasal Cannula 3.0 06/21/17 19:49 36.5 91 22 140/105 (117) 93 Nasal Cannula 2.0 06/21/17 16:00 Nasal Cannula 3.0 06/21/17 16:00 150/110 (123) 06/21/17 15:30 36.5 90 28 172/136 (148) 98 Nasal Cannula 3.0 06/21/17 12:00 Nasal Cannula 3.0 06/21/17 11:35 36.5 80 20 159/110 (126) 97 Nasal Cannula 3.0 06/21/17 11:17 36.5 83 28 140/92 (108) 96 Nasal Cannula 3.0 06/21/17 08:00 Nasal Cannula 3.0 Physical Exam General Appearance: WD/WN, + mild distress Eyes: PERRL, EOMI Neck: supple, no JVD Respiratory/Chest: chest non-tender, + decreased breath sounds, + rhonchi Cardiovascular: regular rate, rhythm, + systolic murmur Abdomen: normal bowel sounds, non tender, soft Extremities: + pedal edema, + swelling Laboratory Results Last 24 Hours Test 06/22/17 05:08 White Blood Count 5.07 K/uL Red Blood Count 3.32 M/uL Hemoglobin 10.8 g/dL Hematocrit 32.7 % Mean Corpuscular Volume 98.5 fL Mean Corpuscular Hemoglobin 32.5 pg Mean Corpuscular Hemoglobin Concent 33.0 g/dl RDW Standard Deviation 71.1 fL RDW Coefficient of Variation 19.6 % Platelet Count 112 K/uL Mean Platelet Volume 8.8 fL Sodium Level 138 mmol/L Potassium Level 3.9 mmol/L Chloride Level 110 mmol/L Carbon Dioxide Level 21 mmol/L Anion Gap 7.0 mmol/L Blood Urea Nitrogen 21 mg/dl Creatinine 0.62 mg/dl Est Creatinine Clear Calc Drug Dose 121.9 ml/min Estimated GFR () 107.1 Estimated GFR (Non- 92.4 BUN/Creatinine Ratio 34.5 Random Glucose 82 mg/dl Calcium Level 7.9 mg/dl Assessment and Plan 82-M, recent duodenal dz returns with hypovolemic shock and anemia. [place] to have sepsis from pneumonia and likely hypovolemic shock from hospital GI bleed has a past medical history of diverticulosis, DVT, BPH Acute blood loss anemia. the pt was found to have a drop in hgb and melena, with recent PUD however stabilization GI medication is considering this to be a non acute GIB will continue PPI. Pneumonia consider possibly gram-negative/ aspiration continue Zosyn will have speech therapy evaluation Acute diastolic heart failure, volume overload from fluid resuscitation and blood, recent addition of Lasix therapy given clinical picture. Atrial fibrillation remains Rate controlled with metoprolol blood loss anemia, will transfuse 2 units continue proton pump inhibitor and H2 nora BPH has not been a problem continuing finasteride and Flomax DVT prophylaxis: scd
[2017-06-22] MEDS: LORATADINE 10 MG TAB PO SCH (08:08)
[2017-06-22] MEDS: CEROVITE ADV FORMULA TAB PO SCH (08:08)
[2017-06-22] MEDS: PANTOprazole SOD 40 MG TAB PO SCH ×2 (08:08→21:21)
[2017-06-22] MEDS: FINASTERIDE 5 MG TAB PO SCH (08:08)
[2017-06-22] MEDS: POLYETHYLENE (MIRALAX) 17 GM PACK PO SCH ×2 (08:08→21:21)
[2017-06-22] MEDS: METOPROLOL TARTRATE 50 MG TAB PO SCH (08:08)
[2017-06-22] MEDS: TAMSULOSIN HCL 0.4 MG CAP PO SCH (08:09)
--- NOTE | 2017-06-22 08:36 | Clinical Documentation Query ---
CLINICAL DOCUMENTATION QUERY Dr. DOMINGUEZ, To assist coders with appropriate coding of the diagnosis of blood loss anemia, please document acuity. In your clinical opinion is this patient being managed for: ( ) Acute blood loss anemia ( ) Chronic blood loss anemia ( ) Not Agree ( ) Other explanation of clinical findings (Please Explain) ( ) Unable to determine (Please Define) ( ) Need to Discuss The medical record reflects the following clinical findings, treatment, and risk factors. Clinical Indicators: Initial Hgb 9.8, Hct 30.4, dropping to 7.8/23.7 Treatment: GI consult, 2U PRBC, serial CBC's, protonix Risk Factors: known gastric ulcers Please clarify and document your clinical opinion in the progress notes and discharge summary. Terms such as "probable", "suspected", "likely", "questionable", "possible", or "still to be ruled out" are acceptable. IF IN AGREEMENT, YOU MUST DOCUMENT ABOVE DIAGNOSTIC STATEMENT IN DAILY PROGRESS NOTES AND DISCHARGE SUMMARY. This document is not part of the patient's record. Thank You, Kenzie Ocampo, RN [phone]
[2017-06-22] MEDS: ASCORBIC ACID 500 MG TAB PO SCH (21:21)
[2017-06-23] VITALS (7 sets, daily range): BP systolic 122–138; BP diastolic 86–93; PULSE 71–95; TEMP 36.4–36.5; O2SAT 93–99
--- NOTE | 2017-06-23 05:44 | GASTROENTEROLOGY PROGRESS NOTE ---
DATE: 06/22/2017 The patient, overall, is doing, perhaps, a little bit better. He is awake and alert and responds appropriately to questions. He is resting comfortably in bed. His vital signs today at 4:00 p.m. reveal a blood pressure of 172/104, temperature of 36.7, heart rate 81, respirations 21, 94% on nasal cannula at 3 liters. LABORATORY STUDIES: Today show white count of 5, hemoglobin 10.8, which is increased from yesterday, a platelet count of 112,000. Serum chemistries reveal BUN and creatinine of 21 and 0.6, potassium 3.9. There are no reports of melena or bright red blood per rectum and he seems to be tolerating food well. REVIEW OF SYSTEMS: Otherwise noncontributory, based on a 13-point exam. His medication list was reviewed as was his allergy list. HEENT: The oral mucosa is parched. The sclerae are anicteric. LUNGS: Show some crackles and some coarse sounds in both rangel anteriorly. ABDOMEN: Soft, nontender, nondistended with positive bowel sounds. There is no evidence of tense ascites. There are no abdominal bruits. EXTREMITIES: Show evidence of venous congestion. RECTAL: Deferred. IMPRESSION AND PLAN: The patient with admission, several days ago, for rapid atrial fibrillation and anemia. He recently had upper endoscopy with ulcers identified, in early May. At the present time, his hemoglobin seems to be stable and actually slowly climbing and has had his blood transfusion on June 20 with 2 units. At the present time, would optimized his cardiopulmonary status and observe for any trends of his hemoglobin and stool output. If this remains stable, then upper endoscopy can be scheduled in several weeks to ensure there are no high risk sources of bleeding. Please continue PPI therapy. Thank you for allowing us to participate in this patient's care.
[2017-06-23] MEDS: PIPERACILL/TAZOBAC IV 4.5 GM in DEXTROSE 5% 100ML IV SCH ×2 (06:14→13:49)
[2017-06-23] MEDS: CEROVITE ADV FORMULA TAB PO SCH (08:24)
[2017-06-23] MEDS: PANTOprazole SOD 40 MG TAB PO SCH (08:24)
[2017-06-23] MEDS: LORATADINE 10 MG TAB PO SCH (08:24)
[2017-06-23] MEDS: METOPROLOL TARTRATE 50 MG TAB PO SCH (08:24)
[2017-06-23] MEDS: TAMSULOSIN HCL 0.4 MG CAP PO SCH (08:25)
[2017-06-23] MEDS: POLYETHYLENE (MIRALAX) 17 GM PACK PO SCH (08:25)
[2017-06-23] MEDS: FINASTERIDE 5 MG TAB PO SCH (08:25)
[2017-06-23] MEDS: FUROSEMIDE 40 MG TAB PO SCH ×2 (09:33→16:09)
--- NOTE | 2017-06-23 12:31 | DIAGNOSTIC IMAGING REPORT ---
MODIFIED BARIUM SWALLOW CLINICAL HISTORY: Aspiration. Sepsis. COMPARISON STUDY: No previous studies for comparison. Fluoroscopy time: 2.7 minutes. FINDINGS: Note was made of several episodes of a small amount of tracheal aspiration with swallows of thin liquids. There was also aspiration with nectar thick liquids. No aspiration was identified with pudding or crackers with paste. There was delayed initiation of the swallowing mechanism with diminished epiglottic inversion. Anterior cervical spine fusion is incidentally noted. IMPRESSION: 1. Several episodes of a small amount of tracheal aspiration with swallows of thin liquids and nectar thick liquids. No aspiration with the remainder of the consistencies. 2. Delayed initiation of swallowing mechanism with diminished epiglottic inversion. 3. Full recommendations by speech pathology to follow. Electronically signed by: David Montano M.D. 06/23/2017 12:29 PM Dictated Date/Time: 06/23/2017 12:27 PM
--- NOTE | 2017-06-23 13:35 | Progress Note ---
Subjective Date of Service: Jun 23, 2017. Subjective Patient is much better today, he went to video swallow test which shows continued nectar thick liquids. He has no other focal complaints or problems is having no more visual hallucinations. Problem List Medical Problems: (1) Acute blood loss anemia Status: Acute (2) Atrial fibrillation with RVR Status: Acute (3) Bilateral leg pain Status: Acute (4) Bilateral lower leg cellulitis Status: Acute (5) Fall Status: Acute (6) Hematemesis Status: Acute (7) Multiple contusions Status: Acute (8) Paresthesia Status: Acute (9) Sepsis Status: Acute (10) UTI (urinary tract infection) Status: Acute Review of Systems Constitutional: + weakness, + fatigue, No fever, No chills Respiratory: + cough, No sputum, No shortness of breath, No dyspnea on exertion , No dyspnea at rest Cardiac: + edema, No chest pain Abdomen: No pain, No nausea, No vomiting, No diarrhea Male : No dysuria, No urinary frequency Skin: + rash, + new/changing skin lesions Objective Vital Signs Date Time Temp Pulse Resp B/P (MAP) Pulse Ox O2 Delivery O2 Flow Rate FiO2 06/23/17 04:32 36.4 95 21 122/86 (98) 93 Nasal Cannula 3.0 06/23/17 04:00 93 Nasal Cannula 3.0 06/23/17 00:00 95 Nasal Cannula 3.0 06/22/17 23:35 36.5 85 22 119/82 (94) 95 Nasal Cannula 3.0 06/22/17 20:10 36.5 80 22 120/78 (92) 96 Nasal Cannula 3.0 06/22/17 20:00 Nasal Cannula 3.0 06/22/17 16:02 94 Nasal Cannula 3.0 06/22/17 15:51 36.7 81 21 172/104 (126) 94 Nasal Cannula 71 06/22/17 12:00 Nasal Cannula 3.0 06/22/17 11:05 36.6 90 24 126/89 (101) 96 Nasal Cannula 3.0 06/22/17 08:00 Nasal Cannula 3.0 06/22/17 07:45 36.6 97 20 118/91 (100) 94 Nasal Cannula 3.0 Physical Exam General Appearance: WD/WN, no apparent distress Neck: supple, no JVD Respiratory/Chest: chest non-tender, lungs clear Cardiovascular: + systolic murmur, + irregularly irregular Abdomen: normal bowel sounds, non tender, soft Extremities: + pedal edema, + pertinent finding (changes of chronic venous stasis) Assessment and Plan 82-M, recent duodenal dz returns with hypovolemic shock and anemia. [place] to have sepsis from pneumonia and likely hypovolemic shock from hospital GI bleed has a past medical history of diverticulosis, DVT, BPH Acute blood loss anemia. the pt was found to have a drop in hgb and melena, with recent PUD however stabilization GI medication is considering this to be a non acute GIB will continue PPI, can recommend outpt endoscopy Pneumonia consider possibly gram-negative/ aspiration continue Zosyn, speech therapy evaluation with video swallow confirms aspiration with nectar thick liquids recommended to complete Augmentin at time of discharge Acute diastolic heart failure, volume overload from fluid resuscitation and blood, recent addition of Lasix therapy given clinical picture has had great improvement. Atrial fibrillation remains Rate controlled with metoprolol, GI blood loss prevents formal anticoagulation blood loss anemia, will transfuse 2 units continue proton pump inhibitor and H2 nora BPH has not been a problem continuing finasteride and Flomax DVT prophylaxis: scd
[2017-06-23] MEDS ORDERED: THIC1LIQ PO (13:39)
[2017-06-23] MEDS ORDERED: AMOX875T PO (13:39)
--- NOTE | 2017-06-23 13:41 | Discharge Instructions ---
Discharge Instructions Date of Service Jun 23, 2017. Admission Reason for Admission: Bilateral Lower Leg Cellulitis, Sepsis Discharge Discharge Diagnosis / Problem: ASPIRATION PNEUMONIA Discharge Goals Goal(s): Diagnostic testing, Therapeutic intervention Activity Recommendations Activity Level: Assistance Required .82-M, recent duodenal dz returns with hypovolemic shock and anemia. [place] to have sepsis from pneumonia and likely hypovolemic shock from hospital GI bleed has a past medical history of diverticulosis, DVT, BPH Acute blood loss anemia. the pt was found to have a drop in hgb and melena, with recent PUD however stabilization GI medication is considering this to be a non acute GIB will continue PPI, can recommend outpt endoscopy Pneumonia consider possibly gram-negative/ aspiration continue Zosyn, speech therapy evaluation with video swallow confirms aspiration with nectar thick liquids recommended to complete Augmentin at time of discharge Acute diastolic heart failure, volume overload from fluid resuscitation and blood, recent addition of Lasix therapy given clinical picture has had great improvement. Atrial fibrillation remains Rate controlled with metoprolol, GI blood loss prevents formal anticoagulation blood loss anemia, will transfuse 2 units continue proton pump inhibitor and H2 nora BPH has not been a problem continuing finasteride and Flomax Additional Information Patient informed of condition: Yes Advance Directives: Yes DNR: Yes Level of Care: Skilled Communicable Disease: No Prognosis: Stable Oxygen at (LPM): 2-3 l Current Hospital Diet Patient's current hospital diet: Regular Diet Discharge Diet Recommended Diet: Regular Diet (NECTAR THICK LIQUIDS) Pending Studies Studies pending at discharge: no Medical Emergencies . Who to Call and When: Medical Emergencies: If at any time you feel your situation is an emergency, please call 911 immediately. . Non-Emergent Contact Non-Emergency issues call your: Process Improvement Consultant (FOLLOW UP ENDOSCOPY ) Call Non-Emergent contact if: temperature is above 101, your pain is unusual for you . . "Provider Documentation" section prepared by Blayne Messer. . Core Measure Problem Core Measures: None
--- NOTE | 2017-06-23 13:43 | Discharge Summary ---
Discharge Summary Date of Service Jun 23, 2017. Discharge Summary Admission Date: Jun 19, 2017 at 06:30 Discharge Date: Jun 23, 2017 [facility] Principal Diagnosis: ASPIRAtion pneuomonia, sepsis, acute blood loss anemia Immunizations: Have You Had Influenza Vaccine: Unknown History of Tetanus Vaccine?: Unknown History of Pneumococcal: Unknown History of Hepatitis B Vaccine: Unknown Medication Reconciliation New Medications: Amoxicillin & Pot Clavulanate (Augmentin 875-125 mg) 1 Tab Tab 1 TAB PO BID, #14 TAB Thickened Products (Thick-It) 1 Liq Liq 1 DOSE PO AC, #120 DOSE NECTAR THICK LIQUIDS Continued Medications: Acetaminophen (Tylenol) 325 Mg Tab 650 MG PO Q6 PRN for Pain or Fever Ascorbic Acid (Ascorbic Acid) 500 Mg Tab 500 MG PO HS, TAB Finasteride (Proscar) 5 Mg Tab 5 MG PO DAILY, TAB Folic Acid (Folvite) 1 Mg Tab 1 MG PO DAILY, TAB Furosemide (Lasix) 40 Mg Tab 40 MG PO BID for 30 Days Home O2 Therapy (Oxygen) Gas 2-4 LITERS NA UD PRN for spo2 <90% keep spo2 >90% Ipratropium-Albuterol (Duoneb) 3 Ml Nebu 3 ML NEB QID for 7 Days last dose 06/25/17 @ 1630 dose times 0830,1230,1630,2030 Ipratropium-Albuterol (Duoneb) 3 Ml Nebu 3 ML NEB Q4H PRN for Shortness of Breath Loratadine (Claritin) 10 Mg Tab 1 TAB PO DAILY for 30 Days, #30 TAB 5 Refills Methenamine Hippurate (Methenamine Hippurate) 1 Gm Tab 1 TAB PO DAILY Metoprolol Tartrate (Lopressor) 50 Mg Tab 1 TAB PO DAILY for 30 Days, #60 TAB 5 Refills Multivitamins/Minerals (Mvi With Minerals) Tab 1 TAB PO DAILY, TAB Pantoprazole (Pantoprazole Sodium) 40 Mg Tab 40 MG PO BID for 30 Days, #60 TAB Tamsulosin Hcl (Flomax) 0.4 Mg Cap 0.4 MG PO DAILY, CAP Vitamin B Complex (Vitamin B Complex) 1 Tab Tab 1 TAB PO QPM Discontinued Medications: Azithromycin (Zithromax Z-Osmani) 250 Mg Tab 1 PKT PO UD for 5 Days, #6 Discharge Exam Review of Systems: Constitutional: + weakness, No fever, No chills Respiratory: + cough, No shortness of breath, No dyspnea on exertion, No dyspnea at rest Cardiovascular: + orthopnea, No chest pain Musculoskeletal: No joint pain, No muscle pain Physical Exam: General Appearance: WD/WN, + mild distress Eyes: PERRL, EOMI Neck: supple, no JVD Respiratory/Chest: chest non-tender, + decreased breath sounds, + accessory muscle use, + rhonchi Cardiovascular: no murmur, + irregularly irregular Neurologic/Psychiatric: alert, oriented x 3 Hospital Course .82-M, recent duodenal dz returns with hypovolemic shock and anemia. [place] to have sepsis from pneumonia and likely hypovolemic shock from hospital GI bleed has a past medical history of diverticulosis, DVT, BPH Acute blood loss anemia. the pt was found to have a drop in hgb and melena, with recent PUD however stabilization GI medication is considering this to be a non acute GIB will continue PPI, can recommend outpt endoscopy Pneumonia consider possibly gram-negative/ aspiration continue Zosyn, speech therapy evaluation with video swallow confirms aspiration with nectar thick liquids recommended to complete Augmentin at time of discharge Acute diastolic heart failure, volume overload from fluid resuscitation and blood, recent addition of Lasix therapy given clinical picture has had great improvement. Atrial fibrillation remains Rate controlled with metoprolol, GI blood loss prevents formal anticoagulation blood loss anemia, will transfuse 2 units continue proton pump inhibitor and H2 nora BPH has not been a problem continuing finasteride and Flomax Total Time Spent: Greater than 30 minutes This includes examination of the patient, discharge planning, medication reconciliation, and communication with other providers. Discharge Instructions Please refer to the electronic Patient Visit Report (Discharge Instructions) for additional information.
== END 2017-06-23 16:34 | DRG 871 ==
LOC: EDBD 02:18 → C.EDA 02:19 → C.MSICU 06:30 → ENRESERV 06:57 → UNDOADMIN 07:56 → C.MSICU 07:56 → ENRESERV 06-20 16:17 → C.2E 06-20 17:46
PROVIDERS: ADMIT Family Medicine; ATTEND Hospitalist
DX: A41.9 Sepsis, unspecified organism (principal); J15.6 Pneumonia due to other Gram-negative bacteria; I50.31 Acute diastolic (congestive) heart failure; J69.0 Pneumonitis due to inhalation of food and vomit; D62 Acute posthemorrhagic anemia; Z66 Do not resuscitate; N40.0 Benign prostatic hyperplasia without lower urinary tract symptoms; I48.91 Unspecified atrial fibrillation; K59.00 Constipation, unspecified

== ENCOUNTER → 2017-06-30 | Outpatient (CLI) | payer BC ==
[~2017-06-30] MED LIST changes: +AMOX875T PO; -AZITTAB PO; -BISA10SU38 PR; -KFL500 PO; -MOML PO; +OXGN; +THIC1LIQ PO
[2017-06-30 08:20] LABS: BASO % 0.4 %; BASO ABS # 0.02 K/uL (0-0.2); COMPLETE YES; EOS % 5.9 %; HEMATOCRIT 31.3 % (42-52); IG% 0.4 %; LYMPH % 23.2 %; LYMPH ABS # 1.22 K/uL (1.2-3.4); MEAN CELL VOLUME 104.3 fL (80-100); MEAN CORPUSCULAR HGB CONC 31.6 g/dl (32-36); MEAN PLATELET VOLUME 9.4 fL (7.4-10.4); NEUT % 59.1 %; PLATELET COUNT 127 K/uL (130-400); WHITE BLOOD COUNT 5.26 K/uL (4.8-10.8)
[2017-06-30 08:32] LABS: BLOOD UREA NITROGEN 29 mg/dl (7-18); BUN/CREATININE RATIO 46.5 (10-20); CALCIUM 8.1 mg/dl (8.5-10.1); CARBON DIOXIDE 26 mmol/L (21-32); CHLORIDE 110 mmol/L (98-107); CREATININE 0.62 mg/dl (0.60-1.40); GLUCOSE 98 mg/dl (70-99); POTASSIUM 3.5 mmol/L (3.5-5.1); SODIUM 144 mmol/L (136-145)
--- NOTE | 2017-07-07 08:20 | CODING QUERY MEDICAL NECESSITY ---
CQTREATMENT RENDERED WITHOUT A DIAGNOSIS To promote full compliance with coding requirements relating to patient care, physician participation is requested in all cases of negative cleaner uncertainty. Please assist us with providing a diagnosis/symptom for the test(s) below: A diagnosis/symptom was not documented on your Order. A valid diagnosis/symptom is required to bill all insurances. Please remember that we are unable to code a diagnosis of rule out, probable, possible, questionable, or suspected. Tests that require a diagnosis: DOS 06/30/17 DIAGNOSIS WAS GIVEN "UGLB" NOT SURE WHAT THAT IS PLEASE DISREGARD LAST QUERY FROM 07/14 I FOUND QUERY RETURNED WITH DIAGNOSIS THANK YOU FOR YOUR HELP Provider Signature: Date: Thank you Sheila Goldsmith Health Information Management Once completed, please kindly fax back to [phone] For questions please call [phone]
== END ==
LOC: C.LABCC 07:56
PROVIDERS: ATTEND Internal Medicine
DX: K92.2 Gastrointestinal hemorrhage, unspecified (principal)

== ENCOUNTER → 2017-07-10 | Outpatient (CLI) | payer BC ==
[~2017-07-10] MED LIST changes: -AMOX875T PO; -FRS/40 PO
[2017-07-10 10:18] LABS: BLOOD UREA NITROGEN 31 mg/dl (7-18); CALCIUM 8.3 mg/dl (8.5-10.1); CARBON DIOXIDE 27 mmol/L (21-32); CHLORIDE 105 mmol/L (98-107); CREATININE 0.64 mg/dl (0.60-1.40); GLUCOSE 87 mg/dl (70-99); POTASSIUM 3.6 mmol/L (3.5-5.1); SODIUM 139 mmol/L (136-145)
== END ==
LOC: C.LABCC 09:09
PROVIDERS: ATTEND Internal Medicine
DX: R60.9 Edema, unspecified (principal)

== ENCOUNTER → 2017-10-05 | Outpatient (CLI) | payer BC ==
[~2017-10-05] MED LIST changes: -FOLI1TAB7 PO; +FOLI1TAB8 PO; +FRS/40 PO; +METH-1305 PO; -METH1TAB5 PO; +MOML PO; -MULT-513 PO; +MULTTAB63 PO; -OXGN; +PANT40TA PO; -PRT40 PO; -THIC1LIQ PO
[2017-10-05 01:05] LABS: URINE APPEARANCE TURBID (CLEAR); URINE BILIRUBIN NEG (NEG); URINE COLOR YELLOW; URINE EPITHELIAL CELL AUTO >30 /lpf (0-5); URINE NITRITE NEG (NEG); URINE SPECIFIC GRAVITY 1.018 (1.000-1.030); UROBILINOGEN NEG (NEG); ZZUR CULT IF INDIC CLEAN CATCH YES
[2017-10-05 01:06] LABS: MANUAL MICROSCOPIC REQUIRED? NO; REVIEW REQ? YES
== END ==
LOC: C.LABCC 13:52
PROVIDERS: ATTEND Internal Medicine
DX: R82.90 Unspecified abnormal findings in urine (principal)

== ENCOUNTER → 2017-10-06 | Day surgery (SDC) | payer BC ==
[2017-09-21 15:31] VITALS: Ht 180.3 cm; Wt 119.0 kg
[~2017-10-06] VITALS: Ht 180.3 cm; Wt 119.0 kg
[~2017-10-06] MED LIST changes: +ALBUT/IPRATROP 3MG/0.5MG NEB 3 ML VIAL INH PRN; +LIDOCAINE HCL 2% 2 ML VIAL (20MG/ML) ONE; +PROPOFOL IV EMULSION 10 MG/ML 20 ML VIAL IV ONE; +SODIUM CHLORIDE 0.9% 500ML 500 ML IV ONE
--- NOTE | 2017-10-06 14:02 | Endo History and Physical ---
History & Physical Date of Service: Oct 06, 2017. 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,C4)) Hx Urinary Tract Surgery: No Family History None Social History Smoking Status: Unknown if Ever Smoked Hx Substance Use: No Hx Alcohol Use: No (HX ALCOHOL ABUSE) Allergies Coded Allergies: Amoxicillin (Verified Allergy, Unknown, ., 09/21/17) Cefuroxime (Verified Allergy, Unknown, ., 09/21/17) Clavulanic Acid (Verified Allergy, Unknown, ., 09/21/17) Enoxaparin (Verified Allergy, Unknown, ., 09/21/17) Levofloxacin (Verified Allergy, Unknown, ., 09/21/17) Sulfa Antibiotics (Verified Allergy, Unknown, ., 09/21/17) Current Medications Reported Home Medications Medications Dose Route/Sig Max Daily Dose Days Date Category Therems M (Multiple Vitamins W/ Minerals) 1 Tab Tab 1 Tab PO DAILY 09/21/17 Reported Protonix (Pantoprazole Sodium) 40 Mg Tab 40 Mg PO BID 09/21/17 Reported Milk Of Magnesia (Magnesium Hydroxide) 30 Ml Susp 30 Ml PO DAILY PRN 09/21/17 Reported Lasix (Furosemide) 40 Mg Tab 40 Mg PO BID 09/21/17 Reported Duoneb (Ipratropium-Albuterol) 3 Ml Nebu 3 Ml NEB Q4H PRN 06/19/17 Reported Ascorbic Acid 500 Mg Tab 500 Mg PO HS 05/31/17 Reported Proscar (Finasteride) 5 Mg Tab 5 Mg PO DAILY 05/31/17 Reported Methenamine Hippurate 1 Gm Tab 1 Tab PO DAILY 05/31/17 Reported Flomax (Tamsulosin Hcl) 0.4 Mg Cap 0.4 Mg PO DAILY 05/31/17 Reported Claritin (Loratadine) 10 Mg Tab 1 Tab PO DAILY 05/16/17 Reported Lopressor (Metoprolol Tartrate) 50 Mg Tab 1 Tab PO DAILY 05/16/17 Reported Tylenol (Acetaminophen) 325 Mg Tab 650 Mg PO Q6 PRN 05/16/17 Reported Vitamin B Complex 1 Tab Tab 1 Tab PO QPM 10/25/16 Reported Folvite (Folic Acid) 1 Mg Tab 1 Mg PO DAILY 10/25/16 Reported Vital Signs Weight (Kilograms): 118.95 Height (Feet): 0 Height (Inches): 71 Date Time Temp Pulse Resp B/P (MAP) Pulse Ox O2 Delivery O2 Flow Rate FiO2 10/06/17 13:41 36.5 85 20 144/93 (110) 96 Room Air Physical Exam General Appearance: WD/WN, no apparent distress Respiratory/Chest: Auscultation: breath sounds normal Cardiovascular: Heart Auscultation: RRR Abdomen: Bowel Sounds: normal Inspection & Palpation: soft, non-distended, no tenderness, guarding & rebound Assessment and Plan EGD for f/u
--- NOTE | 2017-10-06 14:36 | GI REPORT ---
Procedure Date: 10/06/2017 2:15 PM Procedure: Upper GI endoscopy Indications: Acute gastric ulcer with obstruction, Follow-up of acute gastric ulcer with obstruction Medicines: Propofol per Anesthesia Complications: No immediate complications. Estimated blood loss: None. Estimated Blood Loss: Estimated blood loss: none. Procedure: Pre-Anesthesia Assessment: - Prior to the procedure, a History and Physical was performed, and patient medications and allergies were reviewed. The patient's tolerance of previous anesthesia was also reviewed. The risks and benefits of the procedure and the sedation options and risks were discussed with the patient. All questions were answered, and informed consent was obtained. Prior Anticoagulants: The patient has taken no previous anticoagulant or antiplatelet agents. ASA Grade Assessment: II - A patient with mild systemic disease. After reviewing the risks and benefits, the patient was deemed in satisfactory condition to undergo the procedure. After obtaining informed consent, the endoscope was passed under direct vision. Throughout the procedure, the patient's blood pressure, pulse, and oxygen saturations were monitored continuously. The scope was introduced through the mouth, and advanced to the second part of duodenum. The upper GI endoscopy was accomplished without difficulty. The patient tolerated the procedure well. Findings: The examined esophagus was normal. Diffuse mildly erythematous mucosa without bleeding was found in the gastric body and in the gastric antrum. The examined duodenum was normal. Retained gastric contents are not identified on this exam. The cardia and gastric fundus were normal on retroflexion. The prior ulcers are healed. Impression: - Normal esophagus. - Erythematous mucosa in the gastric body and antrum. - Normal examined duodenum. - No specimens collected. Recommendation: - Discharge patient to home (ambulatory). - Resume regular diet. - Continue present medications. - Return to referring physician as previously scheduled. MD Venkatesh Burdick MD 10/06/2017 2:36:17 PM This report has been signed electronically. Note Initiated On: 10/06/2017 2:15 PM I attest to the content of the Intraoperative Record and orders documented therein, exceptions below
[2017-10-06 15:12] VITALS: PULSE 87; O2SAT 93
--- NOTE | 2017-10-06 15:12 | Discharge Instructions ---
Endoscopy Patient Instructions Date / Procedure(s) Performed Oct 06, 2017. EGD Allergy Information Coded Allergies: Amoxicillin (Verified Allergy, Unknown, ., 09/21/17) Cefuroxime (Verified Allergy, Unknown, ., 09/21/17) Clavulanic Acid (Verified Allergy, Unknown, ., 09/21/17) Enoxaparin (Verified Allergy, Unknown, ., 09/21/17) Levofloxacin (Verified Allergy, Unknown, ., 09/21/17) Sulfa Antibiotics (Verified Allergy, Unknown, ., 09/21/17) Discharge Date / Findings Oct 06, 2017. mild gastritis Medication Instructions Restart Stopped Medication(s): Reported Home Medications Medications Dose Route/Sig Max Daily Dose Days Date Category Therems M (Multiple Vitamins W/ Minerals) 1 Tab Tab 1 Tab PO DAILY 09/21/17 Reported Protonix (Pantoprazole Sodium) 40 Mg Tab 40 Mg PO BID 09/21/17 Reported Milk Of Magnesia (Magnesium Hydroxide) 30 Ml Susp 30 Ml PO DAILY PRN 09/21/17 Reported Lasix (Furosemide) 40 Mg Tab 40 Mg PO BID 09/21/17 Reported Duoneb (Ipratropium-Albuterol) 3 Ml Nebu 3 Ml NEB Q4H PRN 06/19/17 Reported Ascorbic Acid 500 Mg Tab 500 Mg PO HS 05/31/17 Reported Proscar (Finasteride) 5 Mg Tab 5 Mg PO DAILY 05/31/17 Reported Methenamine Hippurate 1 Gm Tab 1 Tab PO DAILY 05/31/17 Reported Flomax (Tamsulosin Hcl) 0.4 Mg Cap 0.4 Mg PO DAILY 05/31/17 Reported Claritin (Loratadine) 10 Mg Tab 1 Tab PO DAILY 05/16/17 Reported Lopressor (Metoprolol Tartrate) 50 Mg Tab 1 Tab PO DAILY 05/16/17 Reported Tylenol (Acetaminophen) 325 Mg Tab 650 Mg PO Q6 PRN 05/16/17 Reported Vitamin B Complex 1 Tab Tab 1 Tab PO QPM 10/25/16 Reported Folvite (Folic Acid) 1 Mg Tab 1 Mg PO DAILY 10/25/16 Reported Reported Home Medications Medications Dose Route/Sig Max Daily Dose Days Date Category Therems M (Multiple Vitamins W/ Minerals) 1 Tab Tab 1 Tab PO DAILY 09/21/17 Reported Protonix (Pantoprazole Sodium) 40 Mg Tab 40 Mg PO BID 09/21/17 Reported Milk Of Magnesia (Magnesium Hydroxide) 30 Ml Susp 30 Ml PO DAILY PRN 09/21/17 Reported Lasix (Furosemide) 40 Mg Tab 40 Mg PO BID 09/21/17 Reported Duoneb (Ipratropium-Albuterol) 3 Ml Nebu 3 Ml NEB Q4H PRN 06/19/17 Reported Ascorbic Acid 500 Mg Tab 500 Mg PO HS 05/31/17 Reported Proscar (Finasteride) 5 Mg Tab 5 Mg PO DAILY 05/31/17 Reported Methenamine Hippurate 1 Gm Tab 1 Tab PO DAILY 05/31/17 Reported Flomax (Tamsulosin Hcl) 0.4 Mg Cap 0.4 Mg PO DAILY 05/31/17 Reported Claritin (Loratadine) 10 Mg Tab 1 Tab PO DAILY 05/16/17 Reported Lopressor (Metoprolol Tartrate) 50 Mg Tab 1 Tab PO DAILY 05/16/17 Reported Tylenol (Acetaminophen) 325 Mg Tab 650 Mg PO Q6 PRN 05/16/17 Reported Vitamin B Complex 1 Tab Tab 1 Tab PO QPM 10/25/16 Reported Folvite (Folic Acid) 1 Mg Tab 1 Mg PO DAILY 10/25/16 Reported Provider Instructions Activity Restrictions - No exercising or heavy lifting for 24 hours. - Do not drink alcohol the day of the procedure. - Do not drive a car or operate machinery until the day after the procedure. - Do not make any important decisions or sign important papers in 24 hours after the procedure. Following Day: - Return to full activity which may include returning to work/school. Diet Start your diet with liquids and light foods (jello, soup, juice, toast). Then eat your usual diet if not nauseated. Treatment For Common After Affects For mild abdominal pain, bloating, or excessive gas: - Rest - Eat lightly - Lie on right side Follow-Up Information Follow-up with Luisito Davis as scheduled Anesthesia Information What You Should Know You have had a procedure that required some medicine to reduce anxiety and discomfort. This treatment is called moderate sedation. After receiving the treatment, you may be sleepy, but you will be able to breathe on your own. The effects of the treatment may last for several hours. Follow these instructions along with Activity/Diet recommendations noted above: * Do NOT do anything where dizziness or clumsiness would be dangerous. * Rest quietly at home today, then you can be up and about tomorrow. * Have a responsible person stay with you the rest of today. * You may have had an I.V. today. If so, you may take the dressing off later today. Recommendations Call your doctor if: * Trouble breathing * Continuous vomiting for more than 24 hours * Temperature above 101 degrees * Severe abdominal pain or bloating * Pain not relieved by pain medicine ordered * There is increased drainage or redness from any incision * A large amount of rectal bleeding greater than 2-3 tablespoons. (If you had a polyp/s removed or have hemorrhoids, a small amount of blood - from the rectum is to be expected.) * You have any unanswered questions or concerns. IN THE EVENT OF A SERIOUS EMERGENCY, GO TO THE NEAREST EMERGENCY ROOM Your discharge instructions were prepared by provider Venkatesh Winchester. Patient Instructions Signature Page Gian Timmons Patient (or Guardian) Signature/Date: I have read and understand the instructions given to me by my caregivers. Caregiver/RN/Doctor Signature/Date: The above-named patient and/or guardian has received patient instructions on this date. + Original Patient Signature Page (only) stays with chart. Please make copy for patient.
[2017-10-06 15:20] VITALS: BP 160/100; PULSE 95; O2SAT 97
--- NOTE | 2017-10-06 15:30 | Anesthesiology Progress Note ---
Anesthesia Post Op Note Date & Time Oct 06, 2017 at 15:30 Vital Signs Pain Intensity: 0 Vital Signs Past 12 Hours Date Time Temp Pulse Resp B/P (MAP) Pulse Ox O2 Delivery O2 Flow Rate FiO2 10/06/17 15:20 95 16 160/100 (120) 97 Room Air 10/06/17 15:12 87 16 93 Room Air 10/06/17 15:07 92 16 152/104 (120) 97 Room Air 10/06/17 14:52 83 16 130/97 (108) 97 Room Air 10/06/17 14:37 91 16 126/84 (98) 96 Room Air 10/06/17 13:41 36.5 85 20 144/93 (110) 96 Room Air Notes Mental Status: alert / awake / arousable, participated in evaluation Pt Amnestic to Procedure: Yes Nausea / Vomiting: adequately controlled Pain: adequately controlled Airway Patency, RR, SpO2: stable & adequate BP & HR: stable & adequate Hydration State: stable & adequate Anesthetic Complications: no major complications apparent
--- NOTE | 2017-10-19 10:49 | CODING QUERY MEDICAL NECESSITY ---
SUPPORTING DIAGNOSIS NEEDED Dr. Winchester, A supporting diagnosis is required for the test/procedure performed on this patient in order for us to be reimbursed by the patient's insurance. Please provide a supporting diagnosis for the following test/procedure listed below next to the test name along with your signature. *If there is no additional diagnosis for this patient that would support the following test/procedure please document that below next to the test/procedure. Test(s)/Procedure(s) that require a supporting diagnosis: * ([id number]) PULSE OXIMETRY DIAGNOSIS: DATE OF SERVICE: 10/06/17 Provider Signature: Date: Thank you Chandler Rodriguez [facility] Information Management Once completed, please kindly fax back to [phone] For questions please call [phone]
== END | disposition home or self-care (01) ==
LOC: C.GI 13:08
PROVIDERS: ATTEND Internal Medicine Gastroenterology
DX: Z09 Encounter for follow-up examination after completed treatment for conditions other than malignant neoplasm (principal); M19.90 Unspecified osteoarthritis, unspecified site; N40.0 Benign prostatic hyperplasia without lower urinary tract symptoms; Z98.890 Other specified postprocedural states; Z88.2 Allergy status to sulfonamides; Z88.1 Allergy status to other antibiotic agents

== ENCOUNTER → 2017-10-26 | Outpatient (CLI) | payer BC ==
[~2017-10-26] MED LIST changes: -ALBUT/IPRATROP 3MG/0.5MG NEB 3 ML VIAL INH PRN; +IPRA-64 NEB; -IPRASOL4 NEB; -LIDOCAINE HCL 2% 2 ML VIAL (20MG/ML) ONE; +NITR1CAP16 PO; -PROPOFOL IV EMULSION 10 MG/ML 20 ML VIAL IV ONE; -SODIUM CHLORIDE 0.9% 500ML 500 ML IV ONE
[2017-10-26 01:58] LABS: INFLUENZA A PCR POS for Influ A (NEG); INFLUENZA B PCR Neg for Influ B (NEG)
== END ==
LOC: C.LABCC 11:16
PROVIDERS: ATTEND Internal Medicine
DX: R50.9 Fever, unspecified (principal); R05 Cough

== ENCOUNTER → 2017-11-08 | Outpatient (CLI) | payer BC ==
[~2017-11-08] MED LIST changes: -IPRA-64 NEB; +IPRASOL4 NEB; -NITR1CAP16 PO
[2017-11-08 09:48] LABS: BASO % 0.6 %; BASO ABS # 0.03 K/uL (0-0.2); EOS % 4.8 %; EOS ABS # 0.24 K/uL (0-0.5); HEMATOCRIT 31.5 % (42-52); HEMOGLOBIN 10.2 g/dL (14.0-18.0); IG# 0.02 K/uL (0.00-0.02); LYMPH ABS # 1.25 K/uL (1.2-3.4); MEAN CELL VOLUME 105.7 fL (80-100); MEAN CORPUSCULAR HEMOGLOBIN 34.2 pg (25-34); MEAN CORPUSCULAR HGB CONC 32.4 g/dl (32-36); MEAN PLATELET VOLUME 9.5 fL (7.4-10.4); MONO % 14.4 %; MONO ABS # 0.72 K/uL (0.11-0.59); NEUT % 54.8 %; NEUT ABS # 2.75 K/uL (1.4-6.5); PLATELET COUNT 130 K/uL (130-400); RED CELL DISTRIBUTION WIDTH CV 14.7 % (11.5-14.5); RED CELL DISTRIBUTION WIDTH SD 56.4 fL (36.4-46.3); WHITE BLOOD COUNT 5.01 K/uL (4.8-10.8)
[2017-11-08 10:07] LABS: ALBUMIN 2.4 gm/dl (3.4-5.0); ALT/SGPT 17 U/L (12-78); AST/SGOT 16 U/L (15-37); BLOOD UREA NITROGEN 50 mg/dl (7-18); CALCIUM 8.3 mg/dl (8.5-10.1); CARBON DIOXIDE 28 mmol/L (21-32); CREATININE 0.59 mg/dl (0.60-1.40); GLUCOSE 89 mg/dl (70-99); POTASSIUM 4.2 mmol/L (3.5-5.1); SODIUM 140 mmol/L (136-145); TRANSFERRIN 179 mg/dl (200-360)
[2017-11-08 10:09] LABS: ALKALINE PHOSPHATASE 101 U/L (45-117); TOTAL PROTEIN 6.4 gm/dl (6.4-8.2)
== END ==
LOC: C.LABCC 08:49
PROVIDERS: ATTEND Internal Medicine
DX: D64.9 Anemia, unspecified (principal); I10 Essential (primary) hypertension

== ENCOUNTER → 2018-01-17 | Outpatient (CLI) | payer BC ==
[2018-01-17 21:11] LABS: INFLUENZA B ANTIGEN Neg for Influ B (NEG)
== END ==
LOC: C.LABCC 17:52
PROVIDERS: ATTEND Internal Medicine
DX: R50.9 Fever, unspecified (principal)

== ENCOUNTER → 2018-03-06 | Outpatient (CLI) | payer BC, OTHER ==
[~2018-03-06] MED LIST changes: +NITR1CAP16 PO
== END ==
LOC: C.LABCC 07:50
PROVIDERS: ATTEND Internal Medicine
DX: R60.9 Edema, unspecified (principal)

== ENCOUNTER → 2018-05-31 | Outpatient (CLI) | payer BC, OTHER ==
[~2018-05-31] MED LIST changes: +IPRA-64 NEB; -IPRASOL4 NEB; -NITR1CAP16 PO
== END ==
LOC: C.LABCC 08:49
PROVIDERS: ATTEND Internal Medicine
DX: E03.9 Hypothyroidism, unspecified (principal)

== ENCOUNTER 2018-12-27 10:58 | Inpatient (IN) ==
[2018-12-27] MEDS ORDERED: ALBUT/IPRATROP 3MG/0.5MG NEB 3 ML VIAL INH STA (11:16)
[2018-12-27 12:03] LABS: Hematocrit (blood only) 38.8 % (42-52); Hemoglobin 12.7 g/dL (14.0-18.0); Mean Corpuscular Hgb Conc 32.7 g/dL (32-36); Mean Corpuscular Volume 106.3 fL (80-100); Mean Platelet Volume 9.8 fL (7.4-10.4); Platelet Count 130 K/uL (130-400); RDW Coefficient of Variation 14.7 % (11.5-14.5); Red Blood Count 3.65 M/uL (4.7-6.1); White Blood Count 7.51 K/uL (4.8-10.8)
[2018-12-27 12:09] LABS: HCO3 ABG 25 mmol/L (19-24); Oxygen Saturation ABG 93.7 % (90-95); PCO2 ABG 40 mmHg (35-46); PO2 ABG 71 mm/Hg (80-95); pH ABG 7.42 (7.35-7.45)
[2018-12-27 12:10] LABS: Allen Test POS (Pos)
[2018-12-27 12:16] LABS: INR 1.1 (0.9-1.1); Partial Thromboplastin Ratio 0.9; Partial Thromboplastin Time 24.8 Seconds (21.0-31.0); Prothrombin Time 11.4 Seconds (9.0-12.0)
[2018-12-27 12:19] LABS: Albumin Level 2.7 gm/dl (3.4-5.0); BUN Creatinine Ratio 51.9 (10-20); Calcium 8.3 mg/dl (8.5-10.1); Creatinine Clr Calc Pharmacy 72.8 ml/min; Est GFR (African American) 83.3; Est GFR (Non-African American) 71.9; Potassium 4.1 mmol/L (3.5-5.1)
[2018-12-27 12:22] LABS: Albumin Globulin Ratio 0.6 (0.9-2); Bilirubin,Total 1.1 mg/dl (0.2-1); Globulin 4.6 gm/dl (2.5-4.0); Total Protein 7.3 gm/dl (6.4-8.2)
[2018-12-27 12:25] LABS: Basophils # (auto) 0.02 K/uL (0-0.2); Basophils % (auto) 0.3 %; Eosinophils # (auto) 0.08 K/uL (0-0.5); Eosinophils % (auto) 1.1 %; Immature Granulocytes # (auto) 0.03 K/uL (0.00-0.02); Immature Granulocytes % (auto) 0.4 %; Lymphocytes # (auto) 1.38 K/uL (1.2-3.4); Lymphocytes % (auto) 18.4 %; Monocytes # (auto) 0.71 K/uL (0.11-0.59); Monocytes % (auto) 9.5 %; Neutrophils # (auto) 5.29 K/uL (1.4-6.5); Neutrophils % (auto) 70.3 %
--- NOTE | 2018-12-27 12:35 | XRay Report ---
XR chest 1V portable CLINICAL HISTORY: 83 years-old Male presenting with Dyspnea. TECHNIQUE: Portable upright AP view of the chest was obtained. COMPARISON: 02/27/2018. FINDINGS: Prominence of the thoracic aorta, which may indicate underlying ectasia. Cardiac silhouette enlarged though partially obscured. Moderate right pleural effusion with significant right mid lung opacity an d poor aeration of the right lung base. Minimal vague left basilar predominant opacity. No large pneu mothorax. Degenerative changes of the thoracic spine. IMPRESSION: 1. Moderate right pleural effusion and extensive right basilar atelectasis. 2. Underlying mid to basilar predominant infectious infiltrates not excluded. 3. Cardiomegaly. 4. Underlying ectasia of the thoracic aorta not excluded. Electronically signed by: Layo Vanegas M.D. 12/27/2018 12:33 PM
[2018-12-27] MEDS ORDERED: dilTIAZem HCl 5 MG/ML 5 ML VIAL IV STA (12:39)
[2018-12-27] MEDS ORDERED: METOPROLOL TARTRATE 1 MG/ML VIAL IV STA ×3 (14:11→14:56)
[2018-12-27] MEDS ORDERED: METOPROLOL SUCC 50MG EXT REL TAB PO STA (14:12)
--- NOTE | 2018-12-27 14:29 | History & Physical Report ---
Date of Service December 27, 2018 Assessment & Plan (1) Atrial fibrillation with RVR: - Pt missed all his morning medications today including metoprolol succinate 50 mg daily, lasix 80 mg BID which has likely contributed to afib with RVR - Pt s/p diltiazem 5 mg IV x 1 in the ER. Give lopressor 5 mg IV now and Toprol XL 50 mg PO and monitor for conversion. Pt is not on anticoagulation for hx of GI bleed. (2) Status post fall: (3) Right distal ulnar fracture: (4) Triquetral fracture: - Xray imaging reviewed: Hip tibia/fibula left negative. Ribs bilateral negative for fractures. Demonstates small right pleural effusion as previously. Shoulder, left no acute fractures. Elbow left, negative. Humerus left, negative. Forearm left, negative. Wrist left, negative. Shoulder right: lateral humeral head suspicious for nondisplaced fracture of unknown age. Humerus, right: Lateral head with fracture of unknown age. R. forearm: assumed recent fracture with mild displacement of the distal ulnar shaft. No fx of the radius. Wrist, right, assumed triquetral and navicular fracture. Elbow Right: +anterior fat pad, fracture of proximal radius and distal humerus - Fall at [facility] mechanical due to michael lift. - Orthopedic referral needed - Avoid narcotics as this appears to make the pt more confused- use tylenol around the clock, consider tramadol as alternative. - Immobilize extremity until orthopedic eval with sling. (5) Anemia: - Chronic, Hgb appears stable at this time. (6) Pleural effusion on right: - CXR reviewed and shows right sided pleural effusion, small. Continue lasix 80 mg PO BID. Give dose now as missed am meds. - No WBC, afebrile. no abx. - Likely bronchitis after URI few weeks ago, switch duonebs QID to levalbuterol as this may be exacerbating afib. - Add mucinex, tessalon pearls to regimen - Trial off bipap this afternoon. Allow 30 minutes after eating before placing bipap back on if still wearing during meal times. - Consider pulm consult (7) BPH (benign prostatic hyperplasia): - Continue flomax (8) Benign essential HTN: - Continue antihypertensives as above. (9) Spinal stenosis: - Chronic, stable. History of Present Illness Chief Complaint: Sent from [facility] Primary Care Provider: [facility] This is an 83 yo M with PMHx of atrial fibrillation not on anticoagulation due to abdominal bleed in 2010, HTN, HLD, Anemia and mild thrombocytopenia, BPH, polyneuropathy, venous insufficiency, spinal stenosis, hx of DVT, tubular adenoma s/p resection, homocystinemia, hx of alcohol abuse, who presented to the ER after being sent from [facility]. Pt fell on 12/26/18 while being transferred in a Michael lift chair, and subsequently sustained a right ulnar fracture, humeral fracture and a triquetral fracture as per outside imaging records. He was placed on oxycodone yesterday for pain, and per son's report, was slightly confused last night. Pts family reports that orthopedics would not evaluate the patient until he was seen at the hospital for breathing. This morning pts breathing was slightly labored so was transferred to the ER. Pt states has had a cough for over a month with white-yellow sputum production, which was treated with antibiotics about 1 month ago. Pt denies acute shortness of breath, althou gh has been placed on bipap. Family does not know if he aspirates. Pt denies fever, chills or sweats. No pain with deep inspiration or cough. No recent weight gain, no swelling in lower legs. Allergies Allergy/AdvReac Type Severity Reaction Status Date / Time amoxicillin Allergy Unknown . Verified 12/27/18 12:19 cefuroxime Allergy Unknown . Verified 12/27/18 12:19 clavulanic acid Allergy Unknown . Verified 12/27/18 12:19 enoxaparin Allergy Unknown . Verified 12/27/18 12:19 levofloxacin Allergy Unknown . Verified 12/27/18 12:19 Sulfa (Sulfonamide Allergy Unknown . Verified 12/27/18 12:19 Antibiotics) Home Medications Home Medications Medication Instructions Recorded Confirmed Type folic acid 1 mg PO DAILY #0 tab 10/25/16 12/27/18 History vitamin B complex 1 tab PO DAILY #0 10/25/16 12/27/18 History acetaminophen 650 mg PO Q6H PRN #0 05/16/17 12/27/18 History loratadine 10 mg PO DAILY #0 05/16/17 12/27/18 History metoprolol succinate 50 mg PO DAILY #0 05/16/17 12/27/18 History finasteride 5 mg PO DAILY #0 tab 08/09/17 03/07/19 History methenamine hippurate 1 g PO DAILY #0 05/31/17 12/27/18 History tamsulosin 0.4 mg PO DAILY #0 cap 05/31/17 12/27/18 History ipratropium-albuterol 3 ml INHALATION Q6H PRN #0 06/19/17 12/27/18 History furosemide 80 mg PO BID #0 09/21/17 12/27/18 History magnesium hydroxide [Milk of 30 ml PO DAILY PRN #0 09/21/17 12/27/18 History Magnesia] pantoprazole 40 mg PO DAILY #0 09/21/17 12/27/18 History ascorbic acid (vitamin C) 500 mg PO HS 12/27/18 12/27/18 History bisacodyl [Dulcolax (bisacodyl)] 10 mg NC DAILY 12/27/18 12/27/18 History levothyroxine 75 mcg PO DAILY 12/27/18 12/27/18 History oxycodone 5 mg PO Q4H PRN 12/27/18 12/27/18 History oxycodone 10 mg PO Q4H PRN 12/27/18 12/27/18 History potassium chloride 20 meq PO QPM 12/27/18 12/27/18 History potassium chloride 40 meq PO QAM 12/27/18 12/27/18 History sodium phosphates [Fleet Enema] 118 ml NC DAILY 12/27/18 12/27/18 History Past Med/Surg History Medical History Thrombocytopenia Spinal stenosis Benign essential HTN BPH (benign prostatic hyperplasia) Triquetral fracture Right distal ulnar fracture Status post fall Atrial fibrillation with RVR (Acute) Pleural effusion on right (Acute) Anemia Bilateral lower extremity pain DVT, bilateral lower limbs GI bleed (Acute) Hypotension (Acute) Symptomatic anemia (Acute) Surgical History Previous back surgery S/P IVC filter Family History Other Family history non-contributory Social History Preferred Language: Kazakh Communication Ability: Impaired Manager Urgent Care Required: No Beliefs That Will Affect Care: Shinto Current Living Situation: Shelter Current Living Situation Comment: [place] Other Information That Helps Us Care for You: No Feels Safe at Home: Yes Safety Concerns: Feels Safe At This Time Smoking Status: Never smoker Hx Alcohol Use: No Hx Substance Use: No Review of Systems Constitutional: No fever, sweats or chills Eyes: No diplopia, no worsening or blurred vision ENT: normal hearing, no trouble swallowing, + mouth is dry due to bipap Respiratory: + As per HPI, No dyspnea at rest or on exertion Cardiovascular: No chest pain, tightness or palpitations Abdomen: No pain, nausea, vomiting, diarrhea or constipation Musculoskeletal: No joint pain, calf pain, chronic lower extremity swelling Neurologic: +gait disturbance, no numbness/tingling Psychiatric: No anxiety or depression Skin: No rash or itch Physical Exam Vital Signs (Past 24 Hours): Last Vital Signs Temp 36.3 C L 12/27/18 11:02 Pulse 125 H 12/27/18 14:00 Resp 24 12/27/18 14:00 BP 115/77 12/27/18 13:31 Pulse Ox 96 12/27/18 14:00 Physical Exam: General: awake, alert, no apparent distress Head: Normocephalic, atraumatic ENT: PERRL, EOMI, no pharyngeal exudate, mucous membranes moist Chest: +bipap, +wet cough, diminished breath sounds at bases bilaterally Cardiac: Irregularly irregular, + YONY grade 1/, no JVD, normal peripheral pulses Abdominal: NABS x 4 quadrants, soft, nontender to palpation, no rebound, guarding or tenderness Extremities: +chronic venous stasis changes, 1+ BLE edema, no erythema, calfs nontender to palpation Psych: Normal mood and affect Neuro: AAO x 3, no motor deficits, speech is clear Results & Data Diagnostic Findings XR chest 1V portable CLINICAL HISTORY: 83 years-old Male presenting with Dyspnea. TECHNIQUE: Portable upright AP view of the chest was obtained. COMPARISON: 02/27/2018. FINDINGS: Prominence of the thoracic aorta, which may indicate underlying ectasia. Cardiac silhouette enlarged though partially obscured. Moderate right pleural effusion w ith significant right mid lung opacity and poor aeration of the right lung base. Minimal vague left basilar predominant opacity. No large pneumothorax. Degenerative changes of the thoracic spine. IMPRESSION: 1. Moderate right pleural effusion and extensive right basilar atelectasis. 2. Underlying mid to basilar predominant infectious infiltrates not excluded. 3. Cardiomegaly. 4. Underlying ectasia of the thoracic aorta not excluded. ECG Additional Comments: 27-DEC-2018 11:02:29 [facility] Poor data quality, interpretation may be adversely affected Atrial fibrillation with rapid ventricular response with premature ventricular or aberrantly conducted complexes ST & T wave abnormality, consider anterolateral ischemia Abnormal ECG When compared with ECG of 27-FEB-2018 15:29, Non-specific change in ST segment in Inferior leads T wave inversion now evident in Anterolateral leads Vent. rate 115 BPM NC interval * ms QRS duration 74 ms QT/QTc 376/520 ms P-R-T axes * 11 183 Code Status & VTE Plan Code Status DNR Supervising Physician Co-Signing Physician Notes 83 y/o M Hx AF not on anticoagulation due to GI bleed in 2010, HTN, HLD, anemia, mild thrombocytopenia, BPH, polyneuropathy, spinal stenosis, hx of DVT, distant alcohol abuse. Presents from [facility] for shortness of breath. He had also fallen one day prior and was pending an outpt ortho consult. He suffered a right ulnar fracture, humeral fracture and a triquetral fracture after falling out of a Michael lift. The pt may have some dementia and is a poor historian. He was not complaining of SOB despite requiring 02 on arrival to the ER. He was also noted to be exhibiting rapid AF on arrival. It is noted that he had not received any of his daily meds on the day of admission which include 80mg Lasix and 50mg Toprol which may be contributing to his symptoms. OE AAO x 2 - wearing BiPAP but asking if he can take it off and able to complete sentences S1,2 tachy/faint Lungs are difficult to assess - he has large airway secretions/gurgling and I cannot discern clear crackles or wheezing - air movement is poor NT, NT BL edema and stasis changes No acute deficits P: SOB/hypoxia - we do not have mention of CHF in the record. He is on a high dose of Lasix which may be de to edema. We have provided his PO Lasix and an additional dose of IV - his habitus and chronic edema preclude accurate assessment of volume status so that we will have to work with his respiratory status and 02 sat. We do not have evidence of PNM - however, aspiration could be in the differential. A CT chest can be considered f there is no response to the diuretics. AF - IV metoprolol provided - some tachycardia may be compensatory so that we would allow for an HR of ~ 100. We will consider a Diltiazem drip if there is no response to the B nora. Reg his fractures - ortho is notified, however, we would not be able to clear him for surgery as he may currently have decompensated CHF. An echo is ordered and he will need cardiology consultation.
[2018-12-27] MEDS ORDERED: ONDANSETRON INJ 2 MG/ML 2 ML VIAL IV PRN (16:13)
[2018-12-27] MEDS ORDERED: OXYCODONE HCL IR 5 MG TAB (IMMEDIATE RELEASE) PO PRN (16:13)
[2018-12-27] MEDS ORDERED: ACETAMINOPHEN 325 MG TAB PO PRN ×2 (16:13)
[2018-12-27] MEDS ORDERED: MAGNESIUM HYDROXIDE SUSP 30 ML UDC PO PRN (16:13)
[2018-12-27] MEDS ORDERED: FUROSEMIDE 40 MG/4 ML VIAL IV STA (16:58)
--- NOTE | 2018-12-27 17:11 | Emergency Department Note ---
Entered by Santos Sims acting as a scribe for Blayne Wood MD History of Present Illness General Chief complaint: Respiratory Problems Stated complaint: respiratory distress Time Seen by Provider: 12/27/18 11:11 Source: patient and other (Nurse) Limitations: clinical acuity History of Present Illness Provider complaint: Respiratory failure Onset (ago): hour(s) Location: chest (SOB) Pain Consistency: + other (worsening) Maximum Pain Intensity: 5 Quality: + other (SOB) Associated symptoms: + cough; no chest pain Treatments prior to arrival: other (125 SOlu-medrol, DuoNeb) This history is significantly limited secondary to clinical acuity. The patient is an 83 year old male who presents to the Emergency Room in respiratory distress. The patient is a resident of [facility]. Per their documentation the patient had a fall 2 days ago and received a right ulnar-humerus fracture. This morning the patient was found to be in the 70-80% oxygen saturation on 2L of oxygen nasal canula. He came up to 85% oxygen saturation on a non-rebreather. The patient has a history of COPD and CHF. The patient does not a persistent cough, but denies any chest pain. He received 125 mg of Solu-Medrol and DuoNeb via EMS pre-hospital. Home Medications Home Medications Medication Instructions Recorded Confirmed Type folic acid 1 mg PO DAILY #0 tab 10/25/16 12/27/18 History vitamin B complex 1 tab PO DAILY #0 10/25/16 12/27/18 History acetaminophen 650 mg PO Q6H PRN #0 05/16/17 12/27/18 History loratadine 10 mg PO DAILY #0 05/16/17 12/27/18 History metoprolol succinate 50 mg PO DAILY #0 05/16/17 12/27/18 History finasteride 5 mg PO DAILY #0 tab 05/31/17 12/27/18 History methenamine hippurate 1 g PO DAILY #0 05/31/17 12/27/18 History tamsulosin 0.4 mg PO DAILY #0 cap 05/31/17 12/27/18 History ipratropium-albuterol 3 ml INHALATION Q6H PRN #0 06/19/17 12/27/18 History furosemide 80 mg PO BID #0 09/21/17 12/27/18 History magnesium hydroxide [Milk of 30 ml PO DAILY PRN #0 09/21/17 12/27/18 History Magnesia] pantoprazole 40 mg PO DAILY #0 09/21/17 12/27/18 History ascorbic acid (vitamin C) 500 mg PO HS 12/27/18 12/27/18 History bisacodyl [Dulcolax (bisacodyl)] 10 mg IL DAILY 12/27/18 12/27/18 History levothyroxine 75 mcg PO DAILY 12/27/18 12/27/18 History oxycodone 5 mg PO Q4H PRN 12/27/18 12/27/18 History oxycodone 10 mg PO Q4H PRN 12/27/18 12/27/18 History potassium chloride 20 meq PO QPM 12/27/18 12/27/18 History potassium chloride 40 meq PO QAM 12/27/18 12/27/18 History sodium phosphates [Fleet Enema] 118 ml IL DAILY 12/27/18 12/27/18 History Allergies Allergy/AdvReac Type Severity Reaction Status Date / Time amoxicillin Allergy Unknown . Verified 12/27/18 12:19 cefuroxime Allergy Unknown . Verified 12/27/18 12:19 clavulanic acid Allergy Unknown . Verified 12/27/18 12:19 enoxaparin Allergy Unknown . Verified 12/27/18 12:19 levofloxacin Allergy Unknown . Verified 12/27/18 12:19 Sulfa (Sulfonamide Allergy Unknown . Verified 12/27/18 12:19 Antibiotics) Past Med/Surg History Medical History Thrombocytopenia Spinal stenosis Benign essential HTN BPH (benign prostatic hyperplasia) Triquetral fracture Right distal ulnar fracture Status post fall Atrial fibrillation with RVR (Acute) Pleural effusion on right (Acute) Anemia Bilateral lower extremity pain DVT, bilateral lower limbs GI bleed (Acute) Hypotension (Acute) Symptomatic anemia (Acute) Surgical History Previous back surgery S/P IVC filter Family History Other Family history non-contributory Social History Preferred Language: Maltese Communication Ability: Impaired Litigation Attorney Required: No Beliefs That Will Affect Care: Yarsani Current Living Situation: Care Home Current Living Situation Comment: [place] [facility] Other Information That Helps Us Care for You: No Feels Safe at Home: Yes Safety Concerns: Feels Safe At This Time Smoking Status: Never smoker Hx Alcohol Use: No Hx Substance Use: No Review of Systems See HPI for pertinent positives & negatives. and A total of 10 systems reviewed and were otherwise negative Physical Exam Vital Signs Vital Signs - 24 hr 12/27/18 11:00 12/27/18 11:02 12/27/18 11:03 Temperature 36.3 C L Temperature Source Axillary Sepsis Recent Fever Within 48 Hours No Sepsis New/Unexplained Change in Mental Status No Sepsis Action Taken by Nursing No Action Required Pulse Rate 121 H 125 H 114 H Pulse Rate [Apical] Pulse Rate from SpO2 Sensor 114 H 132 H Respiratory Rate 20 25 H Respiratory Effort / Characteristics Respiratory Depth Respiratory Pattern Blood Pressure 109/81 109/81 Blood Pressure [Left Arm] Blood Pressure Mean 90 90 Blood Pressure Mean [Left Arm] Pulse Oximetry 90 86 L 93 Oxygen Delivery Method Oxymask Nebulizer Oxygen Flow Rate 6 Fraction of Inspired Oxygen SaO2/FiO2 Ratio 12/27/18 11:10 12/27/18 11:20 12/27/18 11:22 Temperature Temperature Source Sepsis Recent Fever Within 48 Hours Sepsis New/Unexplained Change in Mental Status Sepsis Action Taken by Nursing Pulse Rate 120 H 115 H Pulse Rate [Apical] Pulse Rate from SpO2 Sensor 117 H 114 H Respiratory Rate 24 22 Respiratory Effort / Characteristics Respiratory Depth Respiratory Pattern Blood Pressure Blood Pressure [Left Arm] Blood Pressure Mean Blood Pressure Mean [Left Arm] Pulse Oximetry 86 L Oxygen Delivery Method Oxymask Oxygen Flow Rate 6 Fraction of Inspired Oxygen SaO2/FiO2 Ratio 12/27/18 11:30 12/27/18 11:35 12/27/18 11:40 Temperature Temperature Source Sepsis Recent Fever Within 48 Hours Sepsis New/Unexplained Change in Mental Status Sepsis Action Taken by Nursing Pulse Rate 123 H 120 H 120 H Pulse Rate [Apical] 120 H Pulse Rate from SpO2 Sensor 115 H 113 H Respiratory Rate 24 24 24 Respiratory Effort / Characteristics Spontaneous Respiratory Depth Normal Respiratory Pattern Regular Blood Pressure Blood Pressure [Left Arm] Blood Pressure Mean Blood Pressure Mean [Left Arm] Pulse Oximetry 92 91 93 Oxygen Delivery Method BiPAP Oxygen Flow Rate Fraction of Inspired Oxygen 90 SaO2/FiO2 Ratio 12/27/18 11:50 12/27/18 12:00 12/27/18 12:04 Temperature Temperature Source Sepsis Recent Fever Within 48 Hours Sepsis New/Unexplained Change in Mental Status Sepsis Action Taken by Nursing Pulse Rate 135 H 132 H 152 H Pulse Rate [Apical] 134 H Pulse Rate from SpO2 Sensor 123 H 120 H 124 H Respiratory Rate 21 25 H Respiratory Effort / Characteristics Respiratory Depth Respiratory Pattern Blood Pressure Blood Pressure [Left Arm] 124/86 Blood Pressure Mean Blood Pressure Mean [Left Arm] 98 Pulse Oximetry 94 95 95 Oxygen Delivery Method BiPAP Oxygen Flow Rate Fraction of Inspired Oxygen 80 SaO2/FiO2 Ratio 120 12/27/18 12:07 12/27/18 12:10 12/27/18 12:20 Temperature Temperature Source Sepsis Recent Fever Within 48 Hours Sepsis New/Unexplained Change in Mental Status Sepsis Action Taken by Nursing Pulse Rate 134 H 133 H 142 H Pulse Rate [Apical] Pulse Rate from SpO2 Sensor 132 H 129 H 112 H Respiratory Rate Respiratory Effort / Characteristics Respiratory Depth Respiratory Pattern Blood Pressure 124/86 Blood Pressure [Left Arm] Blood Pressure Mean 98 Blood Pressure Mean [Left Arm] Pulse Oximetry 97 92 96 Oxygen Delivery Method Oxygen Flow Rate Fraction of Inspired Oxygen SaO2/FiO2 Ratio 12/27/18 12:30 12/27/18 12:31 12/27/18 12:36 Temperature Temperature Source Sepsis Recent Fever Within 48 Hours Sepsis New/Unexplained Change in Mental Status Sepsis Action Taken by Nursing Pulse Rate 130 H 138 H 131 H Pulse Rate [Apical] Pulse Rate from SpO2 Sensor 128 H 137 H 127 H Respiratory Rate 21 Respiratory Effort / Characteristics Respiratory Depth Respiratory Pattern Blood Pressure 96/79 L 97/74 L Blood Pressure [Left Arm] Blood Pressure Mean 84 81 Blood Pressure Mean [Left Arm] Pulse Oximetry 94 93 95 Oxygen Delivery Method Oxygen Flow Rate Fraction of Inspired Oxygen SaO2/FiO2 Ratio 12/27/18 12:40 12/27/18 12:46 12/27/18 12:50 Temperature Temperature Source Sepsis Recent Fever Within 48 Hours Sepsis New/Unexplained Change in Mental Status Sepsis Action Taken by Nursing Pulse Rate 133 H 135 H 127 H Pulse Rate [Apical] 132 H Pulse Rate from SpO2 Sensor 128 H 130 H 146 H Respiratory Rate 24 Respiratory Effort / Characteristics Respiratory Depth Respiratory Pattern Blood Pressure 109/85 Blood Pressure [Left Arm] 109/85 Blood Pressure Mean 93 Blood Pressure Mean [Left Arm] 93 Pulse Oximetry 95 96 96 Oxygen Delivery Method BiPAP Oxygen Flow Rate Fraction of Inspired Oxygen SaO2/FiO2 Ratio 12/27/18 13:00 12/27/18 13:01 12/27/18 13:10 Temperature Temperature Source Sepsis Recent Fever Within 48 Hours Sepsis New/Unexplained Change in Mental Status Sepsis Action Taken by Nursing Pulse Rate 122 H 126 H 123 H Pulse Rate [Apical] Pulse Rate from SpO2 Sensor 118 H 125 H 119 H Respiratory Rate 24 22 22 Respiratory Effort / Characteristics Respiratory Depth Respiratory Pattern Blood Pressure 113/80 Blood Pressure [Left Arm] Blood Pressure Mean 91 Blood Pressure Mean [Left Arm] Pulse Oximetry 96 95 95 Oxygen Delivery Method Oxygen Flow Rate Fraction of Inspired Oxygen SaO2/FiO2 Ratio 12/27/18 13:20 12/27/18 13:30 12/27/18 13:31 Temperature Temperature Source Sepsis Recent Fever Within 48 Hours Sepsis New/Unexplained Change in Mental Status Sepsis Action Taken by Nursing Pulse Rate 119 H 125 H 121 H Pulse Rate [Apical] Pulse Rate from SpO2 Sensor 108 H 120 H 125 H Respiratory Rate 21 25 H Respiratory Effort / Characteristics Respiratory Depth Respiratory Pattern Blood Pressure 115/77 Blood Pressure [Left Arm] Blood Pressure Mean 89 Blood Pressure Mean [Left Arm] Pulse Oximetry 95 95 95 Oxygen Delivery Method Oxygen Flow Rate Fraction of Inspired Oxygen SaO2/FiO2 Ratio 12/27/18 13:40 12/27/18 13:50 12/27/18 14:00 Temperature Temperature Source Sepsis Recent Fever Within 48 Hours Sepsis New/Unexplained Change in Mental Status Sepsis Action Taken by Nursing Pulse Rate 119 H 129 H 125 H Pulse Rate [Apical] Pulse Rate from SpO2 Sensor 112 H 131 H 121 H Respiratory Rate 25 H 24 Respiratory Effort / Characteristics Respiratory Depth Respiratory Pattern Blood Pressure Blood Pressure [Left Arm] Blood Pressure Mean Blood Pressure Mean [Left Arm] Pulse Oximetry 96 94 96 Oxygen Delivery Method Oxygen Flow Rate Fraction of Inspired Oxygen SaO2/FiO2 Ratio 12/27/18 14:01 12/27/18 14:30 12/27/18 14:31 Temperature Temperature Source Sepsis Recent Fever Within 48 Hours Sepsis New/Unexplained Change in Mental Status Sepsis Action Taken by Nursing Pulse Rate 120 H 118 H 119 H Pulse Rate [Apical] Pulse Rate from SpO2 Sensor 127 H 113 H 103 H Respiratory Rate 22 26 H 21 Respiratory Effort / Characteristics Respiratory Depth Respiratory Pattern Blood Pressure 127/81 108/78 Blood Pressure [Left Arm] Blood Pressure Mean 96 88 Blood Pressure Mean [Left Arm] Pulse Oximetry 96 96 96 Oxygen Delivery Method Oxygen Flow Rate Fraction of Inspired Oxygen SaO2/FiO2 Ratio 12/27/18 14:36 12/27/18 15:00 12/27/18 15:02 Temperature Temperature Source Sepsis Recent Fever Within 48 Hours Sepsis New/Unexplained Change in Mental Status Sepsis Action Taken by Nursing Pulse Rate 121 H 120 H 123 H Pulse Rate [Apical] Pulse Rate from SpO2 Sensor 113 H 112 H Respiratory Rate 27 H 17 24 Respiratory Effort / Characteristics Spontaneous Respiratory Depth Normal Respiratory Pattern Tachypnea Blood Pressure 120/83 Blood Pressure [Left Arm] Blood Pressure Mean 95 Blood Pressure Mean [Left Arm] Pulse Oximetry 97 97 97 Oxygen Delivery Method BiPAP Oxygen Flow Rate Fraction of Inspired Oxygen 80 SaO2/FiO2 Ratio 12/27/18 15:08 12/27/18 15:22 12/27/18 15:27 Temperature Temperature Source Sepsis Recent Fever Within 48 Hours Sepsis New/Unexplained Change in Mental Status Sepsis Action Taken by Nursing Pulse Rate 126 H Pulse Rate [Apical] 96 H 100 H Pulse Rate from SpO2 Sensor Respiratory Rate 24 Respiratory Effort / Characteristics Respiratory Depth Respiratory Pattern Blood Pressure 120/83 Blood Pressure [Left Arm] 107/67 Blood Pressure Mean Blood Pressure Mean [Left Arm] 80 Pulse Oximetry 96 Oxygen Delivery Method BiPAP Oxygen Flow Rate Fraction of Inspired Oxygen SaO2/FiO2 Ratio Constitutional: Vital signs reviewed. Eyes: Pupils are equal round reactive to light. Conjunctiva are noninjected. ENT: Pharynx is clear without erythema or exudate. Mucous membranes are moist. Neck supple without meningeal signs. Respiratory: Bibasilar rales present. . Breath sounds are equal bilaterally. Cardiovascular: Tachycardic and irregularly irregular. GI: Soft, nondistended and nontender. Bowel sounds are present. Musculoskeletal: Bilateral pitting edema with venous stasis discoloration. Integumentary: No cyanosis. Neurological: The patient is awake and alert. No focal deficits. Psychiatric: unable to obtain. Course 1113: Past medical records reviewed. The patient was evaluated in room A12B, and a complete history and physical examination were performed. 1146: I checked on the patient. His O2 sat is at 93% on Bi-pap. I discussed advanced directive with the . She confirmed the patient's DNR status . 1148: Dr. Mira Garcia [facility] hospitalist was made aware of the case. 1235: I checked on the patient. His HR is 140, blood pressure is 97 systolically. I discussed results with the and risks/benefits of treating heart rate with medications or electricity. She is agreeable to medications. 1300: patient's HR is in the 110's at this time. His BP is 109 systolically. 1407: I checked on the patient. His pulse is 117. BP is 115/77. [facility] Hospitalist AMANDA is at bedside with patient for evaluation. Administered Medications Discontinued Medications Albuterol (Duoneb) 12 ml INH ONE STA Stop: 12/27/18 11:17 Last Admin: 12/27/18 11:34 Dose: 12 ml Documented by: [id number] Diltiazem HCl (Cardizem) 5 mg IV NOW STA Stop: 12/27/18 12:40 Last Admin: 12/27/18 12:44 Dose: 5 mg Documented by: [id number] Cosigned by: [id number] Metoprolol Succinate (Toprol Xl) 50 mg PO NOW STA Stop: 12/27/18 14:13 Last Admin: 12/27/18 14:49 Dose: 50 mg Documented by: [id number] Metoprolol Tartrate (Lopressor) 5 mg IV NOW STA Stop: 12/27/18 14:12 Last Admin: 12/27/18 14:48 Dose: 5 mg Documented by: [id number] Metoprolol Tartrate (Lopressor) 5 mg IV NOW STA Stop: 12/27/18 14:13 Last Admin: 12/27/18 15:42 Dose: Not Given Documented by: [id number] Metoprolol Tartrate (Lopressor) 5 mg IV NOW STA Stop: 12/27/18 14:57 Last Admin: 12/27/18 15:08 Dose: 5 mg Documented by: [id number] Medical Decision Making Differential Diagnosis Differential Diagnosis includes: CHF, pulmonary edema, COPD, pneumonia, and respiratory failure. Medical Records Attestation: I reviewed the patient's medical records. Home Medications Current Medication List: was personally reviewed by me Laboratory Data Attestation: I reviewed the patient's lab results. Result diagrams: 12/27/18 11:22 12/27/18 11:22 Lab Results 12/27/18 12/27/18 12/27/18 Range/Units 11:22 11:22 11:22 WBC 7.51 (4.8-10.8) K/uL RBC 3.65 L (4.7-6.1) M/uL Hgb 12.7 L (14.0-18.0) g/dL Hct 38.8 L (42-52) % MCV 106.3 H (80-100) fL MCH 34.8 H (25-34) pg MCHC 32.7 (32-36) g/dL RDW Std Deviation 57.0 H (36.4-46.3) fL RDW Coeff of Bigg 14.7 H (11.5-14.5) % Plt Count 130 (130-400) K/uL MPV 9.8 (7.4-10.4) fL Immature Gran % (Auto) 0.4 % Neut % (Auto) 70.3 % Lymph % (Auto) 18.4 % [place] % (Auto) 9.5 % Eos % (Auto) 1.1 % Baso % (Auto) 0.3 % Immature Gran # (Auto) 0.03 H (0.00-0.02) K/uL Neut # (Auto) 5.29 (1.4-6.5) K/uL Lymph # (Auto) 1.38 (1.2-3.4) K/uL [place] # (Auto) 0.71 H (0.11-0.59) K/uL Eos # (Auto) 0.08 (0-0.5) K/uL Baso # (Auto) 0.02 (0-0.2) K/uL PT 11.4 (9.0-12.0) Seconds INR 1.1 (0.9-1.1) APTT 24.8 (21.0-31.0) Seconds PTT Ratio 0.9 ABG pH (7.35-7.45) ABG pCO2 (35-46) mmHg ABG pO2 (80-95) mm/Hg ABG HCO3 (19-24) mmol/L ABG O2 Saturation (90-95) % ABG Base Excess (-9-1.8) mEq/L Howard Test (Pos) Barometric Pressure mm/Hg Oxygen Given Sodium 136 (136-145) mmol/L Potassium 4.1 (3.5-5.1) mmol/L Chloride 101 (98-107) mmol/L Carbon Dioxide 26 (21-32) mmol/L Anion Gap 9.0 (3-11) BUN 50 H (7-18) mg/dl Creatinine 0.97 (0.6-1.4) mg/dl Est Cr Clr Drug Dosing 72.8 ml/min Est GFR ( Amer) 83.3 Est GFR (Non-Af Amer) 71.9 BUN/Creatinine Ratio 51.9 H (10-20) Glucose 109 H (70-99) mg/dl Calcium 8.3 L (8.5-10.1) mg/dl Total Bilirubin 1.1 H (0.2-1) mg/dl AST 26 (15-37) U/L ALT 18 (12-78) U/L Alkaline Phosphatase 158 H (45-117) U/L POC Troponin I (0-0.045) ng/ml Total Protein 7.3 (6.4-8.2) gm/dl Albumin 2.7 L (3.4-5.0) gm/dl Globulin 4.6 H (2.5-4.0) gm/dl Albumin/Globulin Ratio 0.6 L (0.9-2) 12/27/18 12/27/18 Range/Units 11:45 11:52 WBC (4.8-10.8) K/uL RBC (4.7-6.1) M/uL Hgb (14.0-18.0) g/dL Hct (42-52) % MCV (80-100) fL MCH (25-34) pg MCHC (32-36) g/dL RDW Std Deviation (36.4-46.3) fL RDW Coeff of Bigg (11.5-14.5) % Plt Count (130-400) K/uL MPV (7.4-10.4) fL Immature Gran % (Auto) % Neut % (Auto) % Lymph % (Auto) % [place] % (Auto) % Eos % (Auto) % Baso % (Auto) % Immature Gran # (Auto) (0.00-0.02) K/uL Neut # (Auto) (1.4-6.5) K/uL Lymph # (Auto) (1.2-3.4) K/uL [place] # (Auto) (0.11-0.59) K/uL Eos # (Auto) (0-0.5) K/uL Baso # (Auto) (0-0.2) K/uL PT (9.0-12.0) Seconds INR (0.9-1.1) APTT (21.0-31.0) Seconds PTT Ratio ABG pH 7.42 (7.35-7.45) ABG pCO2 40 (35-46) mmHg ABG pO2 71 L (80-95) mm/Hg ABG HCO3 25 H (19-24) mmol/L ABG O2 Saturation 93.7 (90-95) % ABG Base Excess 1.0 (-9-1.8) mEq/L Howard Test POS (Pos) Barometric Pressure 737.4 mm/Hg Oxygen Given 90% Sodium (136-145) mmol/L Potassium (3.5-5.1) mmol/L Chloride (98-107) mmol/L Carbon Dioxide (21-32) mmol/L Anion Gap (3-11) BUN (7-18) mg/dl Creatinine (0.6-1.4) mg/dl Est Cr Clr Drug Dosing ml/min Est GFR ( Amer) Est GFR (Non-Af Amer) BUN/Creatinine Ratio (10-20) Glucose (70-99) mg/dl Calcium (8.5-10.1) mg/dl Total Bilirubin (0.2-1) mg/dl AST (15-37) U/L ALT (12-78) U/L Alkaline Phosphatase (45-117) U/L POC Troponin I 0.04 (0-0.045) ng/ml Total Protein (6.4-8.2) gm/dl Albumin (3.4-5.0) gm/dl Globulin (2.5-4.0) gm/dl Albumin/Globulin Ratio (0.9-2) Imaging Data Attestation: I personally reviewed and interpreted this imaging study as follows: Radiologist's Impression: XR chest 1V portable CLINICAL HISTORY: 83 years-old Male presenting with Dyspnea. TECHNIQUE: Portable upright AP view of the chest was obtained. COMPARISON: 02/27/2018. FINDINGS: Prominence of the thoracic aorta, which may indicate underlying ectasia. Cardiac silhouette enlarged though partially obscured. Moderate right pleural effusion with significant right mid lung opacity and poor aeration of the right lung base. Minimal vague left basilar predominant opacity. No large pneumothorax. Degenerative changes of the thoracic spine. IMPRESSION: 1. Moderate right pleural effusion and extensive right basilar atelectasis. 2. Underlying mid to basilar predominant infectious infiltrates not excluded. 3. Cardiomegaly. 4. Underlying ectasia of the thoracic aorta not excluded. Electronically signed by: Layo Vanegas M.D. 12/27/2018 12:33 PM ECG Data Attestation: I personally reviewed and interpreted this ECG as follows: Indication: SOB/dyspnea Rate (beats per minute): 115 Rhythm: atrial fibrillation Findings: + other (limited interpretation due to motion artifact. ) and + PVC Blood Pressure Blood Pressure Findings: Normal blood pressure MDM Narrative I did perform a limited focused review of portions of the patient's old chart on the electronic medical record. The patient was admitted to the hospital in February of last year. I did evaluate the patient as noted above. The patient is presenting in respiratory distress with hypoxemia despite being on supplemental oxygen via nonrebreather mask. History is limited due to the condition of patient. I did obtain additional history from the nurse. IV access was established. I did place the patient on BiPAP. He was given an hour-long DuoNeb. The patient was placed on a continuous telemetry monitor. I did order and personally review the patient's 12-lead EKG and chest x-ray as described above. His twelve-lead EKG demonstrates A. fib with RVR. Chest x-ray demonstrates a right-sided pleural effusion. I did order and review the patient's blood work as noted in the electronic medical record. ABG demonstrates hypoxia. His white blood cell count is not elevated. I did reassess patient multiple times. I was hoping that his heart rate would decrease once his oxygenation improved but it remained elevated and even went up and his blood pressure dropped below 100 systolic. I therefore treated him with a very small dose of Cardizem IV 5 mg. His heart rate did improve significantly to about the 1 teens and his blood pressure came up over 110 systolic. I did discuss the test results with the patient's . I did discuss case with the hospitalist and disease case manager rn. Impression & Plan Respiratory failure, Atrial fibrillation with RVR, Pleural effusion on right Critical Care Time I have personally spent 40 minutes of critical care time in the direct ma nagement of this patient. This includes bedside care, interpretation of diagnostic studies, and testing, discussion with consultants, patient, and family members, and other required patient management activities. This 40 minutes is in excess of all separately billable procedures. Critical Care Time: Yes Total Critical Care Time: 40 Discharge Plan Visit Data Chief Complaint: Respiratory Problems Stated Complaint: respiratory distress ED Provider: Blayne Wood Discharge Problem: Respiratory failure, Atrial fibrillation with RVR, Pleural effusion on right Patient Disposition: Being Evaluated by Hospitalist Discharge Instructions Interventions: ED Discharge Assessment Last Done: 12/27/18 15:45 Discharge Problem: Respiratory failure Qualifiers: Chronicity: acute on chronic Respiratory failure complication: unspecified whether with hypoxia or hypercapnia Qualified Code(s): J96.20 - Acute and chronic respiratory failure, unspecified whether with hypoxia or hypercapnia The vasuibcristela's documentation has been prepared under my direction and personally reviewed by me in its entirety. I confirm that the note above accurately reflects all work, treatment, procedures, and medical decision making performed by me.
[2018-12-27] MEDS: FUROSEMIDE 80 MG TAB PO SCH (18:03)
[2018-12-27] MEDS: LEVALBUTEROL 1.25MG/0.5ML NEB NEB SCH (19:24)
[2018-12-27] MEDS: HEPARIN SOD 5,000 UNIT/0.5 ML VIAL SQ SCH (20:26)
[2018-12-27] MEDS: ASCORBIC ACID 500 MG TAB PO SCH (20:27)
[2018-12-27] MEDS: guaiFENesin 600 MG TABCR PO SCH (20:27)
[2018-12-27] MEDS: POTASSIUM CHLORIDE 20 MEQ TABCR PO SCH (20:30)
[2018-12-27] MEDS: BENZONATATE 100 MG CAPSULE PO SCH (20:30)
[2018-12-28] MEDS: LEVALBUTEROL 1.25MG/0.5ML NEB NEB SCH ×4 (01:36→18:57)
[2018-12-28 03:45] LABS: Hematocrit (blood only) 34.2 % (42-52); Hemoglobin 11.4 g/dL (14.0-18.0); Mean Corpuscular Hgb Conc 33.3 g/dL (32-36); Mean Corpuscular Volume 104.6 fL (80-100); Mean Platelet Volume 9.9 fL (7.4-10.4); Platelet Count 104 K/uL (130-400); RDW Coefficient of Variation 14.5 % (11.5-14.5); RDW Standard Deviation 55.8 fL (36.4-46.3); Red Blood Count 3.27 M/uL (4.7-6.1); White Blood Count 4.66 K/uL (4.8-10.8)
[2018-12-28 04:03] LABS: Albumin Level 2.5 gm/dl (3.4-5.0); BUN Creatinine Ratio 62.8 (10-20); Calcium 8.1 mg/dl (8.5-10.1); Creatinine Clr Calc Pharmacy 79.4 ml/min; Est GFR (African American) 91.6; Est GFR (Non-African American) 79.1; Magnesium 2.3 mg/dl (1.8-2.4); Potassium 4.2 mmol/L (3.5-5.1)
[2018-12-28 04:07] LABS: Albumin Globulin Ratio 0.6 (0.9-2); Bilirubin,Total 0.7 mg/dl (0.2-1); Globulin 4.1 gm/dl (2.5-4.0); Total Protein 6.6 gm/dl (6.4-8.2); Troponin I 0.022 ng/ml (0-0.045)
[2018-12-28 04:28] LABS: Phosphorus 4.3 mg/dl (2.5-4.9)
[2018-12-28] MEDS: LEVOTHYROXINE SODIUM 75 MCG TABLET PO SCH (06:31)
[2018-12-28] MEDS ORDERED: PERFLUTREN LIPID MICROSPHERE (DEFINITY) IV ONE (07:39)
--- NOTE | 2018-12-28 07:53 | Hospitalist Progress Note ---
Date of Service December 28, 2018 Assessment & Plan (1) Atrial fibrillation with RVR: - Pt missed all his morning medications on the day of admission, including metoprolol succinate 50 mg daily, lasix 80 mg BID which contributed to afib with RVR - iv rate controlling meds given in the ER and Toprol XL 50 mg PO given . Pt is not on anticoagulation for hx of GI bleed. (2) Status post fall: (3) Right distal ulnar fracture: (4) Triquetral fracture: - Xray imaging reviewed: Hip tibia/fibula left negative. Ribs bilateral negative for fractures. Demonstates small right pleural effusion as previously. Shoulder, left no acute fractures. Elbow left, negative. Humerus left, negative. Forearm left, negative. Wrist left, negative. Shoulder right: lateral humeral head suspicious for nondisplaced fracture of unknown age. Humerus, right: Lateral head with fracture of unknown age. R. forearm: assumed recent fracture with mild displacement of the distal ulnar shaft. No fx of the radius. Wrist, right, assumed triquetral and navicular fracture. Elbow Right: +anterior fat pad, fracture of proximal radius and distal humerus - Fall at [place] mechanical due to michael lift. - Orthopedic referral needed - Avoid narcotics as this appears to make the pt more confused- use tylenol around the clock, consider tramadol as alternative. - Immobilize extremity until orthopedic eval with sling. (5) Anemia: - Chronic, Hgb appears stable at this time. (6) Pleural effusion on right: - CXR reviewed and shows right sided pleural effusion, small. Continue lasix 80 mg PO BID. Give dose now as missed am meds. - - Likely bronchitis after URI few weeks ago,cxr negative for pneumonia. - Add mucinex, tessalon pearls to regimen bipap for respiratory failure - Consider pulm consult (7) BPH (benign prostatic hyperplasia): - Continue flomax (8) Benign essential HTN: - Continue antihypertensives as above. (9) Spinal stenosis: - Chronic, stable. Subjective Patient is awake and conversant he is some tenderness to his right wrist where the fracture is. He is having some upper respiratory rhonchorous sounds he says is normal for him at surgery sounds like he has some fluid around his vocal cords like he might be aspirating but he says is how he usually has. Review of Systems ROS: Patient appears chronically ill is fatigued and tired No double vision blurry vision No problems with speech or swallowing No palpitations, chest pain or pressure No Wheezing upper airway rhonchorous breath sounds No abdominal pain nausea vomiting diarrhea changes in appetite or weight No burning urine urine frequency or changes in color Vocal right wrist pain notable areas of discomfort from falls No skin rashes or oral lesions No focused back pain or numbness or loss of strength No new changes in memory or confusion Physical Exam Vital Signs (Past 24 Hours): Last Vital Signs Temp 36.5 C 12/28/18 03:40 Pulse 90 12/28/18 07:30 Resp 19 12/28/18 03:40 BP 114/87 12/28/18 03:40 Pulse Ox 93 12/28/18 07:30 The patient appeared chronically ill obese and lethargic Vital signs as documented. Head exam is unremarkable. normocephalic, atraumatic Neck is without jugular venous distension, thyromegaly, or lymphademopathy Lungs are managed by basilar rhonchorous upper airway breath sounds Cardiac exam reveals irregularly irregular. First and second heart sounds n ormal. Abdominal exam reveals normal bowel sounds, no masses, no organomegaly Extremities are mildly edematous right wrist is tender to exam and movement Neurologic exam is A&Ox3 but does have some confusion at times, no focal deficits, strength is made by pain to his right hand he has prehospital weakness to his lower extremities requiring a Michael lift for movement Psychologically seems depressed
[2018-12-28] MEDS: guaiFENesin 600 MG TABCR PO SCH ×2 (07:56→19:45)
[2018-12-28] MEDS: PANTOprazole 40 MG TAB PO SCH (07:56)
[2018-12-28] MEDS: METOPROLOL SUCC 50MG EXT REL TAB PO SCH (07:56)
[2018-12-28] MEDS: VITAMIN B COMPLEX TAB PO SCH (07:56)
[2018-12-28] MEDS: TAMSULOSIN HCL 0.4 MG CAP PO SCH (07:57)
[2018-12-28] MEDS: BENZONATATE 100 MG CAPSULE PO SCH ×3 (07:57→19:45)
[2018-12-28] MEDS: LORATADINE 10 MG TAB PO SCH (07:57)
[2018-12-28] MEDS: FUROSEMIDE 80 MG TAB PO SCH ×2 (07:57→16:53)
[2018-12-28] MEDS: FOLIC ACID 1 MG TAB PO SCH (07:57)
[2018-12-28] MEDS: POTASSIUM CHLORIDE 20 MEQ TABCR PO SCH ×2 (07:58→19:45)
[2018-12-28] MEDS: HEPARIN SOD 5,000 UNIT/0.5 ML VIAL SQ SCH ×2 (07:58→19:50)
[2018-12-28] MEDS: FINASTERIDE 5 MG TAB PO SCH (07:59)
[2018-12-28] MEDS: OXYCODONE HCL IR 5 MG TAB (IMMEDIATE RELEASE) PO PRN ×2 (09:30→23:49)
--- NOTE | 2018-12-28 11:45 | XRay Report ---
XR wrist RT min 3V routine, XR forearm RT 2V, XR humerus RT 2V HISTORY: 83 years-old Male r/o navicular fx acute right upper extremity pain status post fall COMPARISON: None available TECHNIQUE: 3 views of the right wrist, 2 views of the right forearm and 2 views of the right humerus FINDINGS: WRIST: Demineralized appearance of the bones. Moderate distal radial ulnar joint, and radiocarpal with sever e first carpometacarpal osteoarthritis. Peripheral arterial calcifications are noted. Acute fracture of the distal ulna as below. No additional acute fracture or dislocation identified. Suboptimal posit ioning on the lateral view. FOREARM: There is an acute obliquely oriented fracture of the distal diaphyseal ulna demonstrating 9 degrees a pex radial angulation with 2 mm radial displacement. Additionally, there is 9 degrees apex volar angu lation Mild associated soft tissue swelling. Study is limited secondary to positioning. Radius appear s intact. HUMERUS: Demineralized appearance of the bones with a least moderate degenerative changes of the right should er. No acute fracture or dislocation. Peripheral arterial calcifications noted. IMPRESSION: 1. Acute mildly angulated and minimally displaced fracture of the distal ulnar diaphysis. 2. No additional acute fracture or dislocation identified about the imaged right upper extremity. 3. Demineralized appearance of the bones with degenerative changes as above. 4. Limited exam secondary to patient positioning.. The above report was generated using voice recognition software. It may contain grammatical, syntax o r spelling errors. Electronically signed by: Tim Eng M.D. 12/28/2018 11:43 AM
--- NOTE | 2018-12-28 13:22 | XRay Report ---
RIGHT ELBOW 2 VIEWS CLINICAL HISTORY: Right elbow injury. FINDINGS: AP and lateral views the right elbow are obtained. No prior studies are available for nadege cuellar at the time of dictation. The skeletal structures are osteopenic. There is no radiographic evid ence of right elbow fracture. A fracture of the distal ulnar shaft is partially imaged on the AP view . No joint effusion is identified. Enthesophytes arise from the humeral epicondyles. There is a large enthesophyte at the triceps insertion. Mild soft tissue swelling is present around the elbow. There is atherosclerotic calcification of the regional arteries. IMPRESSION: 1. There is no radiographic evidence of fracture at the elbow joint. 2. A fracture of the distal ulnar shaft is partially visualized. 3. Osteopenia and degenerative change as above. Electronically signed by: Ryan Schmidt M.D. 12/28/2018 1:21 PM
[2018-12-28] MEDS: BISACODYL 10 MG SUPP PR SCH (15:18)
[2018-12-28] MEDS: SOD PHOSPHATE/SOD BIPHOSPHATE ENEMA 132 ML BTL PR SCH (15:18)
--- NOTE | 2018-12-28 17:19 | Orthopedic Consultation ---
Date of Consultation December 28, 2018 Assessment & Plan (1) Right distal ulnar fracture: X-rays were reviewed with Dr. Contreras. No obvious fractures were noted at the proximal humerus or distal humerus. No obvious fractures of the proximal radius or ulna. Noted fracture of the distal ulna. Question of a small triquetral fracture although he does not examine with overt pain. A volar splint was placed on the right forearm from the elbow to the palmar aspect of the hand and we will treat this conservatively. We will continue the splint for 7-10 days and have him follow-up with Dr. Contreras in the office. He will obviously be nonweightbearing on the right upper extremity. Gentle range of motion of the fingers is allowed. No heavy lifting with the right upper extremity. If he develops increased swelling in the right fingers and hand, the Nik wraps can be loosened. History of Present Illness Reason for Consultation: Consulted for question of multiple fractures in the right upper extremity Attending Physician: Blayne Messer MD History of Present Illness 83-year-old white male who resides at [facility]. Apparently there was an accident with a Michael lift as noted in the H&P. Some type of mechanical fall. Patient does not remember the fall but is quite conversant. He is pleasant and sometimes confused. On admission, there were multiple x-rays,dictations that have been done at [facility]. No films were sent with the patient when he was brought to the emergency room. The x-ray dictations were sent with the patient. These dictations were questioning fractures in the right upper extremity at the proximal humerus distal humerus proximal radius distal ulna and of the carpal bones. Since there were no x-rays to review, the right upper extremity was re-x-rayed with full-length humerus film, elbow film forearm film, wrist films. Currently the patient looks comfortable and states he does have some forearm pain when moving around a little bit. He denies right shoulder pain or elbow pain at this time. He denies overt wrist pain at this time of the right wrist. Allergies Allergy/AdvReac Type Severity Reaction Status Date / Time amoxicillin Allergy Unknown . Verified 12/27/18 12:19 cefuroxime Allergy Unknown . Verified 12/27/18 12:19 clavulanic acid Allergy Unknown . Verified 12/27/18 12:19 enoxaparin Allergy Unknown . Verified 12/27/18 12:19 levofloxacin Allergy Unknown . Verified 12/27/18 12:19 Sulfa (Sulfonamide Allergy Unknown . Verified 12/27/18 12:19 Antibiotics) Home Medications Home Medications Medication Instructions Recorded Confirmed Type folic acid 1 mg PO DAILY #0 tab 10/25/16 12/27/18 History vitamin B complex 1 tab PO DAILY #0 10/25/16 12/27/18 History acetaminophen 650 mg PO Q6H PRN #0 05/16/17 12/27/18 History loratadine 10 mg PO DAILY #0 05/16/17 12/27/18 History metoprolol succinate 50 mg PO DAILY #0 05/16/17 12/27/18 History finasteride 5 mg PO DAILY #0 tab 05/31/17 12/27/18 History methenamine hippurate 1 g PO DAILY #0 05/31/17 12/27/18 History tamsulosin 0.4 mg PO DAILY #0 cap 05/31/17 12/27/18 History ipratropium-albuterol 3 ml INHALATION Q6H PRN #0 06/19/17 12/27/18 History furosemide 80 mg PO BID #0 09/21/17 12/27/18 History magnesium hydroxide [Milk of 30 ml PO DAILY PRN #0 09/21/17 12/27/18 History Magnesia] pantoprazole 40 mg PO DAILY #0 09/21/17 12/27/18 History ascorbic acid (vitamin C) 500 mg PO HS 12/27/18 12/27/18 History bisacodyl [Dulcolax (bisacodyl)] 10 mg NH DAILY 12/27/18 12/27/18 History levothyroxine 75 mcg PO DAILY 12/27/18 12/27/18 History oxycodone 5 mg PO Q4H PRN 12/27/18 12/27/18 History oxycodone 10 mg PO Q4H PRN 12/27/18 12/27/18 History potassium chloride 20 meq PO QPM 12/27/18 12/27/18 History potassium chloride 40 meq PO QAM 12/27/18 12/27/18 History sodium phosphates [Fleet Enema] 118 ml NH DAILY 12/27/18 12/27/18 History Patient History Medical History Thrombocytopenia Spinal stenosis Benign essential HTN BPH (benign prostatic hyperplasia) Triquetral fracture Right distal ulnar fracture Status post fall Atrial fibrillation with RVR (Acute) Pleural effusion on right (Acute) Anemia Bilateral lower extremity pain DVT, bilateral lower limbs GI bleed (Acute) Hypotension (Acute) Symptomatic anemia (Acute) Surgical History Previous back surgery S/P IVC filter Family History Other Family history non-contributory Social History Communication Ability: Impaired Beliefs That Will Affect Care: Scientology Current Living Situation: Longterm Current Living Situation Comment: [facility] Other Information That Helps Us Care for You: No Feels Safe at Home: Yes Safety Concerns: Feels Safe At This Time Smoking Status: Never smoker Hx Alcohol Use: No Hx Substance Use: No Review of Systems As per admitting history and physical. Physical Exam Vital Signs (Past 24 Hours): Last Vital Signs Temp 36.5 C 12/28/18 15:10 Pulse 89 12/28/18 16:00 Resp 24 12/28/18 15:10 BP 106/76 12/28/18 15:10 Pulse Ox 92 12/28/18 15:10 Physical Exam: On examination, the patient is an elderly white male who appears his stated age. He is awake and alert. He does answer some questions appropriately but other questions he is somewhat confused about the history. Examining the right upper extremity, he has no overt swelling of the shoulder at this time and is nontender on palpation. I can do gentle range of motion shoulder without discomfort. No pain on palpation of the humerus down to the elbow. No overt pain in the elbow and I can do gentle range of motion of the right elbow. On palpating the forearm going more distal towards the wrist he does complain of some pain on palpation over the ulna. Gentle range of motion of the wrist does not elicit painful response. He does not have any overt swelling or bruising of the wrist either. He is moving the fingers of his right hand well without difficulty. Capillary refill is less than 2 seconds and sensation is intact. He denies any complaints of his left upper extremity or bilateral lower extremities. He appears to be nontender with the left shoulder elbow wrist and again taken through gentle passive range of motion without difficulty. The same is true with the lower extremities. No overt pain on palpation of the hips knees and ankles. Results & Data Diagnostic Findings [facility] [place] [phone] XRay Report Patient: MICHAEL WILLIAMSON Date: 12/27/18 MR#: [id number]: Shirley GOVEA Acct ID:[id number]: [facility] Zip: [place] [address] Age: 83Location: 2E Sex: M Room/Bed: [facility] Att Phy: Blayne Messer M.D.Diagnosis: AFIB WITH RVR Radha [facility]y: [facility] Date: 12/28/18 Fam Phy: Interpreting Phy: Erasmo Eng Admit Phy: Carl Meyers M.D. Ordering Phy: Carlos Quan PA-C cc: ~ XR wrist RT min 3V routine, XR forearm RT 2V, XR humerus RT 2V HISTORY: 83 years-old Male r/o navicular fx acute right upper extremity pain status post fall COMPARISON: None available TECHNIQUE: 3 views of the right wrist, 2 views of the right forearm and 2 views of the right humerus FINDINGS: WRIST: Demineralized appearance of the bones. Moderate distal radial ulnar joint, and radiocarpal with severe first carpometacarpal osteoarthritis. Peripheral arterial calcifications are noted. Acute fracture of the distal ulna as below. No additional acute fracture or dislocation identified. Suboptimal positioning on the lateral view. FOREARM: There is an acute obliquely oriented fracture of the distal diaphyseal ulna demonstrating 9 degrees apex radial angulation with 2 mm radial displacement. Additionally, there is 9 degrees apex volar angulation Mild associated soft tissue swelling. Study is limited secondary to positioning. Radius appears intact. HUMERUS: Demineralized appearance of the bones with a least moderate degenerative changes of the right shoulder. No acute fracture or dislocation. Peripheral arterial calcifications noted. IMPRESSION: 1. Acute mildly angulated and minimally displaced fracture of the distal ulnar diaphysis. 2. No additional acute fracture or dislocation identified about the imaged right upper extremity. 3. Demineralized appearance of the bones with degenerative changes as above. 4. Limited exam secondary to patient positioning.. RIGHT ELBOW 2 VIEWS CLINICAL HISTORY: Right elbow injury. FINDINGS: AP and lateral views the right elbow are obtained. No prior studies are available for comparison at the time of dictation. The skeletal structures are osteopenic. There is no radiographic evidence of right elbow fracture. A fracture of the distal ulnar shaft is partially imaged on the AP view. No joint effusion is identified. Enthesophytes arise from the humeral epicondyles. There is a large enthesophyte at the triceps insertion. Mild soft tissue swelling is present around the elbow. There is atherosclerotic calcification of the regional arteries. IMPRESSION: 1. There is no radiographic evidence of fracture at the elbow joint. 2. A fracture of the distal ulnar shaft is partially visualized. 3. Osteopenia and degenerative change as above. XR wrist RT min 3V routine, XR forearm RT 2V, XR humerus RT 2V HISTORY: 83 years-old Male r/o navicular fx acute right upper extremity pain status post fall COMPARISON: None available TECHNIQUE: 3 views of the right wrist, 2 views of the right forearm and 2 views of the right humerus FINDINGS: WRIST: Demineralized appearance of the bones. Moderate distal radial ulnar joint, and radiocarpal with severe first carpometacarpal osteoarthritis. Peripheral arterial calcifications are noted. Acute fracture of the distal ulna as below. No additional acute fracture or dislocation identified. Suboptimal positioning on the lateral view. FOREARM: There is an acute obliquely oriented fracture of the distal diaphyseal ulna demonstrating 9 degrees apex radial angulation with 2 mm radial displacement. Additionally, there is 9 degrees apex volar angulation Mild associated soft tissue swelling. Study is limited secondary to positioning. Radius appears intact. HUMERUS: Demineralized appearance of the bones with a least moderate degenerative changes of the right shoulder. No acute fracture or dislocation. Peripheral arterial calcifications noted.
[2018-12-28] MEDS: ASCORBIC ACID 500 MG TAB PO SCH (19:46)
[2018-12-29] MEDS: LEVALBUTEROL 1.25MG/0.5ML NEB NEB SCH (01:15)
[2018-12-29] MEDS: LEVALBUTEROL HCL 1.25 MG/3 ML NEB NEB SCH ×5 (01:29→19:20)
[2018-12-29] MEDS: LEVOTHYROXINE SODIUM 75 MCG TABLET PO SCH (05:50)
[2018-12-29] MEDS: OXYCODONE HCL IR 5 MG TAB (IMMEDIATE RELEASE) PO PRN (05:52)
--- NOTE | 2018-12-29 06:11 | Orthopedic Progress Note ---
Date of Service December 29, 2018 Assessment & Plan (1) Right distal ulnar fracture: splint checked this am and appears to be fitting him well, there are no signs of skin irritation from the splint. continue with volar splint on the right forearm from the elbow to the palmar aspect of the hand and we will treat this conservatively. We will continue the splint for 7-10 days and have him follow-up with Dr. Contreras in the office. nonweightbearing on the right upper extremity. Gentle range of motion of the fingers is allowed. No heavy lifting with the right upper extremity. If he develops increased swelling in the right fingers and hand, the Nik wraps can be loosened. Subjective patient examined this am while resting in bed, cooperative. Physical Exam Vital Signs (Past 24 Hours): Last Vital Signs Temp 37 C 12/29/18 04:09 Pulse 93 H 12/29/18 01:16 Resp 22 12/29/18 04:09 BP 117/73 12/29/18 04:09 Pulse Ox 92 12/29/18 04:09 Constitutional: cooperative; no acute distress Musculoskeletal: right upper extremity splint is intact, he does wiggle his fingers during exam, no tenderness over the digits.
[2018-12-29 06:26] LABS: Hematocrit (blood only) 32.3 % (42-52); Hemoglobin 11.1 g/dL (14.0-18.0); Mean Corpuscular Hgb Conc 34.4 g/dL (32-36); Mean Corpuscular Volume 104.5 fL (80-100); Mean Platelet Volume 9.3 fL (7.4-10.4); Platelet Count 109 K/uL (130-400); RDW Coefficient of Variation 14.6 % (11.5-14.5); RDW Standard Deviation 55.4 fL (36.4-46.3); Red Blood Count 3.09 M/uL (4.7-6.1); White Blood Count 7.81 K/uL (4.8-10.8)
[2018-12-29 06:39] LABS: Albumin Level 2.4 gm/dl (3.4-5.0); BUN Creatinine Ratio 67.9 (10-20); Calcium 7.9 mg/dl (8.5-10.1); Creatinine Clr Calc Pharmacy 86.6 ml/min; Est GFR (African American) 94.8; Est GFR (Non-African American) 81.8; Potassium 4.1 mmol/L (3.5-5.1)
[2018-12-29 06:41] LABS: Albumin Globulin Ratio 0.6 (0.9-2); Bilirubin,Total 0.6 mg/dl (0.2-1); Total Protein 6.4 gm/dl (6.4-8.2)
[2018-12-29] MEDS: HEPARIN SOD 5,000 UNIT/0.5 ML VIAL SQ SCH ×2 (13:13→20:14)
--- NOTE | 2018-12-29 14:11 | Hospitalist Progress Note ---
Date of Service December 29, 2018 Assessment & Plan (1) Atrial fibrillation with RVR: patient is returned to rate control with metoprolol succinate 50 mg daily, lasix 80 mg BID . Pt is not on anticoagulation for hx of GI bleed. (2) Status post fall: (3) Right distal ulnar fracture: Orthopedics has seen the patient has placed a cockup type splint in place will see the patient in 1 week (4) Triquetral fracture: - Xray imaging reviewed: Hip tibia/fibula left negative. Ribs bilateral negative for fractures. Demonstates small right pleural effusion as previously. Shoulder, left no acute fractures. Elbow left, negative. Humerus left, negative. Forearm left, negative. Wrist left, negative. Shoulder right: lateral humeral head suspicious for nondisplaced fracture of unknown age. Humerus, right: Lateral head with fracture of unknown age. R. forearm: assumed recent fracture with mild displacement of the distal ulnar shaft. No fx of the radius. Wrist, right, assumed triquetral and navicular fracture. Elbow Right: +anterior fat pad, fracture of proximal radius and distal humerus -Continue to avoid narcotics as this appears to make the pt more confused- use tylenol around the clock, tramadol as needed - Immobilize extremity until orthopedic eval with sling. (5) Anemia: - Chronic, Hgb appears stable at this time. (6) Pleural effusion on right: - CXR reviewed and shows right sided pleural effusion, small. Continue lasix 80 mg PO BID. not clinically worsen to the effusion we will continue to follow - -Patient's chronic aspiration has an aspiration type cough which has been chronic he is instructed on good swallowing techniques and the nurses are following at the bedside for aspiration precautions bipap for respiratory failure (7) BPH (benign prostatic hyperplasia): - Continue flomax patient did require Snowden catheter placement to urinate in the hospital (8) Benign essential HTN: - Continue antihypertensives as above. (9) Spinal stenosis: - Chronic, stable. This limits his ability to be mobile he frequently sits in a wheelchair and needs a Michael lift movement and out of bed Subjective Patient was seen in the presence of his son and [id number]. The patient is about his usual state may be slightly more sedate than usual. It was noted by nursing staff when a Snowden catheter was placed the patient's urine seemed "foul" to the nurse. Urine culture was sent. The patient is tolerant of his right wrist splint. Review of Systems ROS: well nourished well developed. She appears chronically ill No double vision blurry vision No problems with speech or swallowing No palpitations, chest pain or pressure She is chronically dyspneic wearing oxygen [facility] the [facility] No abdominal pain nausea vomiting diarrhea changes in appetite or weight No burning urine urine frequency or changes in color Focal right wrist pain which is improved this point No skin rashes or oral lesions No unusual bruising or bleeding No focused back pain or numbness or loss of strength No new changes in memory or confusion Physical Exam Vital Signs (Past 24 Hours): Last Vital Signs Temp 36.6 C 12/29/18 11:33 Pulse 87 12/29/18 13:49 Resp 20 12/29/18 13:49 BP 95/72 L 12/29/18 11:33 Pulse Ox 92 12/29/18 13:49 The patient appeared chronically ill, morbidly obese Vital signs as documented. Head exam is unremarkable. normocephalic, atraumatic Neck is without jugular venous distension, thyromegaly, or lymphademopathy Lungs are diminished bibasilar Cardiac exam reveals irregularly irregular with a systolic ejection murmur. First and second heart sounds normal. Abdominal exam reveals normal bowel sounds, no masses, no organomegaly Extremities are mild to moderately edematous and both pedal pulses are present Neurologic exam is A&Ox3 although does exhibit some signs of forgetfulness, no focal deficits, strength is equal bilateral Psychologically seems depressed Skin is warm Dry with is a variable age across his body
[2018-12-29] MEDS: BISACODYL 10 MG SUPP PR SCH (14:51)
[2018-12-29] MEDS: METOPROLOL SUCC 50MG EXT REL TAB PO SCH (14:56)
[2018-12-29] MEDS: FINASTERIDE 5 MG TAB PO SCH (14:56)
[2018-12-29] MEDS: SOD PHOSPHATE/SOD BIPHOSPHATE ENEMA 132 ML BTL PR SCH (14:56)
[2018-12-29] MEDS: POTASSIUM CHLORIDE 20 MEQ TABCR PO SCH ×2 (14:56→20:21)
[2018-12-29] MEDS: TAMSULOSIN HCL 0.4 MG CAP PO SCH (14:56)
[2018-12-29] MEDS: FOLIC ACID 1 MG TAB PO SCH (14:56)
[2018-12-29] MEDS: FUROSEMIDE 80 MG TAB PO SCH ×2 (14:56→17:49)
[2018-12-29] MEDS: PANTOprazole 40 MG TAB PO SCH (14:56)
[2018-12-29] MEDS: VITAMIN B COMPLEX TAB PO SCH (14:57)
[2018-12-29] MEDS: guaiFENesin 600 MG TABCR PO SCH (14:58)
[2018-12-29] MEDS: BENZONATATE 100 MG CAPSULE PO SCH ×2 (14:58→14:59)
[2018-12-29] MEDS: LORATADINE 10 MG TAB PO SCH (14:58)
[2018-12-29] MEDS ORDERED: METOPROLOL TARTRATE 1 MG/ML VIAL IV PRN ×2 (17:45→17:46)
--- NOTE | 2018-12-29 18:02 | XRay Report ---
XR chest 1V portable HISTORY: eval for aspiration pneumonia COMPARISON: Chest 12/27/2018. FINDINGS: No change in the moderate right pleural effusion and bibasilar densities. No pneumothorax. The heart remains enlarged. The upper lung zones remain clear. No evidence for pulmonary edema. IMPRESSION: No change in the moderate right pleural effusion and bibasilar airspace opacities. This may represent a pneumonia. Electronically signed by: Andrew Ordaz M.D. 12/29/2018 6:01 PM
[2018-12-29] MEDS: ACETYLCYSTEINE 20% INHAL SOLN ***DISPENSED BY RESP. INH SCH (19:20)
[2018-12-29] MEDS: ASCORBIC ACID 500 MG TAB PO SCH (20:21)
[2018-12-29] MEDS ORDERED: ACETYLCYSTEINE 10% INHAL SOLN **DISPENSED FROM RESP. INH SCH (21:00)
[2018-12-29 21:02] LABS: HCO3 ABG 22 mmol/L (19-24); Oxygen Saturation ABG 92.1 % (90-95); PCO2 ABG 26 mmHg (35-46); PO2 ABG 56 mm/Hg (80-95)
[2018-12-29 21:11] LABS: pH ABG 7.54 (7.35-7.45)
[2018-12-29 21:12] LABS: Allen Test POS (Pos)
[2018-12-29] MEDS ORDERED: VANCOMYCIN CONSULT ACTIVE PRN (21:45)
[2018-12-29] MEDS: ACETAMINOPHEN 1,000 MG/100 ML VIAL IV PRN (21:48)
[2018-12-29] MEDS: AZTREONAM 2,000 MG in DEXTROSE 5% 100 ML IV SCH (22:18)
[2018-12-29] MEDS ORDERED: VANCOMYCIN HCL 2,750 MG in SODIUM CHLORIDE 0.9% 500 ML IV ONE (22:30)
--- NOTE | 2018-12-29 23:10 | Pharmacy Report ---
Pharmacy Abx Initial Consult - Date of Service December 29, 2018 - Pharmacy Dosing Scope Date of Consult: 12/29/18 Consultation requested by: Dr. Madden Pharmacy is consulted to initiate vancomycin IV dosing therapy, order appropriate labs and adjust drug dose/frequency. - Subjective The patient is a 83 year old M admitted on 12/27/18 15:15 with Afib w/ RVR. - Objective Height: 5 ft 11 in Weight: 111.2 kg Vital Signs (Past 12hrs): Vital Signs Temp Pulse Pulse Resp BP BP Pulse Ox 12/29/18 20:57 39.4 C H 113 H 26 H 99/73 L 94 12/29/18 20:51 39.7 C H 12/29/18 20:13 133 H 112/78 12/29/18 20:12 133 H 22 112/78 90 12/29/18 20:06 117 H 26 H 91 12/29/18 19:00 37.3 C 132 H 30 H 104/77 91 12/29/18 18:00 130 H 34 H 89 L 12/29/18 17:20 121 H 26 H 85 L 12/29/18 16:00 85 12/29/18 15:06 36.9 C 93 H 22 104/68 90 12/29/18 13:49 87 20 92 12/29/18 11:33 36.6 C 89 19 95/72 L 95 Lab Results (24hrs): Laboratory Tests (24 Hours) 12/29/18 12/29/18 05:52 05:52 WBC 7.81 Creatinine 0.82 Est Cr Clr Drug Dosing 86.6 Micro Results: 12/29/18 22:07 Blood Culture - Pending Blood 12/29/18 21:57 Blood Culture - Pending Blood 12/29/18 11:55 Urine Culture - Pending Urine,Indwelling Cath - Assessment & Plan Assessment 83 year old M admitted several days ago with Afib w/ RVR. Today patient became confused with copious sputum production. Concern for pneumonia. Plan vancomycin/Azactam for treatment of pneumonia Vancomycin IV * Estimated PK Parameters: Vd 0.65 L/kg, Hiram 0.077 hr-1, t1/2 9 hr * Loading dose: 2750 mg (25 mg/kg) * Maintenance dose: 1750 mg IV (15 mg/kg) every 12 hours * Goal trough level for pulmonary infection : 15 to 20 mcg/mL * Trough ordered for 12/31/18 * An extended dosing interval has been selected due to likelihood of drug accumulation in obese patient. Pharmacy will continue to follow and will adjust dose/frequency as necessary. Thank you.
[2018-12-30] MEDS: LEVALBUTEROL HCL 1.25 MG/3 ML NEB NEB SCH ×4 (01:36→19:02)
[2018-12-30] MEDS: ACETAMINOPHEN 1,000 MG/100 ML VIAL IV PRN ×2 (05:59→21:24)
[2018-12-30] MEDS: AZTREONAM 2,000 MG in DEXTROSE 5% 100 ML IV SCH ×3 (06:02→21:59)
[2018-12-30] MEDS: LEVOTHYROXINE SODIUM 75 MCG TABLET PO SCH (06:02)
[2018-12-30 06:52] LABS: Hematocrit (blood only) 32.6 % (42-52); Hemoglobin 10.9 g/dL (14.0-18.0); Mean Corpuscular Hgb Conc 33.4 g/dL (32-36); Mean Corpuscular Volume 105.5 fL (80-100); Mean Platelet Volume 9.4 fL (7.4-10.4); Platelet Count 114 K/uL (130-400); RDW Standard Deviation 57.7 fL (36.4-46.3); Red Blood Count 3.09 M/uL (4.7-6.1); White Blood Count 8.56 K/uL (4.8-10.8)
[2018-12-30] MEDS: ACETYLCYSTEINE 20% INHAL SOLN ***DISPENSED BY RESP. INH SCH ×2 (07:08→19:02)
[2018-12-30 07:25] LABS: Albumin Level 2.1 gm/dl (3.4-5.0); BUN Creatinine Ratio 78.5 (10-20); Calcium 7.8 mg/dl (8.5-10.1); Creatinine Clr Calc Pharmacy 101.4 ml/min; Est GFR (African American) 101.8; Est GFR (Non-African American) 87.8; Potassium 3.5 mmol/L (3.5-5.1)
[2018-12-30 07:27] LABS: Albumin Globulin Ratio 0.6 (0.9-2); Bilirubin,Total 0.8 mg/dl (0.2-1); Globulin 3.8 gm/dl (2.5-4.0); Total Protein 5.9 gm/dl (6.4-8.2)
[2018-12-30] MEDS: HEPARIN SOD 5,000 UNIT/0.5 ML VIAL SQ SCH ×2 (07:49→21:21)
--- NOTE | 2018-12-30 08:05 | Pharmacy Report ---
Pharmacy Abx Dose Short Note - Date of Service December 30, 2018 - Assessment & Plan Assessment * 83 year old M VANCOMYCIN + AZTREONAM for treatment of pneumonia * Patient has multiple drug allergies listed, of note however he has tolerated Zosyn, Cefepime, Ceftriaxone and Cephalexin 05/2017 and the current allergies were also listed on his record at that time * MRSA nasal swab negative greatly lessening the of MRSA pna - if Vancomcyin is d/c'd based upon this result a second abx will need to be added to Aztreonam for gram + coverage of likely pathogens. One might consider converting pt to Cefepime monotherapy. Plan Vancomycin * 05/2017 admission for sepsis reviewed * Pt received Vanco 1750mg IV Q 10 hrs that admission and trough level was > 30 prior to 4th dose. * Renal fxn that admission appeared to be similar to this admission * Given this new information, will empirically extend dosing interval to 1750mg IV Q 16 hrs and check trough prior to 2nd dose given the unexpected level obtained in the past. Population p'kinetic estimates may not be accurate for this patient. * Goal trough level for pulm infxn : 15 to 20 mcg/mL * Trough level ordered for 3/11 AM w/ 2nd dose Pharmacy will continue to follow and will adjust dose/frequency as necessary. Thank you.
[2018-12-30] MEDS: VITAMIN B COMPLEX TAB PO SCH (10:08)
[2018-12-30] MEDS: TAMSULOSIN HCL 0.4 MG CAP PO SCH (10:08)
[2018-12-30] MEDS: FOLIC ACID 1 MG TAB PO SCH (10:08)
[2018-12-30] MEDS: METOPROLOL SUCC 50MG EXT REL TAB PO SCH (10:08)
[2018-12-30] MEDS: POTASSIUM CHLORIDE 20 MEQ TABCR PO SCH ×2 (10:08→21:16)
[2018-12-30] MEDS: PANTOprazole 40 MG TAB PO SCH (10:08)
[2018-12-30] MEDS: FINASTERIDE 5 MG TAB PO SCH (10:08)
[2018-12-30] MEDS: FUROSEMIDE 80 MG TAB PO SCH ×2 (10:08→18:18)
[2018-12-30] MEDS ORDERED: VANCOMYCIN HCL 1,750 MG in SODIUM CHLORIDE 0.9% 500 ML IV SCH (11:00)
--- NOTE | 2018-12-30 12:42 | Hospitalist Progress Note ---
Date of Service December 30, 2018 Assessment & Plan (1) Acute respiratory failure with hypoxia: Patient has significant distress in the evening of 12/29 with marked hypoxia for approximately 10-15 minutes. The patient subsequent to with some nasal tracheal suctioning acetylcysteine inhaled medication and chest vibration therapy was able to expectorate large amounts of mucus. The patient is a known chronic aspiration risk patient. He does have some upper airway sounds prior to this which were concerning for aspiration. However throughout the evening the patient was eventually treated for right lower lobe pneumonia which could be gram-negative aspiration but is deftly healthcare associated pneumonia. Patient is on vancomycin and aztreonam at this time continue with chest physiotherapy. Patient required high flow oxygen to sustain oxygen saturations (2) Atrial fibrillation with RVR: patient is returned to rate control with metoprolol succinate 50 mg daily, lasix 80 mg BID . Pt is not on anticoagulation for hx of GI bleed. Patient had some tachycardia when he is in acute respiratory failure with hypoxia from mucous plugging and pneumonia. PRN metoprolol was offered (3) Right distal ulnar fracture: Orthopedics has seen the patient has placed a cockup type splint in place will see the patient in 1 week (4) Triquetral fracture: - Xray imaging reviewed: Hip tibia/fibula left negative. Ribs bilateral negative for fractures. Demonstates small right pleural effusion as previously. Shoulder, left no acute fractures. Elbow left, negative. Humerus left, negative. Forearm left, negative. Wrist left, negative. Shoulder right: lateral humeral head suspicious for nondisplaced fracture of unknown age. Humerus, right: Lateral head with fracture of unknown age. R. forearm: assumed recent fracture with mild displacement of the distal ulnar shaft. No fx of the radius. Wrist, right, assumed triquetral and navicular fracture. Elbow Right: +anterior fat pad, fracture of proximal radius and distal humerus -Continue to avoid narcotics as this appears to make the pt more confused- use tylenol around the clock, tramadol as needed - Immobilize extremity until orthopedic eval with sling. (5) Anemia: - Chronic, this is anemia of chronic disease (6) Pleural effusion on right: - CXR reviewed and shows right sided pleural effusion, small. Continue lasix 80 mg PO BID. patient likely may have an aspiration pneumonia at the right base also as his clinical status is worsened throughout the last few days (7) BPH (benign prostatic hyperplasia): - Continue flomax patient did require Snowden catheter placement to urinate in the hospital, cultures of his urine now show E. coli which should be treated by the aztreonam (8) Benign essential HTN: - Continue antihypertensives as above. (9) Spinal stenosis: - Chronic, stable. This limits his ability to be mobile he frequently sits in a wheelchair and needs a Michael lift movement and out of bed Subjective Patient developed significant distress on the evening of 12/29. He was markedly hypoxic. It was felt he may have aspirated have some mucus plugging. Subsequently the night progressed on antibiotics for add up appropriately by the night physician she is on vancomycin and aztreonam for likely healthcare associated pneumonia speech therapy has seen the patient and made him n.p.o. we will provide IV fluids prevent dehydration at this time Review of Systems ROS: Patient is fatigued easily and appears chronically ill No double vision blurry vision No problems with speech or swallowing No palpitations, chest pain or pressure has lower extremity edema chronically Shortness of breath coughing and hacking No abdominal pain nausea vomiting diarrhea changes in appetite or weight No burning urine urine frequency or changes in color No focal joint pain or muscle pain No skin rashes or oral lesions No unusual bruising or bleeding No focused back pain or numbness or loss of strength No changes in memory or confusion Physical Exam Vital Signs (Past 24 Hours): Last Vital Signs Temp 36.9 C 12/30/18 11:32 Pulse 97 H 12/30/18 11:32 Resp 22 12/30/18 11:32 BP 107/73 12/30/18 11:32 Pulse Ox 91 12/30/18 11:32 The patient appeared chronically ill Vital signs as documented. Hypoxia only remedied by high flow oxygen Head exam is unremarkable. normocephalic, atraumatic Neck is without jugular venous distension, thyromegaly, or lymphademopathy Lungs are coarse rhonchorous coughing and rhonchi heard at bases Cardiac exam reveals irregularly irregular and tachycardic at times with a systolic murmur. First and second heart sounds normal. Abdominal exam reveals normal bowel sounds, no masses, no organomegaly Extremities are moderately edematous bruising to his lower extremities Neurologic exam is A&Ox3, no focal deficits, strength is equal bilateral globally diminished Psychologically seems depressed Skin is warm Dry
[2018-12-30] MEDS: SODIUM CHLORIDE 0.9% 1000ML 1,000 ML IV SCH ×2 (13:01→15:01)
[2018-12-30] MEDS: VANCOMYCIN HCL 1,750 MG in SODIUM CHLORIDE 0.9% 500 ML IV SCH (16:19)
[2018-12-30] MEDS: BISACODYL 10 MG SUPP PR SCH (18:18)
[2018-12-30] MEDS: SOD PHOSPHATE/SOD BIPHOSPHATE ENEMA 132 ML BTL PR SCH (18:18)
[2018-12-30] MEDS: ASCORBIC ACID 500 MG TAB PO SCH (21:16)
[2018-12-31] MEDS: LEVALBUTEROL HCL 1.25 MG/3 ML NEB NEB SCH ×4 (01:41→19:06)
[2018-12-31] MEDS: AZTREONAM 2,000 MG in DEXTROSE 5% 100 ML IV SCH ×3 (05:29→23:09)
[2018-12-31] MEDS: SODIUM CHLORIDE 0.9% 1000ML 1,000 ML IV SCH ×2 (05:29→20:11)
[2018-12-31] MEDS ORDERED: VANCOMYCIN TROUGH ONE ×3 (06:30→18:30)
[2018-12-31] MEDS: VANCOMYCIN HCL 1,750 MG in SODIUM CHLORIDE 0.9% 500 ML IV SCH (06:46)
[2018-12-31] MEDS: LEVOTHYROXINE SODIUM 75 MCG TABLET PO SCH (06:46)
[2018-12-31 07:04] LABS: Est GFR (African American) 118.1; Est GFR (Non-African American) 101.9
[2018-12-31] MEDS: ACETYLCYSTEINE 20% INHAL SOLN ***DISPENSED BY RESP. INH SCH ×2 (07:15→19:06)
--- NOTE | 2018-12-31 10:21 | Hospitalist Progress Note ---
Date of Service December 31, 2018 Assessment & Plan (1) Acute respiratory failure with hypoxia: Patient has significant distress in the evening of 12/29 with marked hypoxia for approximately 10-15 minutes. On 12/31, patient continues to be aspirating overnight. With chest vibration, he is able to cough up large amounts of mucous. Will consult pulmonary for possible bronch and thoracocenthesis. Will continue to treat patient as HCAP, continue on vancomycin and aztreonam at this time continue with chest physiotherapy. Patient required high flow oxygen to sustain oxygen saturations. High flow oxygen is causing difficulty with speech eval. (2) Atrial fibrillation with RVR: patient is returned to rate control with metoprolol succinate 50 mg daily, lasix 80 mg BID . Pt is not on anticoagulation for hx of GI bleed. Patient had some tachycardia when he is in acute respiratory failure with hypoxia from mucous plugging and pneumonia. PRN metoprolol was offered (3) Right distal ulnar fracture: Orthopedics has seen the patient has placed a cockup type splint in place will see the patient in 1 week (4) Triquetral fracture: - Xray imaging reviewed: Hip tibia/fibula left negative. Ribs bilateral negative for fractures. Demonstates small right pleural effusion as previously. Shoulder, left no acute fractures. Elbow left, negative. Humerus left, negative. Forearm left, negative. Wrist left, negative. Shoulder right: lateral humeral head suspicious for nondisplaced fracture of unknown age. Humerus, right: Lateral head with fracture of unknown age. R. forearm: assumed recent fracture with mild displacement of the distal ulnar shaft. No fx of the radius. Wrist, right, assumed triquetral and navicular fracture. Elbow Right: +anterior fat pad, fracture of proximal radius and distal humerus -Continue to avoid narcotics as this appears to make the pt more confused- use tylenol around the clock, tramadol as needed - Immobilize extremity until orthopedic eval with sling. (5) Anemia: - Chronic, this is anemia of chronic disease (6) Pleural effusion on right: - CXR reviewed and shows right sided pleural effusion, small. Continue lasix 80 mg PO BID. patient likely may have an aspiration pneumonia at the right base also as his clinical status is worsened throughout the last few days (7) BPH (benign prostatic hyperplasia): - Continue flomax patient did require Snowden catheter placement to urinate in the hospital, cultures of his urine now show E. coli which should be treated by the aztreonam (8) Benign essential HTN: - Continue antihypertensives as above. (9) Spinal stenosis: - Chronic, stable. This limits his ability to be mobile he frequently sits in a wheelchair and needs a Michael lift movement and out of bed Spent 35 minutes in management of patient: included chart review, patient encounter, discussion with consultants. Subjective Patient is a poor historian. He does not provide significant history and it is difficult to obtain a ROS. He does know his name and his location. Discuss with nurse, he appears to continously aspirate overnight. During the day he is able to cough up his secretions. As per nurse, he does look better today, however still tachypnic. Will consult pulmonary for possible bronch and thoracocenthesis. Physical Exam Vital Signs (Past 24 Hours): Last Vital Signs Temp 36.7 C 12/31/18 07:48 Pulse 101 H 12/31/18 07:48 Resp 27 H 12/31/18 07:48 BP 112/92 12/31/18 07:48 Pulse Ox 92 12/31/18 07:48 Physical Exam: The patient appeared chronically ill, tachypnic. Not is distress Vital signs as documented. On high flow oxygen Head exam is unremarkable. normocephalic, atraumatic Neck is without jugular venous distension, thyromegaly, or lymphademopathy Lungs: tachypnic, using accesory muscles to breaths. sounds are coarse rhonchi heard at bases and lower third of lung bilaterally. Cardiac exam reveals irregularly irregular and tachycardic at times with a systolic murmur. First and second heart sounds normal. Abdominal exam reveals normal bowel sounds, no masses, no organomegaly Extremities are moderately edematous bruising to his lower extremities Neurologic exam is AA Ox1, no focal deficits, strength is equal bilateral globally diminished Skin is warm Dry
[2018-12-31] MEDS: BISACODYL 10 MG SUPP PR SCH (10:53)
[2018-12-31] MEDS: POTASSIUM CHLORIDE 20 MEQ TABCR PO SCH ×2 (10:54→20:05)
[2018-12-31] MEDS: SOD PHOSPHATE/SOD BIPHOSPHATE ENEMA 132 ML BTL PR SCH (10:54)
[2018-12-31] MEDS: FOLIC ACID 1 MG TAB PO SCH (10:54)
[2018-12-31] MEDS: TAMSULOSIN HCL 0.4 MG CAP PO SCH (10:54)
[2018-12-31] MEDS: METOPROLOL SUCC 50MG EXT REL TAB PO SCH (10:59)
[2018-12-31] MEDS: FINASTERIDE 5 MG TAB PO SCH (10:59)
[2018-12-31] MEDS: FUROSEMIDE 80 MG TAB PO SCH ×2 (10:59→17:46)
[2018-12-31] MEDS: PANTOprazole 40 MG TAB PO SCH (10:59)
[2018-12-31] MEDS: VITAMIN B COMPLEX TAB PO SCH (10:59)
[2018-12-31] MEDS: HEPARIN SOD 5,000 UNIT/0.5 ML VIAL SQ SCH ×2 (11:01→20:11)
[2018-12-31] MEDS: ACETAMINOPHEN 1,000 MG/100 ML VIAL IV PRN (13:23)
--- NOTE | 2018-12-31 14:39 | Pharmacy Report ---
Pharmacy Abx Dose Short Note - Date of Service December 31, 2018 - Assessment & Plan Assessment 83 year old M receiving vancomycin for treatment of HAP. Patient with elevated trough level after only second dose (hx of elevated troughs in the past) and is difficult to dose based on traditional pharmacokinetics. I was able to stop this mornings dose from being administered. Discussed with physician and as he would like to continue with vancomycin for today, I ordered a repeat random level in 12 hours and the need for redosing will be assessed at that time. I did order a repeat MRSA nasal swab and pct to help guide any opportunities for de- escalation. Day # 3 of antimicrobial therapy. Plan Vancomycin * Trough level of 27.5 mcg/mL is supratherapeutic * Hold vancomycin dosing pending repeat 12 hours random * May consider 1000mg X 1 if level within range * Goal trough level : 15 to 20 mcg/mL * random level ordered for: 12/31/18 @1830 Pharmacy will continue to follow and will adjust dose/frequency as necessary. Thank you.
[2018-12-31] MEDS: ASCORBIC ACID 500 MG TAB PO SCH (20:05)
[2018-12-31] MEDS ORDERED: VANCOMYCIN HCL 500 MG in SODIUM CHLORIDE 0.9% 250 ML IV ONE (20:30)
--- NOTE | 2018-12-31 23:43 | Consultation Report ---
DATE OF CONSULTATION: 12/27/2018 REASON FOR CONSULTATION: Bronchopneumonia, aspiration pneumonia. HISTORY OF PRESENT ILLNESS: An 83-year-old white male was admitted on 12/27/2018 up. He has a history of atrial fibrillation, not on anticoagulation due to previous abdominal bleeding or lower GI bleeding in 2010, also with history of hypertensive cardiovascular disease, anemia, mild thrombocytopenia, BPH, polyneuropathy, chronic venous insufficiency with spinal stenosis and history of DVT as well as a tubular adenoma status post resection, history of homocystinemia, alcohol abuse and a resident [facility]. Apparently suffers as well from dementia. While he was being transferred the day before his admission by a Michael lift, he sustained a right ulnar fracture, humeral fracture, triquetral fracture. He was placed on oxycodone for pain, became more confused and then became of apparently more dyspneic and labored with his breathing. He was transferred to the ER, had a productive cough, although he has had a cough for apparently greater than a month. He has been on antibiotics at that time. There is a question of aspiration given his history and level of dementia. A chest x-ray on admission showed a moderate right pleural effusion and extensive right basilar atelectasis with cardiomegaly. EKG showed atrial fibrillation with a rapid ventricular response and suggestion of anterior lateral ischemia. The patient was hypoxemic. He was given Lasix IV and was administered IV metoprolol and consider for IV diltiazem. He was felt to have decompensated CHF on admission. He was seen by Carlos Quan from orthopedics. There was a question of a small triquetral fracture and a right volar splint was placed on the right forearm and treated conservatively. No other fractures of the proximal humerus or distal humerous were noted or for that matter radius or ulna. On the evening of 12/30/2018, he was markedly hypoxic, placed on BiPAP and suctioned tracheally. Chest physiotherapy and acetylcysteine inhalation was used. According to the nurses, he was producing a fair amount of phlegm. He was also made a DNR as per family's wishes. I was asked to see the patient today by the hospitalist, Dr. Shawn Torre. The patient has been receiving frequent nasotracheal suctioning. The patient's level of hypoxemia has persisted and he is currently on O2 supplementation. A chest x-ray on the continues to show moderate right pleural effusion and bibasilar airspace opacities. There are no films since then. Yesterday's white count was 8500, H and H stable at 10.9 and 32.6 with macrocytic hyperchromic indices. ABGs on the pH 7.54, pCO2 of 26, pO2 of 56 on high-flow oxygen of 55 liters, creatinine 0.48. For details of past medical history, medications, family and social history, I refer you to current and past record. PHYSICAL EXAMINATION: GENERAL: Reveals a cachectic elderly white male, somewhat confused but able to carry on a conversation with me. VITAL SIGNS: Blood pressure 92/79, pulse 94 and irregular, respiratory rate 24, temperature 36.5, O2 sat 93% on high-flow. SKIN: Without lesion. HEENT: Atraumatic, normocephalic. PERRLA. LUNGS: Decreased breath sounds with dullness right base. Large adventitious breath sounds heard over the large airways. CARDIAC: Irregular regular rhythm. I do not appreciate a gallop. ABDOMEN: Soft, protuberant. No evidence of hepatosplenomegaly. EXTREMITIES: Trace pedal edema. No clubbing. Peripheral cyanosis. NEUROLOGIC: Intact. No lateralizing signs. LABORATORY DATA: Echo done during this admission showed normal left ventricular systolic function with an ejection fraction of 65%, moderate aortic stenosis. OVERALL ASSESSMENT: An 83-year-old chronic atrial fibrillation, previous trauma admitted with increased confusion and labored breathing and clearly with a moderate to large right pleural effusion with right lower lobe atelectasis, a suggestion of congestive heart failure, at least left ventricular decompensation. I suspect patient has been aspirating and that is a problem. He has had a urinary tract infection from Escherichia coli with an indwelling catheter. This was also problematic and again at a minimum we can have patient undergo diagnostic and therapeutic thoracentesis. His most recent PT, PTT, INR were normal on 12/27/2018. He is currently on IV aztreonam and vancomycin. I think we could consider bronchoscopic intervention following thoracentesis if necessary though I suspect we are dealing with a transudative effusion from congestive heart failure though a parapneumonic effusion cannot be ruled out. We will follow along with you. Thank you very much for this consultation. RAND
[2019-01-01] MEDS: LEVALBUTEROL HCL 1.25 MG/3 ML NEB NEB SCH ×5 (02:00→19:45)
[2019-01-01] MEDS: LEVOTHYROXINE SODIUM 75 MCG TABLET PO SCH (05:34)
[2019-01-01] MEDS: AZTREONAM 2,000 MG in DEXTROSE 5% 100 ML IV SCH ×3 (05:37→21:01)
[2019-01-01] MEDS: SODIUM CHLORIDE 0.9% 1000ML 1,000 ML IV SCH (06:36)
[2019-01-01] MEDS: D5W AND NSS 1,000 ML IV SCH ×2 (06:36→20:04)
[2019-01-01] MEDS: ACETYLCYSTEINE 20% INHAL SOLN ***DISPENSED BY RESP. INH SCH ×2 (06:56→19:45)
[2019-01-01 07:43] LABS: Creatinine Clr Calc Pharmacy 153.2 ml/min; Est GFR (African American) 121.3; Est GFR (Non-African American) 104.6
[2019-01-01] MEDS: BISACODYL 10 MG SUPP PR SCH ×2 (09:07→13:11)
[2019-01-01] MEDS: FUROSEMIDE 80 MG TAB PO SCH (10:11)
[2019-01-01] MEDS: PANTOprazole 40 MG TAB PO SCH (10:11)
[2019-01-01] MEDS: TAMSULOSIN HCL 0.4 MG CAP PO SCH (10:11)
[2019-01-01] MEDS: FOLIC ACID 1 MG TAB PO SCH (10:11)
[2019-01-01] MEDS: FINASTERIDE 5 MG TAB PO SCH (10:11)
[2019-01-01] MEDS: POTASSIUM CHLORIDE 20 MEQ TABCR PO SCH (10:11)
[2019-01-01] MEDS: SOD PHOSPHATE/SOD BIPHOSPHATE ENEMA 132 ML BTL PR SCH (10:12)
[2019-01-01] MEDS: METOPROLOL SUCC 50MG EXT REL TAB PO SCH (10:12)
[2019-01-01] MEDS: HEPARIN SOD 5,000 UNIT/0.5 ML VIAL SQ SCH ×2 (10:12→20:06)
[2019-01-01] MEDS: VITAMIN B COMPLEX TAB PO SCH (10:12)
[2019-01-01] MEDS ORDERED: FUROSEMIDE 40 MG/4 ML VIAL IV STA (11:06)
--- NOTE | 2019-01-01 11:08 | Procedure Note ---
Procedure Note Date of Service January 01, 2019 Note INDICATION: Hypoxia PROCEDURE: Right-sided thoracentesis DATE:01/01/2019 TIME: 10:40 AM PROVIDER: Ryan George PA-C CONSENT: Was obtained prior to the procedure by Dr. Hodgson and placed on the chart PROCEDURE SUMMARY: Bedside ultra sound was performed to identify an appropriate puncture site. Images were saved to the [email or web address] system. A time out was performed. The patient was prepped and draped in a sterile manner using chlorhexidine scrub after the appropriate level was confirmed by ultrasound. 1% lidocaine was used to numb the region. A finder needle was then used under negative pressure to locate fluid and instill The remainder of the 10 mL of 1% lidocaine into the pleural space. A small incision was made with a #10 scalpel. A needle with overlying catheter was advanced using negative pressure on the syringe until a pleural flash was obtained. The thoracentesis catheter was then threaded without difficulty and without any bleeding. The patient had 1600 mL of Apple cider colored fluid removed. The incision site was then covered with two Band-Aids with no evidence of bleeding. No immediate complications were noted during the procedure. Dr. Hodgson and Dr. Torre were contacted after the procedure with results. A post-procedure chest x-ray was completed and reviewed at bedside by this provider and no pneumothorax was identified. The patient tolerated the procedure well with no shortness of breath, no hypotension, no increase in heart rate, and no other acute symptoms.
[2019-01-01] MEDS ORDERED: LEVOTHYROXINE SODIUM 37.5 MCG in SYRINGE 0 ML IV ONE (11:15)
--- NOTE | 2019-01-01 11:18 | XRay Report ---
XR chest 1V portable CLINICAL HISTORY: Thoracentesis COMPARISON STUDY: 12/29/2018 FINDINGS: Interval right sided thoracentesis. Interval decrease in volume of right effusion. Unchangi ng parenchymal infiltrative change left base. IMPRESSION: Interval right thoracentesis with no significant postprocedural pneumothorax. The above report was generated using voice recognition software. It may contain grammatical, syntax or spelling errors. Electronically signed by: Harish Vivar M.D. 01/01/2019 11:16 AM
[2019-01-01 12:10] LABS: Glucose Pleural Fluid 73 mg/dl
[2019-01-01 12:16] LABS: Appearance Pleural Fluid CLEAR; Color Pleural Fluid PALE YELLOW; Mononuclear WBC Pleural 53.7 %; Polynuclear WBC Pleural 46.3 %; RBC Pleural Fluid (A) < 3000 /uL; Source Pleural Fluid RIGHT LUNG; WBC Pleural Fluid (A) 165 /uL
[2019-01-01] MEDS: FUROSEMIDE 40 MG in SYRINGE 0 ML IV SCH ×2 (12:18→20:06)
[2019-01-01 12:25] LABS: Amylase Pleural Fluid 22 U/L; Total Protein Pleural Fluid 3.7 g/dl
[2019-01-01 15:31] LABS: Base Excess VBG -2.7 mEq/L; Oxygen Saturation VBG 61.3 %; pH VBG 7.4 (7.36-7.41)
[2019-01-01 16:12] LABS: BUN Creatinine Ratio 70.7 (10-20); Calcium 8.3 mg/dl (8.5-10.1); Est GFR (African American) 110.1; Potassium 3.3 mmol/L (3.5-5.1)
[2019-01-01 16:34] LABS: LDH Pleural Fluid 96 U/L
[2019-01-01] MEDS: methylPREDNISolone 40 MG in SYRINGE 0 ML IV SCH (17:45)
[2019-01-01] MEDS: POTASSIUM CHLORIDE / WTR 10 MEQ/100 ML PLCT IV SCH ×2 (17:47→19:02)
--- NOTE | 2019-01-01 17:47 | Progress Note ---
DATE: 01/01/2019 Chart reviewed, patient examined. SUBJECTIVE: The patient was status post thoracentesis. We removed 1500 mL of fluid and although the patient states he felt better he sounds worse clinically and has been desaturating on high flow O2. CURRENT VITAL SIGNS: Blood pressure 123/91, pulse 103 and regular, respiratory rate 24, temperature 36.7, O2 sat 88-94% on high-flow O2. SKIN: Without lesion. HEENT: Atraumatic. LUNGS: Coarse rhonchi and wheezes. CARDIAC: Tachycardic rhythm. No S3. ABDOMEN: Soft, protuberant. EXTREMITIES: Trace pedal edema. No clubbing. Peripheral cyanosis. NEUROLOGIC: Intact. Dementia is noted. No lateralizing signs. Chest x-ray post-thoracentesis showed no evidence for pneumothorax, less fluid seen on the right side, but there is still an area of unchanged parenchymal infiltrate at the left base. OVERALL ASSESSMENT: 83-year-old with a complex medical history probable chronic aspiration, status post thoracentesis with continued respiratory distress and hypoxemia. PLAN: Continue IV diuresis. Will add IV Solu-Medrol to patient's regimen to see if we can break some of his bronchospasm though patient's prognosis remains poor.
[2019-01-01] MEDS: ASCORBIC ACID 500 MG TAB PO SCH (20:06)
--- NOTE | 2019-01-01 21:16 | Hospitalist Progress Note ---
Date of Service January 01, 2019 Assessment & Plan (1) Acute respiratory failure with hypoxia: Patient has significant distress in the evening of 12/29 with marked hypoxia for approximately 10-15 minutes. On 12/31, patient continues to be aspirating overnight. With chest vibration, he is able to cough up large amounts of mucous. On 01/01, thoracocenthesis was performed and appears to be clear yellow fluid. will continue on aztreonam but will stop vanco. continue with chest physiotherapy. Patient required high flow oxygen to sustain oxygen saturations. High flow oxygen is causing difficulty with speech eval. (2) Atrial fibrillation with RVR: patient is returned to rate control with metoprolol succinate 50 mg daily, lasix 80 mg BID . Pt is not on anticoagulation for hx of GI bleed. Patient had some tachycardia when he is in acute respiratory failure with hypoxia from mucous plugging and pneumonia. PRN metoprolol was offered (3) Right distal ulnar fracture: Orthopedics has seen the patient has placed a cockup type splint in place will see the patient in 1 week (4) Triquetral fracture: - Xray imaging reviewed: Hip tibia/fibula left negative. Ribs bilateral negative for fractures. Demonstates small right pleural effusion as previously. Shoulder, left no acute fractures. Elbow left, negative. Humerus left, negative. Forearm left, negative. Wrist left, negative. Shoulder right: lateral humeral head suspicious for nondisplaced fracture of unknown age. Humerus, right: Lateral head with fracture of unknown age. R. forearm: assumed recent fracture with mild displacement of the distal ulnar shaft. No fx of the radius. Wrist, right, assumed triquetral and navicular fracture. Elbow Right: +anterior fat pad, fracture of proximal radius and distal humerus -Continue to avoid narcotics as this appears to make the pt more confused- use tylenol around the clock, tramadol as needed - Immobilize extremity until orthopedic eval with sling. (5) Anemia: - Chronic, this is anemia of chronic disease (6) Pleural effusion on right: - CXR reviewed and shows right sided pleural effusion, small. Continue lasix 80 mg PO BID. patient likely may have an aspiration pneumonia at the right base also as his clinical status is worsened throughout the last few days Patient had thoracocenthesis. Will monitor, may need bronch, will defer to pulmonary. (7) BPH (benign prostatic hyperplasia): - Continue flomax patient did require Snowden catheter placement to urinate in the hospital, cultures of his urine now show E. coli which should be treated by the aztreonam (8) Benign essential HTN: - Continue antihypertensives as above. (9) Spinal stenosis: - Chronic, stable. This limits his ability to be mobile he frequently sits in a wheelchair and needs a Michael lift movement and out of bed Spent 35 minutes in management of patient: included chart review, patient encounter, discussion with consultants. Subjective Pleasant 83 yo male, reports no significant change from yesterday, only that he feels somewhat better after thoracocenthesis Patient continues to require oxygen via high flow. In the afternoon, I was called again by nurse as patient was having hallucinations. When questioned though, patient was awake alert and oriented. Unable to obtain ROS. Physical Exam Vital Signs (Past 24 Hours): Last Vital Signs Temp 37.0 C 01/01/19 19:40 Pulse 112 H 01/01/19 19:51 Resp 22 01/01/19 19:51 BP 117/94 01/01/19 19:40 Pulse Ox 95 01/01/19 19:51 Physical Exam: The patient appeared chronically ill, tachypnic. Not is distress Vital signs as documented. On high flow oxygen Head exam is unremarkable. normocephalic, atraumatic Neck is without jugular venous distension, thyromegaly, or lymphademopathy Lungs: tachypnic, no longer using accesory muslces to breath. sounds are clearer with some rhonchi. Cardiac exam reveals irregularly irregular and tachycardic at times with a systolic murmur. First and second heart sounds normal. Abdominal exam reveals normal bowel sounds, no masses, no organomegaly Extremities are moderately edematous bruising to his lower extremities Neurologic exam is AA Ox1, no focal deficits, strength is equal bilateral globally diminished Skin is warm Dry
[2019-01-02] MEDS: LEVALBUTEROL HCL 1.25 MG/3 ML NEB NEB SCH ×4 (01:41→19:43)
[2019-01-02] MEDS: methylPREDNISolone 40 MG in SYRINGE 0 ML IV SCH ×2 (04:11→16:39)
[2019-01-02] MEDS: AZTREONAM 2,000 MG in DEXTROSE 5% 100 ML IV SCH ×3 (05:22→22:07)
[2019-01-02] MEDS: ACETYLCYSTEINE 20% INHAL SOLN ***DISPENSED BY RESP. INH SCH ×2 (06:53→19:43)
[2019-01-02 07:05] LABS: Est GFR (African American) 107.8
[2019-01-02 07:06] LABS: Creatinine Clr Calc Pharmacy 114.3 ml/min
[2019-01-02] MEDS: FOLIC ACID 1 MG TAB PO SCH (07:21)
[2019-01-02] MEDS: TAMSULOSIN HCL 0.4 MG CAP PO SCH (07:21)
[2019-01-02] MEDS: FINASTERIDE 5 MG TAB PO SCH (07:21)
[2019-01-02] MEDS: VITAMIN B COMPLEX TAB PO SCH (07:22)
[2019-01-02] MEDS: FUROSEMIDE 40 MG in SYRINGE 0 ML IV SCH ×2 (09:30→20:48)
[2019-01-02] MEDS: LEVOTHYROXINE SODIUM 37.5 MCG in SYRINGE 0 ML IV SCH (09:30)
[2019-01-02] MEDS: HEPARIN SOD 5,000 UNIT/0.5 ML VIAL SQ SCH ×2 (09:30→20:47)
[2019-01-02] MEDS: D5W AND NSS 1,000 ML IV SCH ×2 (10:12→20:47)
[2019-01-02] MEDS: SOD PHOSPHATE/SOD BIPHOSPHATE ENEMA 132 ML BTL PR SCH (11:22)
[2019-01-02 12:39] LABS: Hematocrit (blood only) 37.3 % (42-52); Hemoglobin 12.4 g/dL (14.0-18.0); Mean Corpuscular Hgb Conc 33.2 g/dL (32-36); Mean Corpuscular Volume 106.6 fL (80-100); Mean Platelet Volume 10.2 fL (7.4-10.4); Platelet Count 141 K/uL (130-400); RDW Coefficient of Variation 15.5 % (11.5-14.5); RDW Standard Deviation 60.4 fL (36.4-46.3); White Blood Count 3.98 K/uL (4.8-10.8)
[2019-01-02 13:27] LABS: Albumin Level 2.1 gm/dl (3.4-5.0); Bilirubin,Total 0.6 mg/dl (0.2-1); Total Protein 6.5 gm/dl (6.4-8.2)
[2019-01-02 14:28] LABS: Base Excess VBG 1.6 mEq/L; HCO3 VBG 26 mmol/L; Oxygen Saturation VBG < 60.0 %; PCO2 VBG 41 mmHg (38-50); PO2 VBG 27 mmHg; pH VBG 7.42 (7.36-7.41)
[2019-01-02] MEDS: PANTOprazole 40 MG in SYRINGE 0 ML IV SCH (14:30)
--- NOTE | 2019-01-02 14:36 | Progress Note ---
DATE: 01/02/2019 PULMONARY MEDICINE PROGRESS NOTE Chart reviewed, the patient examined. SUBJECTIVE: The patient remains congested and disoriented at times. He has required occasional FIO2 supplementation. OBJECTIVE: CURRENT VITAL SIGNS: Blood pressure 118/82, pulse 90 and regular, respiratory rate 26, temperature 36.6, O2 sat 94% on 55 liters per minute at 60% FIO2 supplementation. SKIN: Without lesion. HEENT: Atraumatic. LUNGS: Coarse rhonchi, decreased breath sounds, right base. CARDIAC: Regular rate and rhythm. I do not appreciate a gallop. ABDOMEN: Soft, protuberant. EXTREMITIES: Trace pedal edema. No clubbing. Peripheral cyanosis. NEUROLOGIC: Intact. No lateralizing signs. LABORATORY DATA: White count 3900, H and H 12.4 and 37.3, hyperchromic macrocytic indices. The pleural fluid had a pH of 7.39, total protein 3.7. LDH 96. Cultures pending. Looks like it is a sterile exudate. OVERALL ASSESSMENT: An 83-year-old with a combination of chronic obstructive pulmonary disease, aspiration pneumonia with probable parapneumonic effusion versus exudate from chronic CHF. Unfortunately, the patient does not appear to have responded the way we would have liked from a thoracentesis. The patient does have aortic valvular disease, but of moderate severity. I would continue current therapy including the IV Solu-Medrol for now. I do not think the patient would tolerate bronchoscopic intervention and would continue diuresing patient on a b.i.d. schedule with careful attention to the patient's renal status. We will follow along with you. Overall prognosis guarded to poor.
[2019-01-02] MEDS: ASCORBIC ACID 500 MG TAB PO SCH (20:53)
--- NOTE | 2019-01-02 22:41 | Hospitalist Progress Note ---
Date of Service January 02, 2019 Assessment & Plan (1) Acute respiratory failure with hypoxia: Patient has significant distress in the evening of 12/29 with marked hypoxia for approximately 10-15 minutes. On 12/31, patient continues to be aspirating overnight. With chest vibration, he is able to cough up large amounts of mucous. On 01/01, thoracocenthesis was performed and appears to be clear yellow fluid. will continue on aztreonam but will stop vanco. continue with chest physiotherapy. Patient required high flow oxygen to sustain oxygen saturations. On 01/02, patient does not appear to be improving as we had hoped as he continues to require significant oxygen requirements. Holding off speech eval as patient is on high flow. Patient will be on diuretics and steroids. High flow oxygen is causing difficulty with speech eval. (2) Atrial fibrillation with RVR: patient is returned to rate control with metoprolol succinate 50 mg daily, lasix 80 mg BID . Pt is not on anticoagulation for hx of GI bleed. Patient had some tachycardia when he is in acute respiratory failure with hypoxia from mucous plugging and pneumonia. PRN metoprolol was offered (3) Right distal ulnar fracture: Orthopedics has seen the patient has placed a cockup type splint in place will see the patient in 1 week (4) Triquetral fracture: - Xray imaging reviewed: Hip tibia/fibula left negative. Ribs bilateral negative for fractures. Demonstates small right pleural effusion as previously. Shoulder, left no acute fractures. Elbow left, negative. Humerus left, negative. Forearm left, negative. Wrist left, negative. Shoulder right: lateral humeral head suspicious for nondisplaced fracture of unknown age. Humerus, right: Lateral head with fracture of unknown age. R. forearm: assumed recent fracture with mild displacement of the distal ulnar shaft. No fx of the radius. Wrist, right, assumed triquetral and navicular fracture. Elbow Right: +anterior fat pad, fracture of proximal radius and distal humerus -Continue to avoid narcotics as this appears to make the pt more confused- use tylenol around the clock, tramadol as needed - Immobilize extremity until orthopedic eval with sling. (5) Anemia: - Chronic, this is anemia of chronic disease (6) Pleural effusion on right: - CXR reviewed and shows right sided pleural effusion, small. Continue lasix 80 mg PO BID. patient likely may have an aspiration pneumonia at the right base also as his clinical status is worsened throughout the last few days Patient had thoracocenthesis. Will monitor, bronch is held as this may put patient at risk of respiratory failure and pulverizer operator does not feel patient will tolerate procedure. This was explained to the . (7) BPH (benign prostatic hyperplasia): - Continue flomax patient did require Snowden catheter placement to urinate in the hospital, cultures of his urine now show E. coli which should be treated by the aztreonam (8) Benign essential HTN: - Continue antihypertensives as above. (9) Spinal stenosis: - Chronic, stable. This limits his ability to be mobile he frequently sits in a wheelchair and needs a Michael lift movement and out of bed Spent 35 minutes in management of patient: included chart review, patient encounter, discussion with consultants. Subjective Pleasant 83 yo male appears florencia more leathrgic today. Not providing signifciant history. he did awaken later in the day but began to hallucinate again. He did state that he woud like to go home. Unable to obtain ROS. Physical Exam Vital Signs (Past 24 Hours): Last Vital Signs Temp 36.9 C 01/02/19 19:28 Pulse 95 H 01/02/19 19:44 Resp 22 01/02/19 19:44 BP 137/87 01/02/19 19:28 Pulse Ox 93 01/02/19 19:44 Physical Exam: The patient appeared chronically ill, tachypnic. Not is distress Vital signs as documented. On high flow oxygen Head exam is unremarkable. normocephalic, atraumatic Neck is without jugular venous distension, thyromegaly, or lymphademopathy Lungs: tachypnic, no longer using accesory muslces to breath. sounds are clearer with some rhonchi. Cardiac exam reveals irregularly irregular and tachycardic at times with a systolic murmur. First and second heart sounds normal. Abdominal exam reveals normal bowel sounds, no masses, no organomegaly Extremities are moderately edematous bruising to his lower extremities Neurologic exam is AA Ox1, no focal deficits, strength is equal bilateral globally diminished Skin is warm Dry
[2019-01-03] MEDS: LEVALBUTEROL HCL 1.25 MG/3 ML NEB NEB SCH ×4 (02:12→19:17)
[2019-01-03] MEDS: methylPREDNISolone 40 MG in SYRINGE 0 ML IV SCH ×2 (03:47→16:02)
[2019-01-03] MEDS: AZTREONAM 2,000 MG in DEXTROSE 5% 100 ML IV SCH ×3 (05:27→21:30)
[2019-01-03] MEDS: ACETYLCYSTEINE 20% INHAL SOLN ***DISPENSED BY RESP. INH SCH (07:08)
[2019-01-03] MEDS: TAMSULOSIN HCL 0.4 MG CAP PO SCH (09:11)
[2019-01-03] MEDS: VITAMIN B COMPLEX TAB PO SCH (09:11)
[2019-01-03] MEDS: FOLIC ACID 1 MG TAB PO SCH (09:11)
[2019-01-03] MEDS: LEVOTHYROXINE SODIUM 37.5 MCG in SYRINGE 0 ML IV SCH (09:18)
[2019-01-03] MEDS: FUROSEMIDE 40 MG in SYRINGE 0 ML IV SCH ×2 (09:19→21:02)
[2019-01-03] MEDS: HEPARIN SOD 5,000 UNIT/0.5 ML VIAL SQ SCH ×2 (09:19→20:55)
[2019-01-03] MEDS: FINASTERIDE 5 MG TAB PO SCH (09:24)
[2019-01-03] MEDS: BISACODYL 10 MG SUPP PR SCH (09:25)
[2019-01-03] MEDS: SOD PHOSPHATE/SOD BIPHOSPHATE ENEMA 132 ML BTL PR SCH (11:50)
[2019-01-03] MEDS: PANTOprazole 40 MG in SYRINGE 0 ML IV SCH (12:31)
--- NOTE | 2019-01-03 15:08 | Palliative Care Progress Note ---
Date of Service January 03, 2019 Subjective Met with patient and today. They both have memory issues. , Korina, asked that we set up family meeting for tomorrow so her son, Oj, can be present. Called Oj, family meeting tomorrow at 1100. Of note, palliative care met with patient's and daughter, Barb, in May 2017. POLST form was done at that time which stated DNR, limited additional interventions, limited use of abx with comfort as the goal, and trial period of IVF but no feeding tube. Physical Exam Vital Signs (Past 24 Hours): Last Vital Signs Temp 37 C 01/03/19 11:32 Pulse 97 H 01/03/19 14:01 Resp 24 01/03/19 14:01 BP 123/87 01/03/19 11:32 Pulse Ox 92 01/03/19 14:01
[2019-01-03] MEDS: ASCORBIC ACID 500 MG TAB PO SCH (21:02)
[2019-01-04] MEDS: LEVALBUTEROL HCL 1.25 MG/3 ML NEB NEB SCH ×3 (01:48→13:52)
[2019-01-04] MEDS: methylPREDNISolone 40 MG in SYRINGE 0 ML IV SCH (04:14)
[2019-01-04] MEDS: AZTREONAM 2,000 MG in DEXTROSE 5% 100 ML IV SCH ×2 (05:44→14:04)
[2019-01-04 08:12] LABS: Hematocrit (blood only) 36.6 % (42-52); Mean Corpuscular Hgb Conc 32.8 g/dL (32-36); Mean Corpuscular Volume 104.6 fL (80-100); Mean Platelet Volume 10.2 fL (7.4-10.4); Platelet Count 140 K/uL (130-400); RDW Coefficient of Variation 15.6 % (11.5-14.5); White Blood Count 4.31 K/uL (4.8-10.8)
[2019-01-04 08:34] LABS: BUN Creatinine Ratio 82.2 (10-20); Calcium 8.1 mg/dl (8.5-10.1); Creatinine Clr Calc Pharmacy 93.9 ml/min; Est GFR (African American) 99.4; Est GFR (Non-African American) 85.8; Potassium 2.8 mmol/L (3.5-5.1)
[2019-01-04] MEDS: BISACODYL 10 MG SUPP PR SCH (09:18)
[2019-01-04] MEDS: LEVOTHYROXINE SODIUM 37.5 MCG in SYRINGE 0 ML IV SCH (09:54)
[2019-01-04] MEDS: POTASSIUM CHLORIDE / WTR 10 MEQ/100 ML PLCT IV SCH ×3 (09:54→14:04)
[2019-01-04] MEDS: FUROSEMIDE 40 MG in SYRINGE 0 ML IV SCH (09:55)
[2019-01-04] MEDS: HEPARIN SOD 5,000 UNIT/0.5 ML VIAL SQ SCH (09:55)
[2019-01-04] MEDS: FINASTERIDE 5 MG TAB PO SCH (09:57)
[2019-01-04] MEDS: TAMSULOSIN HCL 0.4 MG CAP PO SCH (09:57)
[2019-01-04] MEDS: FOLIC ACID 1 MG TAB PO SCH (09:57)
[2019-01-04] MEDS: VITAMIN B COMPLEX TAB PO SCH (09:57)
--- NOTE | 2019-01-04 10:29 | Palliative Care Consultation ---
Date of Consultation January 04, 2019 Assessment & Plan (1) Palliative care encounter: This is an 83 year old gentleman, resident of [facility], who presented to the [facility] s/p fall on December 26, 2018. Upon evaluation, a R ulnar and humeral fracture was discovered with a triquentral fracture as well. Orthopedics evaluated the patient and a cockup splint was placed with a goal to follow up with the patient as an outpatient. The patient also was noted to have a right pleural effusion for which a thoracentesis was performed on 01/01 with 1500mL clear yellow fluid drained. The patient is known to have chronic aspiration. Additional PMH includes rapid AF (not on anti-coagulants d/t GOB in 2010), anemia, thrombocytopenia, BPH, spinal stenosis, DVT, tubular adenoma s/p resection, homocystinemia. Palliative Care was consulted to discuss GOALS OF CARE. -As patient and patient both have memory impairment, a family meeting has been arranged with the patient's son, Oj [phone] (c), (h), (w) and [phone] (c), (h), (w). I met with the patient , and two sons in the family meeting room in the MICU. -The patient moved to [facility] in 2016 and was really doing well and transitioned well to the new living situation. His agrees that the transition went well for both of them. -A previous POLST form has been filled out in the past, indicating DNR and now they would like to fully transition him to comfort measures, which I reflected and the pt signed in the new POLST. -They do understand that the fluid in his lung likely may return, but he has only had one thoracentesis on 01/01 for 1500mL removed, so timeframe is unknown. -IV access has been challenging and a PICC line was consented to and planned for today for electrolyte replacement; however, the family is declining this and would like to trial po if possible - if the patient does not tolerate, this is ok with them. -There are 3 other adult children: Laura in [place], Barb in [place], and Buddy in [place]. The patient is the legal POA and sonLenard is her POA. -We discussed that [facility] is unable to accept the patient on Hi-Flow O2; however, the patient de-saturates quite quickly off of the Hi-Flow; therefore, when family arrives, and we discontinue the Hi-Flow, we can assess how he responds and entertain a return to [facility] should he stabilize, which is not anticipated. -We will move forward in discontinuing all blood draws, cardiac monitoring, etc with a transition to a non monitored unit and once the other siblings arrive, discontinue the Hi-Flow O2. -We discussed Hospice and a list of agencies was provided to the sons, along with my card and they did chose [facility] for which Alice from [facility] was made aware and will work on a referral for inpatient review and support for the family. -I did offer a conference call with the other siblings and they declined, which I am comfortable with as I have the POA present. -I did discuss this with the Hospitalist who is in support of the transition. -I did discuss anticipated progression and set expectation that he likely will pass quickly due to his O2 requirements and desaturations off of the O2. I also educated them on the comfort medications that would be ordered. -I will order Roxanol 10 mg po/sl Q2 PRN for air hunger/pain and Atropine 1% Administer 4 drops Q2 for secretions to administer once family is here and they decide to take the oxygen off, likely over the weekend. -Palliative Performance Scale: 20% (2) Acute respiratory failure with hypoxia: -Patient with aspiration PNA and frequent aspiration -Currently receiving steroids and Aztreonam -IV access has been complicated and a PICC line was planned for today; however, the family has decided not to pursue a PICC line. (3) Spinal stenosis: -Patient with spinal stenosis which led to the transition of moving to [facility] due to falls r/t the stenosis -Pt did receive Oxycodone for pain; however, this made his more confused. -Ordering Roxanol for him to receive with full comfort measure transition. (4) Right distal ulnar fracture: Managed by Orthopedics -Confirmed R ulnar and humeral fracture and triquentral fracture -Oxycodone was prescribed for pain; however, patient became increasingly confused -Patient has Tylenol 650 mg Q4 PRN for pain and Ofirmev 1G Q 8 PRN for pain, will schedule the oral Tylenol 650 mg po TID -Follow up planned with orthopedics as an OPT upon discharge; however, patient family transitioning to comfort. (5) Atrial fibrillation with RVR: Managed by Hospitalists -Patient currently rate controlled with Metoprolol 50mg po BID -Continue with current medications until additional family arrives. Supervising Physician Co-Signing Physician Notes Chart reviewed, patient seen and examined, collaborated with DANIEL Farias No family at bedside this afternoon. Patient awake, alert, able to answer simple questions with nodding. Patient currently on high flow nasal cannula. Patient denied any discomfort. PE: Appears comfortable HEENT: EOMI, hearing within normal limits Respiratory: Unlabored, on high flow nasal cannula, coarse breath sounds bilaterally CV: Tachycardic Abdomen: Soft nontender Agree with above note, assessment and plan as per DANIEL Farias. Plan is to discontinue high flow nasal cannula once other family members arrive. Plan is to transition to comfort care. Will continue to follow and provide support with medical decision making as well as support family emotionally History of Present Illness Reason for Consultation: GOALS OF CARE Requesting Physician: Dr. Torre Attending Physician: Shawn Torre History of Present Illness This is an 83 year old gentleman, resident of [facility], who presented to the [facility] s/p fall on December 26, 2018. Upon evaluation, a R ulnar and humeral fracture was discovered with a triquentral fracture as well. Orthopedics evaluated the patient and a cockup splint was placed with a goal to follow up with the patient as an outpatient. The patient also was noted to have a right pleural effusion for which a thoracentesis was performed on 01/01 with clear yellow fluid drained. The patient is known to have chronic aspiration. Additional PMH includes rapid AF (not on anti-coagulants d/t GOB in 2010), anemia, thrombocytopenia, BPH, spinal stenosis, DVT, tubular adenoma s/p resection, homocystinemia. Palliative Care was consulted to discuss GOALS OF CARE. Please see Assessment and Plan for details. Thank you kindly for the referral of this patient, we will follow accordingly. Allergies Allergy/AdvReac Type Severity Reaction Status Date / Time amoxicillin Allergy Unknown . Verified 12/27/18 12:19 cefuroxime Allergy Unknown . Verified 12/27/18 12:19 clavulanic acid Allergy Unknown . Verified 12/27/18 12:19 enoxaparin Allergy Unknown . Verified 12/27/18 12:19 levofloxacin Allergy Unknown . Verified 12/27/18 12:19 Sulfa (Sulfonamide Allergy Unknown . Verified 12/27/18 12:19 Antibiotics) Home Medications Home Medications Medication Instructions Recorded Confirmed Type folic acid 1 mg PO DAILY #0 tab 10/25/16 12/27/18 History vitamin B complex 1 tab PO DAILY #0 10/25/16 12/27/18 History acetaminophen 650 mg PO Q6H PRN #0 05/16/17 12/27/18 History loratadine 10 mg PO DAILY #0 05/16/17 12/27/18 History metoprolol succinate 50 mg PO DAILY #0 05/16/17 12/27/18 History finasteride 5 mg PO DAILY #0 tab 05/31/17 12/27/18 History methenamine hippurate 1 g PO DAILY #0 05/31/17 12/27/18 History tamsulosin 0.4 mg PO DAILY #0 cap 05/31/17 12/27/18 History ipratropium-albuterol 3 ml INHALATION Q6H PRN #0 06/19/17 12/27/18 History furosemide 80 mg PO BID #0 09/21/17 12/27/18 History magnesium hydroxide [Milk of 30 ml PO DAILY PRN #0 09/21/17 12/27/18 History Magnesia] pantoprazole 40 mg PO DAILY #0 09/21/17 12/27/18 History ascorbic acid (vitamin C) 500 mg PO HS 12/27/18 12/27/18 History bisacodyl [Dulcolax (bisacodyl)] 10 mg VA DAILY 12/27/18 12/27/18 History levothyroxine 75 mcg PO DAILY 12/27/18 12/27/18 History oxycodone 5 mg PO Q4H PRN 12/27/18 12/27/18 History oxycodone 10 mg PO Q4H PRN 12/27/18 12/27/18 History potassium chloride 20 meq PO QPM 12/27/18 12/27/18 History potassium chloride 40 meq PO QAM 12/27/18 12/27/18 History sodium phosphates [Fleet Enema] 118 ml VA DAILY 12/27/18 12/27/18 History Patient History Medical History Thrombocytopenia Spinal stenosis Benign essential HTN BPH (benign prostatic hyperplasia) Triquetral fracture Right distal ulnar fracture Atrial fibrillation with RVR (Acute) Pleural effusion on right (Acute) Anemia Bilateral lower extremity pain DVT, bilateral lower limbs GI bleed (Acute) Hypotension (Acute) Symptomatic anemia (Acute) Surgical History Previous back surgery S/P IVC filter Family History Other Family history non-contributory Social History Communication Ability: Impaired Beliefs That Will Affect Care: Yarsani Current Living Situation: [facility] Current Living Situation Comment: [facility] Other Information That Helps Us Care for You: No Feels Safe at Home: Yes Safety Concerns: Feels Safe At This Time Smoking Status: Never smoker Hx Alcohol Use: No Hx Substance Use: No Physical Exam Vital Signs (Past 24 Hours): Last Vital Signs Temp 36.4 C L 01/04/19 08:01 Pulse 93 H 01/04/19 08:01 Resp 23 01/04/19 08:01 BP 136/94 01/04/19 08:01 Pulse Ox 91 01/04/19 08:01 Constitutional: + ill appearing Eyes: PERRL, conjunctivae normal, anicteric sclerae ENMT: external ear and nose normal, oropharynx normal Respiratory: + respiratory distress Auscultation: + rales Cardiovascular: Heart Sounds: normal S1, normal S2, + abnormal opening sounds and + murmur Extremities: + edema (generalized) Gastrointestinal (Abdomen): normal bowel sounds, soft, nontender, no hepatosplenomegaly Skin: + turgor decreased Psychiatric: Orientation: alert and oriented to person Time Spent Midlevel Total time spent 100 minutes with > 50% of that time spent reviewing the chart, assessing the patient, having a family meeting with the patient and two sons, along with completing a POLST form in the family meeting.
[2019-01-04] MEDS: SOD PHOSPHATE/SOD BIPHOSPHATE ENEMA 132 ML BTL PR SCH (11:37)
--- NOTE | 2019-01-04 13:56 | Hospitalist Progress Note ---
Date of Service January 03, 2019 Assessment & Plan (1) Acute respiratory failure with hypoxia: Patient has significant distress in the evening of 12/29 with marked hypoxia for approximately 10-15 minutes. On 12/31, patient continues to be aspirating overnight. With chest vibration, he is able to cough up large amounts of mucous. On 01/01, thoracocenthesis was performed and appears to be clear yellow fluid. will continue on aztreonam but will stop vanco. continue with chest physiotherapy. Patient required high flow oxygen to sustain oxygen saturations. On 01/02, patient does not appear to be improving as we had hoped as he continues to require significant oxygen requirements. Holding off speech eval as patient is on high flow. Patient will be on diuretics and steroids. On 01/03, patient appears to be improving very slowly today as his oxyegn reuqirements are better. But in the long run, I am not optimistic if we can take him off the high flow oxygen. Awaiting input from palliative case. High flow oxygen is causing difficulty with speech eval. (2) Atrial fibrillation with RVR: patient is returned to rate control with metoprolol succinate 50 mg daily, lasix 80 mg BID . Pt is not on anticoagulation for hx of GI bleed. Patient had some tachycardia when he is in acute respiratory failure with hypoxia from mucous plugging and pneumonia. PRN metoprolol was offered (3) Right distal ulnar fracture: Orthopedics has seen the patient has placed a cockup type splint in place will see the patient in 1 week (4) Triquetral fracture: - Xray imaging reviewed: Hip tibia/fibula left negative. Ribs bilateral negative for fractures. Demonstates small right pleural effusion as previously. Shoulder, left no acute fractures. Elbow left, negative. Humerus left, negative. Forearm left, negative. Wrist left, negative. Shoulder right: lateral humeral head suspicious for nondisplaced fracture of unknown age. Humerus, right: Lateral head with fracture of unknown age. R. forearm: assumed recent fracture with mild displacement of the distal ulnar shaft. No fx of the radius. Wrist, right, assumed triquetral and navicular fracture. Elbow Right: +anterior fat pad, fracture of proximal radius and distal humerus -Continue to avoid narcotics as this appears to make the pt more confused- use tylenol around the clock, tramadol as needed - Immobilize extremity until orthopedic eval with sling. (5) Anemia: - Chronic, this is anemia of chronic disease (6) Pleural effusion on right: - CXR reviewed and shows right sided pleural effusion, small. Continue lasix 80 mg PO BID. patient likely may have an aspiration pneumonia at the right base also as his clinical status is worsened throughout the last few days Patient had thoracocenthesis. Will monitor, bronch is held as this may put patient at risk of respiratory failure and research specialist does not feel patient will tolerate procedure. This was explained to the . (7) BPH (benign prostatic hyperplasia): - Continue flomax patient did require Snowden catheter placement to urinate in the hospital, cultures of his urine now show E. coli which should be treated by the aztreonam (8) Benign essential HTN: - Continue antihypertensives as above. (9) Spinal stenosis: - Chronic, stable. This limits his ability to be mobile he frequently sits in a wheelchair and needs a Michael lift movement and out of bed Spent 35 minutes in management of patient: included family discussion, patient encounter, discussion with consultants. Subjective Pleasant 83 yo male appears to be somehwat more awake and is requiring less oxygen. is at bedside. Unable to obtain ROS. Physical Exam Vital Signs (Past 24 Hours): Last Vital Signs Temp 37 C 01/03/19 11:32 Pulse 87 01/03/19 11:32 Resp 22 01/03/19 11:32 BP 123/87 01/03/19 11:32 Pulse Ox 95 01/03/19 11:32 Physical Exam: The patient appeared chronically ill, tachypnic. Not is distress Vital signs as documented. On high flow oxygen Head exam is unremarkable. normocephalic, atraumatic Neck is without jugular venous distension, thyromegaly, or lymphademopathy Lungs: tachypnic, no longer using accesory muslces to breath. sounds are clearer with some rhonchi. Cardiac exam reveals irregularly irregular and tachycardic at times with a systolic murmur. First and second heart sounds normal. Abdominal exam reveals normal bowel sounds, no masses, no organomegaly Extremities are moderately edematous bruising to his lower extremities Neurologic exam is AA Ox1, no focal deficits, strength is equal bilateral globally diminished Skin is warm Dry
[2019-01-04] MEDS: PANTOprazole 40 MG in SYRINGE 0 ML IV SCH (14:33)
[2019-01-04] MEDS: ATROPINE SULFATE 1% OP SOLN 2 ML BTL SL PRN (20:32)
--- NOTE | 2019-01-04 23:09 | Hospitalist Progress Note ---
Date of Service January 04, 2019 Assessment & Plan (1) Acute respiratory failure with hypoxia: Patient during hospital stay has not exhibited improvement as we had hoped despite thoracocenthesis. Family had meeting with palliative care and agreed on tranisitioning patient to hospice [facility]. Will remove all meds and continue high flow for another day. Will not do any blood draws. Once family arrives tomorrow, will remove high flow oxygen. (2) Atrial fibrillation with RVR: as noted above. will stop medicine (3) Right distal ulnar fracture: Orthopedics has seen the patient has placed a cockup type splint in place (4) Triquetral fracture: - Xray imaging reviewed: Hip tibia/fibula left negative. Ribs bilateral negative for fractures. Demonstates small right pleural effusion as previously. Shoulder, left no acute fractures. Elbow left, negative. Humerus left, negative. Forearm left, negative. Wrist left, negative. Shoulder right: lateral humeral head suspicious for nondisplaced fracture of unknown age. Humerus, right: Lateral head with fracture of unknown age. R. forearm: assumed recent fracture with mild displacement of the distal ulnar shaft. No fx of the radius. Wrist, right, assumed triquetral and navicular fracture. Elbow Right: +anterior fat pad, fracture of proximal radius and distal humerus (5) Anemia: - Chronic, this is anemia of chronic disease (6) Pleural effusion on right: Patient had thoracocenthesis. (7) BPH (benign prostatic hyperplasia): - Continue flomax patient did require Snowden catheter placement to urinate in the hospital, cultures of his urine now show E. coli which should be treated by the aztreonam (8) Benign essential HTN: - Continue antihypertensives as above. (9) Spinal stenosis: - Chronic, stable. This limits his ability to be mobile he frequently sits in a wheelchair and needs a Michael lift movement and out of bed Spent 25 minutes in management of patient: included patient encounter, discussion with consultants. Subjective 83 yo male is awake, patient has no new complaints. Family had meeting with palliative care team. Family is interested in converting patient into hospice. Will continue high flow oxygen for another day until family arrives tomorrow. Then will remove high flow oxygen Unable to obtain ROS. Physical Exam Vital Signs (Past 24 Hours): Last Vital Signs Temp 36.5 C 01/04/19 10:44 Pulse 97 H 01/04/19 23:02 Resp 20 01/04/19 23:02 BP 141/102 H 01/04/19 10:44 Pulse Ox 94 01/04/19 23:02 Physical Exam: The patient appeared chronically ill, tachypnic. Not is distress Vital signs as documented. On high flow oxygen Head exam is unremarkable. normocephalic, atraumatic Neck is without jugular venous distension, thyromegaly, or lymphademopathy Lungs: tachypnic, \using accesory muslces to breath. rhonchi. Cardiac exam reveals irregularly irregular and tachycardic at times with a sys tolic murmur. First and second heart sounds normal. Abdominal exam reveals normal bowel sounds, no masses, no organomegaly Extremities are moderately edematous bruising to his lower extremities Neurologic exam is AA Ox1, no focal deficits, strength is equal bilateral globally diminished Skin is warm Dry
[2019-01-05] MEDS: MoRPHine SULFATE 5 MG/0.25 ML UDP PO PRN (01:38)
[2019-01-05] MEDS: methylPREDNISolone 40 MG in SYRINGE 0 ML IV SCH (03:16)
[2019-01-05] MEDS: ATROPINE SULFATE 1% OP SOLN 2 ML BTL SL PRN (13:13)
[2019-01-06] MEDS: ATROPINE SULFATE 1% OP SOLN 2 ML BTL SL PRN ×2 (06:08→11:27)
[2019-01-06] MEDS: MoRPHine SULFATE 5 MG/0.25 ML UDP PO PRN ×3 (07:27→12:57)
[2019-01-06] MEDS ORDERED: MoRPHine SULFATE 10 MG/0.5 ML UDP PO PRN (14:00)
[2019-01-06] MEDS: MoRPHine SULFATE 10 MG/0.5 ML UDP PO PRN (22:22)
[2019-01-06] MEDS ORDERED: LORazepam 0.5 MG/1 ML VIAL IV PRN (22:43)
--- NOTE | 2019-01-06 22:55 | Hospitalist Progress Note ---
Date of Service January 05, 2019 Assessment & Plan (1) Acute respiratory failure with hypoxia: Patient during hospital stay has not exhibited improvement as we had hoped despite thoracocenthesis. Family had meeting with palliative care and agreed on transitioning patient to hospice. RemoveD all meds on 01/04 and continue high flow until family arrives. Will not do any blood draws. Once family arrives, will remove high flow oxygen. (2) Atrial fibrillation with RVR: as noted above. will stop medicine (3) Right distal ulnar fracture: Orthopedics has seen the patient has placed a cockup type splint in place (4) Triquetral fracture: - Xray imaging reviewed: Hip tibia/fibula left negative. Ribs bilateral negative for fractures. Demonstates small right pleural effusion as previously. Shoulder, left no acute fractures. Elbow left, negative. Humerus left, negative. Forearm left, negative. Wrist left, negative. Shoulder right: lateral humeral head suspicious for nondisplaced fracture of unknown age. Humerus, right: Lateral head with fracture of unknown age. R. forearm: assumed recent fracture with mild displacement of the distal ulnar shaft. No fx of the radius. Wrist, right, assumed triquetral and navicular fracture. Elbow Right: +anterior fat pad, fracture of proximal radius and distal humerus (5) Anemia: - Chronic, this is anemia of chronic disease (6) Pleural effusion on right: Patient had thoracocenthesis. (7) BPH (benign prostatic hyperplasia): stopped meds (8) Benign essential HTN: stopped meds (9) Spinal stenosis: - Chronic, stable. Spent 25 minutes in management of patient. Included discussion with family and separate discussion with palliative care team Subjective 83 yo male is resting, continues to be on high flow oxygen. is in the room. She is not ready to remove the high flow from the patient. Still awaiting family. Unable to obtain ROS. Physical Exam Vital Signs (Past 24 Hours): Last Vital Signs Temp 37.3 C 01/05/19 23:42 Pulse 94 01/05/19 07:39 Resp 20 01/05/19 07:39 BP 105/65 01/05/19 23:42 Pulse Ox 87 L 01/05/19 07:39 Constitutional: WD/WN, vitals as above well developed Respiratory: no respiratory distress Cardiovascular: Rate/Rhythm: regular rate Gastrointestinal (Abdomen): Inspection/Auscultation: abdomen not distended Skin: no rashes, warm and dry
[2019-01-06] MEDS ORDERED: LORazepam 1 MG/2 ML VIAL IV ONE (23:00)
--- NOTE | 2019-01-06 23:43 | Hospitalist Progress Note ---
Date of Service January 06, 2019 Assessment & Plan (1) Acute respiratory failure with hypoxia: Patient during hospital stay has not exhibited improvement as we had hoped despite thoracocenthesis. Family had meeting with palliative care and agreed on transitioning patient to hospice. RemoveD all meds on 01/04 and continue high flow until family arrives. Will not do any blood draws. Patient off high flow. Patient will continue on morphine and atropine. (2) Atrial fibrillation with RVR: as noted above. will stop medicine (3) Right distal ulnar fracture: Orthopedics has seen the patient has placed a cockup type splint in place (4) Triquetral fracture: - Xray imaging reviewed: Hip tibia/fibula left negative. Ribs bilateral negative for fractures. Demonstates small right pleural effusion as previously. Shoulder, left no acute fractures. Elbow left, negative. Humerus left, negative. Forearm left, negative. Wrist left, negative. Shoulder right: lateral humeral head suspicious for nondisplaced fracture of unknown age. Humerus, right: Lateral head with fracture of unknown age. R. forearm: assumed recent fracture with mild displacement of the distal ulnar shaft. No fx of the radius. Wrist, right, assumed triquetral and navicular fracture. Elbow Right: +anterior fat pad, fracture of proximal radius and distal humerus (5) Anemia: - Chronic, this is anemia of chronic disease (6) Pleural effusion on right: Patient had thoracocenthesis. (7) BPH (benign prostatic hyperplasia): stopped meds (8) Benign essential HTN: stopped meds (9) Spinal stenosis: - Chronic, stable. Subjective 83 yo male is resting, on nasal cannula. Family is not at bedside. Unable to obtain ROS. Physical Exam Vital Signs (Past 24 Hours): Last Vital Signs Temp 37.3 C 01/05/19 23:42 Pulse 91 H 01/06/19 14:59 Resp 20 01/06/19 14:59 BP 105/65 01/05/19 23:42 Pulse Ox 86 L 01/06/19 14:59 Constitutional: WD/WN, vitals as above well developed Respiratory: no respiratory distress Cardiovascular: Rate/Rhythm: regular rate Gastrointestinal (Abdomen): Inspection/Auscultation: abdomen not distended Skin: no rashes, warm and dry
--- NOTE | 2019-01-07 09:14 | Palliative Care Progress Note ---
Date of Service January 07, 2019 Assessment & Plan (1) Palliative care encounter: This is an 83 year old gentleman, resident of [facility], who presented to the [facility] s/p fall on December 26, 2018. Upon evaluation, a R ulnar and humeral fracture was discovered with a triquentral fracture as well. Orthopedics evaluated the patient and a cockup splint was placed with a goal to follow up with the patient as an outpatient. The patient also was noted to have a right pleural effusion for which a thoracentesis was performed on 01/01 with 1500mL clear yellow fluid drained. The patient is known to have chronic aspiration. Additional PMH includes rapid AF (not on anti-coagulants d/t GOB in 2010), ane evaristo, thrombocytopenia, BPH, spinal stenosis, DVT, tubular adenoma s/p resection, homocystinemia. Palliative Care was consulted to discuss GOALS OF CARE. -Met with Patient Hi-flow was taken off yesterday and he was transitioned to 4LNC. -Patient closes his mouth when I put a swab in, and has a furrowed brow. -Patient received one dose of Ativan early this morning for agitation -Patient is now actively dying with hours of life anticipated. -Scheduled Roxanol 10mg/mL Q4 for air hunger/pain - hold for RR < 10. Additionally patient has PRN Roxanol 10mg/mL Q1 hour should the patient require additional doses based on nursing assessment of agitation, moaning, furrowed brow. -I provided mouth care with apple juice and ice cream on a swab and instructed patients family members how to perform this task, which they were grateful. -Additionally, a bereavement tray was requested from dietary. -Discussed anticipated symptoms leading into end of life and provided 'Out of my Sight' book to family. -Patient is not stable for transfer back to [facility] as his risk of demise in transport is high. -Palliative Performance Scale: 10% (2) Acute respiratory failure with hypoxia: -COMFORT MEASURES ONLY -Patient with aspiration PNA and frequent aspiration -Currently receiving steroids and Aztreonam -IV access has been complicated and a PICC line was planned for today; however, the family has decided not to pursue a PICC line. (3) Spinal stenosis: COMFORT MEASURES ONLY -Patient with spinal stenosis which led to the transition of moving to [facility] due to falls r/t the stenosis -Pt did receive Oxycodone for pain; however, this made his more confused. -Patient receiving Roxanol and Atropine and Ativan for comfort (4) Right distal ulnar fracture: COMFORT MEASURES ONLY Managed by Orthopedics -Confirmed R ulnar and humeral fracture and triquentral fracture -Oxycodone was prescribed for pain; however, patient became increasingly confused -Patient has Tylenol 650 mg Q4 PRN for pain and Ofirmev 1G Q 8 PRN for pain, will schedule the oral Tylenol 650 mg po TID -Follow up planned with orthopedics as an OPT upon discharge; however, patient family transitioning to comfort. (5) Atrial fibrillation with RVR: COMFORT MEASURES ONLY Managed by Hospitalists -Patient currently rate controlled with Metoprolol 50mg po BID Subjective Met with patient, son Ayaz, daughter Barb and son in law Ayaz at the bedside. Patient Hi-flow was taken off yesterday and he was transitioned to 4LNC. Patient closes his mouth when I put a swab in, and has a furrowed brow. Patient received one dose of Ativan early this morning for agitation Patient is now actively dying with hours of life anticipated. Please see assessment and plan for further details Physical Exam Vital Signs (Past 24 Hours): Last Vital Signs Temp 37.3 C 01/05/19 23:42 Pulse 91 H 01/06/19 14:59 Resp 20 01/06/19 14:59 BP 105/65 01/05/19 23:42 Pulse Ox 86 L 01/06/19 14:59 Physical Exam: Pt lying in bed with furrowed brow Eyes: PERRL, conjunctivae normal, anicteric sclerae ENMT: external ear and nose normal, oropharynx normal Neck: trachea midline, no thyromegaly Respiratory: Auscultation: + crackles and + rales buccal cyanosis, audible congestion with secretions Cardiovascular: Heart Sounds: normal S1 and normal S2 mottling noted around his knees and toes faint radial pulse Gastrointestinal (Abdomen): normal bowel sounds, soft, nontender, no hepatosplenomegaly Skin: + turgor decreased, + mottling (around knees and toes) and + pallor Genitourinary: martin in place with dark rebecca output (decreased)Met with patient, son Ayaz, daughter Barb and son in law Ayaz at the bedside. Time Spent Midlevel total time spent 45 minutes with > 50% of that time reviewing the chart, assessing the patient, discussing end of life symptoms with family and the IDT
[2019-01-07] MEDS: ATROPINE SULFATE 1% OP SOLN 2 ML BTL SL PRN (09:20)
[2019-01-07] MEDS: MoRPHine SULFATE 10 MG/0.5 ML UDP PO PRN (09:22)
[2019-01-07] MEDS ORDERED: MoRPHine SULFATE 10 MG/0.5 ML UDP PO SCH (12:00)
--- NOTE | 2019-01-07 21:47 | Death Summary ---
Date of Service January 07, 2019 Pronouncement Note Date and Time of Date of : 01/07/19 Time of : 14:40 Contributing Factors (1) Palliative care encounter: (2) Acute respiratory failure with hypoxia: Contributing factors: Aspiration Event/Pneumonia; Suspected Diastolic Congestive Heart Failure (3) Spinal stenosis: (4) Right distal ulnar fracture: (5) Atrial fibrillation with RVR: Summary Additional details: ADMISSION HPI: This is an 83 yo M with PMHx of atrial fibrillation not on anticoagulation due to abdominal bleed in 2010, HTN, HLD, Anemia and mild thrombocytopenia, BPH, polyneuropathy, venous insufficiency, spinal stenosis, hx of DVT, tubular adenoma s/p resection, homocystinemia, hx of alcohol abuse, who presented to the ER after being sent from [facility]. Pt fell on 12/26/18 while being transferred in a Michael lift chair, and subsequently sustained a right ulnar fracture, humeral fracture and a triquetral fracture as per outside imaging records. He was placed on oxycodone yesterday for pain, and per son's report, was slightly confused last night. Pts family reports that orthopedics would not evaluate the patient until he was seen at the hospital for breathing. This morning pts breathing was slightly labored so was transferred to the ER. Pt states has had a cough for over a month with white-yellow sputum production, which was treated with antibiotics about 1 month ago. Pt denies acute shortness of breath, although has been placed on bipap. Family does not know if he aspirates. Pt denies fever, chills or sweats. No pain with deep inspiration or cough. No recent weight gain, no swelling in lower legs. SUMMARY: Acute Respiratory Failure with Hypoxia: - This is likely related to an aspiration event/pneumonia with suspected diastolic CHF exacerbation and some contribution from A Fib RVR - Pt underwent thoracentesis for approx. 2 L however clinically with minimal improvement - Continued to require high flow O2 despite diuretic treatment/thoracentesis/antibiotics - It was ultimately decided to remove medications and convert to hospice/comfort measures; upon arrival of family the high flow O2 was removed and supplemental O2 was utilized - Roxanol and other comfort measures were implemented - With supplemental O2, oxygen saturations continued to decline and ultimately passed on 01/07 and ceased to breath at 1440. Atrial Fibrillation with RVR: - Treatment was stopped upon decision for I[employer] PRO[employer]GER Right Distal Ulnar Fracture/Triquetral Fx: - Was conservatively managed due to decompensation from a respiratory standpoint limiting invasive intervention; pain control provided - Shoulder right: lateral humeral head suspicious for nondisplaced fracture of unknown age. - Humerus, right: Lateral head with fracture of unknown age. - R. forearm: assumed recent fracture with mild displacement of the distal ulnar shaft. No fx of the radius. - Wrist, right, assumed triquetral and navicular fracture. - Elbow Right: +anterior fat pad, fracture of proximal radius and distal humerus Additional Data Confirmation of : no pulse, no respirations, no heart sounds and pupils fixed and dilated Family: at bedside Attending/PCP notified?: Yes Attending physician: Neftali Cisneros, DO Was code activated?: No Autopsy requested?: No
--- NOTE | 2019-01-11 13:26 | Coding Query ---
CONGESTIVE HEART FAILURE To Promote full compliance with coding requirements relating to patient care, physician participation is requested in all cases of desktop support consultant uncertainty. Please assist us with the following questions. A diagnosis of Congestive Heart Failure is documented in the patient's medical record. To accurately code this diagnosis and to compare patient severity, we ask that you specify the type of heart failure by placing an X within the parenthesis (x). SYSTOLIC HEART FAILURE ( ) Acute ( ) Chronic ( ) Acute on Chronic ( ) Rheumatic ( ) Unknown DIASTOLIC HEART FAILURE ( ) Acute (x ) Chronic ( ) Acute on Chronic ( ) Rheumatic ( ) Unknown COMBINED SYSTOLIC AND DIASTOLIC HEART FAILURE ( ) Acute ( ) Chronic ( ) Acute on Chronic ( ) Rheumatic ( ) Unknown Was the CHF Present On Admission? Please check the appropriate box: ( x) Present on Admission ( ) Not Present On Admission ( ) Clinically undetermined Thank you Piero GORDILLO
== END 2019-01-07 18:00 | disposition expired | DRG 189 ==
LOC: ED 10:58 → 2E 15:15 → SUATTDRO 15:15 → 2E 15:45 → 4W 01-04 13:59